=== PATIENT | female | born 1950 | race Caucasian/White ===

== ENCOUNTER 2017-04-08 17:16 | Inpatient (IN) ==
[2017-04-08] MEDS ORDERED: SODIUM CHLORIDE 0.9% 500 ML IV STA (18:15)
[2017-04-08] MEDS ORDERED: LEVOFLOXACIN INJ 750 MG in PREMIX 1 EACH IV STA ×2 (18:15→20:25)
[2017-04-08] MEDS ORDERED: ALBUTEROL 2.5 MG/3 ML NEB RESP TX STA (18:15)
[2017-04-08 18:33] LABS: Basophils % 0.2 % (0.0-0.8); Hematocrit 31.1 VOL% (35.7-47.0); Hemoglobin 10.5 GM/DL (12.0-16.0); Immature Granulocytes % 0.6 %; Immature Granulocytes Absolute 0.11 #; Lymphocytes # 0.5 10*3/uL (1.4-4.0); Mean Corpuscular HGB Conc 33.8 GM/DL (32-36); Mean Corpuscular Hemoglobin 30 PG (27-34); Mean Corpuscular Volume 89.9 FL (87-102); Mean Platelet Volume 11.2 FL (9.6-12.0); Monocytes # 0.8 10*3/uL (0.11-0.8); Monocytes % 4.5 % (1.7-12.7); Neutrophils # 16.2 10*3/uL (1.4-7.4); Neutrophils % 91.7 % (38.7-73.9); Platelet Count 208 T/CUMM (130-400); Red Blood Count 3.46 MC/CUMM (3.8-5.5); Red Cell Distribution Width 14.6 % (9.3-17.3); White Blood Count 17.7 T/CUMM (4-12)
--- NOTE | 2017-04-08 18:34 | XRay Report ---
Portable chest. Indication: Shortness of breath. Cough, fever. The heart is normal in size. Post median sternotomy. Calcific plaque is present within the aortic knob. The pulmonary vasculature is normal. There are bilateral alveolar infiltrates involving the mid and lower lung dhillon. No pneumothorax or pleural effusion. Degenerative changes of the spinal column and shoulders. Impression: Development of bilateral infiltrates suggesting pulmonary edema versus pneumonia. PROCEDURE INTERPRETED AT [facility] DEPARTMENT OF RADIOLOGY Final Report Signed by: Dr. Ana Hickey
[2017-04-08] MEDS ORDERED: LEVOFLOXACIN INJ 150 ML IV ONE (18:51)
[2017-04-08 18:57] LABS: Calcium 8.9 MG/DL (8.5-10.1); Osmolality,Calculated 279.4 MOS/KG (273-304); Potassium 4.2 MMOL/L (3.5-5.1)
--- NOTE | 2017-04-08 19:03 | Emergency Department Note ---
Naresh Silverio Hilary, am scribing for, and in the presence of, Dylan Merino MD 18:22. Wilber Silverio Robert M, MD, personally performed the services described in this documentation, ascribed by Maricruz Infante in my presence, and it is both accurate and complete [id number] . Arrival - Arrival Chief Complaint: Upper Respiratory Stated Complaint: CHEST PAINS/SOB/BACK PAIN/COUGHING ED Nursing Triage Note: Pt c/o lower back/chest pain, cough, fever, chills, and SOB x 2 days. Mode of Arrival: Wheelchair Limitations: No Limitations Source: Patient, RN Notes Reviewed Time Seen by Provider: 04/08/17 18:15 - History of Present Illness HPI Narrative: Pt is a 67 y/o female presenting to the ED with c/o SOB which onset 2 days ago. Pt confirms SOB, coughing and chronic back pain. Pt states that she goes to the pain clinic for her back but she hasn't been able to get over there. She states that she feels like she is being smothered. No other complaints or problems stated in the ED. Onset (ago): day(s) Consistency: constant Severity: mild Severity scale (1-10): 2 Allergies/Adverse Reactions: Allergies Allergy/AdvReac Type Severity Reaction Status Date / Time clarithromycin [From Biaxin] Allergy Severe THROAT Verified 12/08/16 06:28 SWELLING/DIFFICULTY BREATHING Penicillins Allergy Severe THROAT Verified 12/08/16 06:28 SWELLING/DIFFICULTY BREATHING pentazocine [From Talwin] Allergy Severe THROAT Verified 12/08/16 06:28 SWELLING/DIFFICULTY BREATHING Home Medications: Home Medications Medication Instructions Recorded Confirmed Type Pantoprazole Tab [Protonix Tab] 40 mg PO DAILY tablet 03/02/16 04/08/17 Rx Potassium Chloride Cap/Tab [K Dur] 20 meq PO DAILY tablet 03/02/16 04/08/17 Rx Pravastatin [Pravachol] 40 mg PO BEDTIME tablet 03/02/16 04/08/17 Rx cloNIDine TAB [Catapres Tab] 0.1 mg PO BID tablet 03/02/16 04/08/17 Rx OXcarbazepine [Trileptal] 300 mg PO BID #60 tablet 03/25/16 04/08/17 Rx Aspirin [Ecotrin] 325 mg PO DAILY 05/13/16 04/08/17 History Gabapentin 300 mg PO BID 05/13/16 04/08/17 History Colchicine [Colcrys] 0.6 mg PO BID #60 tablet 06/02/16 04/08/17 Rx Fluoxetine HCl [Prozac] 80 mg PO DAILY 12/07/16 04/08/17 History Furosemide Tab [Lasix Tab] 40 mg PO DAILY 12/07/16 04/08/17 History Levothyroxine Tab [Synthroid Tab] 125 mcg PO DAILY 12/07/16 04/08/17 History Promethazine HCl 25 mg PO DAILY PRN 12/07/16 04/08/17 History amLODIPine [Norvasc] 2.5 mg PO DAILY 12/07/16 04/08/17 History Insulin NPH/Regular 70/30 [HumuLIN 12 unit SUBCUT BID 04/08/17 04/08/17 History 70/30] hydrALAZINE TAB [Apresoline Tab] 50 mg PO TID 04/08/17 04/08/17 History Review of System - Review of System 12 point system: reviewed and no additional remarkable complaints except as stated - Review of System Constitutional: Absent: fever Respiratory: Present: cough, respiratory distress (SOB) Gastrointestinal: Absent: abdominal pain Musculoskeletal: Present: back pain (chronic) Medical,Surgical,& Family Hx - Medical History Cardio: History of: CAD, Hypertension, MA, Cardiovascular Problems (cabg; 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) Psychological: History of: Anxiety Disorders, Bipolar Disorder, Depression, Psychiatric Problems No history of: Behavior Problems, Violent Behavior Neurology: History of: Cerebrovascular Accident (SEVERAL STROKES), Dementia, Migraine Endocrine: History of: Diabetes Mellitus (IDDM), Dyslipidemia, Thyroid Disorder Rheumatology: History of;: Gout, Rheumatoid Arthritis Respiratory: History of: Asthma, Bronchitis, COPD, Intubation, Pneumonia (2015 most recent.; Hx Pneum Vac) Renal: History of: Renal Failure (NO DIALYSIS) Genitourinary: History of: Bladder Problem Gastrointestinal: History of: GERD Musculoskeletal: History of: Degenerative Disk Disease, Herniated Disk, Musculoskeletal Problems Hematology: History of: Anemia No history of: Blood Transfusion Reaction, Blood Disorders - Surgical History Cardiac Surgeries: Sugical HX of: Cardiac Catheterization (CABGx1-years ago), Cardiac Surgery (mitral valve replacement) Thoracic Surgeries: Patient denies;: Organ Transplant Reproductive Surgeries: Surgical HX of;: Gynecologic Surgery, Hysterectomy ( complete) Orthopedic Surgeries: Surgical HX of;: Orthopedic Surgery (RKS) Patient denies;: Spinal Surgery - Family History Family History: Reports;: Family Diabetes, Family Heart Disease (Father- MA, mother- MA), Family Hypertension (FATHER), Family Psychiatric Problems ( BROTHERS X2 NERVOUS BREAKDOWN) Denies;: Family Anesthesia Reaction, Family Stroke - Social History Smoking Status: Current every day smoker Exam Vital Signs: Vital Signs Temperature 101.3 F H 04/08/17 17:59 Pulse Rate 84 04/08/17 17:59 Respiratory Rate 16 04/08/17 18:30 Blood Pressure 126/73 04/08/17 17:59 O2 Sat by Pulse Oximetry 96 04/08/17 17:55 - General General appearance: alert, in no apparent distress, obese - Head Head exam: Present: atraumatic, normocephalic - Eye Eye exam: Present: normal appearance, PERRL, EOMI - ENT ENT exam: Present: mucous membranes moist, TM's normal bilaterally. Absent: mucous membranes dry - Neck Neck exam: Present: full ROM, trachea midline. Absent: tenderness - Chest Chest inspection: Present: symmetric chest wall rise. Absent: tenderness - Respiratory Respiratory exam: Present: wheezes (faint, more in the lower right) - Cardiovascular Cardiovascular exam: Present: regular rate, normal rhythm, normal heart sounds. Absent: murmur, rubs, gallop - Abdominal Exam Abdominal exam: Present: soft, normal bowel sounds. Absent: distention, tenderness - Extremities Exam Extremities exam: Present: full ROM. Absent: tenderness - Back Exam Back exam: Present: full ROM. Absent: tenderness - Neurological Exam Neurological exam: Present: alert, oriented X3, CN II-XII intact. Absent: motor sensory deficit - Psychiatric Psychiatric exam: Present: normal affect, normal mood - Skin Skin exam: Present: warm, dry, intact, normal color. Absent: rash Course - Consultations Consultation #1: Dr. Fred Benítez will admit to Dr. Faust. Time: 20:12 Results - Labs CBC & BMP: 04/08/17 18:27 04/08/17 18:27 Lab Results: I have reviewed the patients labs Labs: Lab Results WBC 17.7 T/CUMM (4-12) H 04/08/17 18: RBC 3.46 MC/CUMM (3.8-5.5) L 04/08/17 18: Hgb 10.5 GM/DL (12.0-16.0) L 04/08/17 18: Hct 31.1 VOL% (35.7-47.0) L 04/08/17 18: MCV 89.9 FL (87-102) 04/08/17 18: MCH 30 PG (27-34) 04/08/17 18: MCHC 33.8 GM/DL (32-36) 04/08/17 18: RDW 14.6 % (9.3-17.3) 04/08/17 18: Plt Count 208 T/CUMM (130-400) 04/08/17 18: MPV 11.2 FL (9.6-12.0) 04/08/17 18: Neut % (Auto) 91.7 % (38.7-73.9) H 04/08/17 18: Lymph % (Auto) 3.0 % (21.3-54.2) L 04/08/17 18: [place]ferro % (Auto) 4.5 % (1.7-12.7) 04/08/17 18: Eos % (Auto) 0.0 % (0.00-10.9) 04/08/17 18: Baso % (Auto) 0.2 % (0.0-0.8) 04/08/17 18: Neut # (Auto) 16.2 10*3/uL (1.4-7.4) H 04/08/17 18: Lymph # (Auto) 0.5 10*3/uL (1.4-4.0) L 04/08/17 18: [place]ferro # (Auto) 0.8 10*3/uL (0.11-0.8) 04/08/17 18: Eos # (Auto) 0.0 10*3/uL (0.0-0.87) 04/08/17 18: Baso # (Auto) 0.0 10*3/uL (0.0-0.2) 04/08/17 18: Immature Gran % 0.6 % 04/08/17 18:27 Nucleated RBC % 0.0 /100WBC 04/08/17 18:27 Immature Gran # 0.11 # 04/08/17 18:27 Nucleated RBCs # 0.00 10*3/uL 04/08/17 18:27 Sodium 133 MMOL/L (136-145) L 04/08/17 18:27 Potassium 4.2 MMOL/L (3.5-5.1) 04/08/17 18:27 Chloride 103 MMOL/L (98-107) 04/08/17 18:27 Carbon Dioxide 17 MMOL/L (21-32) L 04/08/17 18:27 Anion Gap 17.2 MMOL/L (5.0-15.0) H 04/08/17 18:27 BUN 50 MG/DL (7-18) H 04/08/17 18:27 Creatinine 2.80 MG/DL (0.55-1.02) H 04/08/17 18:27 GFR Calculation 18 ML/MIN 04/08/17 18:27 BUN/Creatinine Ratio 17.00 RATIO (6.00-20.00) 04/08/17 18:27 Glucose 114 MG/DL (74-106) H 04/08/17 18:27 Calculated Osmolality 279.4 MOS/KG (273-304) 04/08/17 18:27 Calcium 8.9 MG/DL (8.5-10.1) 04/08/17 18:27 - Diagnostic Findings Procedure: Chest x-ray: report reviewed by me (Bibasilar pneumonia) Disposition Clinical Impression: Bibasilar pneumonia, Hypertension, Type 2 diabetes mellitus, Chronic kidney disease, stage III (moderate) Case discussed with: patient, patient's family Disposition: Still a Patient Condition: Stable Time of Disposition: 20:12
[2017-04-08] MEDS ORDERED: KETOROLAC 30 MG/1 ML VIAL IV STA (20:15)
[2017-04-08 20:17] LABS: Band Neutrophils 1 % (0-10); Lymphocytes 3 % (20-55); Platelet Estimate Normal; Segmented Neutrophils 93 % (50-85); Total Cells Counted 100
[2017-04-08] MEDS ORDERED: KETOROLAC 30 MG/1 ML VIAL ONE (20:18)
[2017-04-08] MEDS ORDERED: GLUCAGON 1 MG VIAL IM PRN (20:19)
[2017-04-08] MEDS ORDERED: DEXTROSE 50% 25 GM/50 ML VIAL IV PRN (20:19)
[2017-04-08] MEDS ORDERED: traMADol 50 MG TABLET PO PRN (20:19)
[2017-04-08] MEDS: DOCUSATE SODIUM 100 MG CAPSULE PO SCH (21:08)
[2017-04-08] MEDS: oxyCODONE/ACETAMINOPHEN 5-325 MG TABLET PO PRN (22:30)
[2017-04-08] MEDS: INSULIN REGULAR 100 UNIT/ML SUBCUT SCH (22:36)
[2017-04-09] MEDS: oxyCODONE/ACETAMINOPHEN 5-325 MG TABLET PO PRN (04:41)
[2017-04-09] MEDS ORDERED: MORPHINE 2 MG/1 ML SYRINGE ONE (07:02)
[2017-04-09] MEDS: MORPHINE 2 MG/1 ML SYRINGE IV PRN ×3 (07:07→11:31)
[2017-04-09] MEDS ORDERED: NITROGLYCERIN SL 0.4 MG TABLET SL ONE (07:09)
[2017-04-09] MEDS ORDERED: ASPIRIN 325 MG TABLET ONE (07:09)
--- NOTE | 2017-04-09 07:17 | EKG Report ---
Stationary ECG Study 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
[2017-04-09] MEDS ORDERED: methylPREDNISolone SOD SUC 125 MG/2 ML VIAL IV ONE (07:26)
[2017-04-09] MEDS ORDERED: ALBUTEROL/IPRATROPIUM 3 ML NEB RESP TX ONE (07:27)
[2017-04-09] MEDS ORDERED: FUROSEMIDE 40 MG/4 ML VIAL ONE (07:28)
[2017-04-09] MEDS ORDERED: FUROSEMIDE 40 MG/4 ML VIAL IM ONE (07:30)
[2017-04-09 07:50] LABS: ABG Base Excess -9.5 MMOL/L (-2.5-2.5); ABG HCO3 16.8 MMOL/L (20-26); ABG Oxygen Saturation 97.9 % (95-100); ABG PCO2 29.7 MM HG (35-48); ABG PH 7.325 (7.35-7.45); ABG TCO2 14.3 MMOL/L (23-27); Allen Test Positive
--- NOTE | 2017-04-09 07:51 | XRay Report ---
XR chest 1V portable Indication: SOB Comparison: Chest x-ray dated April 08, 2017 Technique: Single frontal view of the chest. Findings: Continued cardiomegaly status post sternotomy. Progression of consolidation within the bilateral upper lungs, left greater than right. Minimally improved consolidation within the bilateral mid and lower lungs with a moderate amount remaining. Visualized osseous and surrounding soft tissue structures appear grossly unchanged. IMPRESSION: As above. PROCEDURE INTERPRETED AT [facility] DEPARTMENT OF RADIOLOGY Final Report Signed by: Dr Jarod Trujillo
[2017-04-09 08:08] LABS: Troponin I Only 0.049 NG/ML (0.00-0.045)
--- NOTE | 2017-04-09 08:12 | Internal Med History&Physical ---
Assessment and Plan (1) Shortness of breath Status: Acute Assessment and plan: 67-year-old female admitted to acute care * Acute shortness of breath. It is multifactorial possibly related to pneumonia and congestive heart failure. Patient developed oxygen desaturation while on floor. She was moved to ICU. She has been started on 100% nonrebreather. Patient was given IV Lasix. She has been started on nebulizer treatment along with antibiotics and steroids. Will consult pulmonary medicine. She continues to smoke as mentioned above * Coronary artery disease. She had chest pain. Her initial enzymes are mildly elevated. It could be secondary to renal insufficiency. Will do serial enzymes and consult cardiology. Will get an echocardiogram * Chronic renal failure. It is partly secondary to noncompliance with and out catheterization. Patient has neurogenic bladder and has been recommended to do in and out catheterization at least 4 times a day. A Johnson catheter has been placed. * Hypothyroidism. Will check TSH on the patient. We will continue her medication * Bipolar disorder. Continue current medicines * Chronic pain syndrome. She is followed by Dr. Abbasi. * Diabetic neuropathy. Will continue current medications. * Patient's condition is guarded. No family is present Current Visit: Yes (2) Chest pain Status: Acute Current Visit: Yes (3) Chronic kidney disease, stage III (moderate) Status: Acute Current Visit: Yes (4) Hypertension Status: Acute Current Visit: Yes (5) Type 2 diabetes mellitus Status: Acute Current Visit: Yes (6) Acute respiratory failure with hypoxemia Status: Acute Current Visit: No (7) Bilateral pneumonia Status: Acute Current Visit: No (8) Bipolar 1 disorder, depressed Status: Acute Current Visit: No (9) Bipolar 1 disorder, depressed Status: Acute Current Visit: No (10) Bipolar disorder Status: Acute Current Visit: No (11) Bronchospasm Status: Acute Current Visit: No (12) COPD (chronic obstructive pulmonary disease) Status: Acute Current Visit: No (13) Chest pain Status: Acute Current Visit: No (14) Chronic back pain Status: Acute Current Visit: No (15) Chronic renal failure Status: Acute Current Visit: No (16) Chronically on opiate therapy Status: Acute Current Visit: No (17) Cognitive decline Status: Acute Current Visit: No (18) Congestive heart failure Status: Acute Current Visit: No (19) Constipation Status: Acute Current Visit: No (20) Coronary artery disease Status: Acute Current Visit: No (21) Debility Status: Acute Current Visit: No (22) Depression Status: Acute Current Visit: No (23) Depression Status: Acute Current Visit: No (24) Diabetes mellitus Status: Acute Current Visit: No (25) Drug overdose Problem details: I agree with the current plan of care. I will stop giving her oral narcotics at home I agree with the psychiatric consult Status: Acute Current Visit: No (26) Headache Status: Acute Current Visit: No (27) Hyperlipidemia Status: Acute Current Visit: No (28) Hyponatremia Status: Acute Current Visit: No (29) Hypothyroidism Status: Acute Current Visit: No (30) Hypothyroidism Status: Acute Current Visit: No (31) Laceration of scalp Status: Acute Current Visit: No (32) Left upper lobe pneumonia Status: Acute Current Visit: No (33) Mood disorder Status: Acute Current Visit: No (34) Neurogenic bladder Status: Acute Current Visit: No (35) Neurogenic bladder Status: Acute Current Visit: No (36) Noncompliance with medications Status: Acute Current Visit: No (37) Oral candidiasis Status: Acute Current Visit: No (38) Pneumonia Status: Acute Current Visit: No (39) Pneumonia involving left lung Status: Acute Current Visit: No (40) Renal insufficiency Status: Acute Current Visit: No (41) Severe anemia Status: Acute Current Visit: No (42) Sinus bradycardia Status: Acute Current Visit: No (43) Symptomatic anemia Status: Acute Current Visit: No (44) Type 2 diabetes mellitus Status: Acute Current Visit: No (45) UTI (urinary tract infection) Status: Acute Current Visit: No (46) Urinary tract infection Status: Acute Current Visit: No (47) dangerousness Status: Acute Current Visit: No (48) poor coping skills Status: Acute Current Visit: No (49) Abnormal ECG Status: Chronic Current Visit: No (50) Coronary artery disease Status: Chronic Current Visit: No (51) Renal insufficiency Status: Chronic Current Visit: No (52) Edema Status: Resolved Current Visit: No History of Present Illness Chief complaint: Shortness of breath and chest pain History of present illness: Ms. Cardenas is a 67 year old female with history of multiple medical problems including coronary artery disease, status post CABG, hypertension, diabetes, hyperlipidemia, bipolar disorder, hypothyroidism, chronic renal insufficiency, chronic pain syndrome. She was brought to the emergency room with chest pain associated with shortness of breath, back and chest pain. She has had cough with fever and chills along with shortness of breath for 2 days. She was feeling like she was being smothered. She denied any nausea or vomiting. Patient has been a chronic smoker all her life. She lives at home with her . She has been noncompliant with her medications in the past. Home Medications Medication Instructions Recorded Confirmed Type Pantoprazole Tab [Protonix Tab] 40 mg PO DAILY tablet 03/02/16 04/08/17 Rx Potassium Chloride Cap/Tab [K Dur] 20 meq PO DAILY tablet 03/02/16 04/08/17 Rx Pravastatin [Pravachol] 40 mg PO BEDTIME tablet 03/02/16 04/08/17 Rx cloNIDine TAB [Catapres Tab] 0.1 mg PO BID tablet 03/02/16 04/08/17 Rx OXcarbazepine [Trileptal] 300 mg PO BID #60 tablet 03/25/16 04/08/17 Rx Aspirin [Ecotrin] 325 mg PO DAILY 05/13/16 04/08/17 History Gabapentin 300 mg PO BID 05/13/16 04/08/17 History Colchicine [Colcrys] 0.6 mg PO BID #60 tablet 06/02/16 04/08/17 Rx Fluoxetine HCl [Prozac] 80 mg PO DAILY 12/07/16 04/08/17 History Furosemide Tab [Lasix Tab] 40 mg PO DAILY 12/07/16 04/08/17 History Levothyroxine Tab [Synthroid Tab] 125 mcg PO DAILY 12/07/16 04/08/17 History Promethazine HCl 25 mg PO DAILY PRN 12/07/16 04/08/17 History amLODIPine [Norvasc] 2.5 mg PO DAILY 12/07/16 04/08/17 History Insulin NPH/Regular 70/30 [HumuLIN 12 unit SUBCUT BID 04/08/17 04/08/17 History 70/30] hydrALAZINE TAB [Apresoline Tab] 50 mg PO TID 04/08/17 04/08/17 History Allergies Allergy/AdvReac Type Severity Reaction Status Date / Time clarithromycin [From Biaxin] Allergy Severe THROAT Verified 12/08/16 06:28 SWELLING/DIFFICULTY BREATHING Penicillins Allergy Severe THROAT Verified 12/08/16 06:28 SWELLING/DIFFICULTY BREATHING pentazocine [From Talwin] Allergy Severe THROAT Verified 12/08/16 06:28 SWELLING/DIFFICULTY BREATHING Medical,Surgical,& Family Hx - Medical History Cardio: History of: CAD, Hypertension, MA, Cardiovascular Problems (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; 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) Psychological: History of: Anxiety Disorders, Bipolar Disorder, Depression, Psychiatric Problems No history of: Behavior Problems, Violent Behavior Neurology: History of: Cerebrovascular Accident (SEVERAL STROKES), Dementia, Migraine Endocrine: History of: Diabetes Mellitus (IDDM), Dyslipidemia, Thyroid Disorder Rheumatology: History of;: Gout, Rheumatoid Arthritis Respiratory: History of: Asthma, Bronchitis, COPD, Intubation, Pneumonia (2015 most recent.; Hx Pneum Vac) Renal: History of: Renal Failure (NO DIALYSIS) Genitourinary: History of: Bladder Problem Gastrointestinal: History of: GERD Musculoskeletal: History of: Degenerative Disk Disease, Herniated Disk, Musculoskeletal Problems Hematology: History of: Anemia No history of: Blood Transfusion Reaction, Blood Disorders - Surgical History Cardiac Surgeries: Sugical HX of: Cardiac Catheterization (CABGx1-years ago), Cardiac Surgery (mitral valve replacement) Thoracic Surgeries: Patient denies;: Organ Transplant Reproductive Surgeries: Surgical HX of;: Gynecologic Surgery, Hysterectomy ( complete) Orthopedic Surgeries: Surgical HX of;: Orthopedic Surgery (RKS) Patient denies;: Spinal Surgery - Family History Family History: Reports;: Family Diabetes, Family Heart Disease (Father- MA, mother- MA), Family Hypertension (FATHER), Family Psychiatric Problems ( BROTHERS X2 NERVOUS BREAKDOWN) Denies;: Family Anesthesia Reaction, Family Stroke - Social History Smoking Status: Current every day smoker Frequency of Alcohol Use: None Type of Drug Use: None Marital Status: Lives With:: Spouse Functional capacity: uses cane/walker 12 point system: reviewed and no additional remarkable complaints except as stated (As mentioned in HPI) - Constitutional Constitutional: Present: fatigue, fever(s), other (Not feeling well) Exam - Constitutional Vitals: Period Temp Pulse Resp BP Sys/Meek Pulse Ox Last 24 Hr 98.3 F-101.3 F 72-85 16-24 126-205/49-77 89-100 Results - Labs CBC & BMP: 04/08/17 18:27 04/08/17 18:27 Lab Results: I have reviewed the past 24 hour labs
[2017-04-09] MEDS: methylPREDNISolone SOD SUC 125 MG/2 ML VIAL IV SCH ×3 (08:26→20:52)
[2017-04-09] MEDS: INSULIN REGULAR 100 UNIT/ML SUBCUT SCH ×4 (08:31→20:52)
[2017-04-09] MEDS ORDERED: PANTOPRAZOLE 40 MG TABLET PO SCH (09:00)
[2017-04-09] MEDS: FLUoxetine 20 MG CAPSULE PO SCH (09:07)
[2017-04-09] MEDS: DOCUSATE SODIUM 100 MG CAPSULE PO SCH ×2 (09:09→20:52)
[2017-04-09] MEDS: ASPIRIN EC 325 MG TABLET PO SCH (09:09)
[2017-04-09] MEDS: PANTOPRAZOLE 40 MG TABLET PO SCH (09:10)
[2017-04-09] MEDS: LEVOTHYROXINE 125 MCG TABLET PO SCH (09:10)
[2017-04-09] MEDS: POTASSIUM CHLORIDE 20 MEQ TABLET PO SCH (09:11)
[2017-04-09] MEDS: ALPRAZolam 0.25 MG TABLET PO PRN ×2 (09:14→14:25)
[2017-04-09] MEDS: OXcarbazepine 300 MG TABLET PO SCH ×2 (09:14→20:52)
[2017-04-09] MEDS: ENOXAPARIN 30 MG/0.3 ML SYRINGE SUBCUT SCH (09:15)
[2017-04-09 09:16] LABS: Basophils % 0.3 % (0.0-0.8); Eosinophils # 0.1 10*3/uL (0.0-0.87); Eosinophils % 0.9 % (0.00-10.9); Hematocrit 30.2 VOL% (35.7-47.0); Immature Granulocytes % 1.1 %; Immature Granulocytes Absolute 0.13 #; Lymphocytes # 0.7 10*3/uL (1.4-4.0); Lymphocytes % 5.9 % (21.3-54.2); Mean Corpuscular HGB Conc 33.1 GM/DL (32-36); Mean Corpuscular Hemoglobin 30 PG (27-34); Mean Corpuscular Volume 90.7 FL (87-102); Mean Platelet Volume 10.8 FL (9.6-12.0); Monocytes # 0.5 10*3/uL (0.11-0.8); Monocytes % 4.1 % (1.7-12.7); Neutrophils # 10.4 10*3/uL (1.4-7.4); Neutrophils % 87.7 % (38.7-73.9); Platelet Count 152 T/CUMM (130-400); Red Blood Count 3.33 MC/CUMM (3.8-5.5); Red Cell Distribution Width 14.2 % (9.3-17.3); White Blood Count 11.8 T/CUMM (4-12)
[2017-04-09 09:37] LABS: Band Neutrophils 7 % (0-10); Lymphocytes 6 % (20-55); Segmented Neutrophils 86 % (50-85); Total Cells Counted 100
[2017-04-09 09:38] LABS: Hypochromasia Slight; Platelet Estimate Adequate
[2017-04-09 10:05] LABS: Blood Urea Nitrogen 55 MG/DL (7-18); Calcium 8.6 MG/DL (8.5-10.1); Glucose 106 MG/DL (74-106); Osmolality,Calculated 278.5 MOS/KG (273-304); Potassium 3.9 MMOL/L (3.5-5.1); Sodium 132 MMOL/L (136-145)
--- NOTE | 2017-04-09 10:05 | Pulmonology Consult Note ---
Assessment and Plan (1) Bilateral pneumonia Status: Acute Assessment and plan: Patient does have acute shortness of breath and bilateral infiltrates. Certainly some of this may be pneumonia. She will be covered with antibiotics. Current Visit: No (2) Congestive heart failure Status: Acute Assessment and plan: Some of this is probably heart failure and she seems to be diuresing well. Current Visit: No (3) COPD (chronic obstructive pulmonary disease) Status: Chronic Assessment and plan: The patient is a smoker and has a component of COPD. She will continue with respiratory therapy. Current Visit: No (4) Acute respiratory failure with hypoxemia Status: Acute Assessment and plan: The patient has respiratory distress but is doing better with treatment. She is comfortable with increased FiO2. Current Visit: No (5) History of coronary artery bypass graft x 1 Status: Chronic Assessment and plan: The patient has known coronary artery disease. Current Visit: Yes (6) Hypertension Status: Chronic Assessment and plan: She will continue treatment of her high blood pressure. Current Visit: Yes (7) Renal insufficiency Status: Chronic Assessment and plan: Her creatinine is 2.9. Current Visit: No History of Present Illness Chief complaint: Shortness of breath History of present illness: Ms. Cardenas is a 67 year old white female that apparently has a long history of coronary artery disease and has had previous bypass surgery. She has a history of diabetes, hypertension, hyperlipidemia, hypothyroidism and a bipolar disorder with pain problems. She comes in with increasing shortness of breath for the last few days. She has had a cough but not much sputum production. She has some vague chest pain and she does think she has a little bit of fever and chills. She is mainly been short of breath. She was admitted last night but moved to the ICU today. She was having more respiratory distress but her O2 saturations have been adequate. She has developed bilateral infiltrates. She may have some mild heart failure. She seems to be diuresing well now and her oxygenation is better. Home Medications Medication Instructions Recorded Confirmed Type Pantoprazole Tab [Protonix Tab] 40 mg PO DAILY tablet 03/02/16 04/08/17 Rx Potassium Chloride Cap/Tab [K Dur] 20 meq PO DAILY tablet 03/02/16 04/08/17 Rx Pravastatin [Pravachol] 40 mg PO BEDTIME tablet 03/02/16 04/08/17 Rx cloNIDine TAB [Catapres Tab] 0.1 mg PO BID tablet 03/02/16 04/08/17 Rx OXcarbazepine [Trileptal] 300 mg PO BID #60 tablet 03/25/16 04/08/17 Rx Aspirin [Ecotrin] 325 mg PO DAILY 05/13/16 04/08/17 History Gabapentin 300 mg PO BID 05/13/16 04/08/17 History Colchicine [Colcrys] 0.6 mg PO BID #60 tablet 06/02/16 04/08/17 Rx Fluoxetine HCl [Prozac] 80 mg PO DAILY 12/07/16 04/08/17 History Furosemide Tab [Lasix Tab] 40 mg PO DAILY 12/07/16 04/08/17 History Levothyroxine Tab [Synthroid Tab] 125 mcg PO DAILY 12/07/16 04/08/17 History Promethazine HCl 25 mg PO DAILY PRN 12/07/16 04/08/17 History amLODIPine [Norvasc] 2.5 mg PO DAILY 12/07/16 04/08/17 History Insulin NPH/Regular 70/30 [HumuLIN 12 unit SUBCUT BID 04/08/17 04/08/17 History 70/30] hydrALAZINE TAB [Apresoline Tab] 50 mg PO TID 04/08/17 04/08/17 History Allergies Allergy/AdvReac Type Severity Reaction Status Date / Time clarithromycin [From Biaxin] Allergy Severe THROAT Verified 12/08/16 06:28 SWELLING/DIFFICULTY BREATHING Penicillins Allergy Severe THROAT Verified 12/08/16 06:28 SWELLING/DIFFICULTY BREATHING pentazocine [From Talwin] Allergy Severe THROAT Verified 12/08/16 06:28 SWELLING/DIFFICULTY BREATHING - Constitutional Constitutional: Present: chills, fatigue, fever(s), weakness. Absent: weight loss - EENT Eyes: Absent: loss of vision Ears: Absent: decreased hearing Nose, mouth and throat: Absent: dysphagia, headache(s), sinus pressure - Cardiovascular Cardiovascular: Present: chest pain at rest, dyspnea, orthopnea. Absent: edema - Respiratory Respiratory: Present: cough, dyspnea, change in phlegm color. Absent: hemoptysis - Gastrointestinal Gastrointestinal: Absent: abdominal pain, change in bowel habits, dysphagia, nausea, vomiting - Genitourinary Genitourinary: Present: difficulty urinating. Absent: dysuria, hematuria - Musculoskeletal Musculoskeletal: Present: arthralgias, back pain. Absent: muscle weakness - Neurological Neurological: Absent: abnormal speech, focal weakness, paresthesias - Psychiatric Psychiatric: Present: anxiety Exam (Pulmonay) H&P - Constitutional Vitals: Period Temp Pulse Resp BP Sys/Meek Pulse Ox Last 24 Hr 98.3 F-101.3 F 72-95 16-28 107-205/49-89 89-100 General appearance: normal weight, mild distress, other (She is not short of breath but looks comfortable on oxygen) - Head Head exam: Present: normal inspection, normocephalic - Eye Eye exam: Present: EOMI. Absent: scleral icterus Pupils: Present: ROBERTO CARLOS - ENT ENT exam: Present: normal exam - Neck Neck exam: Present: normal inspection. Absent: lymphadenopathy, thyromegaly - Respiratory Respiratory exam: Present: accessory muscle use, rales, rhonchi, other (The patient does have bilateral crackles) - Cardiovascular Cardiovascular exam: Present: regular rate and rhythm. Absent: gallop, systolic murmur - GI/Abdominal GI/Abdominal exam: Present: normal bowel sounds, soft. Absent: distended, organomegaly, tenderness - Extremities Exam Extremities exam: Absent: calf tenderness, edema - Neurological Exam Neurological exam: Present: alert, oriented X3, CN II-XII intact - Psychiatric Psychiatric exam: Present: anxious - Skin Skin exam: Present: warm, dry Medical,Surgical,& Family Hx - Medical History Cardio: History of: CAD, Hypertension, [place], Cardiovascular Problems (cabg; [employer]-No longer sees one) Psychological: History of: Anxiety Disorders, Bipolar Disorder, Depression, Psychiatric Problems No history of: Behavior Problems, Violent Behavior Neurology: History of: Cerebrovascular Accident (SEVERAL STROKES), Dementia, Migraine Endocrine: History of: Diabetes Mellitus (IDDM), Dyslipidemia, Thyroid Disorder Rheumatology: History of;: Gout, Rheumatoid Arthritis Respiratory: History of: Asthma, Bronchitis, COPD, Intubation, Pneumonia (2015 most recent.; Hx Pneum Vac) Renal: History of: Renal Failure (NO DIALYSIS) Genitourinary: History of: Bladder Problem Gastrointestinal: History of: GERD Musculoskeletal: History of: Degenerative Disk Disease, Herniated Disk, Musculoskeletal Problems Hematology: History of: Anemia No history of: Blood Transfusion Reaction, Blood Disorders - Surgical History Cardiac Surgeries: Sugical HX of: Cardiac Catheterization (CABGx1-years ago), Cardiac Surgery (mitral valve replacement) Thoracic Surgeries: Patient denies;: Organ Transplant Reproductive Surgeries: Surgical HX of;: Gynecologic Surgery, Hysterectomy ( complete) Orthopedic Surgeries: Surgical HX of;: Orthopedic Surgery (RKS) Patient denies;: Spinal Surgery - Family History Family History: Reports;: Family Diabetes, Family Heart Disease (Father- [place], mother- [place]), Family Hypertension (FATHER), Family Psychiatric Problems ( BROTHERS X2 NERVOUS BREAKDOWN) Denies;: Family Anesthesia Reaction, Family Stroke - Social History Smoking Status: Current every day smoker Frequency of Alcohol Use: None Type of Drug Use: None Results - Labs CBC & BMP: 04/09/17 09:11 04/09/17 09:11 Labs: PO2 is 103 with a PCO2 of 29 and a pH of 7.32. Troponin level slightly elevated. The B natruretic peptide is 831. - Diagnostic Findings Procedure: Chest x-ray: image reviewed by me, report reviewed by me (Chest x- ray does show bilateral infiltrates that could be pulmonary edema.)
[2017-04-09 10:07] LABS: Troponin I Only 0.122 NG/ML (0.00-0.045)
[2017-04-09 10:23] LABS: Free T4 (Free Thyroxine) 0.75 NG/DL (0.76-1.46); Thyroid Stimulating Hormone 0.024 uIU/ml (0.358-3.74)
[2017-04-09 11:05] LABS: Albumin 2.7 G/DL (3.4-5.0); Bilirubin,Total 0.6 MG/DL (0.2-1.0); Calcium 8.7 MG/DL (8.5-10.1); Osmolality,Calculated 278.5 MOS/KG (273-304); Total Protein 5.5 G/DL (6.4-8.3)
[2017-04-09] MEDS: ALBUTEROL/IPRATROPIUM 3 ML NEB RESP TX SCH ×4 (11:11→23:57)
[2017-04-09] MEDS: ONDANSETRON 4 MG/2 ML VIAL IV PRN (11:25)
[2017-04-09] MEDS ORDERED: NITROGLYCERIN 2% OINT 1 INCH/GM PACK TOP ONE (13:33)
--- NOTE | 2017-04-09 14:07 | Cardiology Consult Note ---
I, Katie Orta RN, am scribing for, and in the presence of, Ernesto Whitney MD 14:04. Assessment and Plan - Time spent with patient Time spent with patient: Greater than 30 minutes Time spent discussing smoking cessation with patient: more than 10 minutes (Due to assessment, planning, documentation, and medication review) (1) Chest pain Status: Acute Assessment and plan: I have examined and interviewed Ms. Cardenas and agree with note below. I would add the followin. 67-year-old WF with hypertension, dyslipidemia, diabetes, previous pneumonia , multiple CVAs, CKD, and previous CABG (BARRERA to LAD) in 1997 who presented with hypoxia and pneumonia with bilateral infiltrates, began having chest pain "like an elephant standing on my chest", but is quite atypical with tenderness to palpation in a pleuritic component. 2. No acute EKG changes are noted and troponin of 0.1 is not impressive given her CKD 3. She reports her chest pain lasts about 3-5 minutes at a time and is relieved with morphine "but it comes back after 30 minutes"; I will order a trial of Nitropaste. 4. Tremor on right hand/arm which reportedly is chronic with some anxiety 5. Still on facemask oxygen to maintain oxygen saturations Current Visit: No (2) Shortness of breath Status: Acute Assessment and plan: SEE PLAN OF CARE LISTED ABOVE. Current Visit: Yes (3) Bilateral pneumonia Status: Acute Assessment and plan: SEE PLAN OF CARE LISTED ABOVE. Current Visit: No (4) Chronic kidney disease, stage III (moderate) Status: Chronic Assessment and plan: SEE PLAN OF CARE LISTED ABOVE. Current Visit: Yes (5) Hypertension Status: Chronic Assessment and plan: SEE PLAN OF CARE LISTED ABOVE. Current Visit: Yes (6) Type 2 diabetes mellitus Status: Chronic Assessment and plan: SEE PLAN OF CARE LISTED ABOVE. Current Visit: Yes (7) COPD (chronic obstructive pulmonary disease) Status: Chronic Assessment and plan: SEE PLAN OF CARE LISTED ABOVE. Current Visit: No (8) Coronary artery disease Status: Chronic Assessment and plan: SEE PLAN OF CARE LISTED ABOVE. Current Visit: No (9) Hyperlipidemia Status: Chronic Assessment and plan: SEE PLAN OF CARE LISTED ABOVE. Current Visit: No (10) Hypothyroidism Status: Chronic Assessment and plan: SEE PLAN OF CARE LISTED ABOVE. Current Visit: No (11) Noncompliance with medications Status: Chronic Assessment and plan: SEE PLAN OF CARE LISTED ABOVE. Current Visit: No (12) History of coronary artery bypass graft x 1 Status: Chronic Assessment and plan: SEE PLAN OF CARE LISTED ABOVE. Current Visit: Yes History of Present Illness - Data of Consult Patient: new to practice Consult date: 04/09/17 Requesting Physician: Diogo Faust - Consult Narrative Reason for consult: CP, abn CTNI History of present illness: [employer]IMARY [employer]PING INVESTIGATOR: GÓMEZ (DOES NOT FOLLOW ROUTINELY) PCP: DR. FAUST Ms. Cardenas is a 67 year old white female with risk factor significant for: Age, hypertension, hyperlipidemia, diabetes, previously known history of CAD, and tobacco use. She does not routinely follow with cardiology, and she has a history of noncompliance. Patient has had previous CABG 1 with BARRERA [place] LAD [place] [address] Lopez. She has been a heavy smoker all her life. Past medical history includes COPD, multiple CVA, hypothyroidism, chronic kidney disease with anemia, and bipolar disorder with previous suicide attempt by narcotic overdose. She has a known history of diastolic dysfunction due to mitral and tricuspid valve dysfunction. She has chronic pain and is followed routinely by Dr. Abbasi. Patient also has recurrent pneumonia and has required multiple hospital admissions. Patient was admitted to [facility] floor after presenting to the emergency room complaining of shortness of breath for 2 days with cough, fever, chills. She also complained of some back pain and chest pain. Chest x-ray revealed by basilar pneumonia. This morning around 0640, patient reported to the nursing staff that she was having chest pain described as a "heaviness" and her oxygen saturation levels were noted to be 78% on 2 L/ NC. Nursing staff initiated heart alert, EKG was obtained with acute KS ruled out, patient was placed on 100% NRB, received 40 mg IV Lasix and 2 mg IV morphine, and she was transferred to the ICU for close observation. Stat blood work drawn. Cardiac enzymes revealed troponin 0.049 with CPK 465. BNP 831. Cardiology is now consulted for further evaluation of chest pain and volume overload. Review of old records shows patient had last cardiac catheterization in [address] Beltrán which revealed stable coronary artery disease and a widely patent BARRERA graft. She had nuclear SPECT scan approximately 1 year ago on April 06, 2016, and showed no coronary artery ischemia and normal LV systolic function with EF 69%. Patient is being seen and examined in the ICU. There is no family present at this time. She has had a Johnson catheter placed and is having moderate amount urine output. Oxygen saturation improved and 94% on 100% nonrebreather mask. BP is 148/92. Pulse rate is 90s and regular. Patient is moderately short of breath and tachypneic still, and she reports that she is having some left-sided chest pain currently described as a "pressure." She tells me that she has this chest pressure, often in the same location, which she has previously been hospitalized and treated for pneumonia. Labs reviewed. Electrolytes are within acceptable range. Creatinine 2.8 (this appears to be near baseline). H& H stable. WBC improved to 11,800 (17,700 on 04/08). ABGs noted. D-dimer is 1.9. Echocardiogram ordered and will be reviewed. CC: Diogo Faust MD - Home Medications and Allergies Home Medications: Home Medications Medication Instructions Recorded Confirmed Type Pantoprazole Tab [Protonix Tab] 40 mg PO DAILY tablet 03/02/16 04/08/17 Rx Potassium Chloride Cap/Tab [K Dur] 20 meq PO DAILY tablet 03/02/16 04/08/17 Rx Pravastatin [Pravachol] 40 mg PO BEDTIME tablet 03/02/16 04/08/17 Rx cloNIDine TAB [Catapres Tab] 0.1 mg PO BID tablet 03/02/16 04/08/17 Rx OXcarbazepine [Trileptal] 300 mg PO BID #60 tablet 03/25/16 04/08/17 Rx Aspirin [Ecotrin] 325 mg PO DAILY 05/13/16 04/08/17 History Gabapentin 300 mg PO BID 05/13/16 04/08/17 History Colchicine [Colcrys] 0.6 mg PO BID #60 tablet 06/02/16 04/08/17 Rx Fluoxetine HCl [Prozac] 80 mg PO DAILY 12/07/16 04/08/17 History Furosemide Tab [Lasix Tab] 40 mg PO DAILY 12/07/16 04/08/17 History Levothyroxine Tab [Synthroid Tab] 125 mcg PO DAILY 12/07/16 04/08/17 History Promethazine HCl 25 mg PO DAILY PRN 12/07/16 04/08/17 History amLODIPine [Norvasc] 2.5 mg PO DAILY 12/07/16 04/08/17 History Insulin NPH/Regular 70/30 [HumuLIN 12 unit SUBCUT BID 04/08/17 04/08/17 History 70/30] hydrALAZINE TAB [Apresoline Tab] 50 mg PO TID 04/08/17 04/08/17 History Allergies/Adverse Reactions: Allergies Allergy/AdvReac Type Severity Reaction Status Date / Time clarithromycin [From Biaxin] Allergy Severe THROAT Verified 12/08/16 06:28 SWELLING/DIFFICULTY BREATHING Penicillins Allergy Severe THROAT Verified 12/08/16 06:28 SWELLING/DIFFICULTY BREATHING pentazocine [From Talwin] Allergy Severe THROAT Verified 12/08/16 06:28 SWELLING/DIFFICULTY BREATHING ROS unobtainable: other Review of systems: Other than stated in HPI, ROS is unobtainable due to the fact that patient is significantly short of breath, and this is worsened with minimal conversation. At time of exam and interview, there is no family present. Medical,Surgical,& Family Hx - Medical History Cardio: History of: Cerebrovascular Disease, CAD, Hypertension, [place], Cardiovascular Problems (cabg; [employer]-No longer sees one) No history of: Pacemaker, PVD Psychological: History of: Anxiety Disorders, Bipolar Disorder, Depression, Psychiatric Problems No history of: Behavior Problems, Violent Behavior Neurology: History of: Cerebrovascular Accident (SEVERAL STROKES), Dementia, Migraine Endocrine: History of: Diabetes Mellitus (IDDM), Dyslipidemia, Thyroid Disorder Rheumatology: History of;: Gout, Rheumatoid Arthritis Respiratory: History of: Asthma, Bronchitis, COPD, Intubation, Pneumonia (2015 most recent.; Hx Pneum Vac) Renal: History of: Renal Problems (CKD) Genitourinary: History of: Bladder Problem Gastrointestinal: History of: GERD Musculoskeletal: History of: Degenerative Disk Disease, Herniated Disk, Musculoskeletal Problems Hematology: History of: Anemia No history of: Blood Transfusion Reaction, Blood Disorders - Surgical History Cardiac Surgeries: Sugical HX of: Cardiac Catheterization (CABGx1-years ago) Thoracic Surgeries: Patient denies;: Organ Transplant Reproductive Surgeries: Surgical HX of;: Gynecologic Surgery, Hysterectomy ( complete) Orthopedic Surgeries: Surgical HX of;: Orthopedic Surgery (RKS) Patient denies;: Spinal Surgery - Family History Family History: Reports;: Family Diabetes, Family Heart Disease (Father- [place], mother- [place]), Family Hypertension (FATHER), Family Psychiatric Problems ( BROTHERS X2 NERVOUS BREAKDOWN) Denies;: Family Anesthesia Reaction, Family Stroke - Social History Smoking Status: Current every day smoker Time spent discussing smoking cessation with patient: more than 10 minutes Frequency of Alcohol Use: None Type of Drug Use: None Marital Status: Lives With:: Spouse Functional capacity: uses cane/walker Physical Examination Vital Signs Temp Pulse Resp BP Pulse Ox 101.3 F H 84 24 126/73 89 L 04/08/17 17:17 04/08/17 17:17 04/08/17 17:17 04/08/17 17:17 04/08/17 17:17 General: Present: Other (chronically ill, moderate distress) HEENT: Present: PERRL, Normocephaly, Mucus Membranes Dry. Absent: Pallor Neck: Present: Supple Neck, Midline Trachea, No JVD/HJR, No Masses, No Bruit Cardiac: Present: Reg Rate and Rhythm, Systolic Murmur. Absent: Tachycardia, Bradycardia Lungs: Present: Rales - Left, Rales - Right, Scattered Rhonchi (throughout), Oxygen (100% nonrebreather mask) Neuro: Present: Resting Tremor (tremulousness of right arm; reports this is chronic), Grossly Intact. Absent: Numbness, Tingling, Weakness Abdomen: Present: Soft, Active Bowel Sounds, No Pulsations/Bruits. Absent: Ascites, Tender, Firm, Distended Skin: Present: Bruising (bruises of right FA various sizes, healing appropriately, related to previous venipuncture). Absent: Rash, Suspicious Lesions Musculoskeletal: Present: Decreased Range of Motion, No Fluid Collection Extremities: Present: No Clubbing, No Cyanosis, Normal Upper Extr. Pulses (3+ bilaterally), Normal Lower Extr. Pulses (2+ bilaterally), Edema (trace, pretibial), Cool, Capillary Refill (less than 3 seconds), Other (dry, intact) Result/EKG - Labs CBC & BMP: 04/09/17 09:11 04/09/17 09:11 Lab Results: I have reviewed the past 24 hour labs Labs: Laboratory Results - last 24 hr 04/08/17 04/08/17 04/08/17 18:27 18:27 22:18 WBC 17.7 H RBC 3.46 L Hgb 10.5 L Hct 31.1 L MCV 89.9 MCH 30 MCHC 33.8 RDW 14.6 Plt Count 208 MPV 11.2 Neut % (Auto) 91.7 H Lymph % (Auto) 3.0 L [place] % (Auto) 4.5 Eos % (Auto) 0.0 Baso % (Auto) 0.2 Neut # (Auto) 16.2 H Lymph # (Auto) 0.5 L [place] # (Auto) 0.8 Eos # (Auto) 0.0 Baso # (Auto) 0.0 Total Counted 100 Immature Gran % 0.6 Nucleated RBC % 0.0 Immature Gran # 0.11 Segmented Neutrophils 93 H Band Neutrophils 1 Lymphocytes 3 L Monocytes 3 Nucleated RBCs # 0.00 Platelet Estimate Normal Hypochromasia D-Dimer, Quantitative ABG pH ABG pCO2 ABG pO2 ABG HCO3 ABG Total CO2 ABG O2 Saturation ABG Base Excess FiO2 Sodium 133 L Potassium 4.2 Chloride 103 Carbon Dioxide 17 L Anion Gap 17.2 H BUN 50 H Creatinine 2.80 H GFR Calculation 18 BUN/Creatinine Ratio 17.00 Glucose 114 H POC Glucose 144 H Calculated Osmolality 279.4 Calcium 8.9 Total Creatine Kinase CK-MB (CK-2) Troponin I B-Natriuretic Peptide 04/09/17 04/09/17 04/09/17 07:00 07:00 07:00 WBC RBC Hgb Hct MCV MCH MCHC RDW Plt Count MPV Neut % (Auto) Lymph % (Auto) [place] % (Auto) Eos % (Auto) Baso % (Auto) Neut # (Auto) Lymph # (Auto) [place] # (Auto) Eos # (Auto) Baso # (Auto) Total Counted Immature Gran % Nucleated RBC % Immature Gran # Segmented Neutrophils Band Neutrophils Lymphocytes Monocytes Nucleated RBCs # Platelet Estimate Hypochromasia D-Dimer, Quantitative 1.9 ABG pH ABG pCO2 ABG pO2 ABG HCO3 ABG Total CO2 ABG O2 Saturation ABG Base Excess FiO2 Sodium Potassium Chloride Carbon Dioxide Anion Gap BUN Creatinine GFR Calculation BUN/Creatinine Ratio Glucose POC Glucose Calculated Osmolality Calcium Total Creatine Kinase CK-MB (CK-2) Troponin I 0.050 H B-Natriuretic Peptide 831 H 04/09/17 04/09/17 04/09/17 07:00 07:40 08:33 WBC RBC Hgb Hct MCV MCH MCHC RDW Plt Count MPV Neut % (Auto) Lymph % (Auto) [place] % (Auto) Eos % (Auto) Baso % (Auto) Neut # (Auto) Lymph # (Auto) [place] # (Auto) Eos # (Auto) Baso # (Auto) Total Counted Immature Gran % Nucleated RBC % Immature Gran # Segmented Neutrophils Band Neutrophils Lymphocytes Monocytes Nucleated RBCs # Platelet Estimate Hypochromasia D-Dimer, Quantitative ABG pH 7.325 L ABG pCO2 29.7 L ABG pO2 103.0 H ABG HCO3 16.8 L ABG Total CO2 14.3 L ABG O2 Saturation 97.9 ABG Base Excess -9.5 L FiO2 100.00 Sodium Potassium Chloride Carbon Dioxide Anion Gap BUN Creatinine GFR Calculation BUN/Creatinine Ratio Glucose POC Glucose 121 H Calculated Osmolality Calcium Total Creatine Kinase 465 H CK-MB (CK-2) 2.3 Troponin I 0.049 H B-Natriuretic Peptide 04/09/17 09:11 WBC 11.8 D RBC 3.33 L Hgb 10.0 L Hct 30.2 L MCV 90.7 MCH 30 MCHC 33.1 RDW 14.2 Plt Count 152 D MPV 10.8 Neut % (Auto) 87.7 H Lymph % (Auto) 5.9 L [place] % (Auto) 4.1 Eos % (Auto) 0.9 Baso % (Auto) 0.3 Neut # (Auto) 10.4 H Lymph # (Auto) 0.7 L [place] # (Auto) 0.5 Eos # (Auto) 0.1 Baso # (Auto) 0.0 Total Counted 100 Immature Gran % 1.1 Nucleated RBC % 0.0 Immature Gran # 0.13 Segmented Neutrophils 86 H Band Neutrophils 7 Lymphocytes 6 L Monocytes 1 L Nucleated RBCs # 0.00 Platelet Estimate Adequate Hypochromasia Slight D-Dimer, Quantitative ABG pH ABG pCO2 ABG pO2 ABG HCO3 ABG Total CO2 ABG O2 Saturation ABG Base Excess FiO2 Sodium Potassium Chloride Carbon Dioxide Anion Gap BUN Creatinine GFR Calculation BUN/Creatinine Ratio Glucose POC Glucose Calculated Osmolality Calcium Total Creatine Kinase CK-MB (CK-2) Troponin I B-Natriuretic Peptide - Diagnostic Findings Procedure: Chest x-ray: image reviewed by me, report reviewed by me - EKG EKG results: interpreted by me, no acute changes EKG shows: sinus rhythm Chelo Silverio Randall Scott, MD, personally performed the services described in this documentation, ascribed by Katie Orta RN in my presence, and it is both accurate and complete .
[2017-04-09] MEDS ORDERED: FUROSEMIDE 40 MG/4 ML VIAL IV SCH (16:00)
--- NOTE | 2017-04-09 16:11 | ECHO Report ---
Mihaela Cardenas Exam Date: 04/09/2017 11:45 Referring Physician: Technologist: Elaine Garza RDCS Age: 67 Ht (in): 64 Wt (lb): 189 Gender: F Exam Location: [facility] Echo Indications: Essential (primary) hypertension, Chest pain, unspecified, Shortness of breath, CKD III, DM, Pneumonia, Bronchospasm, Acute resp. failure with hypoxemia BP: 144 / 88 HR: 87 Rhythm: Sinus Technical Quality: IMPRESSIONS Technically adequate study 2-+3 biatrial enlargement as well as right ventricular enlargement 1-2+ concentric LVH Normal to hyperdynamic LV systolic function with ejection fraction is been be 65-70% without segmental wall motion abnormality Aortic sclerosis without stenosis Mitral annular calcification 3-4+ tricuspid regurgitation with RVSP 93 mmHg plus RAP suggesting severe pulmonary hypertension MEASUREMENTS (Male / Female) Normal Values 2D ECHO LV Diastolic Diameter PLAX 3.6 cm 4.2 - 5.9 / 3.9 - 5.3 cm LV Systolic Diameter PLAX 2.4 cm LV Fractional Shortening PLAX 33.2 % IVS Diastolic Thickness 1.2 cm 0.6 - 1.0 / 0.6 - 0.9 cm LVPW Diastolic Thickness 1.1 cm 0.6 - 1.0 / 0.6 - 0.9 cm RV Internal Dim ED PLAX 3.9 cm Aortic Root Diameter 2.7 cm LA Systolic Diameter LX 4.8 cm 3.0 - 4.0 / 2.7 - 3.8 cm DOPPLER TR Peak Velocity 482.0 cm/s TR Peak Gradient 92.9 mmHg FINDINGS Left Ventricle Normal left ventricular cavity size. Mild left ventricular hypertrophy. Left ventricular ejection fraction is estimated at 60 %. Right Ventricle Mildly increased right ventricular size. Right Atrium Moderately increased right atrial size. Left Atrium Moderately increased left atrial size. Mitral Valve Morphologically normal mitral valve without significant stenosis or prolapse. There is no mitral regurgitation. Aortic Valve Morphologically normal aortic valve without significant sclerosis or stenosis. There is no aortic regurgitation. Tricuspid Valve Morphologically normal tricuspid valve. Severe tricuspid valve regurgitation. Tricuspid regurgitation velocities suggest a PAP of 103 mmHg. Pulmonic Valve Morphologically normal pulmonic valve. [id number] pulmonary valve regurgitation. Pericardium Normal pericardium without effusion. Aorta Normal ascending aorta dimension. Ernesto Whitney (Electronically Signed) Final Date: 09 April 2017 16:10
[2017-04-09] MEDS: NITROGLYCERIN 2% OINT 1 INCH/GM PACK TOP SCH (18:10)
[2017-04-09] MEDS: PRAVASTATIN 20 MG TABLET PO SCH (20:52)
[2017-04-10] MEDS: NITROGLYCERIN 2% OINT 1 INCH/GM PACK TOP SCH ×4 (00:09→17:08)
[2017-04-10] MEDS: ALBUTEROL/IPRATROPIUM 3 ML NEB RESP TX SCH ×6 (03:13→23:47)
[2017-04-10] MEDS: methylPREDNISolone SOD SUC 125 MG/2 ML VIAL IV SCH ×4 (03:15→20:41)
[2017-04-10] MEDS: MORPHINE 2 MG/1 ML SYRINGE IV PRN ×3 (03:40→23:03)
[2017-04-10 06:14] LABS: Basophils % 0.1 % (0.0-0.8); Hematocrit 30.3 VOL% (35.7-47.0); Immature Granulocytes Absolute 0.14 #; Lymphocytes # 0.4 10*3/uL (1.4-4.0); Lymphocytes % 2.6 % (21.3-54.2); Mean Corpuscular Hemoglobin 30 PG (27-34); Mean Corpuscular Volume 90.7 FL (87-102); Mean Platelet Volume 11.4 FL (9.6-12.0); Monocytes # 0.4 10*3/uL (0.11-0.8); Neutrophils # 12.9 10*3/uL (1.4-7.4); Neutrophils % 93.3 % (38.7-73.9); Platelet Count 200 T/CUMM (130-400); Red Blood Count 3.34 MC/CUMM (3.8-5.5); Red Cell Distribution Width 14.2 % (9.3-17.3); White Blood Count 13.8 T/CUMM (4-12)
[2017-04-10 06:48] LABS: Calcium 9.3 MG/DL (8.5-10.1); Osmolality,Calculated 285.8 MOS/KG (273-304); Potassium 4.1 MMOL/L (3.5-5.1)
[2017-04-10 06:49] LABS: Troponin I Only 0.107 NG/ML (0.00-0.045)
--- NOTE | 2017-04-10 07:10 | Pulmonology Progress Note ---
Pulmonary - PN: Subj Interval history: Patient is a 67-year-old white lady that has known coronary artery disease along with diabetes, hypertension, hyperlipidemia, hypothyroidism. She is a smoker she comes in with shortness of breath and bilateral infiltrates. She had good urine output early on yesterday but is dropped off now. Her weight is down 3 kg. She has not had any further fever but she is on steroids. She still gets short of breath easily. Her chest x-ray still showed bilateral infiltrates. She has good left ventricular function with severe pulmonary hypertension. She is still requiring a high FiO2. Exam (Progress Note) - Constitutional Vitals: Period Temp Pulse Resp BP Sys/Meek Pulse Ox Last 24 Hr 97.1 F-99.2 F 73-96 18-35 99-153/42-92 88-100 Exam: General appearance: normal weight, mild distress, other (She is still anxious but reasonably comfortable on O2. ) - Head Head exam: Present: normal inspection, normocephalic - Eye Eye exam: Present: EOMI. Absent: scleral icterus Pupils: Present: ROBERTO CARLOS - ENT ENT exam: Present: normal exam - Neck Neck exam: Present: normal inspection. Absent: lymphadenopathy, thyromegaly - Respiratory Respiratory exam: Present: She has fair breath sounds bilaterally but does have bilateral rales and rhonchi. - Cardiovascular Cardiovascular exam: Present: regular rate and rhythm. Absent: gallop, systolic murmur - GI/Abdominal GI/Abdominal exam: Present: normal bowel sounds, soft. Absent: distended, organomegaly, tenderness - Extremities Exam Extremities exam: Absent: calf tenderness, edema - Neurological Exam Neurological exam: Present: alert, oriented X3, CN II-XII intact, she has a resting tremor - Psychiatric Psychiatric exam: Present: anxious - Skin Skin exam: Present: warm, dry Results - Labs CBC & BMP: 04/10/17 05:11 04/10/17 05:11 - Diagnostic Findings Procedure: Chest x-ray: image reviewed by me, report reviewed by me (Chest x- ray still shows bilateral infiltrates.) Assessment and Plan (1) Bilateral pneumonia Status: Acute Assessment and plan: Patient does have acute shortness of breath and bilateral infiltrates. Certainly some of this may be pneumonia. She will be covered with antibiotics. She is getting steroids and bronchodilator therapy. Current Visit: No (2) Congestive heart failure Status: Acute Assessment and plan: Some of this is probably heart failure and she seems to be diuresing well. She diuresed will early on but is dropping off. Her creatinine is 3.5 now. Will hold on the diuretics for now. Current Visit: No (3) COPD (chronic obstructive pulmonary disease) Status: Chronic Assessment and plan: The patient is a smoker and has a component of COPD. She will continue with respiratory therapy. Current Visit: No (4) Acute respiratory failure with hypoxemia Status: Acute Assessment and plan: The patient has acute respiratory failure with hypoxemia and bilateral infiltrates. She still looks reasonably comfortable on oxygen. Will continue present therapy. Current Visit: No (5) History of coronary artery bypass graft x 1 Status: Chronic Assessment and plan: The patient has known coronary artery disease. Current Visit: Yes (6) Hypertension Status: Chronic Assessment and plan: She will continue treatment of her high blood pressure. Current Visit: Yes (7) Renal insufficiency Status: Chronic Assessment and plan: Her creatinine is up to 3.5 now. Current Visit: No
[2017-04-10] MEDS: CEFTAROLINE 600 MG in SODIUM CHLORIDE 0.9% 100 ML IV SCH ×2 (07:40→18:30)
[2017-04-10] MEDS: ENOXAPARIN 30 MG/0.3 ML SYRINGE SUBCUT SCH (07:41)
[2017-04-10] MEDS: INSULIN REGULAR 100 UNIT/ML SUBCUT SCH ×4 (07:46→20:41)
[2017-04-10 07:57] LABS: Band Neutrophils 2 % (0-10); Burr Cells 2+; Lymphocytes 3 % (20-55); Segmented Neutrophils 92 % (50-85); Target Cells Slight; Total Cells Counted 100
[2017-04-10 07:58] LABS: Platelet Estimate Adequate
[2017-04-10] MEDS: FLUoxetine 20 MG CAPSULE PO SCH (08:04)
[2017-04-10] MEDS: PANTOPRAZOLE 40 MG TABLET PO SCH (08:04)
[2017-04-10] MEDS: POTASSIUM CHLORIDE 20 MEQ TABLET PO SCH (08:04)
[2017-04-10] MEDS: OXcarbazepine 300 MG TABLET PO SCH ×2 (08:04→20:43)
[2017-04-10] MEDS: ASPIRIN EC 325 MG TABLET PO SCH (08:04)
[2017-04-10] MEDS: DOCUSATE SODIUM 100 MG CAPSULE PO SCH ×2 (08:04→20:42)
[2017-04-10] MEDS: ALPRAZolam 0.25 MG TABLET PO PRN ×4 (08:04→21:31)
[2017-04-10] MEDS: LEVOTHYROXINE 125 MCG TABLET PO SCH (08:04)
--- NOTE | 2017-04-10 09:03 | XRay Report ---
XR chest 1V portable Indication: Pneumonia Comparison: 09 April 2017 Findings: The heart and mediastinum are stable in size and configuration. The pulmonary vascularity is normal in caliber. Bilateral pulmonary densities are present similar to previous study. No other pulmonary infiltrates, effusions, pneumothorax or other abnormality is demonstrated. Impression: No significant change. PROCEDURE INTERPRETED AT [facility] DEPARTMENT OF RADIOLOGY Final Report Signed by: Dr. Homero Sanford
--- NOTE | 2017-04-10 10:02 | Internal Med Progress Note ---
Assessment and Plan (1) Shortness of breath Status: Acute Assessment and plan: 67-year-old female admitted to acute care * Pneumonia. Patient will continue on IV antibiotics and respiratory treatment * Coronary artery disease. Chest pain off and on. Enzymes okay * Chronic renal failure. Lasix to * Hypothyroidism. Hold Synthroid * Bipolar disorder. Continue current medicines * Chronic pain syndrome. She is followed by Dr. Abbasi. * Diabetic neuropathy. Will continue current medications. * Patient's condition is guarded. Discussed with family member Current Visit: Yes (2) Chest pain Status: Acute Current Visit: Yes (3) Chronic kidney disease, stage III (moderate) Status: Chronic Current Visit: Yes (4) Hypertension Status: Chronic Current Visit: Yes (5) Type 2 diabetes mellitus Status: Chronic Current Visit: Yes (6) Acute respiratory failure with hypoxemia Status: Acute Current Visit: No (7) Bilateral pneumonia Status: Acute Current Visit: No (8) Bipolar 1 disorder, depressed Status: Acute Current Visit: No (9) Bipolar 1 disorder, depressed Status: Acute Current Visit: No (10) Bipolar disorder Status: Acute Current Visit: No (11) Bronchospasm Status: Acute Current Visit: No (12) COPD (chronic obstructive pulmonary disease) Status: Chronic Current Visit: No (13) Chest pain Status: Acute Current Visit: No (14) Chronic back pain Status: Acute Current Visit: No (15) Chronic renal failure Status: Acute Current Visit: No (16) Chronically on opiate therapy Status: Acute Current Visit: No (17) Cognitive decline Status: Acute Current Visit: No (18) Congestive heart failure Status: Acute Current Visit: No (19) Constipation Status: Acute Current Visit: No (20) Coronary artery disease Status: Chronic Current Visit: No (21) Debility Status: Acute Current Visit: No (22) Depression Status: Acute Current Visit: No (23) Depression Status: Acute Current Visit: No (24) Diabetes mellitus Status: Acute Current Visit: No (25) Drug overdose Problem details: I agree with the current plan of care. I will stop giving her oral narcotics at home I agree with the psychiatric consult Status: Acute Current Visit: No (26) Headache Status: Acute Current Visit: No (27) Hyperlipidemia Status: Acute Current Visit: No (28) Hyponatremia Status: Acute Current Visit: No (29) Hypothyroidism Status: Chronic Current Visit: No (30) Hypothyroidism Status: Acute Current Visit: No (31) Laceration of scalp Status: Acute Current Visit: No (32) Left upper lobe pneumonia Status: Acute Current Visit: No (33) Mood disorder Status: Acute Current Visit: No (34) Neurogenic bladder Status: Acute Current Visit: No (35) Neurogenic bladder Status: Acute Current Visit: No (36) Noncompliance with medications Status: Chronic Current Visit: No (37) Oral candidiasis Status: Acute Current Visit: No (38) Pneumonia Status: Acute Current Visit: No (39) Pneumonia involving left lung Status: Acute Current Visit: No (40) Renal insufficiency Status: Acute Current Visit: No (41) Severe anemia Status: Acute Current Visit: No (42) Sinus bradycardia Status: Acute Current Visit: No (43) Symptomatic anemia Status: Acute Current Visit: No (44) Type 2 diabetes mellitus Status: Acute Current Visit: No (45) UTI (urinary tract infection) Status: Acute Current Visit: No (46) Urinary tract infection Status: Acute Current Visit: No (47) dangerousness Status: Acute Current Visit: No (48) poor coping skills Status: Acute Current Visit: No (49) Abnormal ECG Status: Chronic Current Visit: No (50) Coronary artery disease Status: Chronic Current Visit: No (51) Renal insufficiency Status: Chronic Current Visit: No (52) Edema Status: Resolved Current Visit: No Internal Medicine - PN: Subj Interval history: She is feeling better this morning. She has had episodes of chest pressure. Shortness of breath has improved but still bothering her. She denies any nausea vomiting or diarrhea Exam (Progress Note) - Constitutional Vitals: Period Temp Pulse Resp BP Sys/Meek Pulse Ox Last 24 Hr 97.1 F-99.2 F 73-96 18-35 99-145/42-78 88-100 Exam: Examination: GENERAL: NAD. HEENT: PERRLA. EOMI. Mucous membranes are moist. NECK: Neck is supple. CVS: Regular rate and rhythm. S1 and S2 are normal. RESPIRATORY: Bilateral rales. Decreased air entry. Few rhonchi ABDOMEN: Soft and nontender. EXT: Trace edema. Peripheral pulses are present. SPINDLE PLUMBER: Patient is awake, alert and oriented to time place and person. Cranial nerves II through XII are grossly intact. Motor strength is 3-4/5 SKIN: Warm and dry. MSK: No obvious deformity. Results - Labs CBC & BMP: 04/10/17 05:11 04/10/17 05:11 Lab Results: I have reviewed the past 24 hour labs
--- NOTE | 2017-04-10 10:29 | Cardiology Progress Note ---
Assessment and Plan (1) Chest pain Status: Acute Assessment and plan: I have examined and interviewed Ms. Cardenas and agree with note below. I would add the followin. 67-year-old WF with hypertension, dyslipidemia, diabetes, previous pneumonia , multiple CVAs, CKD, and previous CABG (BARRERA to LAD) in 1997 who presented with hypoxia and pneumonia with bilateral infiltrates, began having chest pain "like an elephant standing on my chest", but is quite atypical with tenderness to palpation in a pleuritic component. 2. No acute EKG changes are noted and troponin of 0.1 is not impressive given her CKD 3. She reports her chest pain lasts about 3-5 minutes at a time and is relieved with morphine "but it comes back after 30 minutes"; I will order a trial of Nitropaste. 4. Tremor on right hand/arm which reportedly is chronic with some anxiety 5. Still on facemask oxygen to maintain oxygen saturations April 10, 2017 update: 1. Ms. Cardenas has chest wall pain that is gradually improving 2. She is a bit less anxious today and she is hemodynamically stable. 3. Modest increase in her creatinine to over 3 as noted (prerenal) 4. She has been on too much thyroid replacement, but this is been held; discussed this with Dr. Stahl and he thinks she may have been taking extra thyroid replacement. 5. I will sign off, please call if needed prior to discharge 6. Still requiring significant oxygen with her bilateral infiltrates/pneumonia 7 per schedule follow-up with Dr. jama in the next 1-2 weeks time; emphasized her needed keep her routine follow-up appointments especially given her history of known CAD/CABG Current Visit: No (2) Shortness of breath Status: Acute Assessment and plan: SEE PLAN OF CARE LISTED ABOVE. Current Visit: Yes (3) Bilateral pneumonia Status: Acute Assessment and plan: SEE PLAN OF CARE LISTED ABOVE. Current Visit: No (4) Chronic kidney disease, stage III (moderate) Status: Chronic Assessment and plan: SEE PLAN OF CARE LISTED ABOVE. Current Visit: Yes (5) Hypertension Status: Chronic Assessment and plan: SEE PLAN OF CARE LISTED ABOVE. Current Visit: Yes (6) Type 2 diabetes mellitus Status: Chronic Assessment and plan: SEE PLAN OF CARE LISTED ABOVE. Current Visit: Yes (7) COPD (chronic obstructive pulmonary disease) Status: Chronic Assessment and plan: SEE PLAN OF CARE LISTED ABOVE. Current Visit: No (8) Coronary artery disease Status: Chronic Assessment and plan: SEE PLAN OF CARE LISTED ABOVE. Current Visit: No (9) Hyperlipidemia Status: Chronic Assessment and plan: SEE PLAN OF CARE LISTED ABOVE. Current Visit: No (10) Hypothyroidism Status: Chronic Assessment and plan: SEE PLAN OF CARE LISTED ABOVE. Current Visit: No (11) Noncompliance with medications Status: Chronic Assessment and plan: SEE PLAN OF CARE LISTED ABOVE. Current Visit: No (12) History of coronary artery bypass graft x 1 Status: Chronic Assessment and plan: SEE PLAN OF CARE LISTED ABOVE. Current Visit: Yes Cardiology - PN: Subj Interval history: Ms. Cardenas still has the "heaviness" on her chest but is significantly improved today. It is still little tender to palpation. She seems a bit more calm. Dr. Faust finished talking to her and her family. They do not know who her sports physiologist as it appears she saw Dr. jama last but sounds as though she has not been following up regularly. She is a little short of breath it seems to be doing a little better overall. Her right hand is not shaking quite as much today Exam (Progress Note) - Constitutional Vitals: Period Temp Pulse Resp BP Sys/Meek Pulse Ox Last 24 Hr 97.1 F-99.2 F 73-96 18-32 99-145/42-78 88-100 General appearance: mild distress, over weight - Head Head exam: Present: normal inspection, normocephalic, atraumatic - Neck Neck exam: Present: normal inspection - Respiratory Respiratory exam: Present: rales. Absent: stridor, wheezes - Cardiovascular Cardiovascular exam: Present: regular rate and rhythm. Absent: diastolic murmur , rubs - GI/Abdominal GI/Abdominal exam: Present: soft. Absent: tenderness - Extremities Exam Extremities exam: Absent: edema Result/EKG - Labs CBC & BMP: 04/10/17 05:11 04/10/17 05:11 Labs: Laboratory Results - last 24 hr 04/09/17 04/09/17 04/09/17 07:00 09:11 11:34 WBC RBC Hgb Hct MCV MCH MCHC RDW Plt Count MPV Neut % (Auto) Lymph % (Auto) Branch % (Auto) Eos % (Auto) Baso % (Auto) Neut # (Auto) Lymph # (Auto) Branch # (Auto) Eos # (Auto) Baso # (Auto) Total Counted Immature Gran % Nucleated RBC % Immature Gran # Segmented Neutrophils Band Neutrophils Lymphocytes Monocytes Nucleated RBCs # Platelet Estimate Target Cells [place] Cells Sodium 132 L Potassium 4.0 Chloride 104 Carbon Dioxide 13 L Anion Gap 19.0 H BUN 54 H Creatinine 2.80 H GFR Calculation 19 BUN/Creatinine Ratio 19.00 Glucose 97 POC Glucose 147 H Calculated Osmolality 278.5 Calcium 8.7 Total Bilirubin 0.60 AST 38 H ALT 16 Alkaline Phosphatase 175 H Total Creatine Kinase CK-MB (CK-2) Troponin I Total Protein 5.5 L Albumin 2.7 L Globulin 2.8 Albumin/Globulin Ratio 0.9 L Free T4 0.75 L TSH 3rd Generation 0.024 L 04/09/17 04/09/17 04/10/17 16:27 20:26 05:11 WBC 13.8 H RBC 3.34 L Hgb 10.0 L Hct 30.3 L MCV 90.7 MCH 30 MCHC 33.0 RDW 14.2 Plt Count 200 D MPV 11.4 Neut % (Auto) 93.3 H Lymph % (Auto) 2.6 L Branch % (Auto) 3.0 Eos % (Auto) 0.0 Baso % (Auto) 0.1 Neut # (Auto) 12.9 H Lymph # (Auto) 0.4 L Branch # (Auto) 0.4 Eos # (Auto) 0.0 Baso # (Auto) 0.0 Total Counted 100 Immature Gran % 1.0 Nucleated RBC % 0.0 Immature Gran # 0.14 Segmented Neutrophils 92 H Band Neutrophils 2 Lymphocytes 3 L Monocytes 3 Nucleated RBCs # 0.00 Platelet Estimate Adequate Target Cells Slight [place] Cells 2+ Sodium Potassium Chloride Carbon Dioxide Anion Gap BUN Creatinine GFR Calculation BUN/Creatinine Ratio Glucose POC Glucose 227 H 301 H Calculated Osmolality Calcium Total Bilirubin AST ALT Alkaline Phosphatase Total Creatine Kinase CK-MB (CK-2) Troponin I Total Protein Albumin Globulin Albumin/Globulin Ratio Free T4 TSH 3rd Generation 04/10/17 04/10/17 04/10/17 05:11 05:11 07:43 WBC RBC Hgb Hct MCV MCH MCHC RDW Plt Count MPV Neut % (Auto) Lymph % (Auto) Branch % (Auto) Eos % (Auto) Baso % (Auto) Neut # (Auto) Lymph # (Auto) Branch # (Auto) Eos # (Auto) Baso # (Auto) Total Counted Immature Gran % Nucleated RBC % Immature Gran # Segmented Neutrophils Band Neutrophils Lymphocytes Monocytes Nucleated RBCs # Platelet Estimate Target Cells [place] Cells Sodium 130 L Potassium 4.1 Chloride 100 Carbon Dioxide 17 L Anion Gap 17.1 H BUN 69 H D Creatinine 3.50 H GFR Calculation 14 BUN/Creatinine Ratio 19.00 Glucose 200 H POC Glucose 195 H Calculated Osmolality 285.8 Calcium 9.3 Total Bilirubin AST ALT Alkaline Phosphatase Total Creatine Kinase 100 D CK-MB (CK-2) 2.6 Troponin I 0.107 H Total Protein Albumin Globulin Albumin/Globulin Ratio Free T4 TSH 3rd Generation
[2017-04-10] MEDS: traMADol 50 MG TABLET PO PRN ×2 (11:59→20:42)
[2017-04-10] MEDS: LACTULOSE 20 GM/30 ML UDCUP PO PRN (17:08)
[2017-04-10] MEDS: INSULIN NPH/REGULAR 70/30 100 UNIT/ML SUBCUT SCH (20:41)
[2017-04-10] MEDS: LEVOFLOXACIN INJ 750 MG in PREMIX 1 EACH IV SCH (20:42)
[2017-04-10] MEDS: PRAVASTATIN 20 MG TABLET PO SCH (20:42)
[2017-04-10] MEDS: GABAPENTIN 300 MG CAPSULE PO SCH (20:43)
[2017-04-10] MEDS: diphenhydrAMINE CAP 25 MG CAPSULE PO PRN (23:04)
[2017-04-11] MEDS: ACETAMINOPHEN 325 MG TABLET PO PRN (01:10)
[2017-04-11] MEDS: ALBUTEROL/IPRATROPIUM 3 ML NEB RESP TX SCH ×6 (02:52→23:03)
[2017-04-11] MEDS: methylPREDNISolone SOD SUC 125 MG/2 ML VIAL IV SCH ×4 (03:33→20:03)
[2017-04-11] MEDS: traMADol 50 MG TABLET PO PRN ×3 (03:44→17:19)
[2017-04-11 05:24] LABS: Basophils % 0.1 % (0.0-0.8); Hematocrit 28.6 VOL% (35.7-47.0); Hemoglobin 9.2 GM/DL (12.0-16.0); Immature Granulocytes % 2.4 %; Immature Granulocytes Absolute 0.38 #; Lymphocytes # 0.5 10*3/uL (1.4-4.0); Mean Corpuscular HGB Conc 32.2 GM/DL (32-36); Mean Corpuscular Hemoglobin 30 PG (27-34); Mean Corpuscular Volume 91.7 FL (87-102); Mean Platelet Volume 11.1 FL (9.6-12.0); Monocytes # 0.8 10*3/uL (0.11-0.8); Monocytes % 5.1 % (1.7-12.7); NRBC # 0.02 10*3/uL; Neutrophils % 89.4 % (38.7-73.9); Platelet Count 206 T/CUMM (130-400); Red Blood Count 3.12 MC/CUMM (3.8-5.5); Red Cell Distribution Width 14.5 % (9.3-17.3); White Blood Count 15.7 T/CUMM (4-12)
[2017-04-11 05:54] LABS: Calcium 8.3 MG/DL (8.5-10.1); Osmolality,Calculated 277.4 MOS/KG (273-304); Potassium 4.6 MMOL/L (3.5-5.1)
[2017-04-11 06:11] LABS: Band Neutrophils 3 % (0-10); Lymphocytes 2 % (20-55); Myelocytes 2 %; Segmented Neutrophils 90 % (50-85)
[2017-04-11 06:12] LABS: Platelet Estimate Normal; Total Cells Counted 100
[2017-04-11] MEDS: NITROGLYCERIN 2% OINT 1 INCH/GM PACK TOP SCH ×3 (06:17→17:52)
[2017-04-11] MEDS: CEFTAROLINE 600 MG in SODIUM CHLORIDE 0.9% 100 ML IV SCH ×2 (07:28→20:12)
[2017-04-11] MEDS: ALPRAZolam 0.25 MG TABLET PO PRN ×3 (07:30→17:19)
[2017-04-11] MEDS: INSULIN REGULAR 100 UNIT/ML SUBCUT SCH ×4 (07:37→20:04)
[2017-04-11] MEDS: INSULIN NPH/REGULAR 70/30 100 UNIT/ML SUBCUT SCH ×3 (07:38→20:03)
[2017-04-11] MEDS: ENOXAPARIN 30 MG/0.3 ML SYRINGE SUBCUT SCH (07:39)
--- NOTE | 2017-04-11 07:41 | Pulmonology Progress Note ---
Pulmonary - PN: Subj Interval history: Patient is a 67-year-old white lady that has known coronary artery disease along with diabetes, hypertension, hyperlipidemia, hypothyroidism. She is a smoker she comes in with shortness of breath and bilateral infiltrates. She had good urine output early on yesterday but is dropped off now. She is down about 13 kg however. She had a fairly good night and feels like her breathing is better. She did not sleep very well however because she has some pain. She apparently takes a lot of pain medicines at home. She does look like she is breathing better with less congestion and her O2 saturations are good Exam (Progress Note) - Constitutional Vitals: Period Temp Pulse Resp BP Sys/Meek Pulse Ox Last 24 Hr 97.0 F-98.7 F 76-100 18-30 95-145/42-102 90-100 Exam: General appearance: normal weight, mild distress, other (She is more comfortable and has less shortness of breath.) - Head Head exam: Present: normal inspection, normocephalic - Eye Eye exam: Present: EOMI. Absent: scleral icterus Pupils: Present: ROBERTO CARLOS - ENT ENT exam: Present: normal exam - Neck Neck exam: Present: normal inspection. Absent: lymphadenopathy, thyromegaly - Respiratory Respiratory exam: Present: She has fair breath sounds bilaterally is moving air well with less rhonchi. - Cardiovascular Cardiovascular exam: Present: regular rate and rhythm. Absent: gallop, systolic murmur - GI/Abdominal GI/Abdominal exam: Present: normal bowel sounds, soft. Absent: distended, organomegaly, tenderness - Extremities Exam Extremities exam: Absent: calf tenderness, edema - Neurological Exam Neurological exam: Present: alert, oriented X3, CN II-XII intact, she has a resting tremor - Psychiatric Psychiatric exam: Present: Looks a little calmer today. - Skin Skin exam: Present: warm, dry Results - Labs CBC & BMP: 04/11/17 04:08 04/11/17 04:08 - Diagnostic Findings Procedure: Chest x-ray: image reviewed by me, report reviewed by me (The chest x -ray is much better with less bilateral infiltrates.) Assessment and Plan (1) Bilateral pneumonia Status: Acute Assessment and plan: Patient does have acute shortness of breath and bilateral infiltrates. Certainly some of this may be pneumonia. She will be covered with antibiotics. She is getting steroids and bronchodilator therapy. Her chest x-ray is much better and she probably did have some volume overload. There is been nothing on culture so far. Current Visit: No (2) Congestive heart failure Status: Acute Assessment and plan: Some of this is probably heart failure and she seems to be diuresing well. Her weight is down 13 kg. Her chest x-ray is much better and overall she is breathing much better. Current Visit: No (3) COPD (chronic obstructive pulmonary disease) Status: Chronic Assessment and plan: The patient is a smoker and has a component of COPD. She will continue with respiratory therapy. Current Visit: No (4) Acute respiratory failure with hypoxemia Status: Acute Assessment and plan: The patient has acute respiratory failure with hypoxemia and bilateral infiltrates. She continues to improve now and her breathing is much better. Her chest x-ray has improved nicely. She can probably increase her activity moved to a regular room soon. Current Visit: No (5) History of coronary artery bypass graft x 1 Status: Chronic Assessment and plan: The patient has known coronary artery disease. Current Visit: Yes (6) Hypertension Status: Chronic Assessment and plan: She will continue treatment of her high blood pressure. Current Visit: Yes (7) Renal insufficiency Status: Chronic Assessment and plan: Her creatinine is up to 3.6 now. Current Visit: No
[2017-04-11] MEDS: PANTOPRAZOLE 40 MG TABLET PO SCH (08:00)
[2017-04-11] MEDS: FLUoxetine 20 MG CAPSULE PO SCH (08:00)
[2017-04-11] MEDS: OXcarbazepine 300 MG TABLET PO SCH ×2 (08:01→20:04)
[2017-04-11] MEDS: POTASSIUM CHLORIDE 20 MEQ TABLET PO SCH (08:01)
[2017-04-11] MEDS: DOCUSATE SODIUM 100 MG CAPSULE PO SCH ×2 (08:01→20:04)
[2017-04-11] MEDS: ASPIRIN EC 325 MG TABLET PO SCH (08:01)
[2017-04-11] MEDS: GABAPENTIN 300 MG CAPSULE PO SCH ×3 (08:01→20:04)
--- NOTE | 2017-04-11 10:11 | XRay Report ---
XR chest 1V portable Indication: Pneumonia Comparison: 10 April 2017 Findings: The heart and mediastinum are stable in size and configuration. The pulmonary vascularity is prominent similar to previous. Coronary densities appear slightly improved. No other lung infiltrates, effusions, pneumothorax or other abnormality is demonstrated. Impression: Mild improvement in pulmonary densities. No other significant changes. PROCEDURE INTERPRETED AT [facility] DEPARTMENT OF RADIOLOGY Final Report Signed by: Dr. Homero Sanford
--- NOTE | 2017-04-11 11:04 | Internal Med Progress Note ---
Assessment and Plan (1) Shortness of breath Status: Acute Assessment and plan: 67-year-old female admitted to acute care * Pneumonia. Patient will continue on IV antibiotics and respiratory treatment * Coronary artery disease. Stable * Chronic renal failure. Lasix was stopped. Will consult Dr. Uriostegui in the morning. Her sodium is low. Will watch it * Hypothyroidism. Hold Synthroid * Bipolar disorder. Continue current medicines * Chronic pain syndrome. Increased pain. Will change [place] to 10 mg every 6 hours as needed * Diabetic neuropathy. Increase Neurontin * Patient's condition is guarded. Current Visit: Yes (2) Chest pain Status: Acute Current Visit: Yes (3) Chronic kidney disease, stage III (moderate) Status: Chronic Current Visit: Yes (4) Hypertension Status: Chronic Current Visit: Yes (5) Type 2 diabetes mellitus Status: Chronic Current Visit: Yes (6) Acute respiratory failure with hypoxemia Status: Acute Current Visit: No (7) Bilateral pneumonia Status: Acute Current Visit: No (8) Bipolar 1 disorder, depressed Status: Acute Current Visit: No (9) Bipolar 1 disorder, depressed Status: Acute Current Visit: No (10) Bipolar disorder Status: Acute Current Visit: No (11) Bronchospasm Status: Acute Current Visit: No (12) COPD (chronic obstructive pulmonary disease) Status: Chronic Current Visit: No (13) Chest pain Status: Acute Current Visit: No (14) Chronic back pain Status: Acute Current Visit: No (15) Chronic renal failure Status: Acute Current Visit: No (16) Chronically on opiate therapy Status: Acute Current Visit: No (17) Cognitive decline Status: Acute Current Visit: No (18) Congestive heart failure Status: Acute Current Visit: No (19) Constipation Status: Acute Current Visit: No (20) Coronary artery disease Status: Chronic Current Visit: No (21) Debility Status: Acute Current Visit: No (22) Depression Status: Acute Current Visit: No (23) Depression Status: Acute Current Visit: No (24) Diabetes mellitus Status: Acute Current Visit: No (25) Drug overdose Problem details: I agree with the current plan of care. I will stop giving her oral narcotics at home I agree with the psychiatric consult Status: Acute Current Visit: No (26) Headache Status: Acute Current Visit: No (27) Hyperlipidemia Status: Acute Current Visit: No (28) Hyponatremia Status: Acute Current Visit: No (29) Hypothyroidism Status: Chronic Current Visit: No (30) Hypothyroidism Status: Acute Current Visit: No (31) Laceration of scalp Status: Acute Current Visit: No (32) Left upper lobe pneumonia Status: Acute Current Visit: No (33) Mood disorder Status: Acute Current Visit: No (34) Neurogenic bladder Status: Acute Current Visit: No (35) Neurogenic bladder Status: Acute Current Visit: No (36) Noncompliance with medications Status: Chronic Current Visit: No (37) Oral candidiasis Status: Acute Current Visit: No (38) Pneumonia Status: Acute Current Visit: No (39) Pneumonia involving left lung Status: Acute Current Visit: No (40) Renal insufficiency Status: Acute Current Visit: No (41) Severe anemia Status: Acute Current Visit: No (42) Sinus bradycardia Status: Acute Current Visit: No (43) Symptomatic anemia Status: Acute Current Visit: No (44) Type 2 diabetes mellitus Status: Acute Current Visit: No (45) UTI (urinary tract infection) Status: Acute Current Visit: No (46) Urinary tract infection Status: Acute Current Visit: No (47) dangerousness Status: Acute Current Visit: No (48) poor coping skills Status: Acute Current Visit: No (49) Abnormal ECG Status: Chronic Current Visit: No (50) Coronary artery disease Status: Chronic Current Visit: No (51) Renal insufficiency Status: Chronic Current Visit: No (52) Edema Status: Resolved Current Visit: No Internal Medicine - PN: Subj Interval history: She is having more pain in her lower back. Her breathing is somewhat better. No chest pain Exam (Progress Note) - Constitutional Vitals: Period Temp Pulse Resp BP Sys/Meek Pulse Ox Last 24 Hr 97.0 F-98.7 F 76-103 18-30 95-145/42-102 90-100 Exam: Examination: GENERAL: NAD. NECK: Neck is supple. CVS: Regular rate and rhythm. S1 and S2 are normal. RESPIRATORY: Bilateral rales. Decreased air entry. Few rhonchi ABDOMEN: Soft and nontender. EXT: Trace edema. Peripheral pulses are present. FUNDER: No change SKIN: Warm and dry. MSK: No obvious deformity. Results - Labs CBC & BMP: 04/11/17 04:08 04/11/17 04:08 Lab Results: I have reviewed the past 24 hour labs
[2017-04-11] MEDS: ONDANSETRON 4 MG/2 ML VIAL IV PRN (15:44)
[2017-04-11] MEDS: PRAVASTATIN 20 MG TABLET PO SCH (20:04)
[2017-04-11] MEDS ORDERED: DILTIAZEM 100 MG VIAL.ADD IV ONE (20:46)
[2017-04-11] MEDS ORDERED: DIGOXIN 0.5 MG/2 ML AMP IV ONE (20:57)
[2017-04-11] MEDS ORDERED: METOPROLOL TARTRATE 5 MG/5 ML VIAL IV ONE (20:57)
[2017-04-11] MEDS ORDERED: DILTIAZEM INJ 100 MG in SODIUM CHLORIDE 0.9% 100 ML IV SCH (21:00)
[2017-04-11] MEDS ORDERED: SUCCINYLCHOLINE 200 MG/10 ML VIAL ONE (21:36)
[2017-04-11] MEDS ORDERED: ETOMIDATE 20 MG/10 ML VIAL IV ONE (21:36)
[2017-04-11 21:50] LABS: Magnesium 2.3 MG/DL (1.8-2.4)
[2017-04-11] MEDS ORDERED: SODIUM CHLORIDE 0.9% 500 ML IV ONE (21:55)
[2017-04-11 21:57] LABS: Potassium 6.4 MMOL/L (3.5-5.1)
[2017-04-11] MEDS ORDERED: SODIUM POLYSTYRENE SULFATE 15 GM/60 ML BOTTLE PO ONE (22:03)
[2017-04-11] MEDS ORDERED: CALCIUM GLUCONATE 1,000 MG/10 ML VIAL IV ONE ×3 (22:04→23:30)
[2017-04-11 22:11] LABS: ABG Base Excess -18.2 MMOL/L (-2.5-2.5); ABG HCO3 10.8 MMOL/L (20-26); ABG Oxygen Saturation 82.5 % (95-100); ABG PCO2 47.5 MM HG (35-48); ABG PO2 63.2 MM HG (80-95); ABG TCO2 12.2 MMOL/L (23-27); Allen Test Positive; Pt O2 Delivery Device Ventilator
--- NOTE | 2017-04-11 22:11 | Cardiology Progress Note ---
Assessment and Plan (1) Chest pain Status: Acute Assessment and plan: I have examined and interviewed Ms. Cardenas and agree with note below. I would add the followin. 67-year-old WF with hypertension, dyslipidemia, diabetes, previous pneumonia , multiple CVAs, CKD, and previous CABG (BARRERA to LAD) in 1997 who presented with hypoxia and pneumonia with bilateral infiltrates, began having chest pain "like an elephant standing on my chest", but is quite atypical with tenderness to palpation in a pleuritic component. 2. No acute EKG changes are noted and troponin of 0.1 is not impressive given her CKD 3. She reports her chest pain lasts about 3-5 minutes at a time and is relieved with morphine "but it comes back after 30 minutes"; I will order a trial of Nitropaste. 4. Tremor on right hand/arm which reportedly is chronic with some anxiety 5. Still on facemask oxygen to maintain oxygen saturations April 10, 2017 update: 1. Ms. Cardenas has chest wall pain that is gradually improving 2. She is a bit less anxious today and she is hemodynamically stable. 3. Modest increase in her creatinine to over 3 as noted (prerenal) 4. She has been on too much thyroid replacement, but this is been held; discussed this with Dr. Stahl and he thinks she may have been taking extra thyroid replacement. 5. I will sign off, please call if needed prior to discharge 6. Still requiring significant oxygen with her bilateral infiltrates/pneumonia 7 per schedule follow-up with Dr. jama in the next 1-2 weeks time; emphasized her needed keep her routine follow-up appointments especially given her history of known CAD/CABG April 11 update for urgent cardiology consult in the evenin. 67-year-old WF with hypertension diabetes dyslipidemia multiple CVAs, known CAD with CABG in 1997, whose had significant oxygen requirement for quite a few days, with gradually worsening renal failure and wide complex on EKG with atrial fibrillation RVR 2. After treatment of her RVR she developed junctional escape in the 40s up to the 50s with wide complex and hypotension responding somewhat to normal saline bolus. 3. Potassium was normal this morning but is approximately 6.4 currently; will give amp of calcium gluconate as well as Kayexalate and albuterol 4. Discontinue potassium supplements 5. Last echocardiogram this admission shows normal to hyperdynamic LV function with severe pulmonary hypertension 6. Would add amlodipine for blood pressure can handle it 7. Moderate hyponatremia slightly worse today; could consider [place] if this does not improve. 8. Hyperkalemia seems to be the main issue now and hopefully will respond to treatment noted above Current Visit: No (2) Shortness of breath Status: Acute Assessment and plan: SEE PLAN OF CARE LISTED ABOVE. Current Visit: Yes (3) Bilateral pneumonia Status: Acute Assessment and plan: SEE PLAN OF CARE LISTED ABOVE. Current Visit: No (4) Chronic kidney disease, stage III (moderate) Status: Chronic Assessment and plan: SEE PLAN OF CARE LISTED ABOVE. Current Visit: Yes (5) Hypertension Status: Chronic Assessment and plan: SEE PLAN OF CARE LISTED ABOVE. Current Visit: Yes (6) Type 2 diabetes mellitus Status: Chronic Assessment and plan: SEE PLAN OF CARE LISTED ABOVE. Current Visit: Yes (7) COPD (chronic obstructive pulmonary disease) Status: Chronic Assessment and plan: SEE PLAN OF CARE LISTED ABOVE. Current Visit: No (8) Coronary artery disease Status: Chronic Assessment and plan: SEE PLAN OF CARE LISTED ABOVE. Current Visit: No (9) Hyperlipidemia Status: Chronic Assessment and plan: SEE PLAN OF CARE LISTED ABOVE. Current Visit: No (10) Hypothyroidism Status: Chronic Assessment and plan: SEE PLAN OF CARE LISTED ABOVE. Current Visit: No (11) Noncompliance with medications Status: Chronic Assessment and plan: SEE PLAN OF CARE LISTED ABOVE. Current Visit: No (12) History of coronary artery bypass graft x 1 Status: Chronic Assessment and plan: SEE PLAN OF CARE LISTED ABOVE. Current Visit: Yes Cardiology - PN: Subj Interval history: I signed off on Ms. Cardenas yesterday, given no active cardiac issues. She is required significant amounts of oxygen for tummy time with significant bilateral infiltrates. I was called to the patient this evening due to wide complex tachycardia irregular. Diltiazem was started but this dropped her blood pressure and so I gave 1 dose of metoprolol 5 mg IV and 1 dose of low- dose digoxin 0.125 mg. She then seemed to transition from atrial fibrillation with RVR and interventricular conduction delay to junctional scrape with continued wide complex. Stat lab came back with potassium in the mid sixes consistent with the wide complex QRS and dysrhythmia. She was having nausea prior to LOC and required intubation. Exam (Progress Note) - Constitutional Vitals: Period Temp Pulse Resp BP Sys/Meek Pulse Ox Last 24 Hr 97.0 F-98.6 F 69-103 16-35 83-157/36-102 83-100 General appearance: normal weight, other (Intubated and sedated) - Head Head exam: Present: normal inspection, normocephalic, atraumatic, other (Slight hemorrhage at the nasal orifice) - Neck Neck exam: Present: normal inspection - Respiratory Respiratory exam: Present: rales. Absent: stridor, wheezes - Cardiovascular Cardiovascular exam: Present: regular rate and rhythm. Absent: diastolic murmur , rubs - GI/Abdominal GI/Abdominal exam: Present: soft - Extremities Exam Extremities exam: Absent: edema Result/EKG - Labs CBC & BMP: 04/11/17 04:08 04/11/17 21:08 Labs: Laboratory Results - last 24 hr 04/11/17 04/11/17 04/11/17 04:08 04:08 07:36 WBC 15.7 H RBC 3.12 L Hgb 9.2 L Hct 28.6 L MCV 91.7 MCH 30 MCHC 32.2 RDW 14.5 Plt Count 206 MPV 11.1 Neut % (Auto) 89.4 H Lymph % (Auto) 3.0 L [place] % (Auto) 5.1 Eos % (Auto) 0.0 Baso % (Auto) 0.1 Neut # (Auto) 14.0 H Lymph # (Auto) 0.5 L [place] # (Auto) 0.8 Eos # (Auto) 0.0 Baso # (Auto) 0.0 Total Counted 100 Immature Gran % 2.4 Nucleated RBC % 0.1 Immature Gran # 0.38 Segmented Neutrophils 90 H Band Neutrophils 3 Lymphocytes 2 L Monocytes 3 Myelocytes 2 Nucleated RBCs # 0.02 Platelet Estimate Normal Sodium 126 L Potassium 4.6 Chloride 95 L Carbon Dioxide 15 L Anion Gap 20.6 H BUN 76 H Creatinine 3.60 H GFR Calculation 13 BUN/Creatinine Ratio 21.00 H Glucose 136 H POC Glucose 185 H Calculated Osmolality 277.4 Calcium 8.3 L Magnesium 04/11/17 04/11/17 04/11/17 11:22 16:19 19:56 WBC RBC Hgb Hct MCV MCH MCHC RDW Plt Count MPV Neut % (Auto) Lymph % (Auto) [place] % (Auto) Eos % (Auto) Baso % (Auto) Neut # (Auto) Lymph # (Auto) [place] # (Auto) Eos # (Auto) Baso # (Auto) Total Counted Immature Gran % Nucleated RBC % Immature Gran # Segmented Neutrophils Band Neutrophils Lymphocytes Monocytes Myelocytes Nucleated RBCs # Platelet Estimate Sodium Potassium Chloride Carbon Dioxide Anion Gap BUN Creatinine GFR Calculation BUN/Creatinine Ratio Glucose POC Glucose 195 H 220 H 154 H Calculated Osmolality Calcium Magnesium 04/11/17 21:08 WBC RBC Hgb Hct MCV MCH MCHC RDW Plt Count MPV Neut % (Auto) Lymph % (Auto) [place] % (Auto) Eos % (Auto) Baso % (Auto) Neut # (Auto) Lymph # (Auto) [place] # (Auto) Eos # (Auto) Baso # (Auto) Total Counted Immature Gran % Nucleated RBC % Immature Gran # Segmented Neutrophils Band Neutrophils Lymphocytes Monocytes Myelocytes Nucleated RBCs # Platelet Estimate Sodium Potassium 6.4 H* D Chloride Carbon Dioxide Anion Gap BUN Creatinine GFR Calculation BUN/Creatinine Ratio Glucose POC Glucose Calculated Osmolality Calcium Magnesium 2.3
[2017-04-11 22:12] LABS: ABG PH 7.032 (7.35-7.45)
[2017-04-11] MEDS: CALCIUM GLUCONATE 1,000 MG in SODIUM CHLORIDE 0.9% 100 ML IV ONE ×4 (22:19→23:13)
[2017-04-11] MEDS: DOPamine 800 MG/250 ML PREMIX IV SCH (22:20)
[2017-04-11] MEDS ORDERED: SODIUM BICARBONATE 50 MEQ/50 ML SYRINGE IV ONE ×2 (22:35→22:43)
[2017-04-12] MEDS ORDERED: PROPOFOL 1,000 MG/100 ML BOTTLE IV ONE (00:08)
[2017-04-12] MEDS: PROPOFOL 1,000 MG/100 ML BOTTLE IV SCH ×3 (00:17→20:59)
[2017-04-12] MEDS: methylPREDNISolone SOD SUC 125 MG/2 ML VIAL IV SCH ×4 (02:00→19:44)
--- NOTE | 2017-04-12 02:27 | EKG Report ---
Stationary ECG Study [facility] Test Date: 04/11/2017 9:24:24 PM Pat Name: MENDEL MALIN Department: Room: 114 Gender: F Customer Relations Advisor: : 1950 Requested by: Ernesto Cedillo Order Number: [id number] Reading MD: ALEKSEY BLACKWELL Intervals [place] Rate: 57 P: 999 MN: 0 QRS: 43 QRSD: 154 T: 34 QT: 455 QTc: 449 Interpretive Statements UNCERTAIN REGULAR RHYTHM INTRAVENTRICULAR CONDUCTION DELAY MARKED ANTEROSEPTAL T WAVE ABNORMALTIY Electronically Signed On 04-13-17 05:28:20 CDT by ALEKSEY BLACKWELL [email or web address]
--- NOTE | 2017-04-12 02:27 | EKG Report ---
Stationary ECG Study [facility] Test Date: 04/11/2017 10:40:34 PM Pat Name: MENDEL MALIN Department: Room: 114 Gender: F Field Sales Engineer: : 1950 Requested by: Jez Ruvalcaba Order Number: [id number] Reading MD: ALEKSEY BLACKWELL Intervals [place] Rate: 82 P: 241 MA: 229 QRS: 266 QRSD: 239 T: -60 QT: 506 QTc: 545 Interpretive Statements SINUS RHYTHM WITH PROLONGED MA INTERVAL RIGHT AXIS DEVIATION RIGHT BUNDLE BRANCH BLOCK Electronically Signed On 04-13-17 05:28:50 CDT by ALEKSEY BLACKWELL [email or web address]
--- NOTE | 2017-04-12 02:27 | EKG Report ---
Stationary ECG Study [facility] Test Date: 04/11/2017 8:40 PM Pat Name: MENDEL MALIN Department: Room: 114 Gender: F Satellite Instruction Facilitator: : 1950 Requested by: Diogo Faust Order Number: [id number] Reading MD: ALEKSEY BLACKWELL Intervals [place] Rate: 98 P: 999 [place]: 0 QRS: 69 QRSD: 165 T: 7 QT: 371 QTc: 427 Interpretive Statements ATRIAL FIBRILLATION INTRAVENTRICULAR CONDUCTION DELAY MARKED T WAVE ABNORMALITY SUGGESTING ELECTROLYTE ABNORMALITY Electronically Signed On 04-13-17 05:25:43 CDT by ALEKSEY BLACKWELL [email or web address]
[2017-04-12 02:38] LABS: ABG Base Excess -13.5 MMOL/L (-2.5-2.5); ABG HCO3 14.1 MMOL/L (20-26); ABG Oxygen Saturation 99.6 % (95-100); ABG PCO2 38.5 MM HG (35-48); ABG TCO2 13.4 MMOL/L (23-27); Allen Test Positive; Pt O2 Delivery Device Ventilator
[2017-04-12] MEDS: ALBUTEROL/IPRATROPIUM 3 ML NEB RESP TX SCH ×6 (02:39→23:35)
[2017-04-12 02:40] LABS: ABG PH 7.179 (7.35-7.45)
[2017-04-12 05:51] LABS: Basophils # 0.1 10*3/uL (0.0-0.2); Basophils % 0.3 % (0.0-0.8); Eosinophils % 0.1 % (0.00-10.9); Immature Granulocytes Absolute 1.86 #; Lymphocytes # 0.6 10*3/uL (1.4-4.0); Lymphocytes % 3.1 % (21.3-54.2); Mean Corpuscular HGB Conc 33.3 GM/DL (32-36); Mean Corpuscular Hemoglobin 30 PG (27-34); Mean Corpuscular Volume 90.4 FL (87-102); Mean Platelet Volume 11.3 FL (9.6-12.0); Monocytes % 5.3 % (1.7-12.7); NRBC # 0.09 10*3/uL; Neutrophils # 15.1 10*3/uL (1.4-7.4); Neutrophils % 81.2 % (38.7-73.9); Platelet Count 223 T/CUMM (130-400); Red Blood Count 3.32 MC/CUMM (3.8-5.5); Red Cell Distribution Width 14.8 % (9.3-17.3); White Blood Count 18.6 T/CUMM (4-12)
[2017-04-12 06:17] LABS: Calcium 7.7 MG/DL (8.5-10.1); Osmolality,Calculated 277.8 MOS/KG (273-304)
[2017-04-12 06:18] LABS: Potassium 6.2 MMOL/L (3.5-5.1)
[2017-04-12 06:23] LABS: Band Neutrophils 2 % (0-10); Burr Cells Slight; Hypochromasia 1+; Lymphocytes 9 % (20-55); Nucleated Red Blood Cells 1 (0-5); Ovalocytes Slight; Platelet Estimate Adequate; Segmented Neutrophils 82 % (50-85); Total Cells Counted 100
--- NOTE | 2017-04-12 07:12 | XRay Report ---
XR chest 1V portable Indication: Endotracheal tube placement Comparison: 11 April 2017 Findings: The heart and mediastinum are stable in size and configuration. Endotracheal tube is been placed with tip the clavicle level. NG tube has been added, tip is off the edge of the film in the left upper abdomen. The pulmonary vascularity is increased similar to previous. No lung infiltrates, effusions, pneumothorax or other abnormality is demonstrated. Impression: Endotracheal tube and NG tube appear in good position. PROCEDURE INTERPRETED AT [facility] DEPARTMENT OF RADIOLOGY Final Report Signed by: Dr. Homero Sanford
--- NOTE | 2017-04-12 07:38 | XRay Report ---
XR chest 1V portable Indication: Intubation Comparison: 11 April 2017 Findings: The heart and mediastinum are stable in size and configuration. The lines and tubes are slightly increased but similar to previous exams. The pulmonary vascularity is normal in caliber. No lung infiltrates, effusions, pneumothorax or other abnormality is demonstrated. Impression: No significant change PROCEDURE INTERPRETED AT [facility] DEPARTMENT OF RADIOLOGY Final Report Signed by: Dr. Homero Sanford
--- NOTE | 2017-04-12 07:39 | Cardiology Progress Note ---
Cardiology - PN: Subj Interval history: Cardiology note 67-year-old woman admitted with bilateral pneumonia Telemetry shows sinus rhythm in the 60s. O2 sat 100 on 50% FiO2 Blood pressure 130/50 on 5 mics of dopamine Regular rhythm with 2/6 systolic ejection murmur upper right sternal border Abdomen soft benign No leg edema Lab data White count 18.6 hemoglobin 10.0 hematocrit 30.0 Sodium 123 potassium 6.2 chloride 92 CO2 15 BUN 89 creatinine 4.70 Today's blood gas shows pH 7.17 PCO2 38 PO2 505 BNP level 831 with trivial troponin Recent echo showed ejection fraction of 65-70% with mild LVH, aortic valve sclerosis, dilated right-sided chambers with severe TR PA pressure 93 Impression Bilateral pneumonia Status post single-vessel CABG with BARRERA graft 1997 Paroxysmal atrial fibrillation resolved History of CVA Type 2 diabetes Bipolar disorder Mild chronic renal insufficiency superimposed acute renal failure. Creatinine today 4.70 with potassium 6.2 Recent echo shows ejection fraction 65% with aortic valve sclerosis, severe TR PA pressure 93 Plan Wean dobutamine as tolerated Renal consult with Dr. Uriostegui today Exam (Progress Note) - Constitutional Vitals: Period Temp Pulse Resp BP Sys/Meek Pulse Ox Last 24 Hr 98.0 F-98.6 F 34-103 12-35 80-203/34-84 83-100 Result/EKG - Labs CBC & BMP: 04/12/17 04:39 04/12/17 04:39 Labs: Laboratory Results - last 24 hr 04/11/17 04/11/17 04/11/17 07:36 11:22 16:19 WBC RBC Hgb Hct MCV MCH MCHC RDW Plt Count MPV Neut % (Auto) Lymph % (Auto) [place] % (Auto) Eos % (Auto) Baso % (Auto) Neut # (Auto) Lymph # (Auto) [place] # (Auto) Eos # (Auto) Baso # (Auto) Total Counted Immature Gran % Nucleated RBC % Immature Gran # Segmented Neutrophils Band Neutrophils Lymphocytes Monocytes Nucleated RBCs Nucleated RBCs # Platelet Estimate Hypochromasia Ovalocytes June Cells Morphology Comment ABG pH ABG pCO2 ABG pO2 ABG HCO3 ABG Total CO2 ABG O2 Saturation ABG Base Excess FiO2 Sodium Potassium Chloride Carbon Dioxide Anion Gap BUN Creatinine GFR Calculation BUN/Creatinine Ratio Glucose POC Glucose 185 H 195 H 220 H Calculated Osmolality Calcium Magnesium Troponin I 04/11/17 04/11/17 04/11/17 19:56 21:08 21:08 WBC RBC Hgb Hct MCV MCH MCHC RDW Plt Count MPV Neut % (Auto) Lymph % (Auto) [place] % (Auto) Eos % (Auto) Baso % (Auto) Neut # (Auto) Lymph # (Auto) [place] # (Auto) Eos # (Auto) Baso # (Auto) Total Counted Immature Gran % Nucleated RBC % Immature Gran # Segmented Neutrophils Band Neutrophils Lymphocytes Monocytes Nucleated RBCs Nucleated RBCs # Platelet Estimate Hypochromasia Ovalocytes June Cells Morphology Comment ABG pH ABG pCO2 ABG pO2 ABG HCO3 ABG Total CO2 ABG O2 Saturation ABG Base Excess FiO2 Sodium Potassium 6.4 H* D Chloride Carbon Dioxide Anion Gap BUN Creatinine GFR Calculation BUN/Creatinine Ratio Glucose POC Glucose 154 H Calculated Osmolality Calcium Magnesium 2.3 Troponin I 0.314 H D 04/11/17 04/12/17 04/12/17 22:08 02:35 04:39 WBC 18.6 H RBC 3.32 L Hgb 10.0 L Hct 30.0 L MCV 90.4 MCH 30 MCHC 33.3 RDW 14.8 Plt Count 223 MPV 11.3 Neut % (Auto) 81.2 H Lymph % (Auto) 3.1 L [place] % (Auto) 5.3 Eos % (Auto) 0.1 Baso % (Auto) 0.3 Neut # (Auto) 15.1 H Lymph # (Auto) 0.6 L [place] # (Auto) 1.0 H Eos # (Auto) 0.0 Baso # (Auto) 0.1 Total Counted 100 Immature Gran % 10.0 Nucleated RBC % 0.5 Immature Gran # 1.86 Segmented Neutrophils 82 Band Neutrophils 2 Lymphocytes 9 L Monocytes 7 Nucleated RBCs 1 Nucleated RBCs # 0.09 Platelet Estimate Adequate Hypochromasia 1+ Ovalocytes Slight June Cells Slight Morphology Comment ABG pH 7.032 L* D 7.179 L* D ABG pCO2 47.5 38.5 ABG pO2 63.2 L 505.0 H ABG HCO3 10.8 L 14.1 L ABG Total CO2 12.2 L 13.4 L ABG O2 Saturation 82.5 L 99.6 ABG Base Excess -18.2 L -13.5 L FiO2 100.00 100.00 Sodium Potassium Chloride Carbon Dioxide Anion Gap BUN Creatinine GFR Calculation BUN/Creatinine Ratio Glucose POC Glucose Calculated Osmolality Calcium Magnesium Troponin I 04/12/17 04:39 WBC RBC Hgb Hct MCV MCH MCHC RDW Plt Count MPV Neut % (Auto) Lymph % (Auto) [place] % (Auto) Eos % (Auto) Baso % (Auto) Neut # (Auto) Lymph # (Auto) [place] # (Auto) Eos # (Auto) Baso # (Auto) Total Counted Immature Gran % Nucleated RBC % Immature Gran # Segmented Neutrophils Band Neutrophils Lymphocytes Monocytes Nucleated RBCs Nucleated RBCs # Platelet Estimate Hypochromasia Ovalocytes June Cells Morphology Comment ABG pH ABG pCO2 ABG pO2 ABG HCO3 ABG Total CO2 ABG O2 Saturation ABG Base Excess FiO2 Sodium 123 L Potassium 6.2 H* Chloride 92 L Carbon Dioxide 15 L Anion Gap 22.2 H BUN 89 H Creatinine 4.70 H GFR Calculation 10 BUN/Creatinine Ratio 18.00 Glucose 174 H POC Glucose Calculated Osmolality 277.8 Calcium 7.7 L Magnesium Troponin I
[2017-04-12] MEDS: CEFTAROLINE 600 MG in SODIUM CHLORIDE 0.9% 100 ML IV SCH ×2 (08:00→19:44)
[2017-04-12] MEDS: ENOXAPARIN 30 MG/0.3 ML SYRINGE SUBCUT SCH (08:00)
[2017-04-12] MEDS: INSULIN NPH/REGULAR 70/30 100 UNIT/ML SUBCUT SCH ×2 (08:00→20:10)
--- NOTE | 2017-04-12 08:00 | Pulmonology Progress Note ---
Pulmonary - PN: Subj Interval history: Patient is a 67-year-old white lady that has known coronary artery disease along with diabetes, hypertension, hyperlipidemia, hypothyroidism. She is a smoker she comes in with shortness of breath and bilateral infiltrates. She does not like she might have had heart failure and actually diuresed fairly well. Her chest x-ray was much better yesterday. She looks like she was doing well until yesterday evening. She went into rapid atrial fibrillation and became more short of breath. After medication she suddenly became less responsive and had to be intubated. Her x-ray still looks better but still has mild infiltrates. Her oxygenation is better but she is developed worsening renal failure and acidosis. She is requiring dopamine for her blood pressure. Nothing is growing on culture yet. She does have an elevated white count. She is stable on the ventilator but quite ill. Exam (Progress Note) - Constitutional Vitals: Period Temp Pulse Resp BP Sys/Meek Pulse Ox Last 24 Hr 98.0 F-98.6 F 34-103 12-35 80-203/34-84 83-100 Exam: General appearance: normal weight, patient is sedated on the ventilator at present. - Head Head exam: Present: normal inspection, normocephalic - Eye Eye exam: Present: EOMI. Absent: scleral icterus Pupils: Present: ROBERTO CARLOS - ENT ENT exam: Present: normal exam, ET tube in good position. - Neck Neck exam: Present: normal inspection. Absent: lymphadenopathy, thyromegaly - Respiratory Respiratory exam: Present: She has fair breath sounds bilaterally and she is not having any definite wheezing. She has some minimal crackles toward the bases. - Cardiovascular Cardiovascular exam: Present: regular rate and rhythm. Her heart rate is under good control now. Absent: gallop, systolic murmur - GI/Abdominal GI/Abdominal exam: Present: normal bowel sounds, soft. Absent: distended, organomegaly, tenderness - Extremities Exam Extremities exam: Absent: calf tenderness, edema - Neurological Exam Neurological exam: Present: alert, oriented X3, CN II-XII intact, she has a resting tremor, she is sedated on the ventilator now. - Psychiatric Psychiatric exam: Present: She is sedated at present. - Skin Skin exam: Present: warm, dry Results - Labs CBC & BMP: 04/12/17 04:39 04/12/17 04:39 Labs: PO2 is 5 out of 5 with a PCO2 of 38 and a pH of 7.17 - Diagnostic Findings Procedure: Chest x-ray: image reviewed by me, report reviewed by me (Chest x- ray shows mild interstitial changes bilaterally.) Assessment and Plan (1) Bilateral pneumonia Status: Acute Assessment and plan: Patient does have acute shortness of breath and bilateral infiltrates. Certainly some of this may be pneumonia. She will be covered with antibiotics. She is getting steroids and bronchodilator therapy. Her x-ray looked better yesterday and she was doing fairly well until she had a cardiac arrhythmias. Now she is on the ventilator. Will plan a bronchoscope in the morning. Current Visit: No (2) Congestive heart failure Status: Acute Assessment and plan: Some of this is probably heart failure and she seems to be diuresing well. However now she is acidotic and has worsening renal insufficiency and will add fluids back. Current Visit: No (3) COPD (chronic obstructive pulmonary disease) Status: Chronic Assessment and plan: The patient is a smoker and has a component of COPD. She will continue with respiratory therapy. Current Visit: No (4) Acute respiratory failure with hypoxemia Status: Acute Assessment and plan: The patient has acute respiratory failure with hypoxemia and bilateral infiltrates. She was better yesterday but had cardiac arrhythmias and some type of event and is on the ventilator. Her oxygenation is excellent now. Current Visit: No (5) History of coronary artery bypass graft x 1 Status: Chronic Assessment and plan: The patient has known coronary artery disease. Current Visit: Yes (6) Hypertension Status: Chronic Assessment and plan: She has had a hypotensive event and is now on dopamine. Current Visit: Yes (7) Renal insufficiency Status: Chronic Assessment and plan: Her creatinine is up to 4.7 now. She is very acidotic and will add bicarbonate. She will be seen by renal today. Current Visit: No
--- NOTE | 2017-04-12 08:39 | Internal Med Progress Note ---
Assessment and Plan (1) Shortness of breath Status: Acute Assessment and plan: 67-year-old female admitted to acute care * Cardiopulmonary arrest. Patient went into A. fib with rapid ventricular rate and then after treatment developed junctional escape in 40s. She became hypotensive. Patient coded after an episode of vomiting. She is sedated on the ventilator. Her chest x-ray looks relatively clear. * Pneumonia. Patient will continue on IV antibiotics and respiratory treatment * Coronary artery disease. Stable * Acute on chronic renal failure. Her potassium is high this morning. Hyponatremia. Nephrology to see * Hypothyroidism. Hold Synthroid * Bipolar disorder. Continue current medicines * Diabetic neuropathy. On Neurontin * Patient's condition is guarded. Will discuss with family Current Visit: Yes (2) Chest pain Status: Acute Current Visit: Yes (3) Chronic kidney disease, stage III (moderate) Status: Chronic Current Visit: Yes (4) Hypertension Status: Chronic Current Visit: Yes (5) Type 2 diabetes mellitus Status: Chronic Current Visit: Yes (6) Acute respiratory failure with hypoxemia Status: Acute Current Visit: No (7) Bilateral pneumonia Status: Acute Current Visit: No (8) Bipolar 1 disorder, depressed Status: Acute Current Visit: No (9) Bipolar 1 disorder, depressed Status: Acute Current Visit: No (10) Bipolar disorder Status: Acute Current Visit: No (11) Bronchospasm Status: Acute Current Visit: No (12) COPD (chronic obstructive pulmonary disease) Status: Chronic Current Visit: No (13) Chest pain Status: Acute Current Visit: No (14) Chronic back pain Status: Acute Current Visit: No (15) Chronic renal failure Status: Acute Current Visit: No (16) Chronically on opiate therapy Status: Acute Current Visit: No (17) Cognitive decline Status: Acute Current Visit: No (18) Congestive heart failure Status: Acute Current Visit: No (19) Constipation Status: Acute Current Visit: No (20) Coronary artery disease Status: Chronic Current Visit: No (21) Debility Status: Acute Current Visit: No (22) Depression Status: Acute Current Visit: No (23) Depression Status: Acute Current Visit: No (24) Diabetes mellitus Status: Acute Current Visit: No (25) Drug overdose Problem details: I agree with the current plan of care. I will stop giving her oral narcotics at home I agree with the psychiatric consult Status: Acute Current Visit: No (26) Headache Status: Acute Current Visit: No (27) Hyperlipidemia Status: Acute Current Visit: No (28) Hyponatremia Status: Acute Current Visit: No (29) Hypothyroidism Status: Chronic Current Visit: No (30) Hypothyroidism Status: Acute Current Visit: No (31) Laceration of scalp Status: Acute Current Visit: No (32) Left upper lobe pneumonia Status: Acute Current Visit: No (33) Mood disorder Status: Acute Current Visit: No (34) Neurogenic bladder Status: Acute Current Visit: No (35) Neurogenic bladder Status: Acute Current Visit: No (36) Noncompliance with medications Status: Chronic Current Visit: No (37) Oral candidiasis Status: Acute Current Visit: No (38) Pneumonia Status: Acute Current Visit: No (39) Pneumonia involving left lung Status: Acute Current Visit: No (40) Renal insufficiency Status: Acute Current Visit: No (41) Severe anemia Status: Acute Current Visit: No (42) Sinus bradycardia Status: Acute Current Visit: No (43) Symptomatic anemia Status: Acute Current Visit: No (44) Type 2 diabetes mellitus Status: Acute Current Visit: No (45) UTI (urinary tract infection) Status: Acute Current Visit: No (46) Urinary tract infection Status: Acute Current Visit: No (47) dangerousness Status: Acute Current Visit: No (48) poor coping skills Status: Acute Current Visit: No (49) Abnormal ECG Status: Chronic Current Visit: No (50) Coronary artery disease Status: Chronic Current Visit: No (51) Renal insufficiency Status: Chronic Current Visit: No (52) Edema Status: Resolved Current Visit: No Internal Medicine - PN: Subj Interval history: Events of last night noted. Patient went into A. fib with rapid ventricular rate. She slowed down with IV medications and then vomited. A CODE BLUE was called and patient was intubated. She appears comfortable on ventilator. Exam (Progress Note) - Constitutional Vitals: Period Temp Pulse Resp BP Sys/Meek Pulse Ox Last 24 Hr 98.0 F-98.5 F 34-98 12-35 80-203/34-81 83-100 Exam: Examination: GENERAL: Patient intubated on ventilator NECK: Neck is supple. CVS: Regular rate and rhythm. S1 and S2 are normal. RESPIRATORY: Mostly clear ABDOMEN: Soft and nontender. EXT: Trace edema. Peripheral pulses are present. VP CARE MANAGEMENT: Sedated on ventilator SKIN: Warm and dry. MSK: No obvious deformity. Results - Labs CBC & BMP: 04/12/17 04:39 04/12/17 04:39 Lab Results: I have reviewed the past 24 hour labs
[2017-04-12] MEDS ORDERED: POTASSIUM CHLORIDE 20 MEQ/15 ML UDCUP PO SCH (09:00)
[2017-04-12] MEDS ORDERED: SODIUM BICARB INJ 100 MEQ in SODIUM CHLORIDE 0.9% 1,000 ML IV SCH (09:00)
[2017-04-12] MEDS: FLUoxetine 20 MG CAPSULE PO SCH (09:30)
[2017-04-12] MEDS: SODIUM ACETATE 100 MEQ in SODIUM CHLORIDE 0.45% 1,000 ML IV SCH ×2 (09:30→20:09)
[2017-04-12] MEDS: ASPIRIN EC 325 MG TABLET PO SCH (09:30)
[2017-04-12] MEDS: LANSOPRAZOLE ODT 30 MG TABLET PO SCH (09:30)
[2017-04-12] MEDS: OXcarbazepine 300 MG TABLET PO SCH ×2 (09:30→20:05)
[2017-04-12] MEDS: DOCUSATE SODIUM 100 MG CAPSULE PO SCH ×2 (09:30→20:10)
[2017-04-12] MEDS: GABAPENTIN 50 MG/ML 30 ML/BOTTLE PO SCH ×3 (09:30→20:10)
--- NOTE | 2017-04-12 09:36 | EKG Report ---
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
[2017-04-12] MEDS: ALPRAZolam 0.25 MG TABLET PO PRN (10:40)
[2017-04-12] MEDS: DESITIN 4OZ/NYSTATIN 15 GRAM MIXTURE PASTE TOP SCH ×2 (12:00→20:05)
[2017-04-12] MEDS: INSULIN REGULAR 100 UNIT/ML SUBCUT SCH ×3 (12:00→23:54)
--- NOTE | 2017-04-12 13:37 | Nephrology Consult Note ---
History of Present Illness Chief complaint: ARF on CKD History of present illness: Ms. Cardenas is a 67 year old female whom we are asked to see with acute renal failure superimposed on chronic renal failure. She presented with shortness of breath and was found to have significant pulmonary hypertension. She had treatment for cardiac arrhythmia and subsequently became bradycardic and arrested. She had transient hypotension and was oliguric with increasing urine outputs now. Serum creatinine is approximately 4-1/2 with a potassium this morning of greater than 6. She has a significant metabolic acidosis and is receiving IV sodium acetate. She is currently ventilated and has a pressure of 130 systolic on 4 mics of dopamine. On exam she is arousable makes eye contact and nods appropriately. Chest is clear heart without rub or gallop. Extremities without edema. Johnson catheter is draining clear urine but she is oliguric. Impression: Acute renal failure superimposed on chronic renal failure. #2 status post CPR #3 pulmonary hypertension Plan: Continue to correct metabolic acidosis. Will draw lab to recheck her potassium. Follow creatinine. Hopefully her renal dysfunction will turnaround before requiring dialysis Home Medications Medication Instructions Recorded Confirmed Type Pantoprazole Tab [Protonix Tab] 40 mg PO DAILY tablet 03/02/16 04/08/17 Rx Potassium Chloride Cap/Tab [K Dur] 20 meq PO DAILY tablet 03/02/16 04/08/17 Rx Pravastatin [Pravachol] 40 mg PO BEDTIME tablet 03/02/16 04/08/17 Rx cloNIDine TAB [Catapres Tab] 0.1 mg PO BID tablet 03/02/16 04/08/17 Rx OXcarbazepine [Trileptal] 300 mg PO BID #60 tablet 03/25/16 04/08/17 Rx Aspirin [Ecotrin] 325 mg PO DAILY 05/13/16 04/08/17 History Gabapentin 300 mg PO BID 05/13/16 04/08/17 History Colchicine [Colcrys] 0.6 mg PO BID #60 tablet 06/02/16 04/08/17 Rx Fluoxetine HCl [Prozac] 80 mg PO DAILY 12/07/16 04/08/17 History Furosemide Tab [Lasix Tab] 40 mg PO DAILY 12/07/16 04/08/17 History Levothyroxine Tab [Synthroid Tab] 125 mcg PO DAILY 12/07/16 04/08/17 History Promethazine HCl 25 mg PO DAILY PRN 12/07/16 04/08/17 History amLODIPine [Norvasc] 2.5 mg PO DAILY 12/07/16 04/08/17 History Insulin NPH/Regular 70/30 [HumuLIN 12 unit SUBCUT BID 04/08/17 04/08/17 History 70/30] hydrALAZINE TAB [Apresoline Tab] 50 mg PO TID 04/08/17 04/08/17 History Allergies Allergy/AdvReac Type Severity Reaction Status Date / Time clarithromycin [From Biaxin] Allergy Severe THROAT Verified 12/08/16 06:28 SWELLING/DIFFICULTY BREATHING Penicillins Allergy Severe THROAT Verified 12/08/16 06:28 SWELLING/DIFFICULTY BREATHING pentazocine [From Talwin] Allergy Severe THROAT Verified 12/08/16 06:28 SWELLING/DIFFICULTY BREATHING Medical,Surgical,& Family Hx - Medical History Cardio: History of: Cerebrovascular Disease, CAD, Hypertension, [place], Cardiovascular Problems (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; 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) No history of: Pacemaker, PVD Psychological: History of: Anxiety Disorders, Bipolar Disorder, Depression, Psychiatric Problems No history of: Behavior Problems, Violent Behavior Neurology: History of: Cerebrovascular Accident (SEVERAL STROKES), Dementia, Migraine Endocrine: History of: Diabetes Mellitus (IDDM), Dyslipidemia, Thyroid Disorder Rheumatology: History of;: Gout, Rheumatoid Arthritis Respiratory: History of: Asthma, Bronchitis, COPD, Intubation, Pneumonia (2015 most recent.; Hx Pneum Vac) Renal: History of: Renal Failure (NO DIALYSIS), Renal Problems (CKD) Genitourinary: History of: Bladder Problem Gastrointestinal: History of: GERD Musculoskeletal: History of: Degenerative Disk Disease, Herniated Disk, Musculoskeletal Problems Hematology: History of: Anemia No history of: Blood Transfusion Reaction, Blood Disorders - Surgical History Cardiac Surgeries: Sugical HX of: Cardiac Catheterization (CABGx1-years ago), Cardiac Surgery (mitral valve replacement) Thoracic Surgeries: Patient denies;: Organ Transplant Reproductive Surgeries: Surgical HX of;: Gynecologic Surgery, Hysterectomy ( complete) Orthopedic Surgeries: Surgical HX of;: Orthopedic Surgery (RKS) Patient denies;: Spinal Surgery - Family History Family History: Reports;: Family Diabetes, Family Heart Disease (Father- [place], mother- [place]), Family Hypertension (FATHER), Family Psychiatric Problems ( BROTHERS X2 NERVOUS BREAKDOWN) Denies;: Family Anesthesia Reaction, Family Stroke - Social History Smoking Status: Current every day smoker Frequency of Alcohol Use: None Type of Drug Use: None Exam - Vital Signs Vital signs: Period Temp Pulse Resp BP Sys/Meek Pulse Ox Last 24 Hr 97.8 F-98.5 F 34-95 12-32 80-203/34-99 83-100 - General Appearance General appearance: well-developed, well-nourished, appears started age EENT: ATNC Neck: no JVD, no thyromegaly, no carotid bruit, supple Respiratory: no kyphosis, no scoliosis Cardiology: no murmurs, no rub, no gallops, no edema, regular rate, regular rhythm, normal S1, normal S2 Gastrointestinal: normoactive bowel sounds Integumentary: no rash, warm and dry Neurologic: no focal deficit, no asterixis, alert and oriented x3, reflexes 2+ and symmetric, gait normal, strength 5/5 Musculoskeletal: no deformities, no erythema, no cyanosis, no clubbing Psychiatric: mood/affect appropriate, cooperative Results - Labs CBC & BMP: 04/12/17 04:39 04/12/17 04:39 Assessment and Plan - Time spent with patient Time spent with patient: Greater than 30 minutes (1) Renal failure (ARF), acute on chronic Status: Acute Current Visit: Yes (2) Pulmonary hypertension Status: Acute Current Visit: Yes (3) Hypothyroidism Status: Acute Current Visit: No Specialty Discharge - Follow Up or Referrals - Speciality Discharge Instructions Nephrology Instructions: Lab now. Follow creat. Correct met acidosis and hyperkalemia
[2017-04-12 14:40] LABS: Albumin 2.7 G/DL (3.4-5.0); Bilirubin,Total 0.5 MG/DL (0.2-1.0); Calcium 7.4 MG/DL (8.5-10.1); Osmolality,Calculated 280.8 MOS/KG (273-304); Total Protein 5.6 G/DL (6.4-8.3)
[2017-04-12 14:43] LABS: Potassium 6.5 MMOL/L (3.5-5.1)
[2017-04-12] MEDS ORDERED: SODIUM BICARBONATE 50 MEQ/50 ML SYRINGE IV STA (16:29)
[2017-04-12] MEDS ORDERED: FUROSEMIDE INJ 160 MG in SODIUM CHLORIDE 0.9% 50 ML IV ONE (17:30)
[2017-04-12] MEDS ORDERED: CALCIUM GLUCONATE 1,000 MG in SODIUM CHLORIDE 0.9% 100 ML IV ONE (20:00)
[2017-04-12] MEDS: PRAVASTATIN 20 MG TABLET PO SCH (20:05)
[2017-04-12] MEDS: LEVOFLOXACIN INJ 750 MG in PREMIX 1 EACH IV SCH (21:31)
[2017-04-13] MEDS: methylPREDNISolone SOD SUC 125 MG/2 ML VIAL IV SCH ×4 (02:52→19:44)
[2017-04-13 04:02] LABS: ABG Base Excess -5.1 MMOL/L (-2.5-2.5); ABG HCO3 20.2 MMOL/L (20-26); ABG Oxygen Saturation 99.2 % (95-100); ABG PCO2 39.1 MM HG (35-48); ABG PH 7.328 (7.35-7.45); Pt O2 Delivery Device Ventilator
[2017-04-13] MEDS: DOPamine 800 MG/250 ML PREMIX IV SCH ×2 (04:24→23:13)
[2017-04-13 05:14] LABS: Basophils % 0.1 % (0.0-0.8); Hematocrit 25.5 VOL% (35.7-47.0); Hemoglobin 8.8 GM/DL (12.0-16.0); Immature Granulocytes % 5.4 %; Immature Granulocytes Absolute 0.63 #; Lymphocytes # 0.5 10*3/uL (1.4-4.0); Lymphocytes % 4.6 % (21.3-54.2); Mean Corpuscular HGB Conc 34.5 GM/DL (32-36); Mean Corpuscular Hemoglobin 30 PG (27-34); Mean Corpuscular Volume 86.4 FL (87-102); Mean Platelet Volume 11.1 FL (9.6-12.0); Monocytes # 0.4 10*3/uL (0.11-0.8); Monocytes % 3.8 % (1.7-12.7); NRBC # 0.02 10*3/uL; Neutrophils # 10.1 10*3/uL (1.4-7.4); Neutrophils % 86.1 % (38.7-73.9); Platelet Count 146 T/CUMM (130-400); Red Blood Count 2.95 MC/CUMM (3.8-5.5); Red Cell Distribution Width 14.6 % (9.3-17.3); White Blood Count 11.7 T/CUMM (4-12)
[2017-04-13] MEDS: ALBUTEROL/IPRATROPIUM 3 ML NEB RESP TX SCH ×6 (05:23→23:26)
[2017-04-13 05:37] LABS: Band Neutrophils 1 % (0-10); Lymphocytes 8 % (20-55); Metamyelocytes 2 %; Nucleated Red Blood Cells 1 (0-5); Promyelocytes 1 %; Segmented Neutrophils 86 % (50-85); Total Cells Counted 100
[2017-04-13 05:38] LABS: Hypochromasia 1+; Microcytosis Slight; Ovalocytes Slight; Platelet Estimate Adequate
[2017-04-13] MEDS: SODIUM ACETATE 100 MEQ in SODIUM CHLORIDE 0.45% 1,000 ML IV SCH (05:38)
[2017-04-13] MEDS: PROPOFOL 1,000 MG/100 ML BOTTLE IV SCH ×3 (05:38→20:23)
[2017-04-13 06:00] LABS: Osmolality,Calculated 289.1 MOS/KG (273-304); Potassium 5.2 MMOL/L (3.5-5.1)
[2017-04-13] MEDS: INSULIN REGULAR 100 UNIT/ML SUBCUT SCH ×4 (06:08→23:14)
[2017-04-13 06:13] LABS: Calcium 7.1 MG/DL (8.5-10.1); Magnesium 2.1 MG/DL (1.8-2.4); Osmolality,Calculated 289.1 MOS/KG (273-304); Potassium 5.3 MMOL/L (3.5-5.1); Risk Ratio 3.63; VLDL CHOLESTEROL 46.4 MG/DL
--- NOTE | 2017-04-13 06:41 | Cardiology Progress Note ---
Cardiology - PN: Subj Interval history: Cardiology note 67-year-old woman admitted with bilateral pneumonia. Had bradycardia with CPR. Telemetry shows sinus rhythm in the 50s-60s. No pauses Blood pressure 128/60 off dopamine. O2 sat 97 on 50% FiO2. Regular rhythm with systolic ejection murmur upper right sternal border. Decreased breath sounds few rhonchi in the bases Abdomen soft nontender No leg edema Lab data today White count 11.7 hemoglobin 8.8 hematocrit 25.5 MCV 86 Sodium 128 potassium 5.2 chloride 92 CO2 22 BUN 104 creatinine up to 4.90 Glucose 100 Impression Bilateral pneumonia Status post single-vessel CABG with BARRERA graft to LAD 1997 Status post bradycardia with CPR Paroxysmal atrial fibrillation resolved History CVA Type 2 diabetes Bipolar disorder Mild chronic renal insufficiency superimposed acute renal failure. Creatinine today 4.90 BUN 104 Recent echo showed ejection fraction 65% with aortic valve sclerosis and severe TR, PA pressure 93 Plan CPAP trials IV antibiotics, nebs Lovenox Following renal function Exam (Progress Note) - Constitutional Vitals: Period Temp Pulse Resp BP Sys/Meek Pulse Ox Last 24 Hr 97.0 F-98.2 F 55-80 12-24 109-222/34-110 87-100 Result/EKG - Labs CBC & BMP: 04/13/17 04:53 04/13/17 04:53 Labs: Laboratory Results - last 24 hr 04/12/17 04/12/17 04/12/17 07:07 11:15 13:41 WBC RBC Hgb Hct MCV MCH MCHC RDW Plt Count MPV Neut % (Auto) Lymph % (Auto) [place] % (Auto) Eos % (Auto) Baso % (Auto) Neut # (Auto) Lymph # (Auto) [place] # (Auto) Eos # (Auto) Baso # (Auto) Total Counted Immature Gran % Nucleated RBC % Immature Gran # Segmented Neutrophils Band Neutrophils Lymphocytes Monocytes Metamyelocytes Promyelocytes Nucleated RBCs Nucleated RBCs # Platelet Estimate Hypochromasia Microcytosis Ovalocytes ABG pH ABG pCO2 ABG pO2 ABG HCO3 ABG Total CO2 ABG O2 Saturation ABG Base Excess FiO2 Sodium 123 L Potassium 6.5 H* Chloride 93 L Carbon Dioxide 16 L Anion Gap 20.5 H BUN 98 H Creatinine 5.00 H GFR Calculation 9 BUN/Creatinine Ratio 19.00 Glucose 151 H POC Glucose 189 H 174 H Calculated Osmolality 280.8 Calcium 7.4 L Magnesium Total Bilirubin 0.50 AST 3298 H ALT 1700 H Alkaline Phosphatase 247 H Total Protein 5.6 L Albumin 2.7 L Globulin 2.9 Albumin/Globulin Ratio 0.9 L Triglycerides Cholesterol LDL Cholesterol VLDL Cholesterol HDL Cholesterol Heart Disease Risk Ratio 04/12/17 04/12/17 04/12/17 18:08 20:03 23:48 WBC RBC Hgb Hct MCV MCH MCHC RDW Plt Count MPV Neut % (Auto) Lymph % (Auto) [place] % (Auto) Eos % (Auto) Baso % (Auto) Neut # (Auto) Lymph # (Auto) [place] # (Auto) Eos # (Auto) Baso # (Auto) Total Counted Immature Gran % Nucleated RBC % Immature Gran # Segmented Neutrophils Band Neutrophils Lymphocytes Monocytes Metamyelocytes Promyelocytes Nucleated RBCs Nucleated RBCs # Platelet Estimate Hypochromasia Microcytosis Ovalocytes ABG pH ABG pCO2 ABG pO2 ABG HCO3 ABG Total CO2 ABG O2 Saturation ABG Base Excess FiO2 Sodium Potassium Chloride Carbon Dioxide Anion Gap BUN Creatinine GFR Calculation BUN/Creatinine Ratio Glucose POC Glucose 110 H 132 H 88 Calculated Osmolality Calcium Magnesium Total Bilirubin AST ALT Alkaline Phosphatase Total Protein Albumin Globulin Albumin/Globulin Ratio Triglycerides Cholesterol LDL Cholesterol VLDL Cholesterol HDL Cholesterol Heart Disease Risk Ratio 04/13/17 04/13/17 04/13/17 03:55 04:53 04:53 WBC 11.7 D RBC 2.95 L Hgb 8.8 L Hct 25.5 L MCV 86.4 L MCH 30 MCHC 34.5 RDW 14.6 Plt Count 146 D MPV 11.1 Neut % (Auto) 86.1 H Lymph % (Auto) 4.6 L [place] % (Auto) 3.8 Eos % (Auto) 0.0 Baso % (Auto) 0.1 Neut # (Auto) 10.1 H Lymph # (Auto) 0.5 L [place] # (Auto) 0.4 Eos # (Auto) 0.0 Baso # (Auto) 0.0 Total Counted 100 Immature Gran % 5.4 Nucleated RBC % 0.2 Immature Gran # 0.63 Segmented Neutrophils 86 H Band Neutrophils 1 Lymphocytes 8 L Monocytes 2 Metamyelocytes 2 Promyelocytes 1 Nucleated RBCs 1 Nucleated RBCs # 0.02 Platelet Estimate Adequate Hypochromasia 1+ Microcytosis Slight Ovalocytes Slight ABG pH 7.328 L ABG pCO2 39.1 ABG pO2 214.0 H ABG HCO3 20.2 ABG Total CO2 19.0 L ABG O2 Saturation 99.2 ABG Base Excess -5.1 L FiO2 50.00 Sodium 128 L Potassium 5.3 H Chloride 93 L Carbon Dioxide 21 Anion Gap 19.3 H BUN 104 H Creatinine 4.90 H GFR Calculation 9 BUN/Creatinine Ratio 21.00 H Glucose 101 POC Glucose Calculated Osmolality 289.1 Calcium 7.1 L Magnesium 2.1 Total Bilirubin AST ALT Alkaline Phosphatase Total Protein Albumin Globulin Albumin/Globulin Ratio Triglycerides 232 H Cholesterol 109 LDL Cholesterol 53.0 VLDL Cholesterol 46.4 HDL Cholesterol 30 L Heart Disease Risk Ratio 3.63 04/13/17 04/13/17 04:53 06:03 WBC RBC Hgb Hct MCV MCH MCHC RDW Plt Count MPV Neut % (Auto) Lymph % (Auto) [place] % (Auto) Eos % (Auto) Baso % (Auto) Neut # (Auto) Lymph # (Auto) [place] # (Auto) Eos # (Auto) Baso # (Auto) Total Counted Immature Gran % Nucleated RBC % Immature Gran # Segmented Neutrophils Band Neutrophils Lymphocytes Monocytes Metamyelocytes Promyelocytes Nucleated RBCs Nucleated RBCs # Platelet Estimate Hypochromasia Microcytosis Ovalocytes ABG pH ABG pCO2 ABG pO2 ABG HCO3 ABG Total CO2 ABG O2 Saturation ABG Base Excess FiO2 Sodium 128 L Potassium 5.2 H Chloride 92 L Carbon Dioxide 22 Anion Gap 19.2 H BUN 104 H Creatinine 4.90 H GFR Calculation 10 BUN/Creatinine Ratio 21.00 H Glucose 100 POC Glucose 108 H Calculated Osmolality 289.1 Calcium 7.0 L Magnesium Total Bilirubin AST ALT Alkaline Phosphatase Total Protein Albumin Globulin Albumin/Globulin Ratio Triglycerides Cholesterol LDL Cholesterol VLDL Cholesterol HDL Cholesterol Heart Disease Risk Ratio
--- NOTE | 2017-04-13 07:43 | Pulmonology Progress Note ---
Pulmonary - PN: Subj Interval history: Patient is a 67-year-old white lady that has known coronary artery disease along with diabetes, hypertension, hyperlipidemia, hypothyroidism. She is a smoker she comes in with shortness of breath and bilateral infiltrates. She does look like she might have had heart failure and actually diuresed fairly well. Her chest x-ray was much better yesterday. She looks like she was doing well and then she went into rapid atrial fibrillation and became more short of breath. After medication she suddenly became less responsive and had to be intubated. She had a marked acidosis and worsening renal insufficiency. This is improved overnight. Her blood pressure is better and she is off pressors. She is relatively stable on the ventilator. Exam (Progress Note) - Constitutional Vitals: Period Temp Pulse Resp BP Sys/Meek Pulse Ox Last 24 Hr 97.0 F-98.2 F 55-80 12-24 109-222/44-110 87-100 Exam: General appearance: normal weight, patient is sedated on the ventilator at present. She will respond. - Head Head exam: Present: normal inspection, normocephalic - Eye Eye exam: Present: EOMI. Absent: scleral icterus Pupils: Present: ROBERTO CARLOS - ENT ENT exam: Present: normal exam, ET tube in good position. - Neck Neck exam: Present: normal inspection. Absent: lymphadenopathy, thyromegaly - Respiratory Respiratory exam: Present: She has fair breath sounds bilaterally and is moving air well without any wheezing. - Cardiovascular Cardiovascular exam: Present: regular rate and rhythm. Her heart rate is under good control now. Absent: gallop, systolic murmur - GI/Abdominal GI/Abdominal exam: Present: normal bowel sounds, soft. Absent: distended, organomegaly, tenderness - Extremities Exam Extremities exam: Absent: calf tenderness, edema - Neurological Exam Neurological exam: Present: alert, oriented X3, CN II-XII intact, she has a resting tremor, she is sedated on the ventilator now. She will respond when off sedation. - Psychiatric Psychiatric exam: Present: She is sedated at present. - Skin Skin exam: Present: warm, dry Results - Labs CBC & BMP: 04/13/17 04:53 04/13/17 04:53 Labs: Her PO2 is 214 with a PCO2 of 39 and a pH of 7.32 - Diagnostic Findings Procedure: Chest x-ray: image reviewed by me, report reviewed by me (Chest x- ray shows bilateral infiltrates.) Assessment and Plan (1) Bilateral pneumonia Status: Acute Assessment and plan: Patient does have acute shortness of breath and bilateral infiltrates. Certainly some of this may be pneumonia. She will be covered with antibiotics. She is getting steroids and bronchodilator therapy. Her x-ray looked better yesterday and she was doing fairly well until she had a cardiac arrhythmias. Now she is on the ventilator. Her oxygenation is better and she has had a fairly good night. We will proceed with a therapeutic bronchoscopy and clear airways and obtain cultures. Current Visit: No (2) Congestive heart failure Status: Acute Assessment and plan: Some of this is probably heart failure and she seems to be diuresing well. However now she is acidotic and has worsening renal insufficiency and will add fluids back. Her chest x-ray looks better overall and suggested less heart failure. Current Visit: No (3) COPD (chronic obstructive pulmonary disease) Status: Chronic Assessment and plan: The patient is a smoker and has a component of COPD. She will continue with respiratory therapy. Current Visit: No (4) Acute respiratory failure with hypoxemia Status: Acute Assessment and plan: The patient has acute respiratory failure with hypoxemia and bilateral infiltrates. She was better yesterday but had cardiac arrhythmias and some type of event and is on the ventilator. Her oxygenation is excellent now. Her chest x-ray still shows mild infiltrates. Will proceed with a bronchoscope today. Current Visit: No (5) History of coronary artery bypass graft x 1 Status: Chronic Assessment and plan: The patient has known coronary artery disease. Current Visit: Yes (6) Hypertension Status: Chronic Assessment and plan: She has a much better blood pressure now. Current Visit: Yes (7) Renal insufficiency Status: Chronic Assessment and plan: Her creatinine peaked at around 5.0 and is now down to 4.9. Her acidosis is much better. Current Visit: No
--- NOTE | 2017-04-13 07:48 | XRay Report ---
XR chest 1V portable Indication: Pneumonia Comparison: 12 April 2017 Findings: The heart and mediastinum are stable in size and configuration. The lines and tubes are unchanged in position. The pulmonary vascularity is prominent but similar to previous exam. No lung infiltrates, effusions, pneumothorax or other abnormality is demonstrated. Impression: No significant change PROCEDURE INTERPRETED AT [facility] DEPARTMENT OF RADIOLOGY Final Report Signed by: Dr. Homero Sanford
--- NOTE | 2017-04-13 07:50 | Operative Note ---
Date of procedure: 04/13/17 Pre-op diagnosis: Bilateral infiltrates Post-op diagnosis: other (Mucous plugging and retained secretions) Procedure: Patient is a 67-year-old on the ventilator with bilateral infiltrates. A bronchoscope will be done to clear airways. She is sedated on the ventilator at present. Procedure: The fiberoptic bronchoscope was passed through the ET tube into the airways. The bronchopulmonary segments were identified and specimens obtained. Findings: The ET tube is in good position in the trachea. Main bronchi are open. There is very thick mucus and plugs seen bilaterally that were washed and cleared. Washings were sent for culture. The right upper lobe, right middle lobe, and right lower lobe are all open. The left upper lobe, lingula, and left lower lobe are open. There are no endobronchial lesions seen. Once the airways were clear the procedure was stopped. Patient tolerated the procedure well without problems. Impression: Mucous plugging and retained secretions bilaterally. Plan: We will continue ventilatory support. Anesthesia: conscious sedation Surgeon / Physician: Jez Ruvalcaba Estimated blood loss: none Specimens: other (Washings were sent for culture) Condition: stable Disposition: ICU Results - Labs CBC & BMP: 04/13/17 04:53 04/13/17 04:53 Discharge Plan - Discharge Medications No Action Aspirin [Ecotrin] 325 mg PO DAILY Gabapentin 300 mg PO BID Insulin NPH/Regular 70/30 [HumuLIN 70/30] 12 unit SUBCUT BID hydrALAZINE TAB [Apresoline Tab] 50 mg PO TID Promethazine HCl 25 mg PO DAILY PRN PRN Reason: Nausea/Vomiting amLODIPine [Norvasc] 2.5 mg PO DAILY Furosemide Tab [Lasix Tab] 40 mg PO DAILY Fluoxetine HCl [Prozac] 80 mg PO DAILY Levothyroxine Tab [Synthroid Tab] 125 mcg PO DAILY Pantoprazole Tab [Protonix Tab] 40 mg PO DAILY tablet Potassium Chloride Cap/Tab [K Dur] 20 meq PO DAILY tablet Pravastatin [Pravachol] 40 mg PO BEDTIME tablet cloNIDine TAB [Catapres Tab] 0.1 mg PO BID tablet OXcarbazepine [Trileptal] 300 mg PO BID #60 tablet Colchicine [Colcrys] 0.6 mg PO BID #60 tablet - Follow Up or Referral - Forms/Instructions
[2017-04-13] MEDS: CEFTAROLINE 600 MG in SODIUM CHLORIDE 0.9% 100 ML IV SCH ×2 (08:00→19:44)
[2017-04-13] MEDS: ENOXAPARIN 30 MG/0.3 ML SYRINGE SUBCUT SCH (08:00)
--- NOTE | 2017-04-13 08:18 | Nephrology Progress Note ---
Nephrology - PN: Subj Interval history: Ms. Cardenas is seen in follow-up of her acute renal failure. She has improved and has begun making good amounts of urine. Her serum potassium is down to 5.2 with a serum sodium 128 measured bicarb is 22. She is awake and appropriate on the ventilator nodding appropriately and following commands. She has no significant edema. Her acidosis has corrected and I think we can discontinue the sodium acetate later today. I expect her renal function to continue to slowly improve. Exam (PN)-Nephrology - Vital Signs Vital signs: Period Temp Pulse Resp BP Sys/Meek Pulse Ox Last 24 Hr 97.0 F-98.2 F 55-80 12-24 109-222/44-110 87-100 - Lab 04/13/17 04:53 04/13/17 04:53 Most recent lab results ABG pH 7.328 (7.35-7.45) L 04/13/17 03:55 ABG pCO2 39.1 MM HG (35-48) 04/13/17 03:55 ABG pO2 214.0 MM HG (80-95) H 04/13/17 03:55 ABG HCO3 20.2 MMOL/L (20-26) 04/13/17 03:55 ABG O2 Saturation 99.2 % (95-100) 04/13/17 03:55 Calcium 7.1 MG/DL (8.5-10.1) L 04/13/17 04:53 Magnesium 2.1 MG/DL (1.8-2.4) 04/13/17 04:53 Assessment and Plan (1) Renal failure (ARF), acute on chronic Status: Acute Current Visit: Yes (2) Pulmonary hypertension Status: Acute Current Visit: Yes (3) Hypothyroidism Status: Acute Current Visit: No
[2017-04-13] MEDS: GABAPENTIN 50 MG/ML 30 ML/BOTTLE PO SCH ×3 (09:15→20:17)
[2017-04-13] MEDS: LANSOPRAZOLE ODT 30 MG TABLET PO SCH (09:15)
[2017-04-13] MEDS: FLUoxetine 20 MG CAPSULE PO SCH (09:15)
[2017-04-13] MEDS: INSULIN NPH/REGULAR 70/30 100 UNIT/ML SUBCUT SCH ×2 (09:15→20:58)
[2017-04-13] MEDS: DOCUSATE SODIUM 100 MG CAPSULE PO SCH ×2 (09:15→20:13)
[2017-04-13] MEDS: ASPIRIN EC 325 MG TABLET PO SCH (09:15)
[2017-04-13] MEDS: OXcarbazepine 300 MG TABLET PO SCH ×2 (09:15→20:13)
--- NOTE | 2017-04-13 09:39 | Internal Med Progress Note ---
Assessment and Plan (1) Shortness of breath Status: Acute Assessment and plan: 67-year-old female admitted to acute care * Cardiopulmonary arrest. She is doing better on the ventilator. Bronchoscopy report is noted. * Pneumonia. Patient will continue on IV antibiotics and respiratory treatment * Coronary artery disease. Stable * Acute on chronic renal failure. Renal function is better. Her output has improved. * Hypothyroidism. Hold Synthroid * Bipolar disorder. Continue current medicines * Diabetic neuropathy. On Neurontin * Patient's condition is guarded. Current Visit: Yes (2) Chest pain Status: Acute Current Visit: Yes (3) Chronic kidney disease, stage III (moderate) Status: Chronic Current Visit: Yes (4) Hypertension Status: Chronic Current Visit: Yes (5) Type 2 diabetes mellitus Status: Chronic Current Visit: Yes (6) Acute respiratory failure with hypoxemia Status: Acute Current Visit: No (7) Bilateral pneumonia Status: Acute Current Visit: No (8) Bipolar 1 disorder, depressed Status: Acute Current Visit: No (9) Bipolar 1 disorder, depressed Status: Acute Current Visit: No (10) Bipolar disorder Status: Acute Current Visit: No (11) Bronchospasm Status: Acute Current Visit: No (12) COPD (chronic obstructive pulmonary disease) Status: Chronic Current Visit: No (13) Chest pain Status: Acute Current Visit: No (14) Chronic back pain Status: Acute Current Visit: No (15) Chronic renal failure Status: Acute Current Visit: No (16) Chronically on opiate therapy Status: Acute Current Visit: No (17) Cognitive decline Status: Acute Current Visit: No (18) Congestive heart failure Status: Acute Current Visit: No (19) Constipation Status: Acute Current Visit: No (20) Coronary artery disease Status: Chronic Current Visit: No (21) Debility Status: Acute Current Visit: No (22) Depression Status: Acute Current Visit: No (23) Depression Status: Acute Current Visit: No (24) Diabetes mellitus Status: Acute Current Visit: No (25) Drug overdose Problem details: I agree with the current plan of care. I will stop giving her oral narcotics at home I agree with the psychiatric consult Status: Acute Current Visit: No (26) Headache Status: Acute Current Visit: No (27) Hyperlipidemia Status: Acute Current Visit: No (28) Hyponatremia Status: Acute Current Visit: No (29) Hypothyroidism Status: Chronic Current Visit: No (30) Hypothyroidism Status: Acute Current Visit: No (31) Laceration of scalp Status: Acute Current Visit: No (32) Left upper lobe pneumonia Status: Acute Current Visit: No (33) Mood disorder Status: Acute Current Visit: No (34) Neurogenic bladder Status: Acute Current Visit: No (35) Neurogenic bladder Status: Acute Current Visit: No (36) Noncompliance with medications Status: Chronic Current Visit: No (37) Oral candidiasis Status: Acute Current Visit: No (38) Pneumonia Status: Acute Current Visit: No (39) Pneumonia involving left lung Status: Acute Current Visit: No (40) Renal insufficiency Status: Acute Current Visit: No (41) Severe anemia Status: Acute Current Visit: No (42) Sinus bradycardia Status: Acute Current Visit: No (43) Symptomatic anemia Status: Acute Current Visit: No (44) Type 2 diabetes mellitus Status: Acute Current Visit: No (45) UTI (urinary tract infection) Status: Acute Current Visit: No (46) Urinary tract infection Status: Acute Current Visit: No (47) dangerousness Status: Acute Current Visit: No (48) poor coping skills Status: Acute Current Visit: No (49) Abnormal ECG Status: Chronic Current Visit: No (50) Coronary artery disease Status: Chronic Current Visit: No (51) Renal insufficiency Status: Chronic Current Visit: No (52) Edema Status: Resolved Current Visit: No Internal Medicine - PN: Subj Interval history: Patient is comfortable on ventilator. She is following commands according to the nurses Exam (Progress Note) - Constitutional Vitals: Period Temp Pulse Resp BP Sys/Meek Pulse Ox Last 24 Hr 97.0 F-98.2 F 55-80 12-24 109-222/44-110 87-100 Exam: Examination: GENERAL: Patient intubated on ventilator NECK: Neck is supple. CVS: Regular rate and rhythm. S1 and S2 are normal. RESPIRATORY: Mostly clear ABDOMEN: Soft and nontender. EXT: Trace edema. Peripheral pulses are present. LOFTSMAN/WOMAN: Following commands but not sedated SKIN: Warm and dry. MSK: No obvious deformity. Results - Labs CBC & BMP: 04/13/17 04:53 04/13/17 04:53 Lab Results: I have reviewed the past 24 hour labs
[2017-04-13] MEDS: DESITIN 4OZ/NYSTATIN 15 GRAM MIXTURE PASTE TOP SCH ×2 (12:00→20:23)
[2017-04-13] MEDS: SODIUM CHLORIDE 0.9% 1,000 ML IV SCH (14:45)
[2017-04-13] MEDS: ALPRAZolam 0.25 MG TABLET PO PRN (16:00)
[2017-04-13] MEDS: PRAVASTATIN 20 MG TABLET PO SCH (20:13)
[2017-04-14] MEDS: methylPREDNISolone SOD SUC 125 MG/2 ML VIAL IV SCH ×4 (02:52→20:38)
[2017-04-14] MEDS: ALBUTEROL/IPRATROPIUM 3 ML NEB RESP TX SCH ×6 (03:14→23:29)
[2017-04-14] MEDS: PROPOFOL 1,000 MG/100 ML BOTTLE IV SCH ×3 (04:19→16:27)
[2017-04-14] MEDS: SODIUM CHLORIDE 0.9% 1,000 ML IV SCH ×2 (04:20→16:26)
[2017-04-14 04:24] LABS: ABG Base Excess -2.8 MMOL/L (-2.5-2.5); ABG HCO3 22.1 MMOL/L (20-26); ABG Oxygen Saturation 99.2 % (95-100); ABG PCO2 36.6 MM HG (35-48); ABG PH 7.384 (7.35-7.45); ABG TCO2 20.1 MMOL/L (23-27)
[2017-04-14 05:25] LABS: Basophils % 0.1 % (0.0-0.8); Eosinophils % 0.1 % (0.00-10.9); Hematocrit 26.8 VOL% (35.7-47.0); Hemoglobin 9.1 GM/DL (12.0-16.0); Immature Granulocytes % 8.5 %; Immature Granulocytes Absolute 1.25 #; Lymphocytes # 0.5 10*3/uL (1.4-4.0); Lymphocytes % 3.1 % (21.3-54.2); Mean Corpuscular Hemoglobin 29 PG (27-34); Mean Corpuscular Volume 86.5 FL (87-102); Monocytes # 0.5 10*3/uL (0.11-0.8); Monocytes % 3.3 % (1.7-12.7); NRBC # 0.02 10*3/uL; Neutrophils # 12.5 10*3/uL (1.4-7.4); Neutrophils % 84.9 % (38.7-73.9); Platelet Count 173 T/CUMM (130-400); Red Cell Distribution Width 14.8 % (9.3-17.3); White Blood Count 14.8 T/CUMM (4-12)
[2017-04-14] MEDS: INSULIN REGULAR 100 UNIT/ML SUBCUT SCH ×3 (05:33→17:44)
[2017-04-14 05:45] LABS: Band Neutrophils 4 % (0-10); Hypochromasia 1+; Lymphocytes 9 % (20-55); Microcytosis 1+; Segmented Neutrophils 84 % (50-85); Total Cells Counted 100
[2017-04-14 05:46] LABS: Ovalocytes Few; Platelet Estimate Adequate
[2017-04-14 06:03] LABS: Calcium 6.6 MG/DL (8.5-10.1); Magnesium 2.2 MG/DL (1.8-2.4); Osmolality,Calculated 297.4 MOS/KG (273-304)
--- NOTE | 2017-04-14 06:37 | Cardiology Progress Note ---
Cardiology - PN: Subj Interval history: Cardiology note 67-year-old woman admitted with bilateral pneumonia. Had bradycardia with CPR. She completed 2 hours of CPAP twice yesterday. Telemetry shows steady sinus rhythm in the 55-60 range. No pauses. Blood pressure 150/62. Making good urine output. Alert and responsive. Regular rhythm with systolic murmur upper right sternal border. Decreased breath sounds few basilar rhonchi Abdomen soft benign No leg edema Lab data today Sodium up to 133 potassium 5.0 chloride 95 CO2 21 BUN 107 creatinine down to 4.70 Glucose 91 White count 14.8 hemoglobin 9.1 hematocrit 26.8 Impression Bilateral pneumonia Status post single-vessel CABG with BARRERA graft to LAD 1997 Status post bradycardia with CPR Paroxysmal atrial fibrillation resolved History of CVA Bipolar disorder Type 2 diabetes Recent echo showed ejection fraction 65% with aortic valve sclerosis and severe TR PA pressure 93 Mild chronic renal insufficiency with superimposed acute renal failure. Creatinine today down to 4.70 Plan CPAP trials Lovenox IV antibiotics. Nebs Exam (Progress Note) - Constitutional Vitals: Period Temp Pulse Resp BP Sys/Meek Pulse Ox Last 24 Hr 96.9 F-97.4 F 52-74 12-22 114-159/46-80 92-100 Result/EKG - Labs CBC & BMP: 04/14/17 05:01 04/14/17 05:01 Labs: Laboratory Results - last 24 hr 04/13/17 04/13/17 04/13/17 11:43 18:07 23:14 WBC RBC Hgb Hct MCV MCH MCHC RDW Plt Count MPV Neut % (Auto) Lymph % (Auto) [place] % (Auto) Eos % (Auto) Baso % (Auto) Neut # (Auto) Lymph # (Auto) [place] # (Auto) Eos # (Auto) Baso # (Auto) Total Counted Immature Gran % Nucleated RBC % Immature Gran # Segmented Neutrophils Band Neutrophils Lymphocytes Monocytes Nucleated RBCs # Platelet Estimate Hypochromasia Microcytosis Ovalocytes ABG pH ABG pCO2 ABG pO2 ABG HCO3 ABG Total CO2 ABG O2 Saturation ABG Base Excess Sodium Potassium Chloride Carbon Dioxide Anion Gap BUN Creatinine GFR Calculation BUN/Creatinine Ratio Glucose POC Glucose 122 H 115 H 101 Calculated Osmolality Calcium Magnesium 04/14/17 04/14/17 04/14/17 04:16 05:01 05:01 WBC 14.8 H RBC 3.10 L Hgb 9.1 L Hct 26.8 L MCV 86.5 L MCH 29 MCHC 34.0 RDW 14.8 Plt Count 173 MPV 11.0 Neut % (Auto) 84.9 H Lymph % (Auto) 3.1 L [place] % (Auto) 3.3 Eos % (Auto) 0.1 Baso % (Auto) 0.1 Neut # (Auto) 12.5 H Lymph # (Auto) 0.5 L [place] # (Auto) 0.5 Eos # (Auto) 0.0 Baso # (Auto) 0.0 Total Counted 100 Immature Gran % 8.5 Nucleated RBC % 0.1 Immature Gran # 1.25 Segmented Neutrophils 84 Band Neutrophils 4 Lymphocytes 9 L Monocytes 3 Nucleated RBCs # 0.02 Platelet Estimate Adequate Hypochromasia 1+ Microcytosis 1+ Ovalocytes Few ABG pH 7.384 ABG pCO2 36.6 ABG pO2 171.0 H ABG HCO3 22.1 ABG Total CO2 20.1 L ABG O2 Saturation 99.2 ABG Base Excess -2.8 L Sodium 133 L Potassium 5.0 Chloride 95 L Carbon Dioxide 21 Anion Gap 22.0 H BUN 103 H Creatinine 4.70 H GFR Calculation 10 BUN/Creatinine Ratio 21.00 H Glucose 91 POC Glucose Calculated Osmolality 297.4 Calcium 6.6 L Magnesium 2.2
--- NOTE | 2017-04-14 07:20 | XRay Report ---
XR chest 1V portable Indication: Pneumonia Comparison: 13 April 2017 Findings: The heart and mediastinum are stable in size and configuration. The lines and tubes are unchanged in position. The pulmonary vascularity is normal in caliber. No lung infiltrates, effusions, pneumothorax or other abnormality is demonstrated. Impression: No significant change PROCEDURE INTERPRETED AT [facility] DEPARTMENT OF RADIOLOGY Final Report Signed by: Dr. Homero Sanford
[2017-04-14] MEDS: CEFTAROLINE 600 MG in SODIUM CHLORIDE 0.9% 100 ML IV SCH ×2 (08:00→18:42)
--- NOTE | 2017-04-14 08:07 | Pulmonology Progress Note ---
Pulmonary - PN: Subj Interval history: Patient is a 67-year-old white lady that has known coronary artery disease along with diabetes, hypertension, hyperlipidemia, hypothyroidism. She is a smoker. She comes in with shortness of breath and bilateral infiltrates. She does look like she might have had heart failure and actually diuresed fairly well. Her chest x-ray was much better yesterday. She looks like she was doing well and then she went into rapid atrial fibrillation and became more short of breath. After medication she suddenly became less responsive and had to be intubated. She had a marked acidosis and worsening renal insufficiency. She has continued to improve overnight. Her oxygenation is better and her x-ray looks much better. Her creatinine is still 4.7 but her acidosis is improved. Overall she is more responsive and looks comfortable. Exam (Progress Note) - Constitutional Vitals: Period Temp Pulse Resp BP Sys/Meek Pulse Ox Last 24 Hr 96.9 F-97.0 F 51-60 12-18 114-159/46-80 93-99 Exam: General appearance: normal weight, patient is sedated on the ventilator at present. She is responding better. - Head Head exam: Present: normal inspection, normocephalic - Eye Eye exam: Present: EOMI. Absent: scleral icterus Pupils: Present: ROBERTO CARLOS - ENT ENT exam: Present: normal exam, ET tube in good position. - Neck Neck exam: Present: normal inspection. Absent: lymphadenopathy, thyromegaly - Respiratory Respiratory exam: Present: She has fair breath sounds bilaterally and is moving air well without any wheezing. Her lungs do sound much better. - Cardiovascular Cardiovascular exam: Present: regular rate and rhythm. Her heart rate is under good control now. Absent: gallop, systolic murmur - GI/Abdominal GI/Abdominal exam: Present: normal bowel sounds, soft. Absent: distended, organomegaly, tenderness - Extremities Exam Extremities exam: Absent: calf tenderness, edema - Neurological Exam Neurological exam: Present: alert, oriented X3, CN II-XII intact, she has a resting tremor, she is sedated on the ventilator now. She will respond when off sedation. - Psychiatric Psychiatric exam: Present: She is more alert today. - Skin Skin exam: Present: warm, dry Results - Labs CBC & BMP: 04/14/17 05:01 04/14/17 05:01 Labs: PO2 is 171 with a PCO2 of 36 and a pH of 7.38 - Diagnostic Findings Procedure: Chest x-ray: image reviewed by me, report reviewed by me (Chest x- ray looks better.) Assessment and Plan (1) Bilateral pneumonia Status: Acute Assessment and plan: Patient does have acute shortness of breath and bilateral infiltrates. Certainly some of this may be pneumonia. She will be covered with antibiotics. She is getting steroids and bronchodilator therapy. Her x-ray is improving and her oxygenation is better. We will continue weaning and extubate soon. Current Visit: No (2) Congestive heart failure Status: Acute Assessment and plan: Some of her problems like heart failure earlier home but her volume status is better now. Her chest x-ray is much improved. Current Visit: No (3) COPD (chronic obstructive pulmonary disease) Status: Chronic Assessment and plan: The patient is a smoker and has a component of COPD. She will continue with respiratory therapy. Current Visit: No (4) Acute respiratory failure with hypoxemia Status: Acute Assessment and plan: The patient has acute respiratory failure with hypoxemia and bilateral infiltrates. She is improving on the ventilator and will continue weaning. Current Visit: No (5) History of coronary artery bypass graft x 1 Status: Chronic Assessment and plan: The patient has known coronary artery disease. Current Visit: Yes (6) Hypertension Status: Chronic Assessment and plan: She has a much better blood pressure now. Current Visit: Yes (7) Renal insufficiency Status: Chronic Assessment and plan: Her creatinine peaked at around 5.0 and is now at 4.7. Current Visit: No
--- NOTE | 2017-04-14 08:13 | Nephrology Progress Note ---
Nephrology - PN: Subj Interval history: Ms. Cardenas is seen in follow-up of her acute renal impairment. Her creatinine is much improved now down to 4.7 from 4.9 yesterday. She continues to improve. She is awake and alert still on the ventilator and her chest x-ray is clearing. She has no significant peripheral edema she is receiving maintenance IV fluids and overall is improved. Will continue to follow. At this point she will not require dialysis. Exam (PN)-Nephrology - Vital Signs Vital signs: Period Temp Pulse Resp BP Sys/Meek Pulse Ox Last 24 Hr 96.9 F-97.0 F 51-60 12-18 114-159/46-80 93-99 - Lab 04/14/17 05:01 04/14/17 05:01 Most recent lab results ABG pH 7.384 (7.35-7.45) 04/14/17 04:16 ABG pCO2 36.6 MM HG (35-48) 04/14/17 04:16 ABG pO2 171.0 MM HG (80-95) H 04/14/17 04:16 ABG HCO3 22.1 MMOL/L (20-26) 04/14/17 04:16 ABG O2 Saturation 99.2 % (95-100) 04/14/17 04:16 Calcium 6.6 MG/DL (8.5-10.1) L 04/14/17 05:01 Magnesium 2.2 MG/DL (1.8-2.4) 04/14/17 05:01 Assessment and Plan (1) Renal failure (ARF), acute on chronic Status: Acute Current Visit: Yes (2) Pulmonary hypertension Status: Acute Current Visit: Yes (3) Hypothyroidism Status: Acute Current Visit: No
--- NOTE | 2017-04-14 08:37 | Internal Med Progress Note ---
Assessment and Plan (1) Shortness of breath Status: Acute Assessment and plan: 67-year-old female admitted to acute care * Respiratory failure. Patient is doing well on ventilator. Weaning is in progress * Pneumonia. [facility] cultures are pending. * Coronary artery disease. Stable * Acute on chronic renal failure. Renal function is better. Her output has improved. * Hypothyroidism. Hold Synthroid * Bipolar disorder. Continue current medicines * Diabetic neuropathy. On Neurontin * Start tube feeds * Patient's condition is guarded. Current Visit: Yes (2) Chest pain Status: Acute Current Visit: Yes (3) Chronic kidney disease, stage III (moderate) Status: Chronic Current Visit: Yes (4) Hypertension Status: Chronic Current Visit: Yes (5) Type 2 diabetes mellitus Status: Chronic Current Visit: Yes (6) Acute respiratory failure with hypoxemia Status: Acute Current Visit: No (7) Bilateral pneumonia Status: Acute Current Visit: No (8) Bipolar 1 disorder, depressed Status: Acute Current Visit: No (9) Bipolar 1 disorder, depressed Status: Acute Current Visit: No (10) Bipolar disorder Status: Acute Current Visit: No (11) Bronchospasm Status: Acute Current Visit: No (12) COPD (chronic obstructive pulmonary disease) Status: Chronic Current Visit: No (13) Chest pain Status: Acute Current Visit: No (14) Chronic back pain Status: Acute Current Visit: No (15) Chronic renal failure Status: Acute Current Visit: No (16) Chronically on opiate therapy Status: Acute Current Visit: No (17) Cognitive decline Status: Acute Current Visit: No (18) Congestive heart failure Status: Acute Current Visit: No (19) Constipation Status: Acute Current Visit: No (20) Coronary artery disease Status: Chronic Current Visit: No (21) Debility Status: Acute Current Visit: No (22) Depression Status: Acute Current Visit: No (23) Depression Status: Acute Current Visit: No (24) Diabetes mellitus Status: Acute Current Visit: No (25) Drug overdose Problem details: I agree with the current plan of care. I will stop giving her oral narcotics at home I agree with the psychiatric consult Status: Acute Current Visit: No (26) Headache Status: Acute Current Visit: No (27) Hyperlipidemia Status: Acute Current Visit: No (28) Hyponatremia Status: Acute Current Visit: No (29) Hypothyroidism Status: Chronic Current Visit: No (30) Hypothyroidism Status: Acute Current Visit: No (31) Laceration of scalp Status: Acute Current Visit: No (32) Left upper lobe pneumonia Status: Acute Current Visit: No (33) Mood disorder Status: Acute Current Visit: No (34) Neurogenic bladder Status: Acute Current Visit: No (35) Neurogenic bladder Status: Acute Current Visit: No (36) Noncompliance with medications Status: Chronic Current Visit: No (37) Oral candidiasis Status: Acute Current Visit: No (38) Pneumonia Status: Acute Current Visit: No (39) Pneumonia involving left lung Status: Acute Current Visit: No (40) Renal insufficiency Status: Acute Current Visit: No (41) Severe anemia Status: Acute Current Visit: No (42) Sinus bradycardia Status: Acute Current Visit: No (43) Symptomatic anemia Status: Acute Current Visit: No (44) Type 2 diabetes mellitus Status: Acute Current Visit: No (45) UTI (urinary tract infection) Status: Acute Current Visit: No (46) Urinary tract infection Status: Acute Current Visit: No (47) dangerousness Status: Acute Current Visit: No (48) poor coping skills Status: Acute Current Visit: No (49) Abnormal ECG Status: Chronic Current Visit: No (50) Coronary artery disease Status: Chronic Current Visit: No (51) Renal insufficiency Status: Chronic Current Visit: No (52) Edema Status: Resolved Current Visit: No Internal Medicine - PN: Subj Interval history: Patient is comfortable on ventilator. She is following commands. She denies any complaints when asked Exam (Progress Note) - Constitutional Vitals: Period Temp Pulse Resp BP Sys/Meek Pulse Ox Last 24 Hr 96.9 F-97.0 F 51-60 12-18 114-159/46-80 93-99 Exam: Examination: GENERAL: Patient intubated on ventilator NECK: Neck is supple. CVS: Regular rate and rhythm. S1 and S2 are normal. RESPIRATORY: Mostly clear ABDOMEN: Soft and nontender. EXT: Trace edema. Peripheral pulses are present. LEARNING CONSULTANT: Patient following commands appropriately SKIN: Warm and dry. MSK: No obvious deformity. Results - Labs CBC & BMP: 04/14/17 05:01 04/14/17 05:01 Lab Results: I have reviewed the past 24 hour labs
[2017-04-14] MEDS: ENOXAPARIN 30 MG/0.3 ML SYRINGE SUBCUT SCH (09:25)
[2017-04-14] MEDS: INSULIN NPH/REGULAR 70/30 100 UNIT/ML SUBCUT SCH ×2 (09:25→20:44)
[2017-04-14] MEDS: DOCUSATE SODIUM 100 MG CAPSULE PO SCH ×2 (09:27→20:23)
[2017-04-14] MEDS: LANSOPRAZOLE ODT 30 MG TABLET PO SCH (09:27)
[2017-04-14] MEDS: FLUoxetine 20 MG CAPSULE PO SCH (09:27)
[2017-04-14] MEDS: DESITIN 4OZ/NYSTATIN 15 GRAM MIXTURE PASTE TOP SCH ×2 (09:27→20:33)
[2017-04-14] MEDS: ASPIRIN EC 325 MG TABLET PO SCH (09:27)
[2017-04-14] MEDS: GABAPENTIN 50 MG/ML 30 ML/BOTTLE PO SCH ×3 (09:27→20:26)
[2017-04-14] MEDS: OXcarbazepine 300 MG TABLET PO SCH ×2 (09:35→20:24)
[2017-04-14] MEDS: ALPRAZolam 0.25 MG TABLET PO PRN (10:42)
[2017-04-14] MEDS: PRAVASTATIN 20 MG TABLET PO SCH (20:24)
[2017-04-14] MEDS: LEVOFLOXACIN INJ 750 MG in PREMIX 1 EACH IV SCH (20:46)
[2017-04-15] MEDS: INSULIN REGULAR 100 UNIT/ML SUBCUT SCH ×5 (00:16→20:22)
[2017-04-15] MEDS: methylPREDNISolone SOD SUC 125 MG/2 ML VIAL IV SCH ×4 (02:39→20:22)
[2017-04-15] MEDS: ALBUTEROL/IPRATROPIUM 3 ML NEB RESP TX SCH ×6 (03:01→23:30)
[2017-04-15 03:09] LABS: ABG Base Excess -5.3 MMOL/L (-2.5-2.5); ABG HCO3 20.1 MMOL/L (20-26); ABG Oxygen Saturation 99.1 % (95-100); ABG PCO2 39.1 MM HG (35-48); ABG PH 7.324 (7.35-7.45); ABG TCO2 18.9 MMOL/L (23-27); Allen Test Positive; Pt O2 Delivery Device Ventilator
[2017-04-15] MEDS: PROPOFOL 1,000 MG/100 ML BOTTLE IV SCH (03:56)
[2017-04-15] MEDS: SODIUM CHLORIDE 0.9% 1,000 ML IV SCH ×2 (05:47→19:01)
[2017-04-15 05:49] LABS: Basophils % 0.1 % (0.0-0.8); Hematocrit 27.1 VOL% (35.7-47.0); Immature Granulocytes % 11.6 %; Immature Granulocytes Absolute 2.15 #; Lymphocytes # 0.4 10*3/uL (1.4-4.0); Lymphocytes % 2.2 % (21.3-54.2); Mean Corpuscular HGB Conc 33.2 GM/DL (32-36); Mean Corpuscular Hemoglobin 30 PG (27-34); Mean Corpuscular Volume 89.4 FL (87-102); Mean Platelet Volume 11.2 FL (9.6-12.0); Monocytes # 0.6 10*3/uL (0.11-0.8); Monocytes % 3.1 % (1.7-12.7); NRBC # 0.04 10*3/uL; Neutrophils # 15.4 10*3/uL (1.4-7.4); Platelet Count 200 T/CUMM (130-400); Red Blood Count 3.03 MC/CUMM (3.8-5.5); Red Cell Distribution Width 15.1 % (9.3-17.3); White Blood Count 18.6 T/CUMM (4-12)
[2017-04-15 06:17] LABS: Calcium 6.8 MG/DL (8.5-10.1); Magnesium 2.1 MG/DL (1.8-2.4); Osmolality,Calculated 299.5 MOS/KG (273-304); Potassium 5.2 MMOL/L (3.5-5.1)
[2017-04-15 06:19] LABS: Prealbumin 20.5 MG/DL (20-40)
[2017-04-15 06:23] LABS: Albumin 2.3 G/DL (3.4-5.0); Bilirubin,Total 0.5 MG/DL (0.2-1.0); Calcium 6.8 MG/DL (8.5-10.1); Osmolality,Calculated 303.2 MOS/KG (273-304); Total Protein 4.7 G/DL (6.4-8.3)
[2017-04-15 06:25] LABS: Band Neutrophils 4 % (0-10); Hypochromasia 1+; Lymphocytes 5 % (20-55); Promyelocytes 1 %; Segmented Neutrophils 87 % (50-85); Total Cells Counted 100
[2017-04-15 06:26] LABS: Microcytosis 1+; Ovalocytes Slight
--- NOTE | 2017-04-15 06:44 | Cardiology Progress Note ---
Cardiology - PN: Subj Interval history: Cardiology note 67-year-old woman admitted with bilateral pneumonia Had bradycardia with CPR. Completed about 14 hours of CPAP yesterday. 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 Creatinine today down to 4.40 Recent echo ejection fraction 65% with aortic valve sclerosis and severe TR PA pressure 93 Plan CPAP trials Lovenox Tube feedings IV antibiotics nebs Exam (Progress Note) - Constitutional Vitals: Period Temp Pulse Resp BP Sys/Meek Pulse Ox Last 24 Hr 97.4 F-97.9 F 50-61 12-22 126-151/46-75 97-100 Result/EKG - Labs CBC & BMP: 04/15/17 04:41 04/15/17 04:41 Labs: Laboratory Results - last 24 hr 04/14/17 04/14/17 04/15/17 11:30 17:45 00:15 WBC RBC Hgb Hct MCV MCH MCHC RDW Plt Count MPV Neut % (Auto) Lymph % (Auto) [place] % (Auto) Eos % (Auto) Baso % (Auto) Neut # (Auto) Lymph # (Auto) [place] # (Auto) Eos # (Auto) Baso # (Auto) Total Counted Immature Gran % Nucleated RBC % Immature Gran # Segmented Neutrophils Band Neutrophils Lymphocytes Monocytes Promyelocytes Nucleated RBCs # Hypochromasia Microcytosis Ovalocytes Morphology Comment ABG pH ABG pCO2 ABG pO2 ABG HCO3 ABG Total CO2 ABG O2 Saturation ABG Base Excess FiO2 Sodium Potassium Chloride Carbon Dioxide Anion Gap BUN Creatinine GFR Calculation BUN/Creatinine Ratio Glucose POC Glucose 112 H 133 H 146 H Calculated Osmolality Calcium Phosphorus Magnesium Total Bilirubin AST ALT Alkaline Phosphatase Total Protein Albumin Globulin Albumin/Globulin Ratio Prealbumin 04/15/17 04/15/17 04/15/17 02:50 04:41 04:41 WBC RBC Hgb Hct MCV MCH MCHC RDW Plt Count MPV Neut % (Auto) Lymph % (Auto) [place] % (Auto) Eos % (Auto) Baso % (Auto) Neut # (Auto) Lymph # (Auto) [place] # (Auto) Eos # (Auto) Baso # (Auto) Total Counted Immature Gran % Nucleated RBC % Immature Gran # Segmented Neutrophils Band Neutrophils Lymphocytes Monocytes Promyelocytes Nucleated RBCs # Hypochromasia Microcytosis Ovalocytes Morphology Comment ABG pH 7.324 L ABG pCO2 39.1 ABG pO2 179.0 H ABG HCO3 20.1 ABG Total CO2 18.9 L ABG O2 Saturation 99.1 ABG Base Excess -5.3 L FiO2 40.00 Sodium 132 L Potassium 5.2 H Chloride 98 Carbon Dioxide 19 L Anion Gap 20.2 H BUN 109 H Creatinine 4.40 H GFR Calculation 11 BUN/Creatinine Ratio 24.00 H Glucose 136 H POC Glucose Calculated Osmolality 299.5 Calcium 6.8 L Phosphorus 9.0 H Magnesium 2.1 Total Bilirubin AST ALT Alkaline Phosphatase Total Protein Albumin Globulin Albumin/Globulin Ratio Prealbumin 20.5 04/15/17 04/15/17 04/15/17 04:41 04:41 05:24 WBC 18.6 H RBC 3.03 L Hgb 9.0 L Hct 27.1 L MCV 89.4 MCH 30 MCHC 33.2 RDW 15.1 Plt Count 200 MPV 11.2 Neut % (Auto) 83.0 H Lymph % (Auto) 2.2 L [place] % (Auto) 3.1 Eos % (Auto) 0.0 Baso % (Auto) 0.1 Neut # (Auto) 15.4 H Lymph # (Auto) 0.4 L [place] # (Auto) 0.6 Eos # (Auto) 0.0 Baso # (Auto) 0.0 Total Counted 100 Immature Gran % 11.6 Nucleated RBC % 0.2 Immature Gran # 2.15 Segmented Neutrophils 87 H Band Neutrophils 4 Lymphocytes 5 L Monocytes 3 Promyelocytes 1 Nucleated RBCs # 0.04 Hypochromasia 1+ Microcytosis 1+ Ovalocytes Slight Morphology Comment ABG pH ABG pCO2 ABG pO2 ABG HCO3 ABG Total CO2 ABG O2 Saturation ABG Base Excess FiO2 Sodium 134 L Potassium 5.0 Chloride 98 Carbon Dioxide 22 Anion Gap 19.0 H BUN 109 H Creatinine 4.40 H GFR Calculation 11 BUN/Creatinine Ratio 24.00 H Glucose 137 H POC Glucose 146 H Calculated Osmolality 303.2 Calcium 6.8 L Phosphorus Magnesium Total Bilirubin 0.50 AST 540 H ALT 1073 H Alkaline Phosphatase 192 H Total Protein 4.7 L Albumin 2.3 L Globulin 2.4 Albumin/Globulin Ratio 0.9 L Prealbumin
--- NOTE | 2017-04-15 07:34 | XRay Report ---
Exam: XR chest 1V portable Date: 04/15/2017 4:00 AM Indication: Respiratory failure follow-up ventilator Comparison: 04/14/2017 Technical: AP Findings: Endotracheal tube nasogastric tube present. Previous sternotomy. Patient slightly rotated to right with some atelectatic change or infiltrate in the left infrahilar region. No pneumothorax. External cardiac leads are present. Mediastinum is unremarkable. Impression: 1. Previous sternotomy and stable position of life-support tubing 2. Left basilar interstitial infiltrate primarily in the infrahilar region PROCEDURE INTERPRETED AT [facility] DEPARTMENT OF RADIOLOGY Final Report Signed by: Dr. Carl Rodas
--- NOTE | 2017-04-15 07:40 | Pulmonology Progress Note ---
Pulmonary - PN: Subj Interval history: Patient is a 67-year-old white lady that has known coronary artery disease along with diabetes, hypertension, hyperlipidemia, hypothyroidism. She is a smoker. She comes in with shortness of breath and bilateral infiltrates. She does look like she might have had heart failure and actually diuresed fairly well. Her chest x-ray was much better yesterday. She looks like she was doing well and then she went into rapid atrial fibrillation and became more short of breath. After medication she suddenly became less responsive and had to be intubated. She had a marked acidosis and worsening renal insufficiency. She has continued to improve overnight. She has been very comfortable on the ventilator. She did CPAP for about 12 hours yesterday. Her renal function is slowly improving. Her oxygenation is excellent. We will try to extubate her today. Exam (Progress Note) - Constitutional Vitals: Period Temp Pulse Resp BP Sys/Meke Pulse Ox Last 24 Hr 97.4 F-97.9 F 50-61 11-22 126-166/46-75 92-100 Exam: General appearance: normal weight, patient is sedated on the ventilator at present. She is responding better. She is very alert at times. - Head Head exam: Present: normal inspection, normocephalic - Eye Eye exam: Present: EOMI. Absent: scleral icterus Pupils: Present: ROBERTO CARLOS - ENT ENT exam: Present: normal exam, ET tube in good position. - Neck Neck exam: Present: normal inspection. Absent: lymphadenopathy, thyromegaly - Respiratory Respiratory exam: Present: She has fair breath sounds bilaterally and is moving air well without any wheezing. Her lungs sound much better and she is moving air well. - Cardiovascular Cardiovascular exam: Present: regular rate and rhythm. Her heart rate is under good control now. Absent: gallop, systolic murmur - GI/Abdominal GI/Abdominal exam: Present: normal bowel sounds, soft. Absent: distended, organomegaly, tenderness - Extremities Exam Extremities exam: Absent: calf tenderness, edema - Neurological Exam Neurological exam: Present: alert, oriented X3, CN II-XII intact, she has a resting tremor, she is sedated on the ventilator now. She will respond when off sedation. - Psychiatric Psychiatric exam: Present: She is more alert today. - Skin Skin exam: Present: warm, dry Results - Labs CBC & BMP: 04/15/17 04:41 04/15/17 04:41 Labs: PO2 is 179 with a PCO2 of 39 and a pH of 7.32 - Diagnostic Findings Procedure: Chest x-ray: image reviewed by me, report reviewed by me (Chest x- ray is rotated some but she does have some mild left lung infiltrate.) Assessment and Plan (1) Bilateral pneumonia Status: Acute Assessment and plan: Patient does have acute shortness of breath and bilateral infiltrates. Her oxygenation is better and her x-ray is improving. She grew out yeast on washings. Will try to extubate today. Current Visit: No (2) Congestive heart failure Status: Acute Assessment and plan: Some of her problems like heart failure earlier home but her volume status is better now. Her chest x-ray is much improved. Current Visit: No (3) COPD (chronic obstructive pulmonary disease) Status: Chronic Assessment and plan: The patient is a smoker and has a component of COPD. She will continue with respiratory therapy. Her lungs sound better today. Current Visit: No (4) Acute respiratory failure with hypoxemia Status: Acute Assessment and plan: The patient has acute respiratory failure with hypoxemia and bilateral infiltrates. She is improving on the ventilator and will continue weaning. She did well on CPAP yesterday and she looks good. We will try to extubate today. Current Visit: No (5) History of coronary artery bypass graft x 1 Status: Chronic Assessment and plan: The patient has known coronary artery disease. Current Visit: Yes (6) Hypertension Status: Chronic Assessment and plan: She has a much better blood pressure now. Current Visit: Yes (7) Renal insufficiency Status: Chronic Assessment and plan: Her creatinine peaked at around 5.0 and is now at 4.4. Current Visit: No
[2017-04-15] MEDS: CEFTAROLINE 600 MG in SODIUM CHLORIDE 0.9% 100 ML IV SCH ×2 (07:55→20:22)
--- NOTE | 2017-04-15 08:10 | Internal Med Progress Note ---
Assessment and Plan (1) Shortness of breath Status: Acute Assessment and plan: 67-year-old female admitted to acute care * Respiratory failure. Patient is doing well on ventilator. Hopefully she will be extubated this morning. Her oxygenation is good * Pneumonia. Growing yeast and bronchial washings. Started on Diflucan * Coronary artery disease. Stable * Acute on chronic renal failure. Renal function is better. Her output is quite good * Hypothyroidism. Hold Synthroid * Bipolar disorder. Continue current medicines * Diabetic neuropathy. On Neurontin * Start tube feeds * Patient's condition is guarded. Current Visit: Yes (2) Chest pain Status: Acute Current Visit: Yes (3) Chronic kidney disease, stage III (moderate) Status: Chronic Current Visit: Yes (4) Hypertension Status: Chronic Current Visit: Yes (5) Type 2 diabetes mellitus Status: Chronic Current Visit: Yes (6) Acute respiratory failure with hypoxemia Status: Acute Current Visit: No (7) Bilateral pneumonia Status: Acute Current Visit: No (8) Bipolar 1 disorder, depressed Status: Acute Current Visit: No (9) Bipolar 1 disorder, depressed Status: Acute Current Visit: No (10) Bipolar disorder Status: Acute Current Visit: No (11) Bronchospasm Status: Acute Current Visit: No (12) COPD (chronic obstructive pulmonary disease) Status: Chronic Current Visit: No (13) Chest pain Status: Acute Current Visit: No (14) Chronic back pain Status: Acute Current Visit: No (15) Chronic renal failure Status: Acute Current Visit: No (16) Chronically on opiate therapy Status: Acute Current Visit: No (17) Cognitive decline Status: Acute Current Visit: No (18) Congestive heart failure Status: Acute Current Visit: No (19) Constipation Status: Acute Current Visit: No (20) Coronary artery disease Status: Chronic Current Visit: No (21) Debility Status: Acute Current Visit: No (22) Depression Status: Acute Current Visit: No (23) Depression Status: Acute Current Visit: No (24) Diabetes mellitus Status: Acute Current Visit: No (25) Drug overdose Problem details: I agree with the current plan of care. I will stop giving her oral narcotics at home I agree with the psychiatric consult Status: Acute Current Visit: No (26) Headache Status: Acute Current Visit: No (27) Hyperlipidemia Status: Acute Current Visit: No (28) Hyponatremia Status: Acute Current Visit: No (29) Hypothyroidism Status: Chronic Current Visit: No (30) Hypothyroidism Status: Acute Current Visit: No (31) Laceration of scalp Status: Acute Current Visit: No (32) Left upper lobe pneumonia Status: Acute Current Visit: No (33) Mood disorder Status: Acute Current Visit: No (34) Neurogenic bladder Status: Acute Current Visit: No (35) Neurogenic bladder Status: Acute Current Visit: No (36) Noncompliance with medications Status: Chronic Current Visit: No (37) Oral candidiasis Status: Acute Current Visit: No (38) Pneumonia Status: Acute Current Visit: No (39) Pneumonia involving left lung Status: Acute Current Visit: No (40) Renal insufficiency Status: Acute Current Visit: No (41) Severe anemia Status: Acute Current Visit: No (42) Sinus bradycardia Status: Acute Current Visit: No (43) Symptomatic anemia Status: Acute Current Visit: No (44) Type 2 diabetes mellitus Status: Acute Current Visit: No (45) UTI (urinary tract infection) Status: Acute Current Visit: No (46) Urinary tract infection Status: Acute Current Visit: No (47) dangerousness Status: Acute Current Visit: No (48) poor coping skills Status: Acute Current Visit: No (49) Abnormal ECG Status: Chronic Current Visit: No (50) Coronary artery disease Status: Chronic Current Visit: No (51) Renal insufficiency Status: Chronic Current Visit: No (52) Edema Status: Resolved Current Visit: No Internal Medicine - PN: Subj Interval history: Patient is comfortable on ventilator. She is following commands. She tolerated CPAP well yesterday Exam (Progress Note) - Constitutional Vitals: Period Temp Pulse Resp BP Sys/Meek Pulse Ox Last 24 Hr 97.4 F-97.9 F 50-61 11-22 126-166/46-75 92-100 Exam: Examination: GENERAL: Patient intubated on ventilator NECK: Neck is supple. CVS: Regular rate and rhythm. S1 and S2 are normal. RESPIRATORY: Mostly clear ABDOMEN: Soft and nontender. EXT: Trace edema. Peripheral pulses are present. PERIOPERATIVE ASSISTANT: Patient following commands appropriately SKIN: Warm and dry. MSK: No obvious deformity. Results - Labs CBC & BMP: 04/15/17 04:41 04/15/17 04:41 Lab Results: I have reviewed the past 24 hour labs
[2017-04-15] MEDS: FLUCONAZOLE INJ 200 MG in PREMIX 1 EACH IV SCH (08:52)
[2017-04-15] MEDS: ENOXAPARIN 30 MG/0.3 ML SYRINGE SUBCUT SCH (08:52)
[2017-04-15] MEDS: ASPIRIN EC 325 MG TABLET PO SCH (08:53)
[2017-04-15] MEDS: LANSOPRAZOLE ODT 30 MG TABLET PO SCH (08:53)
[2017-04-15] MEDS: GABAPENTIN 300 MG CAPSULE PO SCH ×3 (08:53→20:24)
[2017-04-15] MEDS: OXcarbazepine 300 MG TABLET PO SCH ×2 (08:53→20:25)
[2017-04-15] MEDS: INSULIN NPH/REGULAR 70/30 100 UNIT/ML SUBCUT SCH ×2 (08:54→20:23)
[2017-04-15] MEDS: FLUoxetine 20 MG CAPSULE PO SCH (08:54)
[2017-04-15] MEDS: DOCUSATE SODIUM 100 MG CAPSULE PO SCH ×2 (08:54→20:24)
--- NOTE | 2017-04-15 11:51 | Nephrology Progress Note ---
Nephrology - PN: Subj Interval history: She is awake and alert. She has been extubated this morning. Exam (PN)-Nephrology - Vital Signs Vital signs: Period Temp Pulse Resp BP Sys/Meek Pulse Ox Last 24 Hr 97.4 F-97.9 F 51-64 11-24 126-170/46-78 89-100 Exam: Gen.: Alert and oriented x3. ENT: Pupils equal round reactive to light. EOMs intact. Mucous membranes moist. Neck: Supple. No JVD or bruit. Cardiovascular: Regular rate and rhythm. No murmur rub or gallop Lungs: Clear Abdomen: Soft. Nontender. Positive bowel sounds. No organomegaly Extremities: No edema - Lab 04/15/17 04:41 04/15/17 04:41 Most recent lab results ABG pH 7.324 (7.35-7.45) L 04/15/17 02:50 ABG pCO2 39.1 MM HG (35-48) 04/15/17 02:50 ABG pO2 179.0 MM HG (80-95) H 04/15/17 02:50 ABG HCO3 20.1 MMOL/L (20-26) 04/15/17 02:50 ABG O2 Saturation 99.1 % (95-100) 04/15/17 02:50 Calcium 6.8 MG/DL (8.5-10.1) L 04/15/17 04:41 Phosphorus 9.0 MG/DL (2.5-4.9) H 04/15/17 04:41 Magnesium 2.1 MG/DL (1.8-2.4) 04/15/17 04:41 Assessment and Plan (1) Renal failure (ARF), acute on chronic Status: Acute Assessment and plan: 67-year-old woman with: * CRF stage III. Baseline creatinine upper twos * Acute on chronic renal failure. Renal function slowly improving * Neurogenic bladder * Pneumonia * Ventilatory failure. She has been extubated today * Hypertension * Diabetes * Bipolar disorder * CAD Current Visit: Yes (2) Chronic kidney disease, stage III (moderate) Status: Chronic Current Visit: Yes (3) History of coronary artery bypass graft x 1 Status: Chronic Current Visit: Yes (4) Hypertension Status: Chronic Current Visit: Yes (5) Type 2 diabetes mellitus Status: Chronic Current Visit: Yes (6) Bilateral pneumonia Status: Acute Current Visit: No (7) Bipolar disorder Status: Acute Current Visit: No (8) Hypertension Status: Acute Current Visit: No
[2017-04-15] MEDS: traMADol 50 MG TABLET PO PRN (12:11)
[2017-04-15] MEDS: DESITIN 4OZ/NYSTATIN 15 GRAM MIXTURE PASTE TOP SCH ×2 (12:17→20:25)
[2017-04-15] MEDS: PRAVASTATIN 20 MG TABLET PO SCH (20:25)
[2017-04-15] MEDS: ALPRAZolam 0.25 MG TABLET PO PRN (21:24)
[2017-04-15] MEDS: MORPHINE 2 MG/1 ML SYRINGE IV PRN (22:45)
[2017-04-16] MEDS: methylPREDNISolone SOD SUC 125 MG/2 ML VIAL IV SCH ×4 (01:45→17:03)
[2017-04-16] MEDS: ALBUTEROL/IPRATROPIUM 3 ML NEB RESP TX SCH ×6 (03:10→23:51)
[2017-04-16 03:20] LABS: Allen Test Positive
[2017-04-16 03:21] LABS: ABG Base Excess -6.4 MMOL/L (-2.5-2.5); ABG Oxygen Saturation 92.5 % (95-100); ABG PCO2 37.4 MM HG (35-48); ABG PH 7.317 (7.35-7.45); ABG PO2 70.5 MM HG (80-95); ABG TCO2 17.8 MMOL/L (23-27)
[2017-04-16 04:51] LABS: Basophils % 0.1 % (0.0-0.8); Hematocrit 26.5 VOL% (35.7-47.0); Hemoglobin 8.7 GM/DL (12.0-16.0); Immature Granulocytes % 16.2 %; Immature Granulocytes Absolute 3.66 #; Lymphocytes # 0.5 10*3/uL (1.4-4.0); Lymphocytes % 2.2 % (21.3-54.2); Mean Corpuscular HGB Conc 32.8 GM/DL (32-36); Mean Corpuscular Hemoglobin 30 PG (27-34); Mean Corpuscular Volume 90.1 FL (87-102); Monocytes # 0.6 10*3/uL (0.11-0.8); Monocytes % 2.4 % (1.7-12.7); NRBC # 0.03 10*3/uL; Neutrophils # 17.9 10*3/uL (1.4-7.4); Neutrophils % 79.1 % (38.7-73.9); Platelet Count 205 T/CUMM (130-400); Red Blood Count 2.94 MC/CUMM (3.8-5.5); Red Cell Distribution Width 15.3 % (9.3-17.3); White Blood Count 22.6 T/CUMM (4-12)
[2017-04-16 05:22] LABS: Calcium 7.3 MG/DL (8.5-10.1); Osmolality,Calculated 301.2 MOS/KG (273-304); Potassium 5.1 MMOL/L (3.5-5.1)
[2017-04-16 05:30] LABS: Band Neutrophils 5 % (0-10); Hypochromasia Slight; Lymphocytes 3 % (20-55); Platelet Estimate Normal; Segmented Neutrophils 88 % (50-85); Total Cells Counted 100
--- NOTE | 2017-04-16 06:57 | Cardiology Progress Note ---
Cardiology - PN: Subj Interval history: Cardiology note 67-year-old woman admitted with bilateral pneumonia. Extubated yesterday. O2 sat 94 on 3 L cannula. Telemetry shows sinus rhythm in the 50s and 60s. No pauses or recurrent atrial fib. Blood pressure 146/74. Awake and responsive. She is hungry. Regular rhythm with systolic murmur upper right sternal border. Decreased breath sounds with basilar rhonchi Abdomen soft benign No leg edema Lab data today White count 22.6 hemoglobin 8.7 hematocrit 26.5 Sodium 134 potassium 5.1 chloride 100 CO2 19 BUN 108 creatinine down to 4.30 Magnesium 2.0 glucose 93 Continues to make good urine output. 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 Creatinine today is down to 4.30 Recent echo ejection fraction 65% with aortic valve sclerosis and severe TR PA pressure 93 Plan IV antibiotics and nebs BMP in a.m. Exam (Progress Note) - Constitutional Vitals: Period Temp Pulse Resp BP Sys/Meek Pulse Ox Last 24 Hr 97.8 F-98.9 F 52-72 12-27 132-183/37-82 89-99 Result/EKG - Labs CBC & BMP: 04/16/17 03:56 04/16/17 03:56 Labs: Laboratory Results - last 24 hr 04/15/17 04/15/17 04/15/17 11:50 16:47 20:15 WBC RBC Hgb Hct MCV MCH MCHC RDW Plt Count MPV Neut % (Auto) Lymph % (Auto) [place] % (Auto) Eos % (Auto) Baso % (Auto) Neut # (Auto) Lymph # (Auto) [place] # (Auto) Eos # (Auto) Baso # (Auto) Total Counted Immature Gran % Nucleated RBC % Immature Gran # Segmented Neutrophils Band Neutrophils Lymphocytes Monocytes Nucleated RBCs # Platelet Estimate Immature Plt Fraction Hypochromasia ABG pH ABG pCO2 ABG pO2 ABG HCO3 ABG Total CO2 ABG O2 Saturation ABG Base Excess FiO2 Sodium Potassium Chloride Carbon Dioxide Anion Gap BUN Creatinine GFR Calculation BUN/Creatinine Ratio Glucose POC Glucose 169 H 183 H 265 H Calculated Osmolality Calcium Magnesium 04/16/17 04/16/17 04/16/17 03:10 03:56 03:56 WBC 22.6 H RBC 2.94 L Hgb 8.7 L Hct 26.5 L MCV 90.1 MCH 30 MCHC 32.8 RDW 15.3 Plt Count 205 MPV 11.0 Neut % (Auto) 79.1 H Lymph % (Auto) 2.2 L [place] % (Auto) 2.4 Eos % (Auto) 0.0 Baso % (Auto) 0.1 Neut # (Auto) 17.9 H Lymph # (Auto) 0.5 L [place] # (Auto) 0.6 Eos # (Auto) 0.0 Baso # (Auto) 0.0 Total Counted 100 Immature Gran % 16.2 Nucleated RBC % 0.1 Immature Gran # 3.66 Segmented Neutrophils 88 H Band Neutrophils 5 Lymphocytes 3 L Monocytes 4 Nucleated RBCs # 0.03 Platelet Estimate Normal Immature Plt Fraction 0.0 Hypochromasia Slight ABG pH 7.317 L ABG pCO2 37.4 ABG pO2 70.5 L ABG HCO3 19.0 L ABG Total CO2 17.8 L ABG O2 Saturation 92.5 L ABG Base Excess -6.4 L FiO2 36.00 Sodium 134 L Potassium 5.1 Chloride 100 Carbon Dioxide 19 L Anion Gap 20.1 H BUN 108 H Creatinine 4.30 H GFR Calculation 12 BUN/Creatinine Ratio 25.00 H Glucose 93 POC Glucose Calculated Osmolality 301.2 Calcium 7.3 L Magnesium 2.0
--- NOTE | 2017-04-16 06:59 | XRay Report ---
Exam: XR chest 1V portable Date: 04/16/2017 4:00 AM Indication: Shortness of breath Comparison: 04/15/2017 Technical: AP Findings: The endotracheal tube and nasogastric tube have been removed. Cardiomegaly is present with previous sternotomy. Patchy interstitial density infiltrate in the left infrahilar region and left base. ASVD is present. Lateral marginal osteophytes are present. External cardiac leads are noted. No pneumothorax. Impression: 1. Persistent left basilar infiltrate 2. Interval movement endotracheal tube and nasogastric tube. 3. Persistent cardiomegaly and previous sternotomy. PROCEDURE INTERPRETED AT [facility] DEPARTMENT OF RADIOLOGY Final Report Signed by: Dr. Carl Rodas
--- NOTE | 2017-04-16 07:57 | Pulmonology Progress Note ---
Pulmonary - PN: Subj Interval history: Patient is a 67-year-old white lady that has known coronary artery disease along with diabetes, hypertension, hyperlipidemia, hypothyroidism. She is a smoker. She comes in with shortness of breath and bilateral infiltrates. She does look like she might have had heart failure and actually diuresed fairly well. Her chest x-ray was much better yesterday. She looks like she was doing well and then she went into rapid atrial fibrillation and became more short of breath. After medications she suddenly became less responsive and had to be intubated. She had a marked acidosis and worsening renal insufficiency. She has continued to improve overnight. Yesterday she was extubated and has done well. She is alert and maintaining an adequate oxygenation. She seems to be coughing okay. She is taking liquids fairly well. She says her breathing is much better. Her heart rate and blood pressure have been stable also. Exam (Progress Note) - Constitutional Vitals: Period Temp Pulse Resp BP Sys/Meek Pulse Ox Last 24 Hr 97.8 F-98.9 F 56-72 12-27 132-183/37-82 89-99 Exam: General appearance: normal weight, patient is alert and comfortable is in no distress now. - Head Head exam: Present: normal inspection, normocephalic - Eye Eye exam: Present: EOMI. Absent: scleral icterus Pupils: Present: ROBERTO CARLOS - ENT ENT exam: Present: normal exam - Neck Neck exam: Present: normal inspection. Absent: lymphadenopathy, thyromegaly - Respiratory Respiratory exam: Present: She has fair breath sounds bilaterally and her lungs sound reasonably clear without any wheezing or rhonchi. - Cardiovascular Cardiovascular exam: Present: regular rate and rhythm. Her heart rate is under good control now. Absent: gallop, systolic murmur - GI/Abdominal GI/Abdominal exam: Present: normal bowel sounds, soft. Absent: distended, organomegaly, tenderness - Extremities Exam Extremities exam: Absent: calf tenderness, edema - Neurological Exam Neurological exam: Present: alert, oriented X3, CN II-XII intact, she has a resting tremor, she is alert and talking and looks comfortable. - Psychiatric Psychiatric exam: Present: She is alert and comfortable. - Skin Skin exam: Present: warm, dry Results - Labs CBC & BMP: 04/16/17 03:56 04/16/17 03:56 Labs: Her PO2 70 with a PCO2 of 37 and a pH of 7.31 - Diagnostic Findings Procedure: Chest x-ray: image reviewed by me, report reviewed by me (Chest x- ray shows a mild left lower lobe infiltrate.) Assessment and Plan (1) Bilateral pneumonia Status: Acute Assessment and plan: Patient had bilateral pneumonia and respiratory failure but is doing much better now. Her breathing is better and she is not toxic at all. She has a minimal left lower lobe infiltrate now. Current Visit: No (2) Congestive heart failure Status: Acute Assessment and plan: She looks like she had some heart failure early on but is better now. Her volume status appears stable. Current Visit: No (3) COPD (chronic obstructive pulmonary disease) Status: Chronic Assessment and plan: The patient is a smoker and has a component of COPD. She will continue with respiratory therapy. Her lungs sound better today. She is not wheezing at present. Current Visit: No (4) Acute respiratory failure with hypoxemia Status: Acute Assessment and plan: The patient has acute respiratory failure with hypoxemia and bilateral infiltrates. She did well on the ventilator for several days and was extubated yesterday. She is breathing comfortably and looks like she is doing better. Hopefully she can increase her activity and diet. Current Visit: No (5) History of coronary artery bypass graft x 1 Status: Chronic Assessment and plan: The patient has known coronary artery disease. Current Visit: Yes (6) Hypertension Status: Chronic Assessment and plan: She has high blood pressure and will continue with medications. Current Visit: Yes (7) Renal insufficiency Status: Chronic Assessment and plan: Her creatinine peaked at around 5.0 and is now at 4.3. Current Visit: No
[2017-04-16] MEDS ORDERED: DEXTROSE 50% 25 GM/50 ML SYRINGE IV PRN (08:30)
--- NOTE | 2017-04-16 08:43 | Internal Med Progress Note ---
Assessment and Plan (1) Shortness of breath Status: Acute Assessment and plan: 67-year-old female admitted to acute care * Respiratory failure. Patient was extubated yesterday. She has done well since extubation. Her gases look okay * Pneumonia. Growing yeast and bronchial washings. Started on Diflucan * Coronary artery disease. Stable * Acute on chronic renal failure. Renal function is stable * Hypothyroidism. Holding Synthroid * Bipolar disorder. Continue current medicines * Diabetic neuropathy. On Neurontin * Diabetes. Continue current treatment * Start patient on PT and OT. Okay to go to floor later on today or tomorrow morning if she continues to improve Current Visit: Yes (2) Chest pain Status: Acute Current Visit: Yes (3) Chronic kidney disease, stage III (moderate) Status: Chronic Current Visit: Yes (4) Hypertension Status: Chronic Current Visit: Yes (5) Type 2 diabetes mellitus Status: Chronic Current Visit: Yes (6) Acute respiratory failure with hypoxemia Status: Acute Current Visit: No (7) Bilateral pneumonia Status: Acute Current Visit: No (8) Bipolar 1 disorder, depressed Status: Acute Current Visit: No (9) Bipolar 1 disorder, depressed Status: Acute Current Visit: No (10) Bipolar disorder Status: Acute Current Visit: No (11) Bronchospasm Status: Acute Current Visit: No (12) COPD (chronic obstructive pulmonary disease) Status: Chronic Current Visit: No (13) Chest pain Status: Acute Current Visit: No (14) Chronic back pain Status: Acute Current Visit: No (15) Chronic renal failure Status: Acute Current Visit: No (16) Chronically on opiate therapy Status: Acute Current Visit: No (17) Cognitive decline Status: Acute Current Visit: No (18) Congestive heart failure Status: Acute Current Visit: No (19) Constipation Status: Acute Current Visit: No (20) Coronary artery disease Status: Chronic Current Visit: No (21) Debility Status: Acute Current Visit: No (22) Depression Status: Acute Current Visit: No (23) Depression Status: Acute Current Visit: No (24) Diabetes mellitus Status: Acute Current Visit: No (25) Drug overdose Problem details: I agree with the current plan of care. I will stop giving her oral narcotics at home I agree with the psychiatric consult Status: Acute Current Visit: No (26) Headache Status: Acute Current Visit: No (27) Hyperlipidemia Status: Acute Current Visit: No (28) Hyponatremia Status: Acute Current Visit: No (29) Hypothyroidism Status: Chronic Current Visit: No (30) Hypothyroidism Status: Acute Current Visit: No (31) Laceration of scalp Status: Acute Current Visit: No (32) Left upper lobe pneumonia Status: Acute Current Visit: No (33) Mood disorder Status: Acute Current Visit: No (34) Neurogenic bladder Status: Acute Current Visit: No (35) Neurogenic bladder Status: Acute Current Visit: No (36) Noncompliance with medications Status: Chronic Current Visit: No (37) Oral candidiasis Status: Acute Current Visit: No (38) Pneumonia Status: Acute Current Visit: No (39) Pneumonia involving left lung Status: Acute Current Visit: No (40) Renal insufficiency Status: Acute Current Visit: No (41) Severe anemia Status: Acute Current Visit: No (42) Sinus bradycardia Status: Acute Current Visit: No (43) Symptomatic anemia Status: Acute Current Visit: No (44) Type 2 diabetes mellitus Status: Acute Current Visit: No (45) UTI (urinary tract infection) Status: Acute Current Visit: No (46) Urinary tract infection Status: Acute Current Visit: No (47) dangerousness Status: Acute Current Visit: No (48) poor coping skills Status: Acute Current Visit: No (49) Abnormal ECG Status: Chronic Current Visit: No (50) Coronary artery disease Status: Chronic Current Visit: No (51) Renal insufficiency Status: Chronic Current Visit: No (52) Edema Status: Resolved Current Visit: No Internal Medicine - PN: Subj Interval history: Patient is comfortable this morning. She was extubated yesterday. She denies any chest pain or shortness of breath. She is extremely sleepy. He did not sleep much last night. Exam (Progress Note) - Constitutional Vitals: Period Temp Pulse Resp BP Sys/Meek Pulse Ox Last 24 Hr 98.1 F-98.9 F 61-72 15-27 132-183/37-82 89-100 Exam: Examination: GENERAL: No acute NECK: Neck is supple. CVS: Regular rate and rhythm. S1 and S2 are normal. RESPIRATORY: Mostly clear ABDOMEN: Soft and nontender. EXT: Trace edema. Peripheral pulses are present. TELEVISION RECEIVER ANALYZER: Alert and oriented 3. Moving all extremities SKIN: Warm and dry. MSK: No obvious deformity. Results - Labs CBC & BMP: 04/16/17 03:56 04/16/17 03:56 Lab Results: I have reviewed the past 24 hour labs
[2017-04-16] MEDS: CEFTAROLINE 600 MG in SODIUM CHLORIDE 0.9% 100 ML IV SCH ×2 (08:48→20:20)
[2017-04-16] MEDS: INSULIN REGULAR 100 UNIT/ML SUBCUT SCH ×4 (08:49→21:26)
[2017-04-16] MEDS: FLUCONAZOLE INJ 200 MG in PREMIX 1 EACH IV SCH (08:50)
[2017-04-16] MEDS: INSULIN NPH/REGULAR 70/30 100 UNIT/ML SUBCUT SCH ×2 (08:50→21:28)
[2017-04-16] MEDS: ENOXAPARIN 30 MG/0.3 ML SYRINGE SUBCUT SCH (08:50)
[2017-04-16] MEDS: ASPIRIN EC 325 MG TABLET PO SCH (08:51)
[2017-04-16] MEDS: DOCUSATE SODIUM 100 MG CAPSULE PO SCH ×2 (08:51→21:23)
[2017-04-16] MEDS: FLUoxetine 20 MG CAPSULE PO SCH (08:51)
[2017-04-16] MEDS: DESITIN 4OZ/NYSTATIN 15 GRAM MIXTURE PASTE TOP SCH ×2 (08:52→21:25)
[2017-04-16] MEDS: LANSOPRAZOLE ODT 30 MG TABLET PO SCH (08:52)
[2017-04-16] MEDS: GABAPENTIN 300 MG CAPSULE PO SCH ×3 (08:52→21:23)
[2017-04-16] MEDS: SODIUM CHLORIDE 0.9% 1,000 ML IV SCH (08:54)
[2017-04-16] MEDS: OXcarbazepine 300 MG TABLET PO SCH ×2 (09:28→21:31)
--- NOTE | 2017-04-16 11:47 | Nephrology Progress Note ---
Nephrology - PN: Subj Interval history: She is awake and alert. She denies shortness of breath today. No nausea. Exam (PN)-Nephrology - Vital Signs Vital signs: Period Temp Pulse Resp BP Sys/Meek Pulse Ox Last 24 Hr 97.4 F-98.9 F 61-72 15-27 132-183/37-82 90-100 Exam: Gen.: Alert and oriented x3. ENT: Pupils equal round reactive to light. EOMs intact. Mucous membranes moist. Neck: Supple. No JVD or bruit. Cardiovascular: Regular rate and rhythm. No murmur rub or gallop Lungs: Clear Abdomen: Soft. Nontender. Positive bowel sounds. No organomegaly Extremities: No edema - Lab 04/16/17 03:56 04/16/17 03:56 Most recent lab results ABG pH 7.317 (7.35-7.45) L 04/16/17 03:10 ABG pCO2 37.4 MM HG (35-48) 04/16/17 03:10 ABG pO2 70.5 MM HG (80-95) L 04/16/17 03:10 ABG HCO3 19.0 MMOL/L (20-26) L 04/16/17 03:10 ABG O2 Saturation 92.5 % (95-100) L 04/16/17 03:10 Calcium 7.3 MG/DL (8.5-10.1) L 04/16/17 03:56 Phosphorus 9.0 MG/DL (2.5-4.9) H 04/15/17 04:41 Magnesium 2.0 MG/DL (1.8-2.4) 04/16/17 03:56 Assessment and Plan (1) Renal failure (ARF), acute on chronic Status: Acute Assessment and plan: 67-year-old woman with: * CRF stage III. Baseline creatinine upper twos * Acute on chronic renal failure. Renal function stable * Neurogenic bladder * Pneumonia * Ventilatory failure. Resolved * Hypertension * Diabetes * Bipolar disorder * CAD Current Visit: Yes (2) Chronic kidney disease, stage III (moderate) Status: Chronic Current Visit: Yes (3) History of coronary artery bypass graft x 1 Status: Chronic Current Visit: Yes (4) Hypertension Status: Chronic Current Visit: Yes (5) Type 2 diabetes mellitus Status: Chronic Current Visit: Yes (6) Bilateral pneumonia Status: Acute Current Visit: No (7) Bipolar disorder Status: Acute Current Visit: No (8) Hypertension Status: Acute Current Visit: No
[2017-04-16] MEDS: MORPHINE 2 MG/1 ML SYRINGE IV PRN (18:22)
[2017-04-16] MEDS: PRAVASTATIN 20 MG TABLET PO SCH (21:31)
[2017-04-17] MEDS: SODIUM CHLORIDE 0.9% 1,000 ML IV SCH ×2 (00:27→16:05)
[2017-04-17] MEDS: methylPREDNISolone SOD SUC 125 MG/2 ML VIAL IV SCH ×3 (00:30→16:30)
--- NOTE | 2017-04-17 01:35 | Cardiology Progress Note ---
Cardiology - PN: Subj Interval history: Cardiology note 67-year-old woman with bilateral pneumonia. O2 sat 99 on 5 L Telemetry shows sinus rhythm in the 60s. No recurrent atrial fib. Blood pressure 142/70 Alert and responsive Regular rhythm systolic murmur upper right sternal border no AI Decreased breath sounds with basilar rhonchi Nontender abdomen No leg edema Impression Status post bilateral pneumonia Status post single-vessel CABG BARRERA graft to LAD 1997 Status post bradycardia with CPR Paroxysmal atrial fibrillation resolved History of stroke Bipolar disorder Type 2 diabetes Mild chronic renal insufficiency with superimposed acute renal failure creatinine yesterday 4.30 Recent echo ejection fraction 65% with aortic valve sclerosis and severe TR PA pressure 93 Plan Lab data pending IV antibiotics and nebs Rhythm has been stable Exam (Progress Note) - Constitutional Vitals: Period Temp Pulse Resp BP Sys/Meek Pulse Ox Last 24 Hr 97.3 F-98.4 F 58-73 15-27 132-177/43-91 91-100 Result/EKG - Labs CBC & BMP: 04/16/17 03:56 04/16/17 15:54 Labs: Laboratory Results - last 24 hr 04/16/17 04/16/17 04/16/17 03:10 03:56 03:56 WBC 22.6 H RBC 2.94 L Hgb 8.7 L Hct 26.5 L MCV 90.1 MCH 30 MCHC 32.8 RDW 15.3 Plt Count 205 MPV 11.0 Neut % (Auto) 79.1 H Lymph % (Auto) 2.2 L [place] % (Auto) 2.4 Eos % (Auto) 0.0 Baso % (Auto) 0.1 Neut # (Auto) 17.9 H Lymph # (Auto) 0.5 L [place] # (Auto) 0.6 Eos # (Auto) 0.0 Baso # (Auto) 0.0 Total Counted 100 Immature Gran % 16.2 Nucleated RBC % 0.1 Immature Gran # 3.66 Segmented Neutrophils 88 H Band Neutrophils 5 Lymphocytes 3 L Monocytes 4 Nucleated RBCs # 0.03 Platelet Estimate Normal Immature Plt Fraction 0.0 Hypochromasia Slight ABG pH 7.317 L ABG pCO2 37.4 ABG pO2 70.5 L ABG HCO3 19.0 L ABG Total CO2 17.8 L ABG O2 Saturation 92.5 L ABG Base Excess -6.4 L FiO2 36.00 Sodium 134 L Potassium 5.1 Chloride 100 Carbon Dioxide 19 L Anion Gap 20.1 H BUN 108 H Creatinine 4.30 H GFR Calculation 12 BUN/Creatinine Ratio 25.00 H Glucose 93 POC Glucose Calculated Osmolality 301.2 Calcium 7.3 L Magnesium 2.0 04/16/17 04/16/17 04/16/17 07:38 11:47 15:28 WBC RBC Hgb Hct MCV MCH MCHC RDW Plt Count MPV Neut % (Auto) Lymph % (Auto) [place] % (Auto) Eos % (Auto) Baso % (Auto) Neut # (Auto) Lymph # (Auto) [place] # (Auto) Eos # (Auto) Baso # (Auto) Total Counted Immature Gran % Nucleated RBC % Immature Gran # Segmented Neutrophils Band Neutrophils Lymphocytes Monocytes Nucleated RBCs # Platelet Estimate Immature Plt Fraction Hypochromasia ABG pH ABG pCO2 ABG pO2 ABG HCO3 ABG Total CO2 ABG O2 Saturation ABG Base Excess FiO2 Sodium Potassium Chloride Carbon Dioxide Anion Gap BUN Creatinine GFR Calculation BUN/Creatinine Ratio Glucose POC Glucose 124 H 205 H < 20 L* Calculated Osmolality Calcium Magnesium 04/16/17 04/16/17 04/16/17 15:30 15:33 15:54 WBC RBC Hgb Hct MCV MCH MCHC RDW Plt Count MPV Neut % (Auto) Lymph % (Auto) [place] % (Auto) Eos % (Auto) Baso % (Auto) Neut # (Auto) Lymph # (Auto) [place] # (Auto) Eos # (Auto) Baso # (Auto) Total Counted Immature Gran % Nucleated RBC % Immature Gran # Segmented Neutrophils Band Neutrophils Lymphocytes Monocytes Nucleated RBCs # Platelet Estimate Immature Plt Fraction Hypochromasia ABG pH ABG pCO2 ABG pO2 ABG HCO3 ABG Total CO2 ABG O2 Saturation ABG Base Excess FiO2 Sodium Potassium Chloride Carbon Dioxide Anion Gap BUN Creatinine GFR Calculation BUN/Creatinine Ratio Glucose 193 H POC Glucose 214 H 184 H Calculated Osmolality Calcium Magnesium 04/16/17 20:26 WBC RBC Hgb Hct MCV MCH MCHC RDW Plt Count MPV Neut % (Auto) Lymph % (Auto) [place] % (Auto) Eos % (Auto) Baso % (Auto) Neut # (Auto) Lymph # (Auto) [place] # (Auto) Eos # (Auto) Baso # (Auto) Total Counted Immature Gran % Nucleated RBC % Immature Gran # Segmented Neutrophils Band Neutrophils Lymphocytes Monocytes Nucleated RBCs # Platelet Estimate Immature Plt Fraction Hypochromasia ABG pH ABG pCO2 ABG pO2 ABG HCO3 ABG Total CO2 ABG O2 Saturation ABG Base Excess FiO2 Sodium Potassium Chloride Carbon Dioxide Anion Gap BUN Creatinine GFR Calculation BUN/Creatinine Ratio Glucose POC Glucose 232 H Calculated Osmolality Calcium Magnesium
[2017-04-17] MEDS: ALBUTEROL/IPRATROPIUM 3 ML NEB RESP TX SCH ×5 (03:38→20:20)
[2017-04-17 04:47] LABS: Basophils % 0.1 % (0.0-0.8); Hematocrit 26.6 VOL% (35.7-47.0); Hemoglobin 8.7 GM/DL (12.0-16.0); Immature Granulocytes % 17.7 %; Immature Granulocytes Absolute 4.05 #; Lymphocytes # 0.5 10*3/uL (1.4-4.0); Lymphocytes % 2.1 % (21.3-54.2); Mean Corpuscular HGB Conc 32.7 GM/DL (32-36); Mean Corpuscular Hemoglobin 30 PG (27-34); Mean Corpuscular Volume 91.7 FL (87-102); Mean Platelet Volume 11.1 FL (9.6-12.0); Monocytes # 0.6 10*3/uL (0.11-0.8); Monocytes % 2.4 % (1.7-12.7); NRBC # 0.02 10*3/uL; Neutrophils # 17.7 10*3/uL (1.4-7.4); Neutrophils % 77.7 % (38.7-73.9); Platelet Count 202 T/CUMM (130-400); Red Cell Distribution Width 15.4 % (9.3-17.3); White Blood Count 22.8 T/CUMM (4-12)
[2017-04-17 05:30] LABS: Calcium 8.2 MG/DL (8.5-10.1); Osmolality,Calculated 304.1 MOS/KG (273-304); Potassium 4.8 MMOL/L (3.5-5.1)
[2017-04-17 06:02] LABS: Band Neutrophils 1 % (0-10); Eosinophils 1 % (0-10); Lymphocytes 2 % (20-55); Myelocytes 2 %; Segmented Neutrophils 91 % (50-85)
[2017-04-17 06:03] LABS: Hypochromasia 1+; Platelet Estimate Normal
[2017-04-17 06:04] LABS: Elliptocytes Few
[2017-04-17 06:05] LABS: Microcytosis Slight; Total Cells Counted 100
[2017-04-17] MEDS: CEFTAROLINE 600 MG in SODIUM CHLORIDE 0.9% 100 ML IV SCH ×2 (06:32→20:32)
--- NOTE | 2017-04-17 07:07 | Family Practice Progress Note ---
Family Practice - PN: Subj Interval history: Patient states she is doing well and feeling much better since extubation. Chest x-ray yesterday showed definite improvement in her infiltrates. I note that she has gained 3.5 kg since yesterday but I am a bit skeptical of those results. Her creatinine is essentially unchanged from report yesterday. Overall she states she is doing much better and I certainly agree with her. Exam (Progress Note) - Constitutional Vitals: Period Temp Pulse Resp BP Sys/Meek Pulse Ox Last 24 Hr 97.0 F-98.4 F 58-73 15-25 133-164/43-91 95-100 Exam: Objective a well-developed white female in no acute distress. She is awake alert and able give good history. Cardiovascular: Patient appears to be in sinus rhythm. I hear no murmurs or gallops. Respiratory: Patient has bibasilar rales. Abdomen: Abdomen soft and nontender to palpation. Results - Labs CBC & BMP: 04/17/17 04:16 04/17/17 04:16 Lab Results: I have reviewed the past 24 hour labs Assessment and Plan (1) Pneumonia involving left lung Status: Acute Assessment and plan: 04/17/2017: Patient is clinically improving. Can probably go to the floor when pulmonary agrees. Current Visit: No
[2017-04-17] MEDS: INSULIN REGULAR 100 UNIT/ML SUBCUT SCH ×4 (07:35→22:49)
[2017-04-17] MEDS: ENOXAPARIN 30 MG/0.3 ML SYRINGE SUBCUT SCH (09:23)
[2017-04-17] MEDS: FLUoxetine 20 MG CAPSULE PO SCH (09:24)
[2017-04-17] MEDS: GABAPENTIN 300 MG CAPSULE PO SCH ×3 (09:24→21:24)
[2017-04-17] MEDS: ASPIRIN EC 325 MG TABLET PO SCH (09:26)
[2017-04-17] MEDS: DOCUSATE SODIUM 100 MG CAPSULE PO SCH ×2 (09:26→21:23)
[2017-04-17] MEDS: OXcarbazepine 300 MG TABLET PO SCH ×2 (09:26→21:24)
[2017-04-17] MEDS: LANSOPRAZOLE ODT 30 MG TABLET PO SCH (09:27)
[2017-04-17] MEDS: INSULIN NPH/REGULAR 70/30 100 UNIT/ML SUBCUT SCH ×2 (09:31→22:49)
[2017-04-17] MEDS: FLUCONAZOLE INJ 200 MG in PREMIX 1 EACH IV SCH (09:31)
[2017-04-17] MEDS: DESITIN 4OZ/NYSTATIN 15 GRAM MIXTURE PASTE TOP SCH ×2 (09:32→21:24)
--- NOTE | 2017-04-17 10:17 | Pulmonology Progress Note ---
Pulmonary - PN: Subj Interval history: This is a 67-year-old white female who is followed by Dr. Robbins. This patient was admitted with mild congestive heart failure and possible pneumonia. She looked like she was improving and that she developed rapid atrial fib. She had several medications and eventually she developed bradycardia and arrested. She was on ventilator for several days. She is now extubated and is doing better. Her breathing has been stable and is hoped that she will be ready to go to the floor today. Electrolytes are normal. Creatinine is 4.10 with a BUN of 111. White count is 22,800 with 77.57 segs. H&H is 8.7/26.6 and platelets of 202,000. There are no new cultures. No chest x-ray was done today Physical exam. Vital signs see below Psychiatric appears to be oriented 3 Neurologic. Cranial nerves are intact. Patient moves all fours. Neck. Symmetrical no meningismus Lymphatics. No submandibular cervical or supraclavicular adenopathy Chest. Clear Heart no definite gallop Abdomen. Positive bowel sounds Extremities. No evidence of deep venous thrombophlebitis. The remainder the physical exam is noncontributory. Plan. 1. Continue present regimen. 2. Possible move to telemetry Exam (Progress Note) - Constitutional Vitals: Period Temp Pulse Resp BP Sys/Meek Pulse Ox Last 24 Hr 97.0 F-98.4 F 58-73 16-25 133-164/43-91 91-100 Results - Labs CBC & BMP: 04/17/17 04:16 04/17/17 04:16
--- NOTE | 2017-04-17 10:28 | Nephrology Progress Note ---
Nephrology - PN: Subj Interval history: She is up in the chair today. She denies shortness of breath. Exam (PN)-Nephrology - Vital Signs Vital signs: Period Temp Pulse Resp BP Sys/Meek Pulse Ox Last 24 Hr 97.0 F-98.4 F 58-73 16-25 133-164/43-91 91-100 Exam: Gen.: Alert and oriented x3. ENT: Pupils equal round reactive to light. EOMs intact. Mucous membranes moist. Neck: Supple. No JVD or bruit. Cardiovascular: Regular rate and rhythm. No murmur rub or gallop Lungs: Rales left base Abdomen: Soft. Nontender. Positive bowel sounds. No organomegaly Extremities: No edema - Lab 04/17/17 04:16 04/17/17 04:16 Most recent lab results ABG pH 7.317 (7.35-7.45) L 04/16/17 03:10 ABG pCO2 37.4 MM HG (35-48) 04/16/17 03:10 ABG pO2 70.5 MM HG (80-95) L 04/16/17 03:10 ABG HCO3 19.0 MMOL/L (20-26) L 04/16/17 03:10 ABG O2 Saturation 92.5 % (95-100) L 04/16/17 03:10 Calcium 8.2 MG/DL (8.5-10.1) L 04/17/17 04:16 Phosphorus 9.0 MG/DL (2.5-4.9) H 04/15/17 04:41 Magnesium 2.0 MG/DL (1.8-2.4) 04/17/17 04:16 Assessment and Plan (1) Renal failure (ARF), acute on chronic Status: Acute Assessment and plan: 67-year-old woman with: * CRF stage III. Baseline creatinine upper twos * Acute on chronic renal failure. Renal function slightly better today * Neurogenic bladder * Pneumonia * Ventilatory failure. Resolved * Hypertension * Diabetes * Bipolar disorder * CAD Current Visit: Yes (2) Chronic kidney disease, stage III (moderate) Status: Chronic Current Visit: Yes (3) History of coronary artery bypass graft x 1 Status: Chronic Current Visit: Yes (4) Hypertension Status: Chronic Current Visit: Yes (5) Type 2 diabetes mellitus Status: Chronic Current Visit: Yes (6) Bilateral pneumonia Status: Acute Current Visit: No (7) Bipolar disorder Status: Acute Current Visit: No (8) Hypertension Status: Acute Current Visit: No
[2017-04-17] MEDS: PRAVASTATIN 20 MG TABLET PO SCH (21:24)
[2017-04-18] MEDS: ALBUTEROL/IPRATROPIUM 3 ML NEB RESP TX SCH ×7 (00:17→23:48)
[2017-04-18] MEDS: methylPREDNISolone SOD SUC 125 MG/2 ML VIAL IV SCH ×3 (02:00→17:30)
[2017-04-18] MEDS: SODIUM CHLORIDE 0.9% 1,000 ML IV SCH ×3 (02:53→14:35)
[2017-04-18 06:00] LABS: Basophils % 0.1 % (0.0-0.8); Hematocrit 24.9 VOL% (35.7-47.0); Hemoglobin 8.1 GM/DL (12.0-16.0); Immature Granulocytes % 16.4 %; Immature Granulocytes Absolute 4.11 #; Lymphocytes # 0.6 10*3/uL (1.4-4.0); Lymphocytes % 2.2 % (21.3-54.2); Mean Corpuscular HGB Conc 32.5 GM/DL (32-36); Mean Corpuscular Hemoglobin 30 PG (27-34); Mean Corpuscular Volume 92.6 FL (87-102); Mean Platelet Volume 11.2 FL (9.6-12.0); Monocytes # 0.8 10*3/uL (0.11-0.8); Monocytes % 3.1 % (1.7-12.7); NRBC # 0.02 10*3/uL; Neutrophils # 19.6 10*3/uL (1.4-7.4); Neutrophils % 78.2 % (38.7-73.9); Platelet Count 206 T/CUMM (130-400); Red Blood Count 2.69 MC/CUMM (3.8-5.5); Red Cell Distribution Width 15.8 % (9.3-17.3); White Blood Count 25.1 T/CUMM (4-12)
[2017-04-18 06:18] LABS: Calcium 7.9 MG/DL (8.5-10.1); Magnesium 1.9 MG/DL (1.8-2.4); Potassium 4.6 MMOL/L (3.5-5.1)
[2017-04-18 07:36] LABS: Band Neutrophils 4 % (0-10); Hypochromasia 1+; Lymphocytes 2 % (20-55); Platelet Estimate Adequate; Segmented Neutrophils 92 % (50-85); Total Cells Counted 100
[2017-04-18 07:37] LABS: Burr Cells Slight; Microcytosis Slight; Ovalocytes Slight
--- NOTE | 2017-04-18 07:51 | Family Practice Progress Note ---
Family Practice - PN: Subj Interval history: Patient states she is overall feeling much better. I note that her hematocrit is down to 24.9 this morning. Type and screen will be ordered and repeat CBC in the a.m. We will also repeat her chest x-ray in the morning as well. She denies any chest pain this morning. She still has slight cough. Exam (Progress Note) - Constitutional Vitals: Period Temp Pulse Resp BP Sys/Meek Pulse Ox Last 24 Hr 97.4 F-98.1 F 58-70 18-27 132-180/52-86 91-100 Exam: Objective a well-developed white female in no acute distress. She is awake alert and able to give a good history. Cardiovascular: Patient appears to be in sinus rhythm. I hear no murmurs or gallops. Respiratory: Patient has persistent bibasilar rales. Abdomen: Abdomen soft and nontender to palpation. Results - Labs CBC & BMP: 04/18/17 04:19 04/18/17 04:19 Lab Results: I have reviewed the past 24 hour labs Assessment and Plan (1) Pneumonia involving left lung Status: Acute Assessment and plan: 04/17/2017: Patient is clinically improving. Can probably go to the floor when pulmonary agrees. 04/18/2017: We will repeat chest x-ray in the a.m. Patient's blood count is down a bit and will do a type and screen as she may require transfusion. Current Visit: No
[2017-04-18] MEDS: INSULIN REGULAR 100 UNIT/ML SUBCUT SCH ×4 (08:05→21:38)
[2017-04-18] MEDS: MYLANTA/LIDO VISC 2:1 300 ML BOTTLE SWISH/SPIT PRN (08:38)
[2017-04-18] MEDS: CEFTAROLINE 600 MG in SODIUM CHLORIDE 0.9% 100 ML IV SCH ×2 (08:39→22:36)
[2017-04-18] MEDS: INSULIN NPH/REGULAR 70/30 100 UNIT/ML SUBCUT SCH ×2 (08:41→21:38)
[2017-04-18] MEDS: GABAPENTIN 300 MG CAPSULE PO SCH ×3 (08:42→21:31)
[2017-04-18] MEDS: OXcarbazepine 300 MG TABLET PO SCH ×2 (08:42→21:38)
[2017-04-18] MEDS: DOCUSATE SODIUM 100 MG CAPSULE PO SCH ×2 (08:42→21:31)
[2017-04-18] MEDS: LANSOPRAZOLE ODT 30 MG TABLET PO SCH (08:42)
[2017-04-18] MEDS: ENOXAPARIN 30 MG/0.3 ML SYRINGE SUBCUT SCH (08:42)
[2017-04-18] MEDS: ASPIRIN EC 325 MG TABLET PO SCH (08:42)
[2017-04-18] MEDS: FLUoxetine 20 MG CAPSULE PO SCH (08:46)
[2017-04-18] MEDS: DESITIN 4OZ/NYSTATIN 15 GRAM MIXTURE PASTE TOP SCH ×2 (08:46→21:38)
[2017-04-18] MEDS: FLUCONAZOLE INJ 200 MG in PREMIX 1 EACH IV SCH (09:45)
--- NOTE | 2017-04-18 09:55 | Pulmonology Progress Note ---
Pulmonary - PN: Subj Interval history: This is a 67-year-old white female who is followed by Dr. Faust. This patient was admitted with mild congestive heart failure and possible pneumonia. She looked like she was improving and that she developed rapid atrial fib. She had several medications and eventually she developed bradycardia and arrested. She was on ventilator for several days. She is now extubated and is doing better. Her breathing has been stable and is hoped that she will be ready to go to the floor today. Electrolytes are normal. Creatinine is 4.10 with a BUN of 111. White count is 22,800 with 77.57 segs. H&H is 8.7/26.6 and platelets of 202,000. There are no new cultures. No chest x-ray was done today 04/18/2017. This patient is stable. She feels like she is better. She has no new complaints and no new requests. White blood cell count remains elevated at 25,000. H&H is 8.1/24.9. Platelets are 206,000. Sodium potassium chloride are normal. Creatinine is 4.0 with a BUN of 108. There are no new positive cultures. Labs been reviewed. Medicines have been reviewed. Physical exam. Vital signs see below Psychiatric appears to be oriented 3 Neurologic. Cranial nerves are intact. Patient moves all fours. Neck. Symmetrical no meningismus Lymphatics. No submandibular cervical or supraclavicular adenopathy Chest. Clear Heart no definite gallop Abdomen. Positive bowel sounds Extremities. No evidence of deep venous thrombophlebitis. The remainder the physical exam is noncontributory. Plan. 04/17/2017 1. Continue present regimen. 2. Possible move to telemetry 04/18/2017. 1. Patient has been moved from intensive care. 2. No changes were made today. Exam (Progress Note) - Constitutional Vitals: Period Temp Pulse Resp BP Sys/Meek Pulse Ox Last 24 Hr 97.4 F-98.1 F 58-68 18-27 132-180/52-86 93-100 Results - Labs CBC & BMP: 04/18/17 04:19 04/18/17 04:19
[2017-04-18] MEDS: PRAVASTATIN 20 MG TABLET PO SCH (21:31)
--- NOTE | 2017-04-18 21:33 | Nephrology Progress Note ---
Nephrology - PN: Subj Interval history: She feels better overall today. She denies shortness of breath. No nausea Exam (PN)-Nephrology - Vital Signs Vital signs: Period Temp Pulse Resp BP Sys/Meek Pulse Ox Last 24 Hr 97.1 F-97.8 F 61-98 12-20 121-158/53-66 91-100 Exam: Gen.: Alert and oriented x3. ENT: Pupils equal round reactive to light. EOMs intact. Mucous membranes moist. Neck: Supple. No JVD or bruit. Cardiovascular: Regular rate and rhythm. No murmur rub or gallop Lungs: Clear Abdomen: Soft. Nontender. Positive bowel sounds. No organomegaly Extremities: No edema - Lab 04/18/17 04:19 04/18/17 04:19 Most recent lab results ABG pH 7.317 (7.35-7.45) L 04/16/17 03:10 ABG pCO2 37.4 MM HG (35-48) 04/16/17 03:10 ABG pO2 70.5 MM HG (80-95) L 04/16/17 03:10 ABG HCO3 19.0 MMOL/L (20-26) L 04/16/17 03:10 ABG O2 Saturation 92.5 % (95-100) L 04/16/17 03:10 Calcium 7.9 MG/DL (8.5-10.1) L 04/18/17 04:19 Phosphorus 9.0 MG/DL (2.5-4.9) H 04/15/17 04:41 Magnesium 1.9 MG/DL (1.8-2.4) 04/18/17 04:19 Assessment and Plan (1) Renal failure (ARF), acute on chronic Status: Acute Assessment and plan: 67-year-old woman with: * CRF stage III. Baseline creatinine upper twos * Acute on chronic renal failure. Renal function slightly better * Neurogenic bladder * Pneumonia * Ventilatory failure. Resolved * Hypertension * Diabetes * Bipolar disorder * CAD Current Visit: Yes (2) Chronic kidney disease, stage III (moderate) Status: Chronic Current Visit: Yes (3) History of coronary artery bypass graft x 1 Status: Chronic Current Visit: Yes (4) Hypertension Status: Chronic Current Visit: Yes (5) Type 2 diabetes mellitus Status: Chronic Current Visit: Yes (6) Bilateral pneumonia Status: Acute Current Visit: No (7) Bipolar disorder Status: Acute Current Visit: No (8) Hypertension Status: Acute Current Visit: No
[2017-04-19] MEDS: MORPHINE 2 MG/1 ML SYRINGE IV PRN ×2 (00:20→14:51)
[2017-04-19] MEDS: methylPREDNISolone SOD SUC 125 MG/2 ML VIAL IV SCH ×2 (00:21→08:38)
[2017-04-19] MEDS: ALBUTEROL/IPRATROPIUM 3 ML NEB RESP TX SCH ×5 (03:09→19:35)
[2017-04-19 06:09] LABS: Basophils % 0.1 % (0.0-0.8); Hematocrit 24.6 VOL% (35.7-47.0); Hemoglobin 7.9 GM/DL (12.0-16.0); Immature Granulocytes % 11.3 %; Immature Granulocytes Absolute 2.52 #; Lymphocytes # 0.3 10*3/uL (1.4-4.0); Lymphocytes % 1.4 % (21.3-54.2); Mean Corpuscular HGB Conc 32.1 GM/DL (32-36); Mean Corpuscular Hemoglobin 30 PG (27-34); Mean Corpuscular Volume 93.5 FL (87-102); Mean Platelet Volume 11.4 FL (9.6-12.0); Monocytes # 0.3 10*3/uL (0.11-0.8); Monocytes % 1.5 % (1.7-12.7); Neutrophils # 19.1 10*3/uL (1.4-7.4); Neutrophils % 85.7 % (38.7-73.9); Platelet Count 202 T/CUMM (130-400); Red Blood Count 2.63 MC/CUMM (3.8-5.5); Red Cell Distribution Width 15.9 % (9.3-17.3); White Blood Count 22.3 T/CUMM (4-12)
[2017-04-19 06:38] LABS: Osmolality,Calculated 304.1 MOS/KG (273-304); Potassium 4.7 MMOL/L (3.5-5.1)
[2017-04-19 06:43] LABS: Calcium 8.1 MG/DL (8.5-10.1); Magnesium 1.9 MG/DL (1.8-2.4); Osmolality,Calculated 305.1 MOS/KG (273-304); Potassium 4.7 MMOL/L (3.5-5.1)
[2017-04-19 06:48] LABS: Magnesium 1.9 MG/DL (1.8-2.4); Phosphorous 6.8 MG/DL (2.5-4.9); Prealbumin 32.8 MG/DL (20-40)
[2017-04-19 07:25] LABS: Band Neutrophils 7 % (0-10); Hypochromasia 1+; Lymphocytes 3 % (20-55); Platelet Estimate Adequate; Segmented Neutrophils 86 % (50-85); Target Cells Slight; Total Cells Counted 100
[2017-04-19] MEDS: CEFTAROLINE 600 MG in SODIUM CHLORIDE 0.9% 100 ML IV SCH ×2 (08:35→21:01)
[2017-04-19] MEDS: ENOXAPARIN 30 MG/0.3 ML SYRINGE SUBCUT SCH (08:36)
[2017-04-19] MEDS: INSULIN REGULAR 100 UNIT/ML SUBCUT SCH ×4 (08:36→21:13)
[2017-04-19] MEDS: INSULIN NPH/REGULAR 70/30 100 UNIT/ML SUBCUT SCH ×2 (08:36→21:04)
[2017-04-19] MEDS: OXcarbazepine 300 MG TABLET PO SCH ×2 (08:37→21:04)
[2017-04-19] MEDS: LANSOPRAZOLE ODT 30 MG TABLET PO SCH (08:37)
[2017-04-19] MEDS: FLUoxetine 20 MG CAPSULE PO SCH (08:37)
[2017-04-19] MEDS: DOCUSATE SODIUM 100 MG CAPSULE PO SCH ×2 (08:37→21:04)
[2017-04-19] MEDS: ASPIRIN EC 325 MG TABLET PO SCH (08:37)
[2017-04-19] MEDS: GABAPENTIN 300 MG CAPSULE PO SCH ×3 (08:37→21:04)
[2017-04-19] MEDS ORDERED: SODIUM CHLORIDE 0.9% 250 ML IV PRN (08:51)
--- NOTE | 2017-04-19 08:59 | Internal Med Progress Note ---
Assessment and Plan (1) Shortness of breath Status: Acute Assessment and plan: 67-year-old female admitted to acute care * Pneumonia. Continue antibiotic. Repeat chest x-ray today * COPD. Will taper down on her steroids. * Coronary artery disease. Stable * Acute on chronic renal failure. Renal function is gradually improved * Hypothyroidism. Holding Synthroid. Will check TSH in the morning * Bipolar disorder. Continue current medicines * Diabetic neuropathy. On Neurontin * Diabetes. Continue current treatment * Continue PT and OT * She will require swing bed prior to going back home. * Hematocrit is low. Will transfuse her 2 units of packed RBCs * Oral ulcers. Will start her on nystatin swish and swallow for local comfort. Will switch her to p.o. Diflucan Current Visit: Yes (2) Chest pain Status: Acute Current Visit: Yes (3) Chronic kidney disease, stage III (moderate) Status: Chronic Current Visit: Yes (4) Hypertension Status: Chronic Current Visit: Yes (5) Type 2 diabetes mellitus Status: Chronic Current Visit: Yes (6) Acute respiratory failure with hypoxemia Status: Acute Current Visit: No (7) Bilateral pneumonia Status: Acute Current Visit: No (8) Bipolar 1 disorder, depressed Status: Acute Current Visit: No (9) Bipolar 1 disorder, depressed Status: Acute Current Visit: No (10) Bipolar disorder Status: Acute Current Visit: No (11) Bronchospasm Status: Acute Current Visit: No (12) COPD (chronic obstructive pulmonary disease) Status: Chronic Current Visit: No (13) Chest pain Status: Acute Current Visit: No (14) Chronic back pain Status: Acute Current Visit: No (15) Chronic renal failure Status: Acute Current Visit: No (16) Chronically on opiate therapy Status: Acute Current Visit: No (17) Cognitive decline Status: Acute Current Visit: No (18) Congestive heart failure Status: Acute Current Visit: No (19) Constipation Status: Acute Current Visit: No (20) Coronary artery disease Status: Chronic Current Visit: No (21) Debility Status: Acute Current Visit: No (22) Depression Status: Acute Current Visit: No (23) Depression Status: Acute Current Visit: No (24) Diabetes mellitus Status: Acute Current Visit: No (25) Drug overdose Problem details: I agree with the current plan of care. I will stop giving her oral narcotics at home I agree with the psychiatric consult Status: Acute Current Visit: No (26) Headache Status: Acute Current Visit: No (27) Hyperlipidemia Status: Acute Current Visit: No (28) Hyponatremia Status: Acute Current Visit: No (29) Hypothyroidism Status: Chronic Current Visit: No (30) Hypothyroidism Status: Acute Current Visit: No (31) Laceration of scalp Status: Acute Current Visit: No (32) Left upper lobe pneumonia Status: Acute Current Visit: No (33) Mood disorder Status: Acute Current Visit: No (34) Neurogenic bladder Status: Acute Current Visit: No (35) Neurogenic bladder Status: Acute Current Visit: No (36) Noncompliance with medications Status: Chronic Current Visit: No (37) Oral candidiasis Status: Acute Current Visit: No (38) Pneumonia Status: Acute Current Visit: No (39) Pneumonia involving left lung Status: Acute Current Visit: No (40) Renal insufficiency Status: Acute Current Visit: No (41) Severe anemia Status: Acute Current Visit: No (42) Sinus bradycardia Status: Acute Current Visit: No (43) Symptomatic anemia Status: Acute Current Visit: No (44) Type 2 diabetes mellitus Status: Acute Current Visit: No (45) UTI (urinary tract infection) Status: Acute Current Visit: No (46) Urinary tract infection Status: Acute Current Visit: No (47) dangerousness Status: Acute Current Visit: No (48) poor coping skills Status: Acute Current Visit: No (49) Abnormal ECG Status: Chronic Current Visit: No (50) Coronary artery disease Status: Chronic Current Visit: No (51) Renal insufficiency Status: Chronic Current Visit: No (52) Edema Status: Resolved Current Visit: No Internal Medicine - PN: Subj Interval history: Patient is complaining of mouth ulcers. Her mouth is quite painful. Her breathing is better. She denies any chest pain or shortness of breath. She is extremely weak. She denies any nausea or vomiting. Exam (Progress Note) - Constitutional Vitals: Period Temp Pulse Resp BP Sys/Meek Pulse Ox Last 24 Hr 97.1 F-97.9 F 63-98 12-20 121-150/53-65 91-100 Exam: Examination: GENERAL: No acute HEENT: Multiple ulcers are seen inside the buccal cavity and on tongue NECK: Neck is supple. CVS: Regular rate and rhythm. S1 and S2 are normal. RESPIRATORY: Mostly clear ABDOMEN: Soft and nontender. EXT: Trace edema. Peripheral pulses are present. DOCUMENT PREPARATION SPECIALIST: Alert and oriented 3. Moving all extremities SKIN: Warm and dry. MSK: No obvious deformity. Results - Labs CBC & BMP: 04/19/17 04:28 04/19/17 04:28 Lab Results: I have reviewed the past 24 hour labs Specialty Discharge - Follow Up or Referrals Follow up with: Ran Beltrán MD [Physician] - 2 Weeks (With EKG)
[2017-04-19] MEDS ORDERED: FUROSEMIDE 40 MG/4 ML VIAL IV ONE (09:16)
[2017-04-19] MEDS: methylPREDNISolone SOD SUC 40 MG/1 ML VIAL IV SCH ×2 (09:36→21:03)
[2017-04-19] MEDS: FLUCONAZOLE INJ 200 MG in PREMIX 1 EACH IV SCH (09:37)
[2017-04-19] MEDS: DESITIN 4OZ/NYSTATIN 15 GRAM MIXTURE PASTE TOP SCH ×2 (09:41→21:15)
[2017-04-19] MEDS: NYSTATIN 500,000 UNIT/5 ML UDCUP SWISH/SWAL SCH ×4 (09:41→21:01)
[2017-04-19] MEDS: FLUCONAZOLE 100 MG TABLET PO SCH (09:41)
--- NOTE | 2017-04-19 13:30 | XRay Report ---
XR chest 1V Indication: Follow-up pneumonia Comparison: Chest x-ray dated April 16, 2017 Technique: Single frontal view of the chest. Findings: Continued cardiomegaly status post sternotomy. Continued scattered pulmonary opacities and prominence of the pulmonary interstitial lung markings. Visualized osseous and surrounding soft tissue structures appear grossly unchanged. IMPRESSION: No significant interval change. PROCEDURE INTERPRETED AT [facility] DEPARTMENT OF RADIOLOGY Final Report Signed by: Dr Jarod Trujillo
--- NOTE | 2017-04-19 13:43 | Nephrology Progress Note ---
Nephrology - PN: Subj Interval history: She denies shortness of breath. She remains weak but states she feels a little better overall. She complains of ulcers in her mouth. Exam (PN)-Nephrology - Vital Signs Vital signs: Period Temp Pulse Resp BP Sys/Meek Pulse Ox Last 24 Hr 96.3 F-98.4 F 63-98 12-21 121-161/54-76 91-100 Exam: Gen.: Alert and oriented x3. ENT: Pupils equal round reactive to light. EOMs intact. Ulcers of the buccal mucosa and tongue Neck: Supple. No JVD or bruit. Cardiovascular: Regular rate and rhythm. No murmur rub or gallop Lungs: Clear Abdomen: Soft. Nontender. Positive bowel sounds. No organomegaly Extremities: No edema - Lab 04/19/17 04:28 04/19/17 04:28 Most recent lab results ABG pH 7.317 (7.35-7.45) L 04/16/17 03:10 ABG pCO2 37.4 MM HG (35-48) 04/16/17 03:10 ABG pO2 70.5 MM HG (80-95) L 04/16/17 03:10 ABG HCO3 19.0 MMOL/L (20-26) L 04/16/17 03:10 ABG O2 Saturation 92.5 % (95-100) L 04/16/17 03:10 Calcium 8.1 MG/DL (8.5-10.1) L 04/19/17 04:28 Phosphorus 6.8 MG/DL (2.5-4.9) H 04/19/17 04:28 Magnesium 1.9 MG/DL (1.8-2.4) 04/19/17 04:28 Assessment and Plan (1) Renal failure (ARF), acute on chronic Status: Acute Assessment and plan: 67-year-old woman with: * CRF stage III. Baseline creatinine upper twos * Acute on chronic renal failure. Renal function slowly improving * Neurogenic bladder * Pneumonia * Hypertension * Diabetes * Bipolar disorder * CAD * Anemia. She is to be transfused Current Visit: Yes (2) Chronic kidney disease, stage III (moderate) Status: Chronic Current Visit: Yes (3) History of coronary artery bypass graft x 1 Status: Chronic Current Visit: Yes (4) Hypertension Status: Chronic Current Visit: Yes (5) Type 2 diabetes mellitus Status: Chronic Current Visit: Yes (6) Bilateral pneumonia Status: Acute Current Visit: No (7) Bipolar disorder Status: Acute Current Visit: No (8) Hypertension Status: Acute Current Visit: No Specialty Discharge - Follow Up or Referrals Follow up with: Ran Beltrán MD [Physician] - 2 Weeks (With EKG)
--- NOTE | 2017-04-19 13:48 | Cardiology Progress Note ---
Alena Silverio April RN, am scribing for, and in the presence of, Markel Kuo MD 13:48. Assessment and Plan (1) Hypertension Status: Chronic Current Visit: Yes (2) Type 2 diabetes mellitus Status: Chronic Assessment and plan: Internal medicine is following this. Current Visit: Yes (3) Hyperlipidemia Status: Chronic Assessment and plan: She is on pravastatin 40 mg daily. Current Visit: Yes (4) Oral candidiasis Status: Acute Current Visit: Yes (5) Renal insufficiency Status: Chronic Current Visit: Yes (6) Severe anemia Status: Acute Assessment and plan: She is scheduled for 2 units of blood product today. Current Visit: Yes (7) Coronary artery disease Status: Chronic Current Visit: Yes Cardiology - PN: Subj Interval history: PRIMARY PRODUCTION MACHINE OPERATOR: GÓMEZ (DOES NOT FOLLOW ROUTINELY) PCP: DR. FLOYD SUMMARY: Ms. Cardenas is a 67 year old white female with risk factor significant for: Age, hypertension, hyperlipidemia, diabetes, previously known history of CAD, and tobacco use. She does not routinely follow with cardiology, and she has a history of noncompliance. Patient has had previous CABG 1 with BARRERA [place] LAD [address] Lopez. Review of old records shows patient had last cardiac catheterization in [address] Beltrán which revealed stable coronary artery disease and a widely patent BARRERA graft. She had nuclear SPECT scan approximately 1 year ago on April 06, 2016, and showed no coronary artery ischemia and normal LV systolic function with EF 69%. She has been a heavy smoker all her life. Past medical history includes COPD, multiple CVA, hypothyroidism, chronic kidney disease with anemia, and bipolar disorder with previous suicide attempt by narcotic overdose. She has a known history of diastolic dysfunction due to mitral and tricuspid valve dysfunction. She has chronic pain and is followed routinely by Dr. Abbasi. Patient also has recurrent pneumonia and has required multiple hospital admissions. Patient was admitted April 08 after presenting to the emergency room complaining of shortness of breath for 2 days with cough, fever, chills. She also complained of some back pain and chest pain. Chest x-ray revealed by basilar pneumonia. The morning of April 09 around 0640, patient reported to the nursing staff that she was having chest pain described as a "heaviness" and her oxygen saturation levels were noted to be 78% on 2 L/NC. Nursing staff initiated heart alert, EKG was obtained with acute OH ruled out, patient was placed on 100% NRB, received 40 mg IV Lasix and 2 mg IV morphine, and she was transferred to the ICU for close observation. Stat blood work drawn. Cardiac enzymes revealed troponin 0.049 with CPK 465. BNP 831. Cardiology was consulted for further evaluation of chest pain and volume overload. Echocardiogram showed ejection fraction of 65-70% with 2-3+ bilateral enlargement, concentric LVH, and 3-4+ tricuspid regurgitation. April 11 she developed atrial fibrillation with RVR, she was given diltiazem with his doctor blood pressure and was given metoprolol 5 mg IV 1 dose and digoxin 0.125 mg. Potassium was noted to be 6.4 and she was given calcium gluconate, Kayexalate and albuterol. She is now in sinus rhythm and I see no further documentation of atrial fibrillation in the chart. April 19, 2017: Ms. Cardenas is seen resting in bed in no acute distress. She denies any chest pain or palpitations. Oxygen is in use via nasal cannula and she reports her breathing is doing pretty good. monitor tech currently shows sinus rhythm with heart rates in the 60s. Potassium this morning is 4.7. She is on IV antibiotics. White count today is 22.3, this is improved some from yesterday. H&H today is 7.9 and 24.6. It appears that she has 2 units of blood product ordered for today. BMP is up some milligrams push her Lasix a little bit harder to see if we can get some volume off. She is getting extra volume and packed cells today. She denies any history of any problems related to dyspnea she has a nonproductive cough and is looking forward trying to get to swing bed which is closer to her daughter. I have discussed in detail the particulars of this case and I have examined the patient and reviewed the patient's chart both current and old. I was directly involved in the patient's evaluation and management and I completely agree with Malia Carvajal RN regarding this patient's evaluation and treatment plan. Exam (Progress Note) - Constitutional Vitals: Period Temp Pulse Resp BP Sys/Meek Pulse Ox Last 24 Hr 97.1 F-97.9 F 63-98 12-20 121-150/53-65 91-100 General appearance: no acute distress, morbidly obese - Head Head exam: Absent: abrasion, hematoma - ENT ENT exam: Present: other (Ulcers noted in mouth) - Respiratory Respiratory exam: Present: clear to auscultation bilaterally, other (Oxygen and use via nasal cannula). Absent: accessory muscle use, chest wall tenderness - Cardiovascular Cardiovascular exam: Present: regular rate and rhythm - GI/Abdominal GI/Abdominal exam: Present: normal bowel sounds, soft. Absent: distended, tenderness - Extremities Exam Extremities exam: Present: edema (Trace to bilateral lower extremities), other ( Peripheral pulses present) - Neurological Exam Neurological exam: Present: alert, oriented X3 - Psychiatric Psychiatric exam: Present: normal affect, normal mood - Skin Skin exam: Present: warm, dry Result/EKG - Labs CBC & BMP: 04/19/17 04:28 04/19/17 04:28 Lab Results: I have reviewed the past 24 hour labs Labs: Laboratory Results - last 24 hr 04/18/17 04/18/17 04/18/17 12:40 15:34 21:29 WBC RBC Hgb Hct MCV MCH MCHC RDW Plt Count MPV Neut % (Auto) Lymph % (Auto) Crawford % (Auto) Eos % (Auto) Baso % (Auto) Neut # (Auto) Lymph # (Auto) Crawford # (Auto) Eos # (Auto) Baso # (Auto) Total Counted Immature Gran % Nucleated RBC % Immature Gran # Segmented Neutrophils Band Neutrophils Lymphocytes Monocytes Nucleated RBCs # Platelet Estimate Immature Plt Fraction Hypochromasia Target Cells Sodium Potassium Chloride Carbon Dioxide Anion Gap BUN Creatinine GFR Calculation BUN/Creatinine Ratio Glucose POC Glucose 163 H 147 H 286 H Calculated Osmolality Calcium Phosphorus Magnesium Prealbumin Blood Type Antibody Screen Crossmatch Blood Bank Comment 04/18/17 04/19/17 04/19/17 Unknown 04:28 04:28 WBC 22.3 H RBC 2.63 L Hgb 7.9 L Hct 24.6 L MCV 93.5 MCH 30 MCHC 32.1 RDW 15.9 Plt Count 202 MPV 11.4 Neut % (Auto) 85.7 H Lymph % (Auto) 1.4 L Crawford % (Auto) 1.5 L Eos % (Auto) 0.0 Baso % (Auto) 0.1 Neut # (Auto) 19.1 H Lymph # (Auto) 0.3 L Crawford # (Auto) 0.3 Eos # (Auto) 0.0 Baso # (Auto) 0.0 Total Counted 100 Immature Gran % 11.3 Nucleated RBC % 0.0 Immature Gran # 2.52 Segmented Neutrophils 86 H Band Neutrophils 7 Lymphocytes 3 L Monocytes 4 Nucleated RBCs # 0.00 Platelet Estimate Adequate Immature Plt Fraction 0.0 Hypochromasia 1+ Target Cells Slight Sodium 135 L Potassium 4.7 Chloride 104 Carbon Dioxide 17 L Anion Gap 18.7 H BUN 100 H Creatinine 3.80 H GFR Calculation 14 BUN/Creatinine Ratio 26.00 H Glucose 166 H POC Glucose Calculated Osmolality 304.1 H Calcium 8.0 L Phosphorus Magnesium Prealbumin Blood Type A NEGATIVE Antibody Screen Negative Crossmatch Blood Bank Comment 04/19/17 04/19/17 04/19/17 04:28 04:28 08:51 WBC RBC Hgb Hct MCV MCH MCHC RDW Plt Count MPV Neut % (Auto) Lymph % (Auto) Crawford % (Auto) Eos % (Auto) Baso % (Auto) Neut # (Auto) Lymph # (Auto) Crawford # (Auto) Eos # (Auto) Baso # (Auto) Total Counted Immature Gran % Nucleated RBC % Immature Gran # Segmented Neutrophils Band Neutrophils Lymphocytes Monocytes Nucleated RBCs # Platelet Estimate Immature Plt Fraction Hypochromasia Target Cells Sodium 135 L Potassium 4.7 Chloride 104 Carbon Dioxide 17 L Anion Gap 18.7 H BUN 101 H Creatinine 3.80 H GFR Calculation 14 BUN/Creatinine Ratio 26.00 H Glucose 167 H POC Glucose Calculated Osmolality 305.1 H Calcium 8.1 L Phosphorus 6.8 H Magnesium 1.9 1.9 Prealbumin 32.8 Blood Type Cancelled Antibody Screen Cancelled Crossmatch See Detail Blood Bank Comment Cancelled - Diagnostic Findings Procedure: Chest x-ray: report reviewed by me - EKG EKG results: interpreted by me EKG shows: sinus rhythm Specialty Discharge - Follow Up or Referrals Follow up with: Ran Beltrán MD [Physician] - 2 Weeks (With EKG) IAyaan Wesley, MD, personally performed the services described in this documentation, ascribed by Malia Carvajal RN in my presence, and it is both accurate and complete [id number] .
--- NOTE | 2017-04-19 15:10 | Pulmonology Progress Note ---
Pulmonary - PN: Subj Interval history: Patient is a 67-year-old white lady that has known coronary artery disease along with diabetes, hypertension, hyperlipidemia, hypothyroidism. She is a smoker. She comes in with shortness of breath and bilateral infiltrates. She does look like she might have had heart failure and actually diuresed fairly well. Her chest x-ray was much better yesterday. She looks like she was doing well and then she went into rapid atrial fibrillation and became more short of breath. After medications she suddenly became less responsive and had to be intubated. She had a marked acidosis and worsening renal insufficiency. She has continued to improve overnight. She has come off the ventilator fairly well and over the weekend did well. Her breathing has gotten better and she was moved to a regular room. She says she has a very sore mouth and is getting Mycostatin. She says her breathing is better and she is not coughing as badly. She is feeling a little stronger today. Exam (Progress Note) - Constitutional Vitals: Period Temp Pulse Resp BP Sys/Meek Pulse Ox Last 24 Hr 96.3 F-98.4 F 63-98 12-21 121-164/54-76 91-100 Exam: General appearance: normal weight, patient is alert and sitting up and talking more. - Head Head exam: Present: normal inspection, normocephalic - Eye Eye exam: Present: EOMI. Absent: scleral icterus Pupils: Present: ROBERTO CARLOS - ENT ENT exam: Present: She does have dry mucous membranes with some mild sores - Neck Neck exam: Present: normal inspection. Absent: lymphadenopathy, thyromegaly - Respiratory Respiratory exam: Present: She has fair breath sounds bilaterally and her lungs sound reasonably clear without any wheezing or rhonchi. She is moving air fairly well and has a decent cough. - Cardiovascular Cardiovascular exam: Present: regular rate and rhythm. Her heart rate is under good control now. Absent: gallop, systolic murmur - GI/Abdominal GI/Abdominal exam: Present: normal bowel sounds, soft. Absent: distended, organomegaly, tenderness - Extremities Exam Extremities exam: Absent: calf tenderness, edema, she had no signs of phlebitis - Neurological Exam Neurological exam: Present: alert, oriented X3, CN II-XII intact, she has a resting tremor, she is alert and talking and looks comfortable. - Psychiatric Psychiatric exam: Present: She is alert and comfortable. - Skin Skin exam: Present: warm, dry Results - Labs CBC & BMP: 04/19/17 04:28 04/19/17 04:28 - Diagnostic Findings Procedure: Chest x-ray: image reviewed by me, report reviewed by me (Chest x- ray shows improvement of the bilateral infiltrates.) Assessment and Plan (1) Bilateral pneumonia Status: Acute Assessment and plan: Patient had bilateral pneumonia and respiratory failure but is doing much better now. She has done well off the ventilator and her breathing is much better. Her pneumonia has improved. Current Visit: No (2) Congestive heart failure Status: Acute Assessment and plan: She looks like she had some heart failure early on but is better now. Her volume status appears stable. She has no signs of heart failure now. Current Visit: No (3) COPD (chronic obstructive pulmonary disease) Status: Chronic Assessment and plan: The patient is a smoker and has a component of COPD. She will continue with respiratory therapy. Her lungs sound better today. She is not wheezing at present. Her breathing is much improved. Current Visit: No (4) Acute respiratory failure with hypoxemia Status: Acute Assessment and plan: The patient has acute respiratory failure with hypoxemia and bilateral infiltrates. She did well on the ventilator for several days and was extubated. She has had a good weekend and her breathing continues to improve. Current Visit: No (5) History of coronary artery bypass graft x 1 Status: Chronic Assessment and plan: The patient has known coronary artery disease. Current Visit: Yes (6) Hypertension Status: Chronic Assessment and plan: She has high blood pressure and will continue with medications. Her systolic blood pressure is around 160. Current Visit: Yes (7) Renal insufficiency Status: Chronic Assessment and plan: Her creatinine peaked at around 5.0 and is now at 3.8 Current Visit: No (8) Severe anemia Status: Acute Assessment and plan: She is getting transfused today with a hematocrit of 24. Current Visit: Yes Specialty Discharge - Follow Up or Referrals Follow up with: Ran Beltrán MD [Physician] - 2 Weeks (With EKG)
[2017-04-19] MEDS: SODIUM CHLORIDE 0.9% 1,000 ML IV SCH (18:10)
[2017-04-19] MEDS: PRAVASTATIN 20 MG TABLET PO SCH (21:04)
[2017-04-20] MEDS: ALBUTEROL/IPRATROPIUM 3 ML NEB RESP TX SCH ×6 (00:15→20:17)
[2017-04-20 06:59] LABS: Basophils % 0.1 % (0.0-0.8); Hematocrit 28.2 VOL% (35.7-47.0); Hemoglobin 9.2 GM/DL (12.0-16.0); Immature Granulocytes % 8.9 %; Immature Granulocytes Absolute 1.81 #; Lymphocytes # 0.3 10*3/uL (1.4-4.0); Lymphocytes % 1.6 % (21.3-54.2); Mean Corpuscular HGB Conc 32.6 GM/DL (32-36); Mean Corpuscular Hemoglobin 30 PG (27-34); Mean Corpuscular Volume 90.7 FL (87-102); Mean Platelet Volume 11.2 FL (9.6-12.0); Monocytes # 0.5 10*3/uL (0.11-0.8); Monocytes % 2.6 % (1.7-12.7); Neutrophils # 17.6 10*3/uL (1.4-7.4); Neutrophils % 86.8 % (38.7-73.9); Platelet Count 170 T/CUMM (130-400); Red Blood Count 3.11 MC/CUMM (3.8-5.5); Red Cell Distribution Width 17.7 % (9.3-17.3); White Blood Count 20.3 T/CUMM (4-12)
[2017-04-20 07:26] LABS: Calcium 7.2 MG/DL (8.5-10.1); Osmolality,Calculated 300.7 MOS/KG (273-304); Potassium 4.1 MMOL/L (3.5-5.1)
[2017-04-20 07:33] LABS: Band Neutrophils 6 % (0-10); Lymphocytes 2 % (20-55); Platelet Estimate Normal; Segmented Neutrophils 90 % (50-85); Total Cells Counted 100
[2017-04-20 07:34] LABS: Giant Platelets Few; Hypochromasia 1+; Ovalocytes Slight
[2017-04-20 07:35] LABS: Burr Cells Slight; Microcytosis Slight
[2017-04-20 07:36] LABS: Free T4 (Free Thyroxine) < 0.20 NG/DL (0.76-1.46); Thyroid Stimulating Hormone 0.588 uIU/ml (0.358-3.74)
--- NOTE | 2017-04-20 08:15 | Internal Med Progress Note ---
Assessment and Plan (1) Shortness of breath Status: Acute Assessment and plan: 67-year-old female admitted to acute care * Pneumonia. Her chest x-ray looked about the same * COPD. Tapering steroid * Coronary artery disease. Stable * Acute on chronic renal failure. Continues to improve. * Hypothyroidism. Holding Synthroid. Will restart Synthroid * Bipolar disorder. Continue current medicines * Diabetic neuropathy. On Neurontin * Diabetes. Continue current treatment * Continue PT and OT * She will require swing bed prior to going back home. * Hematocrit is better after transfusion * Oral ulcers. Better on nystatin swish and swallow Current Visit: Yes (2) Chest pain Status: Acute Current Visit: Yes (3) Chronic kidney disease, stage III (moderate) Status: Chronic Current Visit: Yes (4) Hypertension Status: Chronic Current Visit: Yes (5) Type 2 diabetes mellitus Status: Chronic Current Visit: Yes (6) Acute respiratory failure with hypoxemia Status: Acute Current Visit: No (7) Bilateral pneumonia Status: Acute Current Visit: No (8) Bipolar 1 disorder, depressed Status: Acute Current Visit: No (9) Bipolar 1 disorder, depressed Status: Acute Current Visit: No (10) Bipolar disorder Status: Acute Current Visit: No (11) Bronchospasm Status: Acute Current Visit: No (12) COPD (chronic obstructive pulmonary disease) Status: Chronic Current Visit: No (13) Chest pain Status: Acute Current Visit: No (14) Chronic back pain Status: Acute Current Visit: No (15) Chronic renal failure Status: Acute Current Visit: No (16) Chronically on opiate therapy Status: Acute Current Visit: No (17) Cognitive decline Status: Acute Current Visit: No (18) Congestive heart failure Status: Acute Current Visit: No (19) Constipation Status: Acute Current Visit: No (20) Coronary artery disease Status: Chronic Current Visit: No (21) Debility Status: Acute Current Visit: No (22) Depression Status: Acute Current Visit: No (23) Depression Status: Acute Current Visit: No (24) Diabetes mellitus Status: Acute Current Visit: No (25) Drug overdose Problem details: I agree with the current plan of care. I will stop giving her oral narcotics at home I agree with the psychiatric consult Status: Acute Current Visit: No (26) Headache Status: Acute Current Visit: No (27) Hyperlipidemia Status: Chronic Current Visit: Yes (28) Hyponatremia Status: Acute Current Visit: No (29) Hypothyroidism Status: Chronic Current Visit: No (30) Hypothyroidism Status: Acute Current Visit: No (31) Laceration of scalp Status: Acute Current Visit: No (32) Left upper lobe pneumonia Status: Acute Current Visit: No (33) Mood disorder Status: Acute Current Visit: No (34) Neurogenic bladder Status: Acute Current Visit: No (35) Neurogenic bladder Status: Acute Current Visit: No (36) Noncompliance with medications Status: Chronic Current Visit: No (37) Oral candidiasis Status: Acute Current Visit: Yes (38) Pneumonia Status: Acute Current Visit: No (39) Pneumonia involving left lung Status: Acute Current Visit: No (40) Renal insufficiency Status: Chronic Current Visit: Yes (41) Severe anemia Status: Acute Current Visit: Yes (42) Sinus bradycardia Status: Acute Current Visit: No (43) Symptomatic anemia Status: Acute Current Visit: No (44) Type 2 diabetes mellitus Status: Acute Current Visit: No (45) UTI (urinary tract infection) Status: Acute Current Visit: No (46) Urinary tract infection Status: Acute Current Visit: No (47) dangerousness Status: Acute Current Visit: No (48) poor coping skills Status: Acute Current Visit: No (49) Abnormal ECG Status: Chronic Current Visit: No (50) Coronary artery disease Status: Chronic Current Visit: Yes (51) Renal insufficiency Status: Chronic Current Visit: No (52) Edema Status: Resolved Current Visit: No Internal Medicine - PN: Subj Interval history: Patient is complaining of mouth ulcers. Her mouth is still painful but better than yesterday. She has taken few steps in her room. She denies any chest pain or shortness of breath Exam (Progress Note) - Constitutional Vitals: Period Temp Pulse Resp BP Sys/Meek Pulse Ox Last 24 Hr 96.3 F-98.4 F 35-87 16-21 138-169/57-85 91-100 Exam: Examination: GENERAL: No acute HEENT: Multiple ulcers are seen inside the buccal cavity and on tongue NECK: Neck is supple. CVS: Regular rate and rhythm. S1 and S2 are normal. RESPIRATORY: Mostly clear ABDOMEN: Soft and nontender. EXT: Trace edema. Peripheral pulses are present. CARTON CATCHER: Alert and oriented 3. Moving all extremities SKIN: Warm and dry. Results - Labs CBC & BMP: 04/20/17 06:40 04/20/17 06:40 Lab Results: I have reviewed the past 24 hour labs Specialty Discharge - Follow Up or Referrals Follow up with: Ran Beltrán MD [Physician] - 2 Weeks (With EKG)
[2017-04-20] MEDS ORDERED: methylPREDNISolone SOD SUC 40 MG/1 ML VIAL IV SCH (08:16)
[2017-04-20] MEDS: INSULIN REGULAR 100 UNIT/ML SUBCUT SCH ×4 (08:28→20:50)
[2017-04-20] MEDS: CEFTAROLINE 600 MG in SODIUM CHLORIDE 0.9% 100 ML IV SCH (08:59)
[2017-04-20] MEDS: INSULIN NPH/REGULAR 70/30 100 UNIT/ML SUBCUT SCH ×2 (09:00→20:50)
[2017-04-20] MEDS: LANSOPRAZOLE ODT 30 MG TABLET PO SCH (09:01)
[2017-04-20] MEDS: FLUCONAZOLE 100 MG TABLET PO SCH (09:01)
[2017-04-20] MEDS: GABAPENTIN 300 MG CAPSULE PO SCH ×3 (09:01→20:50)
[2017-04-20] MEDS: ASPIRIN EC 325 MG TABLET PO SCH (09:01)
[2017-04-20] MEDS: FLUoxetine 20 MG CAPSULE PO SCH (09:01)
[2017-04-20] MEDS: OXcarbazepine 300 MG TABLET PO SCH ×2 (09:01→20:50)
[2017-04-20] MEDS: DOCUSATE SODIUM 100 MG CAPSULE PO SCH ×2 (09:01→20:50)
[2017-04-20] MEDS: ENOXAPARIN 30 MG/0.3 ML SYRINGE SUBCUT SCH (09:01)
[2017-04-20] MEDS: NYSTATIN 500,000 UNIT/5 ML UDCUP SWISH/SWAL SCH ×4 (09:01→20:49)
[2017-04-20] MEDS: SODIUM CHLORIDE 0.9% 1,000 ML IV SCH (09:02)
[2017-04-20] MEDS: DESITIN 4OZ/NYSTATIN 15 GRAM MIXTURE PASTE TOP SCH ×2 (09:02→20:55)
--- NOTE | 2017-04-20 09:46 | Pulmonology Progress Note ---
Pulmonary - PN: Subj Interval history: Patient is a 67-year-old white lady that has known coronary artery disease along with diabetes, hypertension, hyperlipidemia, hypothyroidism. She is a smoker. She comes in with shortness of breath and bilateral infiltrates. She does look like she might have had heart failure and actually diuresed fairly well. Her chest x-ray was much better yesterday. She looks like she was doing well and then she went into rapid atrial fibrillation and became more short of breath. After medications she suddenly became less responsive and had to be intubated. She had a marked acidosis and worsening renal insufficiency. She has continued to improve overnight. Yesterday she did get a couple units of packed cells and did diurese very well after that. She is sitting up and breathing better. She still has a very sore mouth. Overall she is feeling a little better. Exam (Progress Note) - Constitutional Vitals: Period Temp Pulse Resp BP Sys/Meek Pulse Ox Last 24 Hr 96.3 F-98.4 F 35-87 16-21 138-169/57-85 91-100 Exam: General appearance: normal weight, patient is alert and sitting up and talking more. She is not having any respiratory distress now. - Head Head exam: Present: normal inspection, normocephalic - Eye Eye exam: Present: EOMI. Absent: scleral icterus Pupils: Present: ROBERTO CARLOS - ENT ENT exam: Present: She does have dry mucous membranes with some mild sores - Neck Neck exam: Present: normal inspection. Absent: lymphadenopathy, thyromegaly - Respiratory Respiratory exam: Present: She has fair breath sounds bilaterally and her lungs sound reasonably clear without any wheezing or rhonchi. She is moving air fairly well and has a decent cough. - Cardiovascular Cardiovascular exam: Present: regular rate and rhythm. Her heart rate is under good control now. Absent: gallop, systolic murmur - GI/Abdominal GI/Abdominal exam: Present: normal bowel sounds, soft. Absent: distended, organomegaly, tenderness - Extremities Exam Extremities exam: Absent: calf tenderness, edema, she had no signs of phlebitis - Neurological Exam Neurological exam: Present: alert, oriented X3, CN II-XII intact, she has a resting tremor, she is alert and talking and looks comfortable. - Psychiatric Psychiatric exam: Present: She is alert and comfortable. - Skin Skin exam: Present: warm, dry Results - Labs CBC & BMP: 04/20/17 06:40 04/20/17 06:40 Assessment and Plan (1) Bilateral pneumonia Status: Acute Assessment and plan: Patient had bilateral pneumonia and respiratory failure but is doing much better now. She has done well off the ventilator and her breathing is much better. Her pneumonia has improved. We will stop her IV antibiotics. Current Visit: No (2) Congestive heart failure Status: Acute Assessment and plan: She looks like she had some heart failure early on but is better now. She did diurese very well yesterday. Current Visit: No (3) COPD (chronic obstructive pulmonary disease) Status: Chronic Assessment and plan: The patient is a smoker and has a component of COPD. She will continue with respiratory therapy. Her lungs sound better today. She is not wheezing at present. Her breathing is much improved. Current Visit: No (4) Acute respiratory failure with hypoxemia Status: Acute Assessment and plan: The patient has acute respiratory failure with hypoxemia and bilateral infiltrates. She did well on the ventilator for several days and was extubated. She has had a good weekend and her breathing continues to improve. Her chest x-ray is much better and her breathing is much improved. Current Visit: No (5) History of coronary artery bypass graft x 1 Status: Chronic Assessment and plan: The patient has known coronary artery disease. Current Visit: Yes (6) Hypertension Status: Chronic Assessment and plan: She has high blood pressure and will continue with medications. Her systolic blood pressure is around 160. Current Visit: Yes (7) Renal insufficiency Status: Chronic Assessment and plan: Her creatinine peaked at around 5.0 and is now at 3.3. She diuresed well and her creatinine continues to improve Current Visit: No (8) Severe anemia Status: Acute Assessment and plan: She is better after transfusions and her hematocrit is 28 Current Visit: Yes Specialty Discharge - Follow Up or Referrals Follow up with: Ran Beltrán MD [Physician] - 2 Weeks (With EKG)
[2017-04-20] MEDS: ACETAMINOPHEN 325 MG TABLET PO PRN ×2 (11:31→22:38)
[2017-04-20] MEDS: ALPRAZolam 0.25 MG TABLET PO PRN ×2 (11:31→20:50)
[2017-04-20] MEDS: MYLANTA/LIDO VISC 2:1 300 ML BOTTLE SWISH/SPIT PRN (11:32)
--- NOTE | 2017-04-20 12:37 | Cardiology Progress Note ---
Alena Silverio April RN, am scribing for, and in the presence of, Markel Kuo MD 12:37. Assessment and Plan (1) Hypertension Status: Chronic Current Visit: Yes (2) Type 2 diabetes mellitus Status: Chronic Assessment and plan: Internal medicine is following this. Current Visit: Yes (3) Hyperlipidemia Status: Chronic Assessment and plan: She is on pravastatin 40 mg daily. Current Visit: Yes (4) Oral candidiasis Status: Acute Current Visit: Yes (5) Renal insufficiency Status: Chronic Assessment and plan: Her creatinine is down to 3.3 today, nephrology is following. Current Visit: Yes (6) Severe anemia Status: Acute Assessment and plan: She was given 2 units of blood product yesterday, her numbers have improved. We will continue to monitor. Current Visit: Yes (7) Coronary artery disease Status: Chronic Current Visit: Yes Cardiology - PN: Subj Interval history: PRIMARY COMPLIANCE ADVISOR: GÓMEZ (DOES NOT FOLLOW ROUTINELY) PCP: DR. FLOYD SUMMARY: Ms. Cardenas is a 67 year old white female with risk factor significant for: Age, hypertension, hyperlipidemia, diabetes, previously known history of CAD, and tobacco use. She does not routinely follow with cardiology, and she has a history of noncompliance. Patient has had previous CABG 1 with BARRERA [place] LAD [place] [address] Lopez. Review of old records shows patient had last cardiac catheterization in [address] Beltrán which revealed stable coronary artery disease and a widely patent BARRERA graft. She had nuclear SPECT scan approximately 1 year ago on April 06, 2016, and showed no coronary artery ischemia and normal LV systolic function with EF 69%. She has been a heavy smoker all her life. Past medical history includes COPD, multiple CVA, hypothyroidism, chronic kidney disease with anemia, and bipolar disorder with previous suicide attempt by narcotic overdose. She has a known history of diastolic dysfunction due to mitral and tricuspid valve dysfunction. She has chronic pain and is followed routinely by Dr. Abbasi. Patient also has recurrent pneumonia and has required multiple hospital admissions. Patient was admitted April 08 after presenting to the emergency room complaining of shortness of breath for 2 days with cough, fever, chills. She also complained of some back pain and chest pain. Chest x-ray revealed by basilar pneumonia. The morning of April 09 around 0640, patient reported to the nursing staff that she was having chest pain described as a "heaviness" and her oxygen saturation levels were noted to be 78% on 2 L/NC. Nursing staff initiated heart alert, EKG was obtained with acute ME ruled out, patient was placed on 100% NRB, received 40 mg IV Lasix and 2 mg IV morphine, and she was transferred to the ICU for close observation. Stat blood work drawn. Cardiac enzymes revealed troponin 0.049 with CPK 465. BNP 831. Cardiology was consulted for further evaluation of chest pain and volume overload. Echocardiogram showed ejection fraction of 65-70% with 2-3+ bilateral enlargement, concentric LVH, and 3-4+ tricuspid regurgitation. April 11 she developed atrial fibrillation with RVR, she was given diltiazem with his doctor blood pressure and was given metoprolol 5 mg IV 1 dose and digoxin 0.125 mg. Potassium was noted to be 6.4 and she was given calcium gluconate, Kayexalate and albuterol. She is now in sinus rhythm and I see no further documentation of atrial fibrillation in the chart. April 19, 2017: Ms. Cardenas is seen resting in bed in no acute distress. She denies any chest pain or palpitations. Oxygen is in use via nasal cannula and she reports her breathing is doing pretty good. 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 Potassium this morning is 4.7. She is on IV antibiotics. White count today is 22.3, this is improved some from yesterday. H&H today is 7.9 and 24.6. It appears that she has 2 units of blood product ordered for today. April 20, 2017: Ms. Cardenas was given a one-time dose of IV Lasix yesterday. She diuresed well and reports her breathing has improved. Chest x-ray done yesterday is unchanged from previous x-ray. She denies any chest pain or palpitations. Her creatinine has improved, today it is 3.3. She was transfused 2 units of red blood cells yesterday, H&H is improved today at 9.2 and 28.2. This patient seems comfortable and I think overall is stable and compensated from heart failure standpoint. She is a difficult historian because of her psychiatric issues but she is not complaining of chest pain or problems with her breathing currently. I have discussed in detail the particulars of this case and I have examined the patient and reviewed the patient's chart both current and old. I was directly involved in the patient's evaluation and management and I completely agree with Malia Carvajal RN regarding this patient' s evaluation and treatment plan. Exam (Progress Note) - Constitutional Vitals: Period Temp Pulse Resp BP Sys/Meek Pulse Ox Last 24 Hr 96.3 F-98.4 F 35-87 16-21 138-169/57-85 91-100 Exam: General appearance: no acute distress, morbidly obese - Head Head exam: Absent: abrasion, hematoma - ENT ENT exam: Present: other (Ulcers noted in mouth) - Respiratory Respiratory exam: Present: clear to auscultation bilaterally, other (Oxygen in use via nasal cannula). Absent: accessory muscle use, chest wall tenderness - Cardiovascular Cardiovascular exam: Present: regular rate and rhythm - GI/Abdominal GI/Abdominal exam: Present: normal bowel sounds, soft. Absent: distended, tenderness - Extremities Exam Extremities exam: Present: edema (Trace to bilateral lower extremities), other ( Peripheral pulses present) - Neurological Exam Neurological exam: Present: alert, oriented X3 - Psychiatric Psychiatric exam: Present: normal affect, normal mood - Skin Skin exam: Present: warm, dry Result/EKG - Labs CBC & BMP: 04/20/17 06:40 04/20/17 06:40 Lab Results: I have reviewed the past 24 hour labs Labs: Laboratory Results - last 24 hr 04/19/17 04/19/17 04/19/17 07:15 08:39 08:51 WBC RBC Hgb Hct MCV MCH MCHC RDW Plt Count MPV Neut % (Auto) Lymph % (Auto) [place] % (Auto) Eos % (Auto) Baso % (Auto) Neut # (Auto) Lymph # (Auto) [place] # (Auto) Eos # (Auto) Baso # (Auto) Total Counted Immature Gran % Nucleated RBC % Immature Gran # Segmented Neutrophils Band Neutrophils Lymphocytes Monocytes Nucleated RBCs # Platelet Estimate Giant Platelets Immature Plt Fraction Hypochromasia Microcytosis Ovalocytes [place] Cells Sodium Potassium Chloride Carbon Dioxide Anion Gap BUN Creatinine GFR Calculation BUN/Creatinine Ratio Glucose POC Glucose 185 H Calculated Osmolality Calcium B-Natriuretic Peptide 1745 H Free T4 TSH 3rd Generation Blood Type Cancelled Antibody Screen Cancelled Crossmatch See Detail Blood Bank Comment Cancelled 04/19/17 04/19/17 04/19/17 11:33 15:23 19:35 WBC RBC Hgb Hct MCV MCH MCHC RDW Plt Count MPV Neut % (Auto) Lymph % (Auto) [place] % (Auto) Eos % (Auto) Baso % (Auto) Neut # (Auto) Lymph # (Auto) [place] # (Auto) Eos # (Auto) Baso # (Auto) Total Counted Immature Gran % Nucleated RBC % Immature Gran # Segmented Neutrophils Band Neutrophils Lymphocytes Monocytes Nucleated RBCs # Platelet Estimate Giant Platelets Immature Plt Fraction Hypochromasia Microcytosis Ovalocytes [place] Cells Sodium Potassium Chloride Carbon Dioxide Anion Gap BUN Creatinine GFR Calculation BUN/Creatinine Ratio Glucose POC Glucose 162 H 115 H 133 H Calculated Osmolality Calcium B-Natriuretic Peptide Free T4 TSH 3rd Generation Blood Type Antibody Screen Crossmatch Blood Bank Comment 04/20/17 04/20/17 04/20/17 06:40 06:40 06:40 WBC 20.3 H RBC 3.11 L Hgb 9.2 L Hct 28.2 L MCV 90.7 MCH 30 MCHC 32.6 RDW 17.7 H Plt Count 170 MPV 11.2 Neut % (Auto) 86.8 H Lymph % (Auto) 1.6 L [place] % (Auto) 2.6 Eos % (Auto) 0.0 Baso % (Auto) 0.1 Neut # (Auto) 17.6 H Lymph # (Auto) 0.3 L [place] # (Auto) 0.5 Eos # (Auto) 0.0 Baso # (Auto) 0.0 Total Counted 100 Immature Gran % 8.9 Nucleated RBC % 0.0 Immature Gran # 1.81 Segmented Neutrophils 90 H Band Neutrophils 6 Lymphocytes 2 L Monocytes 2 Nucleated RBCs # 0.00 Platelet Estimate Normal Giant Platelets Few Immature Plt Fraction 0.0 Hypochromasia 1+ Microcytosis Slight Ovalocytes Slight [place] Cells Slight Sodium 138 Potassium 4.1 Chloride 109 H Carbon Dioxide 18 L Anion Gap 15.1 H BUN 86 H Creatinine 3.30 H GFR Calculation 17 BUN/Creatinine Ratio 26.00 H Glucose 94 POC Glucose Calculated Osmolality 300.7 Calcium 7.2 L B-Natriuretic Peptide Free T4 < 0.20 L TSH 3rd Generation 0.588 Blood Type Antibody Screen Crossmatch Blood Bank Comment - Diagnostic Findings Procedure: Chest x-ray: report reviewed by me - EKG EKG results: interpreted by me EKG shows: sinus rhythm Specialty Discharge - Follow Up or Referrals Follow up with: Ran Beltrán MD [Physician] - 2 Weeks (With EKG) IAyaan Wesley, MD, personally performed the services described in this documentation, ascribed by Malia Carvajal RN in my presence, and it is both accurate and complete 237 .
--- NOTE | 2017-04-20 13:14 | Nephrology Progress Note ---
Nephrology - PN: Subj Interval history: She was transfused yesterday. Urine output increased markedly. She feels better overall Exam (PN)-Nephrology - Vital Signs Vital signs: Period Temp Pulse Resp BP Sys/Meek Pulse Ox Last 24 Hr 97.6 F-98.4 F 35-83 16-20 138-169/57-85 91-100 Exam: ENT: Normal Cardiovascular: Regular rate and rhythm. No murmur rub or gallop Lungs: Clear Extremities: No edema - Lab 04/20/17 06:40 04/20/17 06:40 Most recent lab results ABG pH 7.317 (7.35-7.45) L 04/16/17 03:10 ABG pCO2 37.4 MM HG (35-48) 04/16/17 03:10 ABG pO2 70.5 MM HG (80-95) L 04/16/17 03:10 ABG HCO3 19.0 MMOL/L (20-26) L 04/16/17 03:10 ABG O2 Saturation 92.5 % (95-100) L 04/16/17 03:10 Calcium 7.2 MG/DL (8.5-10.1) L 04/20/17 06:40 Phosphorus 6.8 MG/DL (2.5-4.9) H 04/19/17 04:28 Magnesium 1.9 MG/DL (1.8-2.4) 04/19/17 04:28 Assessment and Plan (1) Renal failure (ARF), acute on chronic Status: Acute Assessment and plan: 67-year-old woman with: * CRF stage III. Baseline creatinine upper twos * Acute on chronic renal failure. Renal function is improving. Urine output markedly increased past 24 hours * Neurogenic bladder * Pneumonia * Hypertension * Diabetes * Bipolar disorder * CAD * Anemia. Post transfusion Current Visit: Yes (2) Chronic kidney disease, stage III (moderate) Status: Chronic Current Visit: Yes (3) History of coronary artery bypass graft x 1 Status: Chronic Current Visit: Yes (4) Hypertension Status: Chronic Current Visit: Yes (5) Type 2 diabetes mellitus Status: Chronic Current Visit: Yes (6) Bilateral pneumonia Status: Acute Current Visit: No (7) Bipolar disorder Status: Acute Current Visit: No (8) Hypertension Status: Acute Current Visit: No Specialty Discharge - Follow Up or Referrals Follow up with: Ran Beltrán MD [Physician] - 2 Weeks (With EKG)
[2017-04-20] MEDS: PRAVASTATIN 20 MG TABLET PO SCH (20:49)
[2017-04-20] MEDS: diphenhydrAMINE CAP 25 MG CAPSULE PO PRN (22:41)
[2017-04-21] MEDS: ALBUTEROL/IPRATROPIUM 3 ML NEB RESP TX SCH ×7 (00:21→23:40)
[2017-04-21] MEDS: LEVOTHYROXINE 125 MCG TABLET PO SCH (06:06)
[2017-04-21 07:05] LABS: Basophils % 0.2 % (0.0-0.8); Eosinophils # 0.3 10*3/uL (0.0-0.87); Eosinophils % 1.4 % (0.00-10.9); Hematocrit 31.7 VOL% (35.7-47.0); Hemoglobin 10.4 GM/DL (12.0-16.0); Immature Granulocytes % 5.3 %; Immature Granulocytes Absolute 1.24 #; Lymphocytes # 0.5 10*3/uL (1.4-4.0); Lymphocytes % 2.1 % (21.3-54.2); Mean Corpuscular HGB Conc 32.8 GM/DL (32-36); Mean Corpuscular Hemoglobin 30 PG (27-34); Mean Corpuscular Volume 90.6 FL (87-102); Mean Platelet Volume 11.3 FL (9.6-12.0); Monocytes # 0.7 10*3/uL (0.11-0.8); Neutrophils # 20.7 10*3/uL (1.4-7.4); Platelet Count 168 T/CUMM (130-400); Red Cell Distribution Width 17.6 % (9.3-17.3); White Blood Count 23.5 T/CUMM (4-12)
[2017-04-21 07:36] LABS: Calcium 7.6 MG/DL (8.5-10.1); Osmolality,Calculated 295.8 MOS/KG (273-304); Potassium 4.3 MMOL/L (3.5-5.1)
[2017-04-21 07:45] LABS: Band Neutrophils 2 % (0-10); Hypochromasia Slight; Lymphocytes 3 % (20-55); Microcytosis 1+; Segmented Neutrophils 92 % (50-85); Total Cells Counted 100
[2017-04-21 07:46] LABS: Platelet Estimate Adequate
--- NOTE | 2017-04-21 09:17 | Pulmonology Progress Note ---
Pulmonary - PN: Subj Interval history: Patient is a 67-year-old white lady that has known coronary artery disease along with diabetes, hypertension, hyperlipidemia, hypothyroidism. She is a smoker. She comes in with shortness of breath and bilateral infiltrates. She does look like she might have had heart failure and actually diuresed fairly well. Her chest x-ray was much better yesterday. She looks like she was doing well and then she went into rapid atrial fibrillation and became more short of breath. After medications she suddenly became less responsive and had to be intubated. She had a marked acidosis and worsening renal insufficiency. She has continued to improve overnight. The patient has been doing better. She got transfused and diuresed fairly well. She still has some cough and congestion and has trouble clearing secretions. She says she rested fairly well last night. She still has renal insufficiency. She is still requiring vigorous respiratory therapy. She may go to a swing bed. Exam (Progress Note) - Constitutional Vitals: Period Temp Pulse Resp BP Sys/Meek Pulse Ox Last 24 Hr 97.8 F-98.9 F 45-78 18-26 139-159/58-72 89-100 Exam: General appearance: normal weight, patient is alert and sitting up and talking more. She is not having any respiratory distress now. She does have a little bit of trouble coughing secretions - Head Head exam: Present: normal inspection, normocephalic - Eye Eye exam: Present: EOMI. Absent: scleral icterus Pupils: Present: ROBERTO CARLOS - ENT ENT exam: Present: She does have dry mucous membranes with some mild sores - Neck Neck exam: Present: normal inspection. Absent: lymphadenopathy, thyromegaly - Respiratory Respiratory exam: Present: She has fair breath sounds bilaterally but she does have some mild rhonchi bilaterally. - Cardiovascular Cardiovascular exam: Present: regular rate and rhythm. Her heart rate is under good control now. Absent: gallop, systolic murmur - GI/Abdominal GI/Abdominal exam: Present: normal bowel sounds, soft. Absent: distended, organomegaly, tenderness - Extremities Exam Extremities exam: Absent: calf tenderness, edema, she had no signs of phlebitis - Neurological Exam Neurological exam: Present: alert, oriented X3, CN II-XII intact, she has a resting tremor, she is alert and talking and looks comfortable. - Psychiatric Psychiatric exam: Present: She is alert and comfortable. - Skin Skin exam: Present: warm, dry Results - Labs CBC & BMP: 04/21/17 06:46 04/21/17 06:46 Assessment and Plan (1) Bilateral pneumonia Status: Acute Assessment and plan: Patient had bilateral pneumonia and respiratory failure but is doing much better now. She still has some cough and congestion but overall she is better. She will continue with respiratory therapy. Current Visit: No (2) Congestive heart failure Status: Acute Assessment and plan: She looks like she had some heart failure early on but is better now. She did diurese very well yesterday. Current Visit: No (3) COPD (chronic obstructive pulmonary disease) Status: Chronic Assessment and plan: The patient is a smoker and has a component of COPD. She will continue with respiratory therapy. She has some congestion this morning but otherwise has been doing better. Current Visit: No (4) Acute respiratory failure with hypoxemia Status: Acute Assessment and plan: The patient has acute respiratory failure with hypoxemia and bilateral infiltrates. She did well on the ventilator for several days and was extubated. She has had a good weekend and her breathing continues to improve. Her chest x-ray is much better and her breathing is much improved. He does look like she will need to continue with respiratory therapy. She still has a little trouble clearing secretions. She is probably going to a swing bed soon. Current Visit: No (5) History of coronary artery bypass graft x 1 Status: Chronic Assessment and plan: The patient has known coronary artery disease. Current Visit: Yes (6) Hypertension Status: Chronic Assessment and plan: She has high blood pressure and will continue with medications. Her systolic blood pressure is around 160. Current Visit: Yes (7) Renal insufficiency Status: Chronic Assessment and plan: Her creatinine peaked at around 5.0 and is now at 3.6. Current Visit: No (8) Severe anemia Status: Acute Assessment and plan: She is better after transfusions and her hematocrit is 31.7 today. Current Visit: Yes Specialty Discharge - Follow Up or Referrals Follow up with: Ran Beltrán MD [Physician] - 2 Weeks (With EKG)
--- NOTE | 2017-04-21 09:35 | Internal Med Progress Note ---
Assessment and Plan (1) Shortness of breath Status: Acute Assessment and plan: 67-year-old female admitted to acute care * Pneumonia. Will repeat her chest x-ray this morning. * COPD. She appears to be having an acute exacerbation. Will repeat chest x- ray and continue breathing treatments * Coronary artery disease. Stable * Acute on chronic renal failure. Creatinine has gone up. Patient has a neurogenic bladder. She will require in and out catheterization at least 4 times a day * Hypothyroidism. Holding Synthroid. Will restart Synthroid * Bipolar disorder. Continue current medicines * Diabetic neuropathy. On Neurontin * Diabetes. Continue current treatment * Continue PT and OT * Not ready for swing bed today Current Visit: Yes (2) Chest pain Status: Acute Current Visit: Yes (3) Chronic kidney disease, stage III (moderate) Status: Chronic Current Visit: Yes (4) Hypertension Status: Chronic Current Visit: Yes (5) Type 2 diabetes mellitus Status: Chronic Current Visit: Yes (6) Acute respiratory failure with hypoxemia Status: Acute Current Visit: No (7) Bilateral pneumonia Status: Acute Current Visit: No (8) Bipolar 1 disorder, depressed Status: Acute Current Visit: No (9) Bipolar 1 disorder, depressed Status: Acute Current Visit: No (10) Bipolar disorder Status: Acute Current Visit: No (11) Bronchospasm Status: Acute Current Visit: No (12) COPD (chronic obstructive pulmonary disease) Status: Chronic Current Visit: No (13) Chest pain Status: Acute Current Visit: No (14) Chronic back pain Status: Acute Current Visit: No (15) Chronic renal failure Status: Acute Current Visit: No (16) Chronically on opiate therapy Status: Acute Current Visit: No (17) Cognitive decline Status: Acute Current Visit: No (18) Congestive heart failure Status: Acute Current Visit: No (19) Constipation Status: Acute Current Visit: No (20) Coronary artery disease Status: Chronic Current Visit: No (21) Debility Status: Acute Current Visit: No (22) Depression Status: Acute Current Visit: No (23) Depression Status: Acute Current Visit: No (24) Diabetes mellitus Status: Acute Current Visit: No (25) Drug overdose Problem details: I agree with the current plan of care. I will stop giving her oral narcotics at home I agree with the psychiatric consult Status: Acute Current Visit: No (26) Headache Status: Acute Current Visit: No (27) Hyperlipidemia Status: Chronic Current Visit: Yes (28) Hyponatremia Status: Acute Current Visit: No (29) Hypothyroidism Status: Chronic Current Visit: No (30) Hypothyroidism Status: Acute Current Visit: No (31) Laceration of scalp Status: Acute Current Visit: No (32) Left upper lobe pneumonia Status: Acute Current Visit: No (33) Mood disorder Status: Acute Current Visit: No (34) Neurogenic bladder Status: Acute Current Visit: No (35) Neurogenic bladder Status: Acute Current Visit: No (36) Noncompliance with medications Status: Chronic Current Visit: No (37) Oral candidiasis Status: Acute Current Visit: Yes (38) Pneumonia Status: Acute Current Visit: No (39) Pneumonia involving left lung Status: Acute Current Visit: No (40) Renal insufficiency Status: Chronic Current Visit: Yes (41) Severe anemia Status: Acute Current Visit: Yes (42) Sinus bradycardia Status: Acute Current Visit: No (43) Symptomatic anemia Status: Acute Current Visit: No (44) Type 2 diabetes mellitus Status: Acute Current Visit: No (45) UTI (urinary tract infection) Status: Acute Current Visit: No (46) Urinary tract infection Status: Acute Current Visit: No (47) dangerousness Status: Acute Current Visit: No (48) poor coping skills Status: Acute Current Visit: No (49) Abnormal ECG Status: Chronic Current Visit: No (50) Coronary artery disease Status: Chronic Current Visit: Yes (51) Renal insufficiency Status: Chronic Current Visit: No (52) Edema Status: Resolved Current Visit: No Internal Medicine - PN: Subj Interval history: Patient is not feeling well this morning. She is much more short of breath. She denies any chest pain. Her mouth is better. She denies any nausea or vomiting. Her Johnson catheter was removed during the night. Exam (Progress Note) - Constitutional Vitals: Period Temp Pulse Resp BP Sys/Meek Pulse Ox Last 24 Hr 97.8 F-98.9 F 45-78 18-26 139-159/58-72 89-100 Exam: Examination: GENERAL: No acute distress HEENT: Ulcers on her tongue and buccal cavity are healing NECK: Neck is supple. CVS: Regular rate and rhythm. S1 and S2 are normal. RESPIRATORY: Bilateral rales and rhonchi ABDOMEN: Soft and nontender. EXT: Trace edema. Peripheral pulses are present. COPRA PROCESSOR: Alert and oriented 3. Moving all extremities SKIN: Warm and dry. Results - Labs CBC & BMP: 04/21/17 06:46 04/21/17 06:46 Lab Results: I have reviewed the past 24 hour labs Specialty Discharge - Follow Up or Referrals Follow up with: Ran Beltrán MD [Physician] - 2 Weeks (With EKG)
[2017-04-21] MEDS: NYSTATIN 500,000 UNIT/5 ML UDCUP SWISH/SWAL SCH ×4 (09:46→20:47)
[2017-04-21] MEDS: DOCUSATE SODIUM 100 MG CAPSULE PO SCH ×2 (09:46→20:46)
[2017-04-21] MEDS: FLUoxetine 20 MG CAPSULE PO SCH (09:46)
[2017-04-21] MEDS: FLUCONAZOLE 100 MG TABLET PO SCH (09:46)
[2017-04-21] MEDS: ENOXAPARIN 30 MG/0.3 ML SYRINGE SUBCUT SCH (09:46)
[2017-04-21] MEDS: OXcarbazepine 300 MG TABLET PO SCH ×2 (09:47→20:46)
[2017-04-21] MEDS: LANSOPRAZOLE ODT 30 MG TABLET PO SCH (09:47)
[2017-04-21] MEDS: ASPIRIN EC 325 MG TABLET PO SCH (09:47)
[2017-04-21] MEDS: GABAPENTIN 300 MG CAPSULE PO SCH ×3 (09:47→20:46)
[2017-04-21] MEDS: INSULIN REGULAR 100 UNIT/ML SUBCUT SCH ×4 (09:48→20:49)
[2017-04-21] MEDS: INSULIN NPH/REGULAR 70/30 100 UNIT/ML SUBCUT SCH ×2 (09:48→20:47)
[2017-04-21] MEDS: predniSONE 10 MG TABLET PO SCH (09:48)
[2017-04-21] MEDS: DESITIN 4OZ/NYSTATIN 15 GRAM MIXTURE PASTE TOP SCH ×2 (09:53→20:52)
--- NOTE | 2017-04-21 10:40 | XRay Report ---
XR chest 1V portable Indication: Chest congestion Comparison: Chest x-ray dated April 19, 2017 Technique: Single frontal view of the chest. Findings: Continued cardiomegaly status post sternotomy. There is a nonspecific reticular pattern throughout the bilateral lungs suspicious for interstitial pulmonary edema, interstitial pneumonia, or other interstitial lung disease. Interval increased dense opacification noted within the right middle lung suspicious for consolidating pneumonia or pulmonary edema. Visualized osseous and surrounding soft tissue structures appear grossly unchanged.. IMPRESSION: As above. PROCEDURE INTERPRETED AT [facility]PARTMENT OF RADIOLOG[facility] Final Report Signed by: Dr Jarod Trujillo
[2017-04-21] MEDS ORDERED: FUROSEMIDE 40 MG/4 ML VIAL IV ONE (12:48)
--- NOTE | 2017-04-21 12:48 | Cardiology Progress Note ---
Alena Silverio April, RN, am scribing for, and in the presence of, Markel Kuo MD 12:48. Assessment and Plan (1) Hypertension Status: Chronic Current Visit: Yes (2) Type 2 diabetes mellitus Status: Chronic Assessment and plan: Internal medicine is following this. Current Visit: Yes (3) Hyperlipidemia Status: Chronic Assessment and plan: She is on pravastatin 40 mg daily. Current Visit: Yes (4) Oral candidiasis Status: Acute Current Visit: Yes (5) Renal insufficiency Status: Chronic Assessment and plan: Her creatinine has increased to 3.6 today, nephrology is following. Current Visit: Yes (6) Severe anemia Status: Acute Assessment and plan: Her cell counts are stable, will continue to monitor. Current Visit: Yes (7) Coronary artery disease Status: Chronic Current Visit: Yes Cardiology - PN: Subj Interval history: PRIMARY SNOW FENCE ERECTOR: GÓMEZ (DOES NOT FOLLOW ROUTINELY) PCP: DR. FLOYD SUMMARY: Ms. Cardenas is a 67 year old white female with risk factor significant for: Age, hypertension, hyperlipidemia, diabetes, previously known history of CAD, and tobacco use. She does not routinely follow with cardiology, and she has a history of noncompliance. Patient has had previous CABG 1 with BARRERA [place] LAD [address] Lopez. Review of old records shows patient had last cardiac catheterization in [address] Beltrán which revealed stable coronary artery disease and a widely patent BARRERA graft. She had nuclear SPECT scan approximately 1 year ago on April 06, 2016, and showed no coronary artery ischemia and normal LV systolic function with EF 69%. She has been a heavy smoker all her life. Past medical history includes COPD, multiple CVA, hypothyroidism, chronic kidney disease with anemia, and bipolar disorder with previous suicide attempt by narcotic overdose. She has a known history of diastolic dysfunction due to mitral and tricuspid valve dysfunction. She has chronic pain and is followed routinely by Dr. Abbasi. Patient also has recurrent pneumonia and has required multiple hospital admissions. Patient was admitted April 08 after presenting to the emergency room complaining of shortness of breath for 2 days with cough, fever, chills. She also complained of some back pain and chest pain. Chest x-ray revealed by basilar pneumonia. The morning of April 09 around 0640, patient reported to the nursing staff that she was having chest pain described as a "heaviness" and her oxygen saturation levels were noted to be 78% on 2 L/NC. Nursing staff initiated heart alert, EKG was obtained with acute GA ruled out, patient was placed on 100% NRB, received 40 mg IV Lasix and 2 mg IV morphine, and she was transferred to the ICU for close observation. Stat blood work drawn. Cardiac enzymes revealed troponin 0.049 with CPK 465. BNP 831. Cardiology was consulted for further evaluation of chest pain and volume overload. Echocardiogram showed ejection fraction of 65-70% with 2-3+ bilateral enlargement, concentric LVH, and 3-4+ tricuspid regurgitation. April 11 she developed atrial fibrillation with RVR, she was given diltiazem with his doctor blood pressure and was given metoprolol 5 mg IV 1 dose and digoxin 0.125 mg. Potassium was noted to be 6.4 and she was given calcium gluconate, Kayexalate and albuterol. She is now in sinus rhythm and I see no further documentation of atrial fibrillation in the chart. April 19, 2017: Ms. Cardenas is seen resting in bed in no acute distress. She denies any chest pain or palpitations. Oxygen is in use via nasal cannula and she reports her breathing is doing pretty good. radiator cleaner currently shows sinus rhythm with heart rates in the 60s. Potassium this morning is 4.7. She is on IV antibiotics. White count today is 22.3, this is improved some from yesterday. H&H today is 7.9 and 24.6. It appears that she has 2 units of blood product ordered for today. April 20, 2017: Ms. Cardenas was given a one-time dose of IV Lasix yesterday. She diuresed well and reports her breathing has improved. Chest x-ray done yesterday is unchanged from previous x-ray. She denies any chest pain or palpitations. Her creatinine has improved, today it is 3.3. She was transfused 2 units of red blood cells yesterday, H&H is improved today at 9.2 and 28.2. This patient seems comfortable and I think overall is stable and compensated from heart failure standpoint. She is a difficult historian because of her psychiatric issues but she is not complaining of chest pain or problems with her breathing currently. April 21, 2017: Ms. Cardenas is seen today sitting up in chair. She reports she did have some chest discomfort this morning that was associated with when she was taken deep breath. She cannot give me any specifics or describe the chest pain for me. Oxygen is in use via nasal cannula she continues to be somewhat short of breath, but states it has improved Chest x-ray today was suspicious for interstitial pulmonary edema, interstitial pneumonia, or other interstitial lung disease. She is a little more dyspneic this morning. I am going to bump her with a little Lasix today. We may ask pulmonary to review. I have discussed in detail the particulars of this case and I have examined the patient and reviewed the patient's chart both current and old. I was directly involved in the patient's evaluation and management and I completely agree with Malia Carvajal RN regarding this patient's evaluation and treatment plan. Exam (Progress Note) - Constitutional Vitals: Period Temp Pulse Resp BP Sys/Meek Pulse Ox Last 24 Hr 97.8 F-98.9 F 45-78 18-26 139-159/58-72 89-100 Exam: General appearance: no acute distress, morbidly obese - Head Head exam: Absent: abrasion, hematoma - ENT ENT exam: Present: other (Ulcers noted in mouth) - Respiratory Respiratory exam: Present: Scattered rhonchi, other (Oxygen in use via nasal cannula). Absent: accessory muscle use, chest wall tenderness - Cardiovascular Cardiovascular exam: Present: regular rate and rhythm - GI/Abdominal GI/Abdominal exam: Present: normal bowel sounds, soft. Absent: distended, tenderness - Extremities Exam Extremities exam: Present: edema (Trace to bilateral lower extremities), other ( Peripheral pulses present) - Neurological Exam Neurological exam: Present: alert, oriented X3 - Psychiatric Psychiatric exam: Present: normal affect, normal mood - Skin Skin exam: Present: warm, dry Result/EKG - Labs CBC & BMP: 04/21/17 06:46 04/21/17 06:46 Lab Results: I have reviewed the past 24 hour labs Labs: Laboratory Results - last 24 hr 04/20/17 04/20/17 04/20/17 07:46 12:06 15:52 WBC RBC Hgb Hct MCV MCH MCHC RDW Plt Count MPV Neut % (Auto) Lymph % (Auto) Burnet % (Auto) Eos % (Auto) Baso % (Auto) Neut # (Auto) Lymph # (Auto) Burnet # (Auto) Eos # (Auto) Baso # (Auto) Total Counted Immature Gran % Nucleated RBC % Immature Gran # Segmented Neutrophils Band Neutrophils Lymphocytes Monocytes Nucleated RBCs # Platelet Estimate Immature Plt Fraction Hypochromasia Microcytosis Sodium Potassium Chloride Carbon Dioxide Anion Gap BUN Creatinine GFR Calculation BUN/Creatinine Ratio Glucose POC Glucose 111 H 141 H 163 H Calculated Osmolality Calcium 04/20/17 04/21/17 04/21/17 19:33 06:46 06:46 WBC 23.5 H RBC 3.50 L Hgb 10.4 L Hct 31.7 L MCV 90.6 MCH 30 MCHC 32.8 RDW 17.6 H Plt Count 168 MPV 11.3 Neut % (Auto) 88.0 H Lymph % (Auto) 2.1 L Burnet % (Auto) 3.0 Eos % (Auto) 1.4 Baso % (Auto) 0.2 Neut # (Auto) 20.7 H Lymph # (Auto) 0.5 L Burnet # (Auto) 0.7 Eos # (Auto) 0.3 Baso # (Auto) 0.0 Total Counted 100 Immature Gran % 5.3 Nucleated RBC % 0.0 Immature Gran # 1.24 Segmented Neutrophils 92 H Band Neutrophils 2 Lymphocytes 3 L Monocytes 3 Nucleated RBCs # 0.00 Platelet Estimate Adequate Immature Plt Fraction 0.0 Hypochromasia Slight Microcytosis 1+ Sodium 137 Potassium 4.3 Chloride 107 Carbon Dioxide 17 L Anion Gap 17.3 H BUN 85 H Creatinine 3.60 H GFR Calculation 15 BUN/Creatinine Ratio 23.00 H Glucose 50 L POC Glucose 82 Calculated Osmolality 295.8 Calcium 7.6 L 04/21/17 04/21/17 07:26 08:02 WBC RBC Hgb Hct MCV MCH MCHC RDW Plt Count MPV Neut % (Auto) Lymph % (Auto) Burnet % (Auto) Eos % (Auto) Baso % (Auto) Neut # (Auto) Lymph # (Auto) Burnet # (Auto) Eos # (Auto) Baso # (Auto) Total Counted Immature Gran % Nucleated RBC % Immature Gran # Segmented Neutrophils Band Neutrophils Lymphocytes Monocytes Nucleated RBCs # Platelet Estimate Immature Plt Fraction Hypochromasia Microcytosis Sodium Potassium Chloride Carbon Dioxide Anion Gap BUN Creatinine GFR Calculation BUN/Creatinine Ratio Glucose POC Glucose 44 L* 107 H Calculated Osmolality Calcium - Diagnostic Findings Procedure: Chest x-ray: report reviewed by me - EKG EKG results: interpreted by me EKG shows: sinus rhythm Specialty Discharge - Follow Up or Referrals Follow up with: Ran Beltrán MD [Physician] - 2 Weeks (With EKG) IAyaan Wesley, MD, personally performed the services described in this documentation, ascribed by Malia Carvajal RN in my presence, and it is both accurate and complete .
--- NOTE | 2017-04-21 14:02 | Nephrology Progress Note ---
Nephrology - PN: Subj Interval history: She has had more shortness of breath today due to wheezing. Mouth ulcers have improved Exam (PN)-Nephrology - Vital Signs Vital signs: Period Temp Pulse Resp BP Sys/Meek Pulse Ox Last 24 Hr 97.8 F-98.9 F 45-77 18-26 139-156/58-66 89-100 Exam: ENT: Normal Cardiovascular: Regular rate and rhythm. No murmur rub or gallop Lungs: Bilateral expiratory wheezes Extremities: No edema - Lab 04/21/17 06:46 04/21/17 06:46 Most recent lab results ABG pH 7.317 (7.35-7.45) L 04/16/17 03:10 ABG pCO2 37.4 MM HG (35-48) 04/16/17 03:10 ABG pO2 70.5 MM HG (80-95) L 04/16/17 03:10 ABG HCO3 19.0 MMOL/L (20-26) L 04/16/17 03:10 ABG O2 Saturation 92.5 % (95-100) L 04/16/17 03:10 Calcium 7.6 MG/DL (8.5-10.1) L 04/21/17 06:46 Phosphorus 6.8 MG/DL (2.5-4.9) H 04/19/17 04:28 Magnesium 1.9 MG/DL (1.8-2.4) 04/19/17 04:28 Assessment and Plan (1) Renal failure (ARF), acute on chronic Status: Acute Assessment and plan: 67-year-old woman with: * CRF stage III. Baseline creatinine upper twos * Acute on chronic renal failure. Creatinine is slightly higher today. Fluid balance remains negative * Neurogenic bladder. Agree with in and out catheterization * Pneumonia * Hypertension * Diabetes * Bipolar disorder * CAD * Anemia. Post transfusion Current Visit: Yes (2) Chronic kidney disease, stage III (moderate) Status: Chronic Current Visit: Yes (3) History of coronary artery bypass graft x 1 Status: Chronic Current Visit: Yes (4) Hypertension Status: Chronic Current Visit: Yes (5) Type 2 diabetes mellitus Status: Chronic Current Visit: Yes (6) Bilateral pneumonia Status: Acute Current Visit: No (7) Bipolar disorder Status: Acute Current Visit: No (8) Hypertension Status: Acute Current Visit: No Specialty Discharge - Follow Up or Referrals Follow up with: Ran Beltrán MD [Physician] - 2 Weeks (With EKG)
[2017-04-21] MEDS: MYLANTA/LIDO VISC 2:1 300 ML BOTTLE SWISH/SPIT PRN (15:02)
[2017-04-21] MEDS: ACETAMINOPHEN 325 MG TABLET PO PRN (17:32)
[2017-04-21] MEDS: LEVOFLOXACIN 500 MG TABLET PO SCH (17:32)
[2017-04-21] MEDS: PRAVASTATIN 20 MG TABLET PO SCH (20:46)
[2017-04-22] MEDS: ALBUTEROL/IPRATROPIUM 3 ML NEB RESP TX SCH ×5 (03:25→19:59)
[2017-04-22] MEDS: LEVOTHYROXINE 125 MCG TABLET PO SCH (07:07)
[2017-04-22 07:08] LABS: Basophils % 0.2 % (0.0-0.8); Eosinophils # 0.2 10*3/uL (0.0-0.87); Eosinophils % 0.9 % (0.00-10.9); Hematocrit 34.6 VOL% (35.7-47.0); Hemoglobin 11.5 GM/DL (12.0-16.0); Immature Granulocytes % 3.3 %; Immature Granulocytes Absolute 0.82 #; Lymphocytes # 0.6 10*3/uL (1.4-4.0); Lymphocytes % 2.3 % (21.3-54.2); Mean Corpuscular HGB Conc 33.2 GM/DL (32-36); Mean Corpuscular Hemoglobin 30 PG (27-34); Mean Corpuscular Volume 89.6 FL (87-102); Mean Platelet Volume 11.5 FL (9.6-12.0); Monocytes # 0.7 10*3/uL (0.11-0.8); Monocytes % 2.8 % (1.7-12.7); Neutrophils # 22.6 10*3/uL (1.4-7.4); Neutrophils % 90.5 % (38.7-73.9); Platelet Count 195 T/CUMM (130-400); Red Blood Count 3.86 MC/CUMM (3.8-5.5); Red Cell Distribution Width 17.3 % (9.3-17.3); White Blood Count 24.9 T/CUMM (4-12)
[2017-04-22 07:44] LABS: Calcium 7.9 MG/DL (8.5-10.1); Magnesium 1.7 MG/DL (1.8-2.4); Osmolality,Calculated 296.8 MOS/KG (273-304); Potassium 3.8 MMOL/L (3.5-5.1)
[2017-04-22 08:24] LABS: Band Neutrophils 2 % (0-10); Hypochromasia Slight; Lymphocytes 4 % (20-55); Platelet Estimate Adequate; Polychromasia Slight; Segmented Neutrophils 89 % (50-85); Total Cells Counted 100
--- NOTE | 2017-04-22 08:30 | Internal Med Progress Note ---
Assessment and Plan (1) Shortness of breath Status: Acute Assessment and plan: 67-year-old female admitted to acute care * Pneumonia. She appears to have developed right middle lobe pneumonia. Will continue antibiotics. I will add clindamycin. * COPD. Continue respiratory treatment * Coronary artery disease. Stable * Acute on chronic renal failure. Continue in and out catheterization * Hypothyroidism. Holding Synthroid. Will restart Synthroid * Bipolar disorder. Continue current medicines * Diabetic neuropathy. On Neurontin * Diabetes. Continue current treatment * Continue PT and OT Current Visit: Yes (2) Chest pain Status: Acute Current Visit: Yes (3) Chronic kidney disease, stage III (moderate) Status: Chronic Current Visit: Yes (4) Hypertension Status: Chronic Current Visit: Yes (5) Type 2 diabetes mellitus Status: Chronic Current Visit: Yes (6) Acute respiratory failure with hypoxemia Status: Acute Current Visit: No (7) Bilateral pneumonia Status: Acute Current Visit: No (8) Bipolar 1 disorder, depressed Status: Acute Current Visit: No (9) Bipolar 1 disorder, depressed Status: Acute Current Visit: No (10) Bipolar disorder Status: Acute Current Visit: No (11) Bronchospasm Status: Acute Current Visit: No (12) COPD (chronic obstructive pulmonary disease) Status: Chronic Current Visit: No (13) Chest pain Status: Acute Current Visit: No (14) Chronic back pain Status: Acute Current Visit: No (15) Chronic renal failure Status: Acute Current Visit: No (16) Chronically on opiate therapy Status: Acute Current Visit: No (17) Cognitive decline Status: Acute Current Visit: No (18) Congestive heart failure Status: Acute Current Visit: No (19) Constipation Status: Acute Current Visit: No (20) Coronary artery disease Status: Chronic Current Visit: No (21) Debility Status: Acute Current Visit: No (22) Depression Status: Acute Current Visit: No (23) Depression Status: Acute Current Visit: No (24) Diabetes mellitus Status: Acute Current Visit: No (25) Drug overdose Problem details: I agree with the current plan of care. I will stop giving her oral narcotics at home I agree with the psychiatric consult Status: Acute Current Visit: No (26) Headache Status: Acute Current Visit: No (27) Hyperlipidemia Status: Chronic Current Visit: Yes (28) Hyponatremia Status: Acute Current Visit: No (29) Hypothyroidism Status: Chronic Current Visit: No (30) Hypothyroidism Status: Acute Current Visit: No (31) Laceration of scalp Status: Acute Current Visit: No (32) Left upper lobe pneumonia Status: Acute Current Visit: No (33) Mood disorder Status: Acute Current Visit: No (34) Neurogenic bladder Status: Acute Current Visit: No (35) Neurogenic bladder Status: Acute Current Visit: No (36) Noncompliance with medications Status: Chronic Current Visit: No (37) Oral candidiasis Status: Acute Current Visit: Yes (38) Pneumonia Status: Acute Current Visit: No (39) Pneumonia involving left lung Status: Acute Current Visit: No (40) Renal insufficiency Status: Chronic Current Visit: Yes (41) Severe anemia Status: Acute Current Visit: Yes (42) Sinus bradycardia Status: Acute Current Visit: No (43) Symptomatic anemia Status: Acute Current Visit: No (44) Type 2 diabetes mellitus Status: Acute Current Visit: No (45) UTI (urinary tract infection) Status: Acute Current Visit: No (46) Urinary tract infection Status: Acute Current Visit: No (47) dangerousness Status: Acute Current Visit: No (48) poor coping skills Status: Acute Current Visit: No (49) Abnormal ECG Status: Chronic Current Visit: No (50) Coronary artery disease Status: Chronic Current Visit: Yes (51) Renal insufficiency Status: Chronic Current Visit: No (52) Edema Status: Resolved Current Visit: No Internal Medicine - PN: Subj Interval history: Patient is not feeling well. She continues to have shortness of breath and is coughing up yellow greenish phlegm. She denies any fever or chills. Her chest x-ray showed right middle lobe pneumonia yesterday Exam (Progress Note) - Constitutional Vitals: Period Temp Pulse Resp BP Sys/Meek Pulse Ox Last 24 Hr 98.2 F-99.5 F 68-104 18-24 145-166/68-82 89-98 Exam: Examination: GENERAL: No acute distress HEENT: Ulcers on her tongue and buccal cavity are healing NECK: Neck is supple. CVS: Regular rate and rhythm. S1 and S2 are normal. RESPIRATORY: Bilateral rales and rhonchi. Right side greater than left ABDOMEN: Soft and nontender. EXT: Trace edema. Peripheral pulses are present. MAILROOM ASSOCIATE: Alert and oriented 3. Moving all extremities SKIN: Warm and dry. Results - Labs CBC & BMP: 04/22/17 06:31 04/22/17 06:31 Lab Results: I have reviewed the past 24 hour labs Specialty Discharge - Follow Up or Referrals Follow up with: Ran Beltrán MD [Physician] - 2 Weeks (With EKG)
--- NOTE | 2017-04-22 09:24 | Pulmonology Progress Note ---
Pulmonary - PN: Subj Interval history: Patient is a 67-year-old white lady that has known coronary artery disease along with diabetes, hypertension, hyperlipidemia, hypothyroidism. She is a smoker. She comes in with shortness of breath and bilateral infiltrates. She does look like she might have had heart failure and actually diuresed fairly well. She has been treated for pneumonia also. She is on the ventilator for quite a while but has done okay off the ventilator. The last few days she has had considerable coughing and congestion still. Yesterday she had more of a right lung infiltrate again. She is having trouble coughing up secretions. She still alert and is able to move around okay. Exam (Progress Note) - Constitutional Vitals: Period Temp Pulse Resp BP Sys/Meek Pulse Ox Last 24 Hr 98.2 F-99.5 F 68-104 18-24 145-166/68-82 89-98 Exam: General appearance: normal weight, patient is alert and sitting up and talking more. She still has a harsh cough and some shortness of breath. - Head Head exam: Present: normal inspection, normocephalic - Eye Eye exam: Present: EOMI. Absent: scleral icterus Pupils: Present: ROBERTO CARLOS - ENT ENT exam: Present: She does have dry mucous membranes with some mild sores - Neck Neck exam: Present: normal inspection. Absent: lymphadenopathy, thyromegaly - Respiratory Respiratory exam: Present: She has fair breath sounds bilaterally but she does have some rhonchi and coarse breath sounds. - Cardiovascular Cardiovascular exam: Present: regular rate and rhythm. Her heart rate is under good control now. Absent: gallop, systolic murmur - GI/Abdominal GI/Abdominal exam: Present: normal bowel sounds, soft. Absent: distended, organomegaly, tenderness - Extremities Exam Extremities exam: Absent: calf tenderness, edema, she had no signs of phlebitis - Neurological Exam Neurological exam: Present: alert, oriented X3, CN II-XII intact, she has a resting tremor, she is alert and talking and looks comfortable. - Psychiatric Psychiatric exam: Present: She is alert and comfortable. - Skin Skin exam: Present: warm, dry Results - Labs CBC & BMP: 04/22/17 06:31 04/22/17 06:31 - Diagnostic Findings Procedure: Chest x-ray: image reviewed by me, report reviewed by me (Chest x- ray shows mild infiltrate in the right midlung.) Assessment and Plan (1) Bilateral pneumonia Status: Acute Assessment and plan: Patient had bilateral pneumonia and respiratory failure but cleared up fairly well. Now she is having some chest congestion again. She may need another bronchoscope. Will increase her medications and see how she does. Current Visit: No (2) Congestive heart failure Status: Acute Assessment and plan: She looks like she had some heart failure early on but is better now. She did diurese very well yesterday. Her weight is down a few kilograms. Current Visit: No (3) COPD (chronic obstructive pulmonary disease) Status: Chronic Assessment and plan: The patient is a smoker and has a component of COPD. She will continue with respiratory therapy. She is coughing a lot and having a little more trouble breathing. Will increase her steroids a little. Current Visit: No (4) Acute respiratory failure with hypoxemia Status: Acute Assessment and plan: The patient has acute respiratory failure with hypoxemia and bilateral infiltrates. She did well on the ventilator for several days and was extubated. She has had a good weekend and her breathing continues to improve. Her chest x-ray is much better and her breathing is much improved. Now she is having a little more trouble clearing secretions. We will continue vigorous respiratory therapy. Current Visit: No (5) History of coronary artery bypass graft x 1 Status: Chronic Assessment and plan: The patient has known coronary artery disease. Current Visit: Yes (6) Hypertension Status: Chronic Assessment and plan: She has high blood pressure and will continue with medications. Her systolic blood pressure is around 160. Current Visit: Yes (7) Renal insufficiency Status: Chronic Assessment and plan: Her creatinine peaked at around 5.0 and is now at 3.6. Current Visit: No (8) Severe anemia Status: Acute Assessment and plan: She is better after transfusions and her hematocrit is 34.6 today. Current Visit: Yes Specialty Discharge - Follow Up or Referrals Follow up with: Ran Beltrán MD [Physician] - 2 Weeks (With EKG)
[2017-04-22] MEDS: INSULIN REGULAR 100 UNIT/ML SUBCUT SCH ×4 (09:34→20:25)
[2017-04-22] MEDS: INSULIN NPH/REGULAR 70/30 100 UNIT/ML SUBCUT SCH ×2 (09:45→20:25)
[2017-04-22] MEDS: ENOXAPARIN 30 MG/0.3 ML SYRINGE SUBCUT SCH (09:46)
[2017-04-22] MEDS: methylPREDNISolone SOD SUC 40 MG/1 ML VIAL IV SCH ×3 (09:47→17:06)
[2017-04-22] MEDS: CLINDAMYCIN INJ 300 MG in PREMIX 1 EACH IV SCH ×2 (09:48→16:11)
[2017-04-22] MEDS: FLUoxetine 20 MG CAPSULE PO SCH (09:51)
[2017-04-22] MEDS: NYSTATIN 500,000 UNIT/5 ML UDCUP SWISH/SWAL SCH ×4 (09:51→20:38)
[2017-04-22] MEDS: GABAPENTIN 300 MG CAPSULE PO SCH ×3 (09:52→20:41)
[2017-04-22] MEDS: LANSOPRAZOLE ODT 30 MG TABLET PO SCH (09:52)
[2017-04-22] MEDS: OXcarbazepine 300 MG TABLET PO SCH ×2 (09:52→20:37)
[2017-04-22] MEDS: FLUCONAZOLE 100 MG TABLET PO SCH (09:52)
[2017-04-22] MEDS: DOCUSATE SODIUM 100 MG CAPSULE PO SCH ×2 (09:52→20:38)
[2017-04-22] MEDS: ASPIRIN EC 325 MG TABLET PO SCH (09:53)
[2017-04-22] MEDS: DESITIN 4OZ/NYSTATIN 15 GRAM MIXTURE PASTE TOP SCH ×2 (09:53→20:38)
[2017-04-22] MEDS: valACYclovir 500 MG TABLET PO SCH ×2 (09:53→20:38)
[2017-04-22] MEDS: predniSONE 10 MG TABLET PO SCH (10:17)
--- NOTE | 2017-04-22 12:15 | Cardiology Progress Note ---
Alena Silverio April, RN, am scribing for, and in the presence of, Markel Kuo MD 12:15. Assessment and Plan (1) Hypertension Status: Chronic Assessment and plan: We will continue to monitor and adjust medications accordingly. Current Visit: Yes (2) Type 2 diabetes mellitus Status: Chronic Assessment and plan: Internal medicine is following this. Current Visit: Yes (3) Hyperlipidemia Status: Chronic Assessment and plan: She is on pravastatin 40 mg daily. Current Visit: Yes (4) Oral candidiasis Status: Acute Current Visit: Yes (5) Renal insufficiency Status: Chronic Assessment and plan: Her creatinine is unchanged at 3.6 today, nephrology is following. Current Visit: Yes (6) Severe anemia Status: Acute Assessment and plan: Her cell counts are improving, will continue to monitor. Current Visit: Yes (7) Coronary artery disease Status: Chronic Current Visit: Yes (8) Pneumonia Status: Acute Assessment and plan: She is on appropriate IV antibiotics, internal medicine and pulmonary medicine are following. Current Visit: Yes Cardiology - PN: Subj Interval history: PRIMARY NET SOLUTIONS ARCHITECT: GÓMEZ (DOES NOT FOLLOW ROUTINELY) PCP: DR. FLOYD SUMMARY: Ms. Cardenas is a 67 year old white female with risk factor significant for: Age, hypertension, hyperlipidemia, diabetes, previously known history of CAD, and tobacco use. She does not routinely follow with cardiology, and she has a history of noncompliance. Patient has had previous CABG 1 with BARRERA [place] LAD [place] [address] Lopez. Review of old records shows patient had last cardiac catheterization in [address] Beltrán which revealed stable coronary artery disease and a widely patent BARRERA graft. She had nuclear SPECT scan approximately 1 year ago on April 06, 2016, and showed no coronary artery ischemia and normal LV systolic function with EF 69%. She has been a heavy smoker all her life. Past medical history includes COPD, multiple CVA, hypothyroidism, chronic kidney disease with anemia, and bipolar disorder with previous suicide attempt by narcotic overdose. She has a known history of diastolic dysfunction due to mitral and tricuspid valve dysfunction. She has chronic pain and is followed routinely by Dr. Abbasi. Patient also has recurrent pneumonia and has required multiple hospital admissions. Patient was admitted April 08 after presenting to the emergency room complaining of shortness of breath for 2 days with cough, fever, chills. She also complained of some back pain and chest pain. Chest x-ray revealed by basilar pneumonia. The morning of April 09 around 0640, patient reported to the nursing staff that she was having chest pain described as a "heaviness" and her oxygen saturation levels were noted to be 78% on 2 L/NC. Nursing staff initiated heart alert, EKG was obtained with acute MO ruled out, patient was placed on 100% NRB, received 40 mg IV Lasix and 2 mg IV morphine, and she was transferred to the ICU for close observation. Stat blood work drawn. Cardiac enzymes revealed troponin 0.049 with CPK 465. BNP 831. Cardiology was consulted for further evaluation of chest pain and volume overload. Echocardiogram showed ejection fraction of 65-70% with 2-3+ bilateral enlargement, concentric LVH, and 3-4+ tricuspid regurgitation. April 11 she developed atrial fibrillation with RVR, she was given diltiazem with his doctor blood pressure and was given metoprolol 5 mg IV 1 dose and digoxin 0.125 mg. Potassium was noted to be 6.4 and she was given calcium gluconate, Kayexalate and albuterol. She is now in sinus rhythm and I see no further documentation of atrial fibrillation in the chart. April 19, 2017: Ms. Cardenas is seen resting in bed in no acute distress. She denies any chest pain or palpitations. Oxygen is in use via nasal cannula and she reports her breathing is doing pretty good. land economist currently shows sinus rhythm with heart rates in the 60s. Potassium this morning is 4.7. She is on IV antibiotics. White count today is 22.3, this is improved some from yesterday. H&H today is 7.9 and 24.6. It appears that she has 2 units of blood product ordered for today. April 20, 2017: Ms. Cardenas was given a one-time dose of IV Lasix yesterday. She diuresed well and reports her breathing has improved. Chest x-ray done yesterday is unchanged from previous x-ray. She denies any chest pain or palpitations. Her creatinine has improved, today it is 3.3. She was transfused 2 units of red blood cells yesterday, H&H is improved today at 9.2 and 28.2. This patient seems comfortable and I think overall is stable and compensated from heart failure standpoint. She is a difficult historian because of her psychiatric issues but she is not complaining of chest pain or problems with her breathing currently. April 21, 2017: Ms. Cardenas is seen today sitting up in chair. She reports she did have some chest discomfort this morning that was associated with when she was taken deep breath. She cannot give me any specifics or describe the chest pain for me. Oxygen is in use via nasal cannula she continues to be somewhat short of breath, but states it has improved Chest x-ray today was suspicious for interstitial pulmonary edema, interstitial pneumonia, or other interstitial lung disease. She is a little more dyspneic this morning. I am going to bump her with a little Lasix today. We may ask pulmonary to review. April 22, 2017: Ms. Cardenas is seen in bed today. Oxygen is in use via nasal cannula. She states her shortness of breath is worse today and she does appear more tachypneic. She denies any chest pain, just reports generalized body aches and not feeling well. land economist currently shows sinus rhythm with heart rates in the 60s. White count today is 24.9, IV clindamycin has been added to her medication regimen. Her blood counts continue to improve, creatinine is unchanged. Magnesium is low today at 1.7. She diuresed nicely yesterday. She continues short of breath with a productive cough and antibiotics have been started. We will continue following. I have discussed in detail the particulars of this case and I have examined the patient and reviewed the patient's chart both current and old. I was directly involved in the patient's evaluation and management and I completely agree with Malia Carvajal RN regarding this patient's evaluation and treatment plan. Exam (Progress Note) - Constitutional Vitals: Period Temp Pulse Resp BP Sys/Meek Pulse Ox Last 24 Hr 98.2 F-99.5 F 68-104 18-24 145-166/68-82 89-98 Exam: General appearance: no acute distress, morbidly obese - Head Head exam: Absent: abrasion, hematoma - ENT ENT exam: Present: other (Ulcers noted in mouth) - Respiratory Respiratory exam: Present: Scattered rhonchi, other (Oxygen in use via nasal cannula). Absent: accessory muscle use, chest wall tenderness - Cardiovascular Cardiovascular exam: Present: regular rate and rhythm - GI/Abdominal GI/Abdominal exam: Present: normal bowel sounds, soft. Absent: distended, tenderness - Extremities Exam Extremities exam: Present: edema (Trace to bilateral upper and lower extremities ), other (Peripheral pulses present) - Neurological Exam Neurological exam: Present: alert, oriented X3 - Psychiatric Psychiatric exam: Present: normal affect, normal mood - Skin Skin exam: Present: warm, dry Result/EKG - Labs CBC & BMP: 04/22/17 06:31 04/22/17 06:31 Lab Results: I have reviewed the past 24 hour labs Labs: Laboratory Results - last 24 hr 04/21/17 04/21/17 04/21/17 11:05 12:38 15:33 WBC RBC Hgb Hct MCV MCH MCHC RDW Plt Count MPV Neut % (Auto) Lymph % (Auto) [place] % (Auto) Eos % (Auto) Baso % (Auto) Neut # (Auto) Lymph # (Auto) [place] # (Auto) Eos # (Auto) Baso # (Auto) Total Counted Immature Gran % Nucleated RBC % Immature Gran # Segmented Neutrophils Band Neutrophils Lymphocytes Monocytes Nucleated RBCs # Platelet Estimate Immature Plt Fraction Polychromasia Hypochromasia Sodium Potassium Chloride Carbon Dioxide Anion Gap BUN Creatinine GFR Calculation BUN/Creatinine Ratio Glucose POC Glucose 75 114 H 154 H Calculated Osmolality Calcium Magnesium 04/21/17 04/22/17 04/22/17 19:36 06:31 06:31 WBC 24.9 H RBC 3.86 Hgb 11.5 L Hct 34.6 L MCV 89.6 MCH 30 MCHC 33.2 RDW 17.3 Plt Count 195 MPV 11.5 Neut % (Auto) 90.5 H Lymph % (Auto) 2.3 L [place] % (Auto) 2.8 Eos % (Auto) 0.9 Baso % (Auto) 0.2 Neut # (Auto) 22.6 H Lymph # (Auto) 0.6 L [place] # (Auto) 0.7 Eos # (Auto) 0.2 Baso # (Auto) 0.0 Total Counted 100 Immature Gran % 3.3 Nucleated RBC % 0.0 Immature Gran # 0.82 Segmented Neutrophils 89 H Band Neutrophils 2 Lymphocytes 4 L Monocytes 5 Nucleated RBCs # 0.00 Platelet Estimate Adequate Immature Plt Fraction 0.0 Polychromasia Slight Hypochromasia Slight Sodium 137 Potassium 3.8 Chloride 105 Carbon Dioxide 18 L Anion Gap 17.8 H BUN 87 H Creatinine 3.60 H GFR Calculation 15 BUN/Creatinine Ratio 24.00 H Glucose 51 L POC Glucose 123 H Calculated Osmolality 296.8 Calcium 7.9 L Magnesium 1.7 L 04/22/17 04/22/17 07:00 07:30 WBC RBC Hgb Hct MCV MCH MCHC RDW Plt Count MPV Neut % (Auto) Lymph % (Auto) [place] % (Auto) Eos % (Auto) Baso % (Auto) Neut # (Auto) Lymph # (Auto) [place] # (Auto) Eos # (Auto) Baso # (Auto) Total Counted Immature Gran % Nucleated RBC % Immature Gran # Segmented Neutrophils Band Neutrophils Lymphocytes Monocytes Nucleated RBCs # Platelet Estimate Immature Plt Fraction Polychromasia Hypochromasia Sodium Potassium Chloride Carbon Dioxide Anion Gap BUN Creatinine GFR Calculation BUN/Creatinine Ratio Glucose POC Glucose 53 L 133 H Calculated Osmolality Calcium Magnesium - Diagnostic Findings Procedure: Chest x-ray: report reviewed by me - EKG EKG results: interpreted by me EKG shows: sinus rhythm Specialty Discharge - Follow Up or Referrals Follow up with: Ran Beltrán MD [Physician] - 2 Weeks (With EKG) Ayaan Silverio Wesley, MD, personally performed the services described in this documentation, ascribed by Malia Carvajal RN in my presence, and it is both accurate and complete .
--- NOTE | 2017-04-22 16:02 | Nephrology Progress Note ---
Nephrology - PN: Subj Interval history: She has a productive cough. No hemoptysis. No pleuritic chest pain. Breathing is about the same as yesterday. Exam (PN)-Nephrology - Vital Signs Vital signs: Period Temp Pulse Resp BP Sys/Meek Pulse Ox Last 24 Hr 98.2 F-99.7 F 68-83 16-24 145-193/70-82 89-99 Exam: ENT: Normal Cardiovascular: Regular rate and rhythm. No murmur rub or gallop Lungs: Mild expiratory wheezes on the right. Left lung clear Extremities: 1+ edema - Lab 04/22/17 06:31 04/22/17 06:31 Most recent lab results ABG pH 7.317 (7.35-7.45) L 04/16/17 03:10 ABG pCO2 37.4 MM HG (35-48) 04/16/17 03:10 ABG pO2 70.5 MM HG (80-95) L 04/16/17 03:10 ABG HCO3 19.0 MMOL/L (20-26) L 04/16/17 03:10 ABG O2 Saturation 92.5 % (95-100) L 04/16/17 03:10 Calcium 7.9 MG/DL (8.5-10.1) L 04/22/17 06:31 Phosphorus 6.8 MG/DL (2.5-4.9) H 04/19/17 04:28 Magnesium 1.7 MG/DL (1.8-2.4) L 04/22/17 06:31 Assessment and Plan (1) Renal failure (ARF), acute on chronic Status: Acute Assessment and plan: 67-year-old woman with: * CRF stage III. Baseline creatinine upper twos * Acute on chronic renal failure. Creatinine stable. She received IV Lasix yesterday. Fluid balance significantly negative * Neurogenic bladder. Agree with in and out catheterization * Pneumonia * Hypertension * Diabetes * Bipolar disorder * CAD * Anemia. Post transfusion Current Visit: Yes (2) Chronic kidney disease, stage III (moderate) Status: Chronic Current Visit: Yes (3) History of coronary artery bypass graft x 1 Status: Chronic Current Visit: Yes (4) Hypertension Status: Chronic Current Visit: Yes (5) Type 2 diabetes mellitus Status: Chronic Current Visit: Yes (6) Bilateral pneumonia Status: Acute Current Visit: No (7) Bipolar disorder Status: Acute Current Visit: No (8) Hypertension Status: Acute Current Visit: No Specialty Discharge - Follow Up or Referrals Follow up with: Ran Beltrán MD [Physician] - 2 Weeks (With EKG)
[2017-04-22] MEDS: MUPIROCIN 2% OINT 22 GM TUBE TOP SCH ×2 (16:06→20:38)
[2017-04-22] MEDS: MYLANTA/LIDO VISC 2:1 300 ML BOTTLE SWISH/SPIT PRN (16:09)
[2017-04-22] MEDS: PRAVASTATIN 20 MG TABLET PO SCH (20:38)
[2017-04-23] MEDS: ALBUTEROL/IPRATROPIUM 3 ML NEB RESP TX SCH ×6 (00:01→19:03)
[2017-04-23] MEDS: methylPREDNISolone SOD SUC 40 MG/1 ML VIAL IV SCH ×3 (01:32→17:28)
[2017-04-23] MEDS: CLINDAMYCIN INJ 300 MG in PREMIX 1 EACH IV SCH ×3 (01:33→16:32)
[2017-04-23 07:12] LABS: Hematocrit 29.4 VOL% (35.7-47.0); Hemoglobin 9.6 GM/DL (12.0-16.0); Immature Granulocytes % 1.6 %; Immature Granulocytes Absolute 0.17 #; Lymphocytes # 0.3 10*3/uL (1.4-4.0); Lymphocytes % 2.5 % (21.3-54.2); Mean Corpuscular HGB Conc 32.7 GM/DL (32-36); Mean Corpuscular Hemoglobin 30 PG (27-34); Mean Corpuscular Volume 90.5 FL (87-102); Mean Platelet Volume 10.9 FL (9.6-12.0); Monocytes # 0.2 10*3/uL (0.11-0.8); Monocytes % 2.1 % (1.7-12.7); Neutrophils % 93.8 % (38.7-73.9); Platelet Count 125 T/CUMM (130-400); Red Blood Count 3.25 MC/CUMM (3.8-5.5); Red Cell Distribution Width 17.1 % (9.3-17.3); White Blood Count 10.6 T/CUMM (4-12)
[2017-04-23 07:34] LABS: Hypochromasia 2+; Lymphocytes 2 % (20-55); Platelet Estimate Adequate; Polychromasia Slight; Segmented Neutrophils 96 % (50-85); Total Cells Counted 100
[2017-04-23] MEDS: LEVOTHYROXINE 125 MCG TABLET PO SCH (07:39)
[2017-04-23 07:40] LABS: Osmolality,Calculated 311.3 MOS/KG (273-304); Potassium 4.2 MMOL/L (3.5-5.1)
[2017-04-23] MEDS: LACTULOSE 20 GM/30 ML UDCUP PO PRN (07:40)
[2017-04-23] MEDS: ASPIRIN EC 325 MG TABLET PO SCH (08:31)
[2017-04-23] MEDS: valACYclovir 500 MG TABLET PO SCH ×2 (08:31→20:51)
[2017-04-23] MEDS: FLUoxetine 20 MG CAPSULE PO SCH (08:31)
[2017-04-23] MEDS: GABAPENTIN 300 MG CAPSULE PO SCH ×3 (08:31→20:51)
[2017-04-23] MEDS: FLUCONAZOLE 100 MG TABLET PO SCH (08:31)
[2017-04-23] MEDS: DOCUSATE SODIUM 100 MG CAPSULE PO SCH ×2 (08:31→20:51)
[2017-04-23] MEDS: LANSOPRAZOLE ODT 30 MG TABLET PO SCH (08:31)
[2017-04-23] MEDS: DESITIN 4OZ/NYSTATIN 15 GRAM MIXTURE PASTE TOP SCH ×2 (08:32→20:55)
[2017-04-23] MEDS: ENOXAPARIN 30 MG/0.3 ML SYRINGE SUBCUT SCH (08:32)
[2017-04-23] MEDS: INSULIN REGULAR 100 UNIT/ML SUBCUT SCH ×4 (08:32→20:40)
[2017-04-23] MEDS: NYSTATIN 500,000 UNIT/5 ML UDCUP SWISH/SWAL SCH ×4 (08:32→20:51)
[2017-04-23] MEDS: MUPIROCIN 2% OINT 22 GM TUBE TOP SCH ×3 (08:32→20:55)
[2017-04-23] MEDS: INSULIN NPH/REGULAR 70/30 100 UNIT/ML SUBCUT SCH ×2 (08:32→20:51)
[2017-04-23] MEDS: OXcarbazepine 300 MG TABLET PO SCH ×2 (08:33→20:51)
--- NOTE | 2017-04-23 09:04 | Internal Med Progress Note ---
Assessment and Plan (1) Shortness of breath Status: Acute Assessment and plan: 67-year-old female admitted to acute care * Pneumonia. She appears to have developed right middle lobe pneumonia. Continue antibiotics and respiratory treatment. May require bronchoscopy again * COPD. Continue respiratory treatment. Continue steroids * Coronary artery disease. Stable * Acute on chronic renal failure. Continue in and out catheterization * Hypothyroidism. Holding Synthroid. Will restart Synthroid * Bipolar disorder. Continue current medicines * Diabetic neuropathy. On Neurontin * Diabetes. Continue current treatment * Continue PT and OT Current Visit: Yes (2) Chest pain Status: Acute Current Visit: Yes (3) Chronic kidney disease, stage III (moderate) Status: Chronic Current Visit: Yes (4) Hypertension Status: Chronic Current Visit: Yes (5) Type 2 diabetes mellitus Status: Chronic Current Visit: Yes (6) Acute respiratory failure with hypoxemia Status: Acute Current Visit: No (7) Bilateral pneumonia Status: Acute Current Visit: No (8) Bipolar 1 disorder, depressed Status: Acute Current Visit: No (9) Bipolar 1 disorder, depressed Status: Acute Current Visit: No (10) Bipolar disorder Status: Acute Current Visit: No (11) Bronchospasm Status: Acute Current Visit: No (12) COPD (chronic obstructive pulmonary disease) Status: Chronic Current Visit: No (13) Chest pain Status: Acute Current Visit: No (14) Chronic back pain Status: Acute Current Visit: No (15) Chronic renal failure Status: Acute Current Visit: No (16) Chronically on opiate therapy Status: Acute Current Visit: No (17) Cognitive decline Status: Acute Current Visit: No (18) Congestive heart failure Status: Acute Current Visit: No (19) Constipation Status: Acute Current Visit: No (20) Coronary artery disease Status: Chronic Current Visit: No (21) Debility Status: Acute Current Visit: No (22) Depression Status: Acute Current Visit: No (23) Depression Status: Acute Current Visit: No (24) Diabetes mellitus Status: Acute Current Visit: No (25) Drug overdose Problem details: I agree with the current plan of care. I will stop giving her oral narcotics at home I agree with the psychiatric consult Status: Acute Current Visit: No (26) Headache Status: Acute Current Visit: No (27) Hyperlipidemia Status: Chronic Current Visit: Yes (28) Hyponatremia Status: Acute Current Visit: No (29) Hypothyroidism Status: Chronic Current Visit: No (30) Hypothyroidism Status: Acute Current Visit: No (31) Laceration of scalp Status: Acute Current Visit: No (32) Left upper lobe pneumonia Status: Acute Current Visit: No (33) Mood disorder Status: Acute Current Visit: No (34) Neurogenic bladder Status: Acute Current Visit: No (35) Neurogenic bladder Status: Acute Current Visit: No (36) Noncompliance with medications Status: Chronic Current Visit: No (37) Oral candidiasis Status: Acute Current Visit: Yes (38) Pneumonia Status: Acute Current Visit: Yes (39) Pneumonia involving left lung Status: Acute Current Visit: No (40) Renal insufficiency Status: Chronic Current Visit: Yes (41) Severe anemia Status: Acute Current Visit: Yes (42) Sinus bradycardia Status: Acute Current Visit: No (43) Symptomatic anemia Status: Acute Current Visit: No (44) Type 2 diabetes mellitus Status: Acute Current Visit: No (45) UTI (urinary tract infection) Status: Acute Current Visit: No (46) Urinary tract infection Status: Acute Current Visit: No (47) dangerousness Status: Acute Current Visit: No (48) poor coping skills Status: Acute Current Visit: No (49) Abnormal ECG Status: Chronic Current Visit: No (50) Coronary artery disease Status: Chronic Current Visit: Yes (51) Renal insufficiency Status: Chronic Current Visit: No (52) Edema Status: Resolved Current Visit: No Internal Medicine - PN: Subj Interval history: Patient is feeling better than past 2 days. Her breathing has improved. She is still coughing up greenish phlegm. Exam (Progress Note) - Constitutional Vitals: Period Temp Pulse Resp BP Sys/Meek Pulse Ox Last 24 Hr 97 F-99.7 F 58-83 16-24 136-187/58-79 92-99 Exam: Examination: GENERAL: No acute distress HEENT: Ulcers on her tongue and buccal cavity are healing NECK: Neck is supple. CVS: Regular rate and rhythm. S1 and S2 are normal. RESPIRATORY: Bilateral rales and rhonchi. Better air entry ABDOMEN: Soft and nontender. EXT: Trace edema. Peripheral pulses are present. ASSISTANT HALL DIRECTOR: Alert and oriented 3. Moving all extremities SKIN: Warm and dry. Results - Labs CBC & BMP: 04/23/17 06:57 04/23/17 06:57 Lab Results: I have reviewed the past 24 hour labs Specialty Discharge - Follow Up or Referrals Follow up with: Ran Beltrán MD [Physician] - 2 Weeks (With EKG)
--- NOTE | 2017-04-23 10:19 | Pulmonology Progress Note ---
Pulmonary - PN: Subj Interval history: Patient is a 67-year-old white lady that has known coronary artery disease along with diabetes, hypertension, hyperlipidemia, hypothyroidism. She is a smoker. She comes in with shortness of breath and bilateral infiltrates. She does look like she might have had heart failure and actually diuresed fairly well. She has been treated for pneumonia also. She is on the ventilator for quite a while but has done okay off the ventilator. The last few days she has had considerable coughing and congestion still. Her medicines had to be increased and she actually had a fairly good night. She says her cough and congestion are better and she is feeling better. She does look more comfortable today. Exam (Progress Note) - Constitutional Vitals: Period Temp Pulse Resp BP Sys/Meek Pulse Ox Last 24 Hr 97 F-99.7 F 58-83 16-24 136-187/58-79 92-99 Exam: General appearance: normal weight, patient is alert and sitting up and talking more. She looks like she feels better today. - Head Head exam: Present: normal inspection, normocephalic - Eye Eye exam: Present: EOMI. Absent: scleral icterus Pupils: Present: ROBERTO CARLOS - ENT ENT exam: Present: She does have dry mucous membranes with some mild sores - Neck Neck exam: Present: normal inspection. Absent: lymphadenopathy, thyromegaly - Respiratory Respiratory exam: Present: She has fair breath sounds bilaterally but she does have some rhonchi and coarse breath sounds. She is moving air better today and sounds a little better. - Cardiovascular Cardiovascular exam: Present: regular rate and rhythm. Her heart rate is under good control now. Absent: gallop, systolic murmur - GI/Abdominal GI/Abdominal exam: Present: normal bowel sounds, soft. Absent: distended, organomegaly, tenderness - Extremities Exam Extremities exam: Absent: calf tenderness, edema, she had no signs of phlebitis - Neurological Exam Neurological exam: Present: alert, oriented X3, CN II-XII intact, she has a resting tremor, she is alert and talking and looks comfortable. - Psychiatric Psychiatric exam: Present: She is alert and comfortable. - Skin Skin exam: Present: warm, dry Results - Labs CBC & BMP: 04/23/17 06:57 04/23/17 06:57 Assessment and Plan (1) Bilateral pneumonia Status: Acute Assessment and plan: Patient looks like she is breathing better today and having less cough and congestion. Will continue present therapy. Current Visit: No (2) Congestive heart failure Status: Acute Assessment and plan: She looks like she had some heart failure early on but is better now. She did diurese very well yesterday. Her weight is down a few kilograms. Current Visit: No (3) COPD (chronic obstructive pulmonary disease) Status: Chronic Assessment and plan: The patient is a smoker and has a component of COPD. She will continue with respiratory therapy. She looks like she is breathing a little better today. Current Visit: No (4) Acute respiratory failure with hypoxemia Status: Acute Assessment and plan: The patient has acute respiratory failure with hypoxemia and bilateral infiltrates. She did well on the ventilator for several days and was extubated. She was doing okay but the last couple days she had more chest congestion and shortness of breath. Today she looks much better and is feeling better. She is tolerating treatment and her lungs are improving. Current Visit: No (5) History of coronary artery bypass graft x 1 Status: Chronic Assessment and plan: The patient has known coronary artery disease. Current Visit: Yes (6) Hypertension Status: Chronic Assessment and plan: She has high blood pressure and will continue with medications. Her systolic blood pressure is better today. Current Visit: Yes (7) Renal insufficiency Status: Chronic Assessment and plan: Her creatinine peaked at around 5.0 and is now at 3.5. Current Visit: No (8) Severe anemia Status: Acute Assessment and plan: She is better after transfusions and her hematocrit is back to 29.4. Current Visit: Yes Specialty Discharge - Follow Up or Referrals Follow up with: Ran Beltrán MD [Physician] - 2 Weeks (With EKG)
--- NOTE | 2017-04-23 10:43 | Cardiology Progress Note ---
Alena Silverio April, RN, am scribing for, and in the presence of, Markel Kuo MD 10:43. Assessment and Plan (1) Hypertension Status: Chronic Assessment and plan: Her pressures have been stable. We will continue to monitor and adjust medications accordingly. Current Visit: Yes (2) Type 2 diabetes mellitus Status: Chronic Assessment and plan: Internal medicine is following this. Current Visit: Yes (3) Hyperlipidemia Status: Chronic Assessment and plan: She is on pravastatin 40 mg daily. Current Visit: Yes (4) Oral candidiasis Status: Acute Current Visit: Yes (5) Renal insufficiency Status: Chronic Assessment and plan: Her creatinine is slightly improved at 3.5 today, nephrology is following. Current Visit: Yes (6) Severe anemia Status: Acute Assessment and plan: Her cell counts have dropped a bit today and her platelet count is low. She denies any known active bleeding. We will continue to monitor. Current Visit: Yes (7) Coronary artery disease Status: Chronic Current Visit: Yes (8) Pneumonia Status: Acute Assessment and plan: She is on appropriate IV antibiotics, internal medicine and pulmonary medicine are following. 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 FLOYD SUMMARY: Ms. Cardenas is a 67 year old white female with risk factor significant for: Age, hypertension, hyperlipidemia, diabetes, previously known history of CAD, and tobacco use. She does not routinely follow with cardiology, and she has a history of noncompliance. Patient has had previous CABG 1 with BARRERA [place] LAD [place] [address] Lopez. Review of old records shows patient had last cardiac catheterization in [address] Beltrán which revealed stable coronary artery disease and a widely patent BARRERA graft. She had nuclear SPECT scan approximately 1 year ago on April 06, 2016, and showed no coronary artery ischemia and normal LV systolic function with EF 69%. She has been a heavy smoker all her life. Past medical history includes COPD, multiple CVA, hypothyroidism, chronic kidney disease with anemia, and bipolar disorder with previous suicide attempt by narcotic overdose. She has a known history of diastolic dysfunction due to mitral and tricuspid valve dysfunction. She has chronic pain and is followed routinely by Dr. Abbasi. Patient also has recurrent pneumonia and has required multiple hospital admissions. Patient was admitted April 08 after presenting to the emergency room complaining of shortness of breath for 2 days with cough, fever, chills. She also complained of some back pain and chest pain. Chest x-ray revealed by basilar pneumonia. The morning of April 09 around 0640, patient reported to the nursing staff that she was having chest pain described as a "heaviness" and her oxygen saturation levels were noted to be 78% on 2 L/NC. Nursing staff initiated heart alert, EKG was obtained with acute [place] ruled out, patient was placed on 100% NRB, received 40 mg IV Lasix and 2 mg IV morphine, and she was transferred to the ICU for close observation. Stat blood work drawn. Cardiac enzymes revealed troponin 0.049 with CPK 465. BNP 831. Cardiology was consulted for further evaluation of chest pain and volume overload. Echocardiogram showed ejection fraction of 65-70% with 2-3+ bilateral enlargement, concentric LVH, and 3-4+ tricuspid regurgitation. April 11 she developed atrial fibrillation with RVR, she was given diltiazem with his doctor blood pressure and was given metoprolol 5 mg IV 1 dose and digoxin 0.125 mg. Potassium was noted to be 6.4 and she was given calcium gluconate, Kayexalate and albuterol. She is now in sinus rhythm and I see no further documentation of atrial fibrillation in the chart. April 19, 2017: Ms. Cardenas is seen resting in bed in no acute distress. She denies any chest pain or palpitations. Oxygen is in use via nasal cannula and she reports her breathing is doing pretty good. athletic monitor currently shows sinus rhythm with heart rates in the 60s. Potassium this morning is 4.7. She is on IV antibiotics. White count today is 22.3, this is improved some from yesterday. H&H today is 7.9 and 24.6. It appears that she has 2 units of blood product ordered for today. April 20, 2017: Ms. Cardenas was given a one-time dose of IV Lasix yesterday. She diuresed well and reports her breathing has improved. Chest x-ray done yesterday is unchanged from previous x-ray. She denies any chest pain or palpitations. Her creatinine has improved, today it is 3.3. She was transfused 2 units of red blood cells yesterday, H&H is improved today at 9.2 and 28.2. This patient seems comfortable and I think overall is stable and compensated from heart failure standpoint. She is a difficult historian because of her psychiatric issues but she is not complaining of chest pain or problems with her breathing currently. April 21, 2017: Ms. Cardenas is seen today sitting up in chair. She reports she did have some chest discomfort this morning that was associated with when she was taken deep breath. She cannot give me any specifics or describe the chest pain for me. Oxygen is in use via nasal cannula she continues to be somewhat short of breath, but states it has improved Chest x-ray today was suspicious for interstitial pulmonary edema, interstitial pneumonia, or other interstitial lung disease. She is a little more dyspneic this morning. I am going to bump her with a little Lasix today. We may ask pulmonary to review. April 22, 2017: Ms. Cardenas is seen in bed today. Oxygen is in use via nasal cannula. She states her shortness of breath is worse today and she does appear more tachypneic. She denies any chest pain, just reports generalized body aches and not feeling well. athletic monitor currently shows sinus rhythm with heart rates in the 60s. White count today is 24.9, IV clindamycin has been added to her medication regimen. Her blood counts continue to improve, creatinine is unchanged. Magnesium is low today at 1.7. She diuresed nicely yesterday. She continues short of breath with a productive cough and antibiotics have been started. We will continue following. April 23, 2017: Ms. Cardenas reports feeling better today. She denies any chest pain and reports her breathing has improved. Oxygen is in use via nasal cannula. Her I's and O's continue to be negative. athletic monitor currently shows sinus rhythm with heart rates in the 70s. Her H&H is dropped down slightly to 9.6 and 29.4. Her platelet count has dropped to 125. Creatinine is slightly improved, today it is 3.5. Patient continues reasonably stable. Her biggest complaint relates to sore throat and sore mouth. She is getting nystatin swish and swallow which does not appear to be improving things. From a cardiac standpoint she is stable I have discussed in detail the particulars of this case and I have examined the patient and reviewed the patient's chart both current and old. I was directly involved in the patient's evaluation and management and I completely agree with Malia Carvajal RN regarding this patient's evaluation and treatment plan. Exam (Progress Note) - Constitutional Vitals: Period Temp Pulse Resp BP Sys/Meek Pulse Ox Last 24 Hr 97 F-99.7 F 58-83 16-24 136-187/58-79 92-99 Exam: General appearance: no acute distress, morbidly obese - Head Head exam: Absent: abrasion, hematoma - ENT ENT exam: Present: other (Ulcers noted in mouth) - Respiratory Respiratory exam: Present: Scattered rhonchi, wheezing, other (Oxygen in use via nasal cannula). Absent: accessory muscle use, chest wall tenderness - Cardiovascular Cardiovascular exam: Present: regular rate and rhythm - GI/Abdominal GI/Abdominal exam: Present: normal bowel sounds, soft. Absent: distended, tenderness - Extremities Exam Extremities exam: Present: edema (Trace to bilateral upper and lower extremities ), other (Peripheral pulses present) - Neurological Exam Neurological exam: Present: alert, oriented X3 - Psychiatric Psychiatric exam: Present: normal affect, normal mood - Skin Skin exam: Present: warm, dry Result/EKG - Labs CBC & BMP: 04/23/17 06:57 04/23/17 06:57 Lab Results: I have reviewed the past 24 hour labs Labs: Laboratory Results - last 24 hr 04/22/17 04/22/17 04/22/17 11:24 15:32 20:23 WBC RBC Hgb Hct MCV MCH MCHC RDW Plt Count MPV Neut % (Auto) Lymph % (Auto) [place] % (Auto) Eos % (Auto) Baso % (Auto) Neut # (Auto) Lymph # (Auto) [place] # (Auto) Eos # (Auto) Baso # (Auto) Total Counted Immature Gran % Nucleated RBC % Immature Gran # Segmented Neutrophils Lymphocytes Monocytes Nucleated RBCs # Platelet Estimate Immature Plt Fraction Polychromasia Hypochromasia Sodium Potassium Chloride Carbon Dioxide Anion Gap BUN Creatinine GFR Calculation BUN/Creatinine Ratio Glucose POC Glucose 91 106 118 H Calculated Osmolality Calcium 04/23/17 04/23/17 06:57 06:57 WBC 10.6 D RBC 3.25 L Hgb 9.6 L Hct 29.4 L MCV 90.5 MCH 30 MCHC 32.7 RDW 17.1 Plt Count 125 L D MPV 10.9 Neut % (Auto) 93.8 H Lymph % (Auto) 2.5 L [place] % (Auto) 2.1 Eos % (Auto) 0.0 Baso % (Auto) 0.0 Neut # (Auto) 10.0 H Lymph # (Auto) 0.3 L [place] # (Auto) 0.2 Eos # (Auto) 0.0 Baso # (Auto) 0.0 Total Counted 100 Immature Gran % 1.6 Nucleated RBC % 0.0 Immature Gran # 0.17 Segmented Neutrophils 96 H Lymphocytes 2 L Monocytes 2 Nucleated RBCs # 0.00 Platelet Estimate Adequate Immature Plt Fraction 0.0 Polychromasia Slight Hypochromasia 2+ Sodium 141 Potassium 4.2 Chloride 109 H Carbon Dioxide 19 L Anion Gap 17.2 H BUN 85 H Creatinine 3.50 H GFR Calculation 15 BUN/Creatinine Ratio 24.00 H Glucose 180 H POC Glucose Calculated Osmolality 311.3 H Calcium 8.0 L - EKG EKG results: interpreted by me EKG shows: sinus rhythm Specialty Discharge - Follow Up or Referrals Follow up with: Ran Beltrán MD [Physician] - 2 Weeks (With EKG) Ayaan Silverio Wesley, MD, personally performed the services described in this documentation, ascribed by Malia Carvajal RN in my presence, and it is both accurate and complete .
--- NOTE | 2017-04-23 11:06 | Case Mgmt Physician Query Form ---
LONG STAY PHYSICIAN RECERTIFICATION *This form is to be completed for all Medicare patients before they reach day 20 of their hospitalization. Please complete each section as appropriate.* I certify that hospitalization, and continued hospitalization, for this patient is medically necessary as follows: 1) Reasons of either continued hospitalization of the patient for medical treatment or medically required diagnostic study or special or unusual services for cost outlier cases are as follows: 2) Estimated time patient will need to remain in hospital: 3) Plan for Post Hospital Care: ( ) Home with Primary Care Follow up ( ) Home with Home Health Follow up (x ) LTACH/ Acute Care Rehab/ SNF/Alf ( ) Other: If you have any questions, please contact me. Thank you, Radha Lindsey RN Case Management W [phone] F [phone] C [phone] Asya [email or web address] If you have any questions, please contact me . Thank you, Bhumi FISHER Email: [email or web address]
--- NOTE | 2017-04-23 13:49 | Nephrology Progress Note ---
Nephrology - PN: Subj Interval history: She is up in the chair today. She denies orthopnea. Shortness of breath has improved. Exam (PN)-Nephrology - Vital Signs Vital signs: Period Temp Pulse Resp BP Sys/Meek Pulse Ox Last 24 Hr 97 F-98.5 F 58-83 16-24 136-148/58-70 92-99 Exam: ENT: Normal Cardiovascular: Regular rate and rhythm. No murmur rub or gallop Lungs: No rales or wheezes Extremities: No edema - Lab 04/23/17 06:57 04/23/17 06:57 Most recent lab results ABG pH 7.317 (7.35-7.45) L 04/16/17 03:10 ABG pCO2 37.4 MM HG (35-48) 04/16/17 03:10 ABG pO2 70.5 MM HG (80-95) L 04/16/17 03:10 ABG HCO3 19.0 MMOL/L (20-26) L 04/16/17 03:10 ABG O2 Saturation 92.5 % (95-100) L 04/16/17 03:10 Calcium 8.0 MG/DL (8.5-10.1) L 04/23/17 06:57 Phosphorus 6.8 MG/DL (2.5-4.9) H 04/19/17 04:28 Magnesium 1.7 MG/DL (1.8-2.4) L 04/22/17 06:31 Assessment and Plan (1) Renal failure (ARF), acute on chronic Status: Acute Assessment and plan: 67-year-old woman with: * CRF stage III. Baseline creatinine upper twos * Acute on chronic renal failure. Creatinine slightly improved today. * Neurogenic bladder. Agree with in and out catheterization * Pneumonia. Lungs sound better today. Continue current treatment * Hypertension * Diabetes * Bipolar disorder * CAD * Anemia. Post transfusion Current Visit: Yes (2) Chronic kidney disease, stage III (moderate) Status: Chronic Current Visit: Yes (3) History of coronary artery bypass graft x 1 Status: Chronic Current Visit: Yes (4) Hypertension Status: Chronic Current Visit: Yes (5) Type 2 diabetes mellitus Status: Chronic Current Visit: Yes (6) Bilateral pneumonia Status: Acute Current Visit: No (7) Bipolar disorder Status: Acute Current Visit: No (8) Hypertension Status: Acute Current Visit: No Specialty Discharge - Follow Up or Referrals Follow up with: Ran Beltrán MD [Physician] - 2 Weeks (With EKG)
[2017-04-23] MEDS: LEVOFLOXACIN 500 MG TABLET PO SCH (17:28)
[2017-04-23] MEDS: PRAVASTATIN 20 MG TABLET PO SCH (20:51)
[2017-04-24] MEDS: ALBUTEROL/IPRATROPIUM 3 ML NEB RESP TX SCH ×7 (00:02→23:55)
[2017-04-24] MEDS: methylPREDNISolone SOD SUC 40 MG/1 ML VIAL IV SCH ×3 (01:25→17:49)
[2017-04-24] MEDS: CLINDAMYCIN INJ 300 MG in PREMIX 1 EACH IV SCH ×3 (01:27→16:01)
[2017-04-24] MEDS: ACETAMINOPHEN 325 MG TABLET PO PRN ×3 (02:45→16:00)
[2017-04-24] MEDS: MYLANTA/LIDO VISC 2:1 300 ML BOTTLE SWISH/SPIT PRN ×2 (04:11→21:39)
[2017-04-24 05:51] LABS: Eosinophils % 0.1 % (0.00-10.9); Hematocrit 27.6 VOL% (35.7-47.0); Hemoglobin 9.1 GM/DL (12.0-16.0); Immature Granulocytes % 1.5 %; Immature Granulocytes Absolute 0.19 #; Lymphocytes # 0.2 10*3/uL (1.4-4.0); Lymphocytes % 1.5 % (21.3-54.2); Mean Corpuscular Hemoglobin 30 PG (27-34); Mean Corpuscular Volume 90.8 FL (87-102); Monocytes # 0.4 10*3/uL (0.11-0.8); Monocytes % 2.8 % (1.7-12.7); Neutrophils # 12.1 10*3/uL (1.4-7.4); Neutrophils % 94.1 % (38.7-73.9); Platelet Count 136 T/CUMM (130-400); Red Blood Count 3.04 MC/CUMM (3.8-5.5); Red Cell Distribution Width 17.2 % (9.3-17.3); White Blood Count 12.8 T/CUMM (4-12)
[2017-04-24] MEDS: LEVOTHYROXINE 125 MCG TABLET PO SCH (06:04)
[2017-04-24 06:21] LABS: Calcium 8.3 MG/DL (8.5-10.1); Magnesium 1.8 MG/DL (1.8-2.4); Osmolality,Calculated 299.5 MOS/KG (273-304)
[2017-04-24 06:26] LABS: Anisocytosis 1+; Lymphocytes 3 % (20-55); Myelocytes 1 %; Segmented Neutrophils 96 % (50-85); Total Cells Counted 100
[2017-04-24 06:27] LABS: Platelet Estimate Adequate
--- NOTE | 2017-04-24 08:32 | Cardiology Progress Note ---
Assessment and Plan (1) Hypertension Status: Chronic Assessment and plan: Her pressures have been stable. We will continue to monitor and adjust medications accordingly. Current Visit: Yes (2) Type 2 diabetes mellitus Status: Chronic Assessment and plan: Internal medicine is following this. Current Visit: Yes (3) Hyperlipidemia Status: Chronic Assessment and plan: She is on pravastatin 40 mg daily. Current Visit: Yes (4) Oral candidiasis Status: Acute Current Visit: Yes (5) Renal insufficiency Status: Chronic Assessment and plan: Her creatinine is slightly improved at 3.5 today, nephrology is following. Current Visit: Yes (6) Severe anemia Status: Acute Assessment and plan: Her cell counts have dropped a bit today and her platelet count is low. She denies any known active bleeding. We will continue to monitor. 04/24: Hematocrit is dropped to 27.6 from 29.4 so I will hold her Lovenox. Decrease aspirin 81 mg daily Current Visit: Yes (7) Coronary artery disease Status: Chronic Current Visit: Yes (8) Pneumonia Status: Acute Assessment and plan: She is on appropriate IV antibiotics, internal medicine and pulmonary medicine are following. Current Visit: Yes Cardiology - PN: Subj Interval history: Patient continues with a cough productive of infected sputum. She is having problems with maintaining her counts. Her blood counts are down to 27.6 from 29 yesterday and I am going to stop her Lovenox and decrease her aspirin dose to 81 mg daily. Her creatinine and electrolytes are stable. She is slowly better and our plan will be to continue as otherwise. Exam (Progress Note) - Constitutional Vitals: Period Temp Pulse Resp BP Sys/Meek Pulse Ox Last 24 Hr 97.7 F-98.5 F 69-85 17-22 136-164/65-80 94-99 Exam: General appearance: no acute distress, morbidly obese - Head Head exam: Absent: abrasion, hematoma - ENT ENT exam: Present: other (Ulcers noted in mouth) - Respiratory Respiratory exam: Present: Scattered rhonchi, wheezing, other (Oxygen in use via nasal cannula). Absent: accessory muscle use, chest wall tenderness - Cardiovascular Cardiovascular exam: Present: regular rate and rhythm - GI/Abdominal GI/Abdominal exam: Present: normal bowel sounds, soft. Absent: distended, tenderness - Extremities Exam Extremities exam: Present: edema (Trace to bilateral upper and lower extremities ), other (Peripheral pulses present) - Neurological Exam Neurological exam: Present: alert, oriented X3 - Psychiatric Psychiatric exam: Present: normal affect, normal mood - Skin Skin exam: Present: warm, dry Result/EKG - Labs CBC & BMP: 04/24/17 05:39 04/24/17 05:39 Labs: Laboratory Results - last 24 hr 04/23/17 04/23/17 04/23/17 07:03 11:21 15:48 WBC RBC Hgb Hct MCV MCH MCHC RDW Plt Count MPV Neut % (Auto) Lymph % (Auto) Yell % (Auto) Eos % (Auto) Baso % (Auto) Neut # (Auto) Lymph # (Auto) Yell # (Auto) Eos # (Auto) Baso # (Auto) Total Counted Immature Gran % Nucleated RBC % Immature Gran # Segmented Neutrophils Lymphocytes Myelocytes Nucleated RBCs # Platelet Estimate Immature Plt Fraction Anisocytosis Sodium Potassium Chloride Carbon Dioxide Anion Gap BUN Creatinine GFR Calculation BUN/Creatinine Ratio Glucose POC Glucose 173 H 249 H 251 H Calculated Osmolality Calcium Magnesium 04/23/17 04/24/17 04/24/17 20:11 05:39 05:39 WBC 12.8 H RBC 3.04 L Hgb 9.1 L Hct 27.6 L MCV 90.8 MCH 30 MCHC 33.0 RDW 17.2 Plt Count 136 MPV 11.0 Neut % (Auto) 94.1 H Lymph % (Auto) 1.5 L Yell % (Auto) 2.8 Eos % (Auto) 0.1 Baso % (Auto) 0.0 Neut # (Auto) 12.1 H Lymph # (Auto) 0.2 L Yell # (Auto) 0.4 Eos # (Auto) 0.0 Baso # (Auto) 0.0 Total Counted 100 Immature Gran % 1.5 Nucleated RBC % 0.0 Immature Gran # 0.19 Segmented Neutrophils 96 H Lymphocytes 3 L Myelocytes 1 Nucleated RBCs # 0.00 Platelet Estimate Adequate Immature Plt Fraction 0.0 Anisocytosis 1+ Sodium 139 Potassium 4.0 Chloride 108 H Carbon Dioxide 19 L Anion Gap 16.0 H BUN 78 H Creatinine 3.40 H GFR Calculation 16 BUN/Creatinine Ratio 22.00 H Glucose 98 POC Glucose 281 H Calculated Osmolality 299.5 Calcium 8.3 L Magnesium 1.8 Specialty Discharge - Follow Up or Referrals Follow up with: Ran Beltrán MD [Physician] - 2 Weeks (With EKG)
[2017-04-24] MEDS: FLUoxetine 20 MG CAPSULE PO SCH (08:38)
[2017-04-24] MEDS: FLUCONAZOLE 100 MG TABLET PO SCH (08:38)
[2017-04-24] MEDS: GABAPENTIN 300 MG CAPSULE PO SCH ×3 (08:39→21:18)
[2017-04-24] MEDS: OXcarbazepine 300 MG TABLET PO SCH ×2 (08:39→21:18)
[2017-04-24] MEDS: valACYclovir 500 MG TABLET PO SCH ×2 (08:39→21:18)
[2017-04-24] MEDS: DOCUSATE SODIUM 100 MG CAPSULE PO SCH ×2 (08:39→21:17)
[2017-04-24] MEDS: INSULIN REGULAR 100 UNIT/ML SUBCUT SCH ×4 (08:40→21:29)
[2017-04-24] MEDS: INSULIN NPH/REGULAR 70/30 100 UNIT/ML SUBCUT SCH ×2 (08:40→21:31)
[2017-04-24] MEDS: NYSTATIN 500,000 UNIT/5 ML UDCUP SWISH/SWAL SCH ×4 (08:40→21:47)
[2017-04-24] MEDS: DESITIN 4OZ/NYSTATIN 15 GRAM MIXTURE PASTE TOP SCH ×2 (08:40→21:19)
[2017-04-24] MEDS: LANSOPRAZOLE ODT 30 MG TABLET PO SCH (08:40)
[2017-04-24] MEDS: MUPIROCIN 2% OINT 22 GM TUBE TOP SCH ×3 (08:40→21:19)
[2017-04-24] MEDS: LACTULOSE 20 GM/30 ML UDCUP PO PRN (08:40)
[2017-04-24] MEDS: ASPIRIN EC 81 MG TABLET PO SCH (08:43)
--- NOTE | 2017-04-24 09:39 | Pulmonology Progress Note ---
Pulmonary - PN: Subj Interval history: Patient is a 67-year-old white lady that has known coronary artery disease along with diabetes, hypertension, hyperlipidemia, hypothyroidism. She is a smoker. She comes in with shortness of breath and bilateral infiltrates. She does look like she might have had heart failure and actually diuresed fairly well. She has been treated for pneumonia also. She is on the ventilator for quite a while but has done okay off the ventilator. The last few days she has had considerable coughing and congestion still. She is back on IV antibiotics and steroids. She apparently had a fairly good night and her breathing seems to be better. She still cannot clear secretions very well. Overall she is looking a little better however. Exam (Progress Note) - Constitutional Vitals: Period Temp Pulse Resp BP Sys/Meek Pulse Ox Last 24 Hr 97.7 F-98.5 F 69-85 17-22 136-164/65-80 94-99 Exam: General appearance: normal weight, patient is alert and sitting up and talking more. She looks more comfortable today. - Head Head exam: Present: normal inspection, normocephalic - Eye Eye exam: Present: EOMI. Absent: scleral icterus Pupils: Present: ROBERTO CARLOS - ENT ENT exam: Present: She does have dry mucous membranes with some mild sores - Neck Neck exam: Present: normal inspection. Absent: lymphadenopathy, thyromegaly - Respiratory Respiratory exam: Present: She has fair breath sounds bilaterally but she does have some rhonchi and coarse breath sounds. Her lungs do sound better today. - Cardiovascular Cardiovascular exam: Present: regular rate and rhythm. Her heart rate is under good control now. Absent: gallop, systolic murmur - GI/Abdominal GI/Abdominal exam: Present: normal bowel sounds, soft. Absent: distended, organomegaly, tenderness - Extremities Exam Extremities exam: Absent: calf tenderness, edema, she had no signs of phlebitis - Neurological Exam Neurological exam: Present: alert, oriented X3, CN II-XII intact, she has a resting tremor, she is alert and talking and looks comfortable. - Psychiatric Psychiatric exam: Present: She is alert and comfortable. - Skin Skin exam: Present: warm, dry Results - Labs CBC & BMP: 04/24/17 05:39 04/24/17 05:39 Assessment and Plan (1) Bilateral pneumonia Status: Acute Assessment and plan: Patient looks like she is breathing better today but still has trouble clearing secretions. She may need a bronchoscope next week. Will continue present therapy for now and check a chest x-ray tomorrow. Current Visit: No (2) Congestive heart failure Status: Acute Assessment and plan: She looks like she had some heart failure early on but is better now. She looks like she is fairly stable at present. Current Visit: No (3) COPD (chronic obstructive pulmonary disease) Status: Chronic Assessment and plan: The patient is a smoker and has a component of COPD. She will continue with respiratory therapy. She looks like she is breathing a little better today. Current Visit: No (4) Acute respiratory failure with hypoxemia Status: Acute Assessment and plan: The patient has acute respiratory failure with hypoxemia and bilateral infiltrates. She did well on the ventilator for several days and was extubated. She was doing okay but the last couple days she had more chest congestion and shortness of breath. She looks like she is a little more stable now on her breathing is better. Current Visit: No (5) History of coronary artery bypass graft x 1 Status: Chronic Assessment and plan: The patient has known coronary artery disease. Current Visit: Yes (6) Hypertension Status: Chronic Assessment and plan: She has high blood pressure and will continue with medications. Her systolic blood pressure is better today. Current Visit: Yes (7) Renal insufficiency Status: Chronic Assessment and plan: Her creatinine peaked at around 5.0 and is now at 3.4. Current Visit: No (8) Severe anemia Status: Acute Assessment and plan: She is better after transfusions and her hematocrit is gradually drifting down to 27.6 Current Visit: Yes Specialty Discharge - Follow Up or Referrals Follow up with: Ran Beltrán MD [Physician] - 2 Weeks (With EKG)
--- NOTE | 2017-04-24 10:55 | Nephrology Progress Note ---
Nephrology - PN: Subj Interval history: Pt states her breathing may be better. Sputum has turned darker per nursing staff. Exp wheezes on left > right. Exam (PN)-Nephrology - Vital Signs Vital signs: Period Temp Pulse Resp BP Sys/Meek Pulse Ox Last 24 Hr 97.7 F-98.6 F 69-87 17-22 133-164/56-80 94-99 - General Appearance General appearance: well-developed, obese EENT: ATNC, PERRL, mucous membranes dry, hearing intact, vision intact Neck: no JVD, no thyromegaly Respiratory: no kyphosis, wheezing Cardiology: no murmurs, no rub Gastrointestinal: normoactive bowel sounds, no tenderness Integumentary: no rash, warm and dry Neurologic: no focal deficit, no asterixis Musculoskeletal: no deformities, no erythema Psychiatric: mood/affect appropriate, cooperative - Lab 04/24/17 05:39 04/24/17 05:39 Most recent lab results ABG pH 7.317 (7.35-7.45) L 04/16/17 03:10 ABG pCO2 37.4 MM HG (35-48) 04/16/17 03:10 ABG pO2 70.5 MM HG (80-95) L 04/16/17 03:10 ABG HCO3 19.0 MMOL/L (20-26) L 04/16/17 03:10 ABG O2 Saturation 92.5 % (95-100) L 04/16/17 03:10 Calcium 8.3 MG/DL (8.5-10.1) L 04/24/17 05:39 Phosphorus 6.8 MG/DL (2.5-4.9) H 04/19/17 04:28 Magnesium 1.8 MG/DL (1.8-2.4) 04/24/17 05:39 Assessment and Plan (1) Renal failure (ARF), acute on chronic Problem details: Stable CKD. Status: Acute Assessment and plan: no new recs. Current Visit: Yes Specialty Discharge - Follow Up or Referrals Follow up with: Ran Beltrán MD [Physician] - 2 Weeks (With EKG)
--- NOTE | 2017-04-24 13:45 | Internal Med Progress Note ---
Assessment and Plan (1) Oral candidiasis Status: Acute Current Visit: Yes (2) Pneumonia Status: Acute Current Visit: Yes (3) Pulmonary hypertension Problem details: severe Status: Chronic Current Visit: Yes (4) Renal failure (ARF), acute on chronic Problem details: Stable CKD. Status: Acute Current Visit: Yes (5) Coronary artery disease Status: Chronic Current Visit: Yes (6) History of coronary artery bypass graft x 1 Status: Chronic Current Visit: Yes (7) Type 2 diabetes mellitus Status: Chronic Current Visit: Yes Internal Medicine - PN: Subj Interval history: This is a 67 year old female patient of Dr. Faust with complicated history and multiple chronic illnesses, to include chronic renal failure, CAD, CHF, DM, OA with chronic pain, opiate dependency, COPD, who came in with respiratory failure and opiate overdose. She was in ICU. She is now on Med Surg, but will need a bronchoscopy for mucus plugs, scheduled for Wednesday. She has neurogenic bladder and has in/out caths. Exam (Progress Note) - Constitutional Vitals: Period Temp Pulse Resp BP Sys/Meek Pulse Ox Last 24 Hr 97.7 F-98.6 F 69-87 18-21 133-164/56-80 94-99 General appearance: no acute distress - Head Head exam: Present: normocephalic - Eye Eye exam: Present: EOMI - Respiratory Respiratory exam: Present: prolonged expiratory phase, rhonchi - Cardiovascular Cardiovascular exam: Present: regular rate and rhythm - GI/Abdominal GI/Abdominal exam: Present: normal bowel sounds, soft. Absent: tenderness - Extremities Exam Extremities exam: Present: edema (mild nonpitting to both lower extremities) - Neurological Exam Neurological exam: Present: alert - Psychiatric Psychiatric exam: Present: normal affect - Skin Skin exam: Present: warm, dry Results - Labs CBC & BMP: 04/24/17 05:39 04/24/17 05:39 - EKG EKG shows: sinus rhythm - Diagnostic Findings Procedure: Chest x-ray: report reviewed by me, image reviewed by me ( intersitial lung disease/pulmonary edema/pna) Specialty Discharge - Follow Up or Referrals Follow up with: Ran Beltrán MD [Physician] - 2 Weeks (With EKG)
[2017-04-24] MEDS: PRAVASTATIN 20 MG TABLET PO SCH (21:18)
[2017-04-25] MEDS: CLINDAMYCIN INJ 300 MG in PREMIX 1 EACH IV SCH ×3 (00:40→17:22)
[2017-04-25] MEDS: methylPREDNISolone SOD SUC 40 MG/1 ML VIAL IV SCH ×3 (02:00→17:23)
[2017-04-25] MEDS: ACETAMINOPHEN 325 MG TABLET PO PRN (02:04)
[2017-04-25] MEDS: ALBUTEROL/IPRATROPIUM 3 ML NEB RESP TX SCH ×6 (03:02→23:56)
[2017-04-25] MEDS: LEVOTHYROXINE 125 MCG TABLET PO SCH (06:30)
[2017-04-25 07:39] LABS: Immature Granulocytes % 1.1 %; Immature Granulocytes Absolute 0.09 #; Lymphocytes # 0.2 10*3/uL (1.4-4.0); Lymphocytes % 2.9 % (21.3-54.2); Mean Corpuscular HGB Conc 32.1 GM/DL (32-36); Mean Corpuscular Hemoglobin 29 PG (27-34); Mean Corpuscular Volume 90.6 FL (87-102); Monocytes # 0.2 10*3/uL (0.11-0.8); Monocytes % 2.3 % (1.7-12.7); Neutrophils # 7.3 10*3/uL (1.4-7.4); Neutrophils % 93.7 % (38.7-73.9); Platelet Count 130 T/CUMM (130-400); Red Blood Count 3.09 MC/CUMM (3.8-5.5); Red Cell Distribution Width 16.8 % (9.3-17.3); White Blood Count 7.8 T/CUMM (4-12)
[2017-04-25 07:42] LABS: Calcium 8.2 MG/DL (8.5-10.1); Magnesium 1.7 MG/DL (1.8-2.4); Potassium 4.3 MMOL/L (3.5-5.1)
[2017-04-25 07:47] LABS: Albumin 2.5 G/DL (3.4-5.0); Bilirubin,Direct 0.2 MG/DL (0.0-0.20); Bilirubin,Indirect 0.5 MG/DL (0.0-1.0); Bilirubin,Total 0.7 MG/DL (0.2-1.0); Phosphorous 4.4 MG/DL (2.5-4.9)
[2017-04-25] MEDS: INSULIN REGULAR 100 UNIT/ML SUBCUT SCH ×4 (07:57→21:20)
[2017-04-25 07:59] LABS: Lymphocytes 2 % (20-55); Segmented Neutrophils 97 % (50-85); Total Cells Counted 100
[2017-04-25 08:00] LABS: Hypochromasia 1+; Microcytosis 1+; Platelet Estimate Adequate
--- NOTE | 2017-04-25 08:04 | Cardiology Progress Note ---
Assessment and Plan (1) Hypertension Status: Chronic Assessment and plan: Her pressures have been stable. We will continue to monitor and adjust medications accordingly. Current Visit: Yes (2) Type 2 diabetes mellitus Status: Chronic Assessment and plan: Internal medicine is following this. Current Visit: Yes (3) Hyperlipidemia Status: Chronic Assessment and plan: She is on pravastatin 40 mg daily. Current Visit: Yes (4) Oral candidiasis Status: Acute Current Visit: Yes (5) Renal insufficiency Status: Chronic Assessment and plan: Her creatinine is slightly improved at 3.5 today, nephrology is following. Current Visit: Yes (6) Severe anemia Status: Acute Assessment and plan: Her cell counts have dropped a bit today and her platelet count is low. She denies any known active bleeding. We will continue to monitor. 04/24: Hematocrit is dropped to 27.6 from 29.4 so I will hold her Lovenox. Decrease aspirin 81 mg daily Current Visit: Yes (7) Coronary artery disease Status: Chronic Current Visit: Yes (8) Pneumonia Status: Acute Assessment and plan: She is on appropriate IV antibiotics, internal medicine and pulmonary medicine are following. Current Visit: Yes Cardiology - PN: Subj Interval history: Patient had a nosebleed last night. She continues coughing up infected sputum but appears to be slowly improving. Her white blood cell count is stable and her counts are stable. She is being treated for bilateral pneumonia and congestive heart failure which I think is resolved currently. She is overall slowly improving. Her renal insufficiency is stable. Exam (Progress Note) - Constitutional Vitals: Period Temp Pulse Resp BP Sys/Meek Pulse Ox Last 24 Hr 97.2 F-98.6 F 69-87 17-20 133-158/56-87 90-98 Exam: General appearance: no acute distress, morbidly obese - Head Head exam: Absent: abrasion, hematoma - ENT ENT exam: Present: other (Ulcers noted in mouth) - Respiratory Respiratory exam: Present: Scattered rhonchi, wheezing, other (Oxygen in use via nasal cannula). Absent: accessory muscle use, chest wall tenderness - Cardiovascular Cardiovascular exam: Present: regular rate and rhythm - GI/Abdominal GI/Abdominal exam: Present: normal bowel sounds, soft. Absent: distended, tenderness - Extremities Exam Extremities exam: Present: edema (Trace to bilateral upper and lower extremities ), other (Peripheral pulses present) - Neurological Exam Neurological exam: Present: alert, oriented X3 - Psychiatric Psychiatric exam: Present: normal affect, normal mood - Skin Skin exam: Present: warm, dry Result/EKG - Labs CBC & BMP: 04/25/17 07:26 04/25/17 06:50 Labs: Laboratory Results - last 24 hr 04/24/17 04/24/17 04/24/17 08:04 11:39 15:27 WBC RBC Hgb Hct MCV MCH MCHC RDW Plt Count MPV Neut % (Auto) Lymph % (Auto) Esmeralda % (Auto) Eos % (Auto) Baso % (Auto) Neut # (Auto) Lymph # (Auto) Esmeralda # (Auto) Eos # (Auto) Baso # (Auto) Total Counted Immature Gran % Nucleated RBC % Immature Gran # Segmented Neutrophils Lymphocytes Monocytes Nucleated RBCs # Platelet Estimate Immature Plt Fraction Hypochromasia Microcytosis Sodium Potassium Chloride Carbon Dioxide Anion Gap BUN Creatinine GFR Calculation BUN/Creatinine Ratio Glucose POC Glucose 117 H 188 H 186 H Calculated Osmolality Calcium Phosphorus Magnesium Total Bilirubin Direct Bilirubin Indirect Bilirubin AST ALT Alkaline Phosphatase Total Protein Albumin 04/24/17 04/25/17 04/25/17 20:38 06:50 06:50 WBC RBC Hgb Hct MCV MCH MCHC RDW Plt Count MPV Neut % (Auto) Lymph % (Auto) Esmeralda % (Auto) Eos % (Auto) Baso % (Auto) Neut # (Auto) Lymph # (Auto) Esmeralda # (Auto) Eos # (Auto) Baso # (Auto) Total Counted Immature Gran % Nucleated RBC % Immature Gran # Segmented Neutrophils Lymphocytes Monocytes Nucleated RBCs # Platelet Estimate Immature Plt Fraction Hypochromasia Microcytosis Sodium 136 Potassium 4.3 Chloride 107 Carbon Dioxide 17 L Anion Gap 16.3 H BUN 73 H Creatinine 3.20 H GFR Calculation 17 BUN/Creatinine Ratio 22.00 H Glucose 143 H POC Glucose 161 H Calculated Osmolality 295.0 Calcium 8.2 L Phosphorus 4.4 Magnesium 1.7 L Total Bilirubin 0.70 Direct Bilirubin 0.20 Indirect Bilirubin 0.5 AST 39 H ALT 81 H Alkaline Phosphatase 167 H Total Protein 5.0 L Albumin 2.5 L 04/25/17 07:26 WBC 7.8 D RBC 3.09 L Hgb 9.0 L Hct 28.0 L MCV 90.6 MCH 29 MCHC 32.1 RDW 16.8 Plt Count 130 MPV 11.0 Neut % (Auto) 93.7 H Lymph % (Auto) 2.9 L Esmeralda % (Auto) 2.3 Eos % (Auto) 0.0 Baso % (Auto) 0.0 Neut # (Auto) 7.3 Lymph # (Auto) 0.2 L Esmeralda # (Auto) 0.2 Eos # (Auto) 0.0 Baso # (Auto) 0.0 Total Counted 100 Immature Gran % 1.1 Nucleated RBC % 0.0 Immature Gran # 0.09 Segmented Neutrophils 97 H Lymphocytes 2 L Monocytes 1 L Nucleated RBCs # 0.00 Platelet Estimate Adequate Immature Plt Fraction 0.0 Hypochromasia 1+ Microcytosis 1+ Sodium Potassium Chloride Carbon Dioxide Anion Gap BUN Creatinine GFR Calculation BUN/Creatinine Ratio Glucose POC Glucose Calculated Osmolality Calcium Phosphorus Magnesium Total Bilirubin Direct Bilirubin Indirect Bilirubin AST ALT Alkaline Phosphatase Total Protein Albumin Specialty Discharge - Follow Up or Referrals Follow up with: Ran Beltrán MD [Physician] - 2 Weeks (With EKG)
[2017-04-25] MEDS: LANSOPRAZOLE ODT 30 MG TABLET PO SCH (08:52)
[2017-04-25] MEDS: NYSTATIN 500,000 UNIT/5 ML UDCUP SWISH/SWAL SCH ×4 (08:52→21:19)
[2017-04-25] MEDS: FLUoxetine 20 MG CAPSULE PO SCH (08:52)
[2017-04-25] MEDS: INSULIN NPH/REGULAR 70/30 100 UNIT/ML SUBCUT SCH ×2 (08:53→21:18)
[2017-04-25] MEDS: MUPIROCIN 2% OINT 22 GM TUBE TOP SCH ×3 (08:53→22:48)
[2017-04-25] MEDS: GABAPENTIN 300 MG CAPSULE PO SCH ×3 (08:53→21:20)
[2017-04-25] MEDS: FLUCONAZOLE 100 MG TABLET PO SCH (08:53)
[2017-04-25] MEDS: ASPIRIN EC 81 MG TABLET PO SCH (08:53)
[2017-04-25] MEDS: valACYclovir 500 MG TABLET PO SCH ×2 (08:53→21:19)
[2017-04-25] MEDS: DESITIN 4OZ/NYSTATIN 15 GRAM MIXTURE PASTE TOP SCH ×2 (08:53→22:49)
[2017-04-25] MEDS: DOCUSATE SODIUM 100 MG CAPSULE PO SCH ×2 (08:53→21:19)
[2017-04-25] MEDS: OXcarbazepine 300 MG TABLET PO SCH ×2 (08:53→21:19)
--- NOTE | 2017-04-25 09:55 | Pulmonology Progress Note ---
Pulmonary - PN: Subj Interval history: Patient is a 67-year-old white lady that has known coronary artery disease along with diabetes, hypertension, hyperlipidemia, hypothyroidism. She is a smoker. She comes in with shortness of breath and bilateral infiltrates. She does look like she might have had heart failure and actually diuresed fairly well. She has been treated for pneumonia also. She is on the ventilator for quite a while but has done okay off the ventilator. The last few days she has had considerable coughing and congestion still. She is back on IV antibiotics and steroids. She says she had a better night and is feeling better today. She still has some cough but it is better. Her shortness of breath has improved. She still has a sore mouth. She is not having any fever now. She is eating a little better. Exam (Progress Note) - Constitutional Vitals: Period Temp Pulse Resp BP Sys/Meek Pulse Ox Last 24 Hr 97.2 F-98.6 F 69-82 17-20 150-158/73-87 90-98 Exam: General appearance: normal weight, patient is alert and sitting up and talking more. She looks more comfortable today. - Head Head exam: Present: normal inspection, normocephalic - Eye Eye exam: Present: EOMI. Absent: scleral icterus Pupils: Present: ROBERTO CARLOS - ENT ENT exam: Present: She does have dry mucous membranes with some mild sores. She has a little hoarse today. - Neck Neck exam: Present: normal inspection. Absent: lymphadenopathy, thyromegaly - Respiratory Respiratory exam: Present: She has fair breath sounds bilaterally she is moving air better with less rhonchi and decreased wheezing. She does not seem to be coughing as much either. - Cardiovascular Cardiovascular exam: Present: regular rate and rhythm. Her heart rate is under good control now. Absent: gallop, systolic murmur - GI/Abdominal GI/Abdominal exam: Present: normal bowel sounds, soft. Absent: distended, organomegaly, tenderness - Extremities Exam Extremities exam: Absent: calf tenderness, edema, she had no signs of phlebitis - Neurological Exam Neurological exam: Present: alert, oriented X3, CN II-XII intact, she has a resting tremor, she is alert and talking and looks comfortable. - Psychiatric Psychiatric exam: Present: She is alert and comfortable. - Skin Skin exam: Present: warm, dry Results - Labs CBC & BMP: 04/25/17 07:26 04/25/17 06:50 - Diagnostic Findings Procedure: Chest x-ray: image reviewed by me, report reviewed by me (Chest x- ray is better with minimal right upper lobe infiltrate.) Assessment and Plan (1) Bilateral pneumonia Status: Acute Assessment and plan: Patient looks like she feels better and her cough and congestion are improving. Her chest x-ray is better today. Current Visit: No (2) Congestive heart failure Status: Acute Assessment and plan: She looks like she had some heart failure early on but is better now. She looks like she is fairly stable at present. Current Visit: No (3) COPD (chronic obstructive pulmonary disease) Status: Chronic Assessment and plan: The patient is a smoker and has a component of COPD. She is getting vigorous respiratory therapy and seems to be better. Current Visit: No (4) Acute respiratory failure with hypoxemia Status: Acute Assessment and plan: The patient has acute respiratory failure with hypoxemia and bilateral infiltrates. She did well on the ventilator for several days and was extubated. She continues to improve now and her breathing is better. She can probably go to a swing bed soon. Current Visit: No (5) History of coronary artery bypass graft x 1 Status: Chronic Assessment and plan: The patient has known coronary artery disease. Current Visit: Yes (6) Hypertension Status: Chronic Assessment and plan: She has high blood pressure and will continue with medications. Her systolic blood pressure is better today. Current Visit: Yes (7) Renal insufficiency Status: Chronic Assessment and plan: Her creatinine peaked at around 5.0 and is now at 3.2. Current Visit: No (8) Severe anemia Status: Acute Assessment and plan: She is better after transfusions and her hematocrit is stable at 28. Current Visit: Yes Specialty Discharge - Follow Up or Referrals Follow up with: Ran Beltrán MD [Physician] - 2 Weeks (With EKG)
--- NOTE | 2017-04-25 10:41 | XRay Report ---
History: Pneumonia Date: 04/25/2017 Study: Chest x-ray AP portable Comparison exam: April 21, 2017 There is continued cardiomegaly. The mediastinal contours are unchanged in this patient status post prior median sternotomy. There is moderate aortic arch calcification. The pulmonary vasculature is upper normal. There is no gross pleural effusion. There is some continued patchy and hazy pneumonia in the right mid to upper lung, though there is improved aeration in the right lung base. Osseous structures are unchanged. Impression: Continued right lung pneumonia, though there has been some interval improvement PROCEDURE INTERPRETED AT [facility] DEPARTMENT OF RADIOLOGY Final Report Signed by: Dr. Waleska Amado
--- NOTE | 2017-04-25 13:29 | Internal Med Progress Note ---
Assessment and Plan (1) Oral candidiasis Status: Acute Current Visit: Yes (2) Pneumonia Status: Acute Current Visit: Yes (3) Pulmonary hypertension Problem details: severe Status: Chronic Current Visit: Yes (4) Renal failure (ARF), acute on chronic Problem details: Stable CKD. Status: Acute Current Visit: Yes (5) Coronary artery disease Status: Chronic Current Visit: Yes (6) History of coronary artery bypass graft x 1 Status: Chronic Current Visit: Yes (7) Type 2 diabetes mellitus Status: Chronic Current Visit: Yes Internal Medicine - PN: Subj Interval history: This is a 67 year old female patient of Dr. Faust with complicated history and multiple chronic illnesses, to include chronic renal failure, CAD, CHF, DM, OA with chronic pain, opiate dependency, COPD, who came in with respiratory failure and opiate overdose. She was in ICU. She is now on Med Surg, but will need a bronchoscopy for mucus plugs, scheduled for Wednesday. She has neurogenic bladder and has in/out caths. Doing better today, more alert. Renal function steadily improving. Exam (Progress Note) - Constitutional Vitals: Period Temp Pulse Resp BP Sys/Meek Pulse Ox Last 24 Hr 97.2 F-98.6 F 69-87 17-20 150-188/73-93 90-100 General appearance: no acute distress - Respiratory Respiratory exam: Present: clear to auscultation bilaterally (clear anteriorly) - Cardiovascular Cardiovascular exam: Present: regular rate and rhythm - GI/Abdominal GI/Abdominal exam: Present: soft. Absent: tenderness - Extremities Exam Extremities exam: Absent: edema - Neurological Exam Neurological exam: Present: alert - Psychiatric Psychiatric exam: Present: normal mood - Skin Skin exam: Present: warm, dry Results - Labs CBC & BMP: 04/25/17 07:26 04/25/17 06:50 Specialty Discharge - Follow Up or Referrals Follow up with: Ran Beltrán MD [Physician] - 2 Weeks (With EKG)
--- NOTE | 2017-04-25 13:43 | Nephrology Progress Note ---
Nephrology - PN: Subj Interval history: Pt states she feels about the same. Cough improved. Denies pain. Exam (PN)-Nephrology - Vital Signs Vital signs: Period Temp Pulse Resp BP Sys/Meek Pulse Ox Last 24 Hr 97.2 F-98.6 F 69-87 17-20 150-188/73-93 90-100 - General Appearance General appearance: well-developed, well-nourished, chronically ill EENT: ATNC, PERRL Neck: no JVD, no thyromegaly Respiratory: no kyphosis, rales Cardiology: no murmurs, no rub Gastrointestinal: normoactive bowel sounds, no tenderness Integumentary: no rash, warm and dry Neurologic: no focal deficit, no asterixis Musculoskeletal: no deformities, no erythema Psychiatric: mood/affect appropriate, cooperative - Lab 04/25/17 07:26 04/25/17 06:50 Most recent lab results ABG pH 7.317 (7.35-7.45) L 04/16/17 03:10 ABG pCO2 37.4 MM HG (35-48) 04/16/17 03:10 ABG pO2 70.5 MM HG (80-95) L 04/16/17 03:10 ABG HCO3 19.0 MMOL/L (20-26) L 04/16/17 03:10 ABG O2 Saturation 92.5 % (95-100) L 04/16/17 03:10 Calcium 8.2 MG/DL (8.5-10.1) L 04/25/17 06:50 Phosphorus 4.4 MG/DL (2.5-4.9) 04/25/17 06:50 Magnesium 1.7 MG/DL (1.8-2.4) L 04/25/17 06:50 Assessment and Plan (1) Renal failure (ARF), acute on chronic Problem details: Stable CKD. Status: Acute Assessment and plan: no new recs. Current Visit: Yes Specialty Discharge - Follow Up or Referrals Follow up with: Ran Beltrán MD [Physician] - 2 Weeks (With EKG)
[2017-04-25] MEDS: LEVOFLOXACIN 500 MG TABLET PO SCH (17:23)
[2017-04-25] MEDS: PRAVASTATIN 20 MG TABLET PO SCH (21:19)
[2017-04-26] MEDS: methylPREDNISolone SOD SUC 40 MG/1 ML VIAL IV SCH (01:16)
[2017-04-26] MEDS: CLINDAMYCIN INJ 300 MG in PREMIX 1 EACH IV SCH ×2 (01:16→09:17)
[2017-04-26] MEDS: ALBUTEROL/IPRATROPIUM 3 ML NEB RESP TX SCH ×5 (04:19→19:59)
[2017-04-26 05:35] LABS: Basophils % 0.1 % (0.0-0.8); Eosinophils % 0.2 % (0.00-10.9); Hematocrit 27.8 VOL% (35.7-47.0); Hemoglobin 9.1 GM/DL (12.0-16.0); Immature Granulocytes % 1.4 %; Immature Granulocytes Absolute 0.14 #; Lymphocytes # 0.4 10*3/uL (1.4-4.0); Lymphocytes % 3.6 % (21.3-54.2); Mean Corpuscular HGB Conc 32.7 GM/DL (32-36); Mean Corpuscular Hemoglobin 30 PG (27-34); Mean Corpuscular Volume 90.8 FL (87-102); Mean Platelet Volume 11.5 FL (9.6-12.0); Monocytes # 0.3 10*3/uL (0.11-0.8); Monocytes % 3.4 % (1.7-12.7); Neutrophils # 9.2 10*3/uL (1.4-7.4); Neutrophils % 91.3 % (38.7-73.9); Platelet Count 130 T/CUMM (130-400); Red Blood Count 3.06 MC/CUMM (3.8-5.5); Red Cell Distribution Width 16.8 % (9.3-17.3)
[2017-04-26 06:02] LABS: Calcium 8.1 MG/DL (8.5-10.1); Magnesium 1.9 MG/DL (1.8-2.4); Osmolality,Calculated 296.8 MOS/KG (273-304); Potassium 4.2 MMOL/L (3.5-5.1)
[2017-04-26 06:12] LABS: Band Neutrophils 1 % (0-10); Lymphocytes 3 % (20-55); Platelet Estimate Normal; Segmented Neutrophils 95 % (50-85); Total Cells Counted 100
[2017-04-26 06:13] LABS: Burr Cells Slight; Hypochromasia 1+; Microcytosis 1+; Ovalocytes Slight
[2017-04-26] MEDS: LEVOTHYROXINE 125 MCG TABLET PO SCH (06:16)
--- NOTE | 2017-04-26 08:37 | Pulmonology Progress Note ---
Pulmonary - PN: Subj Interval history: Patient is a 67-year-old white lady that has known coronary artery disease along with diabetes, hypertension, hyperlipidemia, hypothyroidism. She is a smoker. She comes in with shortness of breath and bilateral infiltrates. She does look like she might have had heart failure and actually diuresed fairly well. She has been treated for pneumonia also. She is on the ventilator for quite a while but has done okay off the ventilator. Over the past few days she is feeling much better. Her mouth soreness has improved and she is eating a little more. She says she sat up okay. Her cough and congestion have improved. She says her shortness of breath is much better. Overall she is doing fairly well now. Exam (Progress Note) - Constitutional Vitals: Period Temp Pulse Resp BP Sys/Meek Pulse Ox Last 24 Hr 97.4 F-98.5 F 22-86 18-24 147-188/80-93 94-100 Exam: General appearance: normal weight, patient is alert and sitting up and talking more. She looks more comfortable today. Her sore mouth is better. - Head Head exam: Present: normal inspection, normocephalic - Eye Eye exam: Present: EOMI. Absent: scleral icterus Pupils: Present: ROBERTO CARLOS - ENT ENT exam: Present: She does have dry mucous membranes with some mild sores. She has a little hoarse today. - Neck Neck exam: Present: normal inspection. Absent: lymphadenopathy, thyromegaly - Respiratory Respiratory exam: Present: She has good breath sounds bilaterally and her wheezing and rhonchi are much improved. - Cardiovascular Cardiovascular exam: Present: regular rate and rhythm. Her heart rate is under good control now. Absent: gallop, systolic murmur - GI/Abdominal GI/Abdominal exam: Present: normal bowel sounds, soft. Absent: distended, organomegaly, tenderness - Extremities Exam Extremities exam: Absent: calf tenderness, edema, she had no signs of phlebitis - Neurological Exam Neurological exam: Present: alert, oriented X3, CN II-XII intact, she has a resting tremor, she is alert and talking and looks comfortable. - Psychiatric Psychiatric exam: Present: She is alert and comfortable. - Skin Skin exam: Present: warm, dry Results - Labs CBC & BMP: 04/26/17 04:39 04/26/17 04:39 Assessment and Plan (1) Bilateral pneumonia Status: Acute Assessment and plan: Patient looks like she feels better and her cough and congestion are improving. Her chest x-ray is better. She has gram-negative rods on her sputum culture. She can probably go to oral medicines and go to a swing bed soon. Current Visit: No (2) Congestive heart failure Status: Acute Assessment and plan: She looks like she had some heart failure early on but is better now. She looks like she is fairly stable at present. Current Visit: No (3) COPD (chronic obstructive pulmonary disease) Status: Chronic Assessment and plan: The patient is a smoker and has a component of COPD. She is getting vigorous respiratory therapy and seems to be better. Her cough and congestion have improved nicely now. Current Visit: No (4) Acute respiratory failure with hypoxemia Status: Acute Assessment and plan: The patient has acute respiratory failure with hypoxemia and bilateral infiltrates. She has improved nicely and her breathing is much better. She is very weak and probably still needs a swing bed. Current Visit: No (5) History of coronary artery bypass graft x 1 Status: Chronic Assessment and plan: The patient has known coronary artery disease. Current Visit: Yes (6) Hypertension Status: Chronic Assessment and plan: She has high blood pressure and will continue with medications. Her systolic blood pressure is better today. Current Visit: Yes (7) Renal insufficiency Status: Chronic Assessment and plan: Her creatinine peaked at around 5.0 and is now at 3.4. Current Visit: No (8) Severe anemia Status: Acute Assessment and plan: She is better after transfusions and her hematocrit is stable at 28. Current Visit: Yes Specialty Discharge - Follow Up or Referrals Follow up with: Ran Beltrán MD [Physician] - 2 Weeks (With EKG)
--- NOTE | 2017-04-26 08:54 | Internal Med Progress Note ---
Assessment and Plan (1) Shortness of breath Status: Acute Assessment and plan: 67-year-old female admitted to acute care * Pneumonia. Clinically better. Gram-negative rods on sputum. Await sensitivities * COPD. Better * Coronary artery disease. Stable * Acute on chronic renal failure. Creatinine is about the same * Hypothyroidism. On Synthroid * Neurogenic bladder. Continue in and out cath * Bipolar disorder. Continue current medicines * Diabetic neuropathy. On Neurontin * Diabetes. Continue current treatment * Continue PT and OT * Hopefully to swing bed soon Current Visit: Yes (2) Chest pain Status: Acute Current Visit: Yes (3) Chronic kidney disease, stage III (moderate) Status: Chronic Current Visit: Yes (4) Hypertension Status: Chronic Current Visit: Yes (5) Type 2 diabetes mellitus Status: Chronic Current Visit: Yes (6) Acute respiratory failure with hypoxemia Status: Acute Current Visit: No (7) Bilateral pneumonia Status: Acute Current Visit: No (8) Bipolar 1 disorder, depressed Status: Acute Current Visit: No (9) Bipolar 1 disorder, depressed Status: Acute Current Visit: No (10) Bipolar disorder Status: Acute Current Visit: No (11) Bronchospasm Status: Acute Current Visit: No (12) COPD (chronic obstructive pulmonary disease) Status: Chronic Current Visit: No (13) Chest pain Status: Acute Current Visit: No (14) Chronic back pain Status: Acute Current Visit: No (15) Chronic renal failure Status: Acute Current Visit: No (16) Chronically on opiate therapy Status: Acute Current Visit: No (17) Cognitive decline Status: Acute Current Visit: No (18) Congestive heart failure Status: Acute Current Visit: No (19) Constipation Status: Acute Current Visit: No (20) Coronary artery disease Status: Chronic Current Visit: No (21) Debility Status: Acute Current Visit: No (22) Depression Status: Acute Current Visit: No (23) Depression Status: Acute Current Visit: No (24) Diabetes mellitus Status: Acute Current Visit: No (25) Drug overdose Problem details: I agree with the current plan of care. I will stop giving her oral narcotics at home I agree with the psychiatric consult Status: Acute Current Visit: No (26) Headache Status: Acute Current Visit: No (27) Hyperlipidemia Status: Chronic Current Visit: Yes (28) Hyponatremia Status: Acute Current Visit: No (29) Hypothyroidism Status: Chronic Current Visit: No (30) Hypothyroidism Status: Acute Current Visit: No (31) Laceration of scalp Status: Acute Current Visit: No (32) Left upper lobe pneumonia Status: Acute Current Visit: No (33) Mood disorder Status: Acute Current Visit: No (34) Neurogenic bladder Status: Acute Current Visit: No (35) Neurogenic bladder Status: Acute Current Visit: No (36) Noncompliance with medications Status: Chronic Current Visit: No (37) Oral candidiasis Status: Acute Current Visit: Yes (38) Pneumonia Status: Acute Current Visit: Yes (39) Pneumonia involving left lung Status: Acute Current Visit: No (40) Renal insufficiency Status: Chronic Current Visit: Yes (41) Severe anemia Status: Acute Current Visit: Yes (42) Sinus bradycardia Status: Acute Current Visit: No (43) Symptomatic anemia Status: Acute Current Visit: No (44) Type 2 diabetes mellitus Status: Acute Current Visit: No (45) UTI (urinary tract infection) Status: Acute Current Visit: No (46) Urinary tract infection Status: Acute Current Visit: No (47) dangerousness Status: Acute Current Visit: No (48) poor coping skills Status: Acute Current Visit: No (49) Abnormal ECG Status: Chronic Current Visit: No (50) Coronary artery disease Status: Chronic Current Visit: Yes (51) Renal insufficiency Status: Chronic Current Visit: No (52) Edema Status: Resolved Current Visit: No Internal Medicine - PN: Subj Interval history: Patient is feeling better today. Her cough has improved. She is still coughing of phlegm. Her shortness of breath is better. She denies any chest pain. She denies any nausea or vomiting Exam (Progress Note) - Constitutional Vitals: Period Temp Pulse Resp BP Sys/Meek Pulse Ox Last 24 Hr 97.4 F-98.5 F 22-86 18-24 147-188/80-93 94-100 Exam: Examination: GENERAL: No acute distress HEENT: Ulcers have resolved NECK: Neck is supple. CVS: Regular rate and rhythm. S1 and S2 are normal. RESPIRATORY: Air entry is much better with few rhonchi ABDOMEN: Soft and nontender. EXT: Trace edema. Peripheral pulses are present. CERTIFIED ALCOHOL COUNSELOR: Alert and oriented 3. Moving all extremities SKIN: Warm and dry. Results - Labs CBC & BMP: 04/26/17 04:39 04/26/17 04:39 Lab Results: I have reviewed the past 24 hour labs Specialty Discharge - Follow Up or Referrals Follow up with: Ran Beltrán MD [Physician] - 2 Weeks (With EKG)
[2017-04-26] MEDS: LACTULOSE 20 GM/30 ML UDCUP PO PRN (09:18)
[2017-04-26] MEDS: INSULIN REGULAR 100 UNIT/ML SUBCUT SCH ×4 (09:20→20:34)
[2017-04-26] MEDS: DOCUSATE SODIUM 100 MG CAPSULE PO SCH ×3 (09:20→20:34)
[2017-04-26] MEDS: FLUCONAZOLE 100 MG TABLET PO SCH ×2 (09:20→09:34)
[2017-04-26] MEDS: MUPIROCIN 2% OINT 22 GM TUBE TOP SCH ×3 (09:20→20:34)
[2017-04-26] MEDS: ASPIRIN EC 81 MG TABLET PO SCH ×2 (09:20→09:34)
[2017-04-26] MEDS: NYSTATIN 500,000 UNIT/5 ML UDCUP SWISH/SWAL SCH ×5 (09:20→20:34)
[2017-04-26] MEDS: FLUoxetine 20 MG CAPSULE PO SCH ×2 (09:20→09:33)
[2017-04-26] MEDS: predniSONE 20 MG TABLET PO SCH ×2 (09:20→09:33)
[2017-04-26] MEDS: GABAPENTIN 300 MG CAPSULE PO SCH ×4 (09:20→20:33)
[2017-04-26] MEDS: LANSOPRAZOLE ODT 30 MG TABLET PO SCH ×2 (09:20→09:34)
[2017-04-26] MEDS: INSULIN NPH/REGULAR 70/30 100 UNIT/ML SUBCUT SCH ×2 (09:20→20:34)
[2017-04-26] MEDS: valACYclovir 500 MG TABLET PO SCH ×3 (09:21→20:33)
[2017-04-26] MEDS: DESITIN 4OZ/NYSTATIN 15 GRAM MIXTURE PASTE TOP SCH ×2 (09:21→20:34)
[2017-04-26] MEDS: OXcarbazepine 300 MG TABLET PO SCH ×3 (09:21→20:33)
[2017-04-26] MEDS ORDERED: BISACODYL 10 MG SUPP RECTAL ONE (10:55)
--- NOTE | 2017-04-26 12:14 | Nephrology Progress Note ---
Nephrology - PN: Subj Interval history: Shortness of breath and cough have improved. No dysuria Exam (PN)-Nephrology - Vital Signs Vital signs: Period Temp Pulse Resp BP Sys/Meek Pulse Ox Last 24 Hr 96.4 F-98.5 F 22-86 18-24 143-173/67-83 94-99 Exam: ENT: Normal Cardiovascular: Regular rate and rhythm. No murmur rub or gallop Lungs: Clear Extremities: No edema - Lab 04/26/17 04:39 04/26/17 04:39 Most recent lab results ABG pH 7.317 (7.35-7.45) L 04/16/17 03:10 ABG pCO2 37.4 MM HG (35-48) 04/16/17 03:10 ABG pO2 70.5 MM HG (80-95) L 04/16/17 03:10 ABG HCO3 19.0 MMOL/L (20-26) L 04/16/17 03:10 ABG O2 Saturation 92.5 % (95-100) L 04/16/17 03:10 Calcium 8.1 MG/DL (8.5-10.1) L 04/26/17 04:39 Phosphorus 4.4 MG/DL (2.5-4.9) 04/25/17 06:50 Magnesium 1.9 MG/DL (1.8-2.4) 04/26/17 04:39 Assessment and Plan (1) Renal failure (ARF), acute on chronic Status: Acute Assessment and plan: 67-year-old woman with: * CRF stage III. Baseline creatinine upper twos * Acute on chronic renal failure. Renal function stable * Neurogenic bladder. Agree with in and out catheterization * Pneumonia. Lungs sound better today. Continue current treatment * Hypertension * Diabetes * Bipolar disorder * CAD * Anemia. Post transfusion Current Visit: Yes (2) Chronic kidney disease, stage III (moderate) Status: Chronic Current Visit: Yes (3) History of coronary artery bypass graft x 1 Status: Chronic Current Visit: Yes (4) Hypertension Status: Chronic Current Visit: Yes (5) Type 2 diabetes mellitus Status: Chronic Current Visit: Yes (6) Bilateral pneumonia Status: Acute Current Visit: No (7) Bipolar disorder Status: Acute Current Visit: No (8) Hypertension Status: Acute Current Visit: No Specialty Discharge - Follow Up or Referrals Follow up with: Ran Beltrán MD [Physician] - 2 Weeks (With EKG)
--- NOTE | 2017-04-26 14:12 | Cardiology Progress Note ---
Alena Silverio April, RN, am scribing for, and in the presence of, Ulices Lindsey MD 14:08. Assessment and Plan (1) Hypertension Status: Chronic Assessment and plan: Her pressures have been fairly stable. Systolics are up some today. We will need to monitor this. Medication adjustment as needed. This can be done as an outpatient. Current Visit: Yes (2) Type 2 diabetes mellitus Status: Chronic Assessment and plan: Internal medicine is following this. Current Visit: Yes (3) Hyperlipidemia Status: Chronic Assessment and plan: She is on pravastatin 40 mg daily. Current Visit: Yes (4) Oral candidiasis Status: Acute Assessment and plan: This is being treated with nystatin swish and swallow. Current Visit: Yes (5) Renal insufficiency Status: Chronic Assessment and plan: Her creatinine is slightly improved at 3.4 today, nephrology is following. Current Visit: Yes (6) Severe anemia Status: Acute Assessment and plan: Her cell counts are relatively unchanged today. She denies any known active bleeding. Lovenox has been discontinued and aspirin has been decreased to 81 mg daily. We will continue to monitor. Current Visit: Yes (7) Coronary artery disease Status: Chronic Assessment and plan: This remained stable. Is asymptomatic. Current Visit: Yes (8) Pneumonia Status: Acute Assessment and plan: She is on appropriate IV antibiotics, internal medicine and pulmonary medicine are following. She clinically is improved. Current Visit: Yes Cardiology - PN: Subj Interval history: PRIMARY ASH KIER BOILER: GÓMEZ (DOES NOT FOLLOW ROUTINELY) PCP: DR. FLOYD SUMMARY: Ms. Cardenas is a 67 year old white female with risk factor significant for: Age, hypertension, hyperlipidemia, diabetes, previously known history of CAD, and tobacco use. She does not routinely follow with cardiology, and she has a history of noncompliance. Patient has had previous CABG 1 with BARRERA [place] LAD [address] Lopez. Review of old records shows patient had last cardiac catheterization in [address] Beltrán which revealed stable coronary artery disease and a widely patent BARRERA graft. She had nuclear SPECT scan approximately 1 year ago on April 06, 2016, and showed no coronary artery ischemia and normal LV systolic function with EF 69%. She has been a heavy smoker all her life. Past medical history includes COPD, multiple CVA, hypothyroidism, chronic kidney disease with anemia, and bipolar disorder with previous suicide attempt by narcotic overdose. She has a known history of diastolic dysfunction due to mitral and tricuspid valve dysfunction. She has chronic pain and is followed routinely by Dr. Abbasi. Patient also has recurrent pneumonia and has required multiple hospital admissions. Patient was admitted April 08 after presenting to the emergency room complaining of shortness of breath for 2 days with cough, fever, chills. She also complained of some back pain and chest pain. Chest x-ray revealed by basilar pneumonia. The morning of April 09 around 0640, patient reported to the nursing staff that she was having chest pain described as a "heaviness" and her oxygen saturation levels were noted to be 78% on 2 L/NC. Nursing staff initiated heart alert, EKG was obtained with acute LA ruled out, patient was placed on 100% NRB, received 40 mg IV Lasix and 2 mg IV morphine, and she was transferred to the ICU for close observation. Stat blood work drawn. Cardiac enzymes revealed troponin 0.049 with CPK 465. BNP 831. Cardiology was consulted for further evaluation of chest pain and volume overload. Echocardiogram showed ejection fraction of 65-70% with 2-3+ bilateral enlargement, concentric LVH, and 3-4+ tricuspid regurgitation. April 11 she developed atrial fibrillation with RVR, she was given diltiazem with his doctor blood pressure and was given metoprolol 5 mg IV 1 dose and digoxin 0.125 mg. Potassium was noted to be 6.4 and she was given calcium gluconate, Kayexalate and albuterol. She is now in sinus rhythm and I see no further documentation of atrial fibrillation in the chart. She was given 2 units of blood product , and has been given IV Lasix periodically throughout her stay. Chest x-ray done April 21 was suspicious for interstitial pulmonary edema, interstitial pneumonia, or other interstitial lung disease. She is on IV clindamycin and p.o. Levaquin as well as DuoNeb's. She has oral candidiasis, this is being treated. April 26, 2017: Ms. Cardenas is seen resting in bed with oxygen use via nasal cannula. She denies any chest pain and reports her breathing has improved. She says she feels much better and is ready to go home. Plans at discharge are for her to go to swing bed at [facility]. Vital signs have been stable. residential monitor currently shows sinus rhythm with heart rates in the 80s. Because of low blood counts her Lovenox was discontinued and aspirin was decreased to 81 mg daily. H&H today is relatively unchanged at 9.1 and 27.8. Patient personally interviewed and examined and discussed case with Malia Carvajal RN. This patient stable from a cardiac standpoint. Most of her issues are noncardiac. Her chest fracture stable but she has severe pulmonary hypertension. She was admitted with a pneumonia that appears to be improving especially clinically. Certainly she may have a component or have had a component of heart failure even with her normal ejection fraction. This is clinically has resolved. Think any further cardiac evaluation is needed at this time. Hopefully she will be going to swing bed soon. Exam (Progress Note) - Constitutional Vitals: Period Temp Pulse Resp BP Sys/Meek Pulse Ox Last 24 Hr 97.4 F-98.5 F 22-86 18-24 147-188/80-93 94-100 Exam: General appearance: no acute distress, morbidly obese - Head Head exam: Absent: abrasion, hematoma - ENT ENT exam: Present: other (Ulcers noted in mouth) - Respiratory Respiratory exam: Present: Scattered rhonchi, wheezing, other (Oxygen in use via nasal cannula). Absent: accessory muscle use, chest wall tenderness - Cardiovascular Cardiovascular exam: Present: regular rate and rhythm, heart sounds are distant without gross murmur - GI/Abdominal GI/Abdominal exam: Present: normal bowel sounds, soft. Absent: distended, tenderness - Extremities Exam Extremities exam: Present: edema (Trace to bilateral upper and lower extremities ), other (Peripheral pulses present) - Neurological Exam Neurological exam: Present: alert, oriented X3 - Psychiatric Psychiatric exam: Present: normal affect, normal mood - Skin Skin exam: Present: warm, dry Result/EKG - Labs CBC & BMP: 04/26/17 04:39 04/26/17 04:39 Lab Results: I have reviewed the past 24 hour labs Labs: Laboratory Results - last 24 hr 04/25/17 04/25/17 04/25/17 12:09 16:00 20:29 WBC RBC Hgb Hct MCV MCH MCHC RDW Plt Count MPV Neut % (Auto) Lymph % (Auto) [place] % (Auto) Eos % (Auto) Baso % (Auto) Neut # (Auto) Lymph # (Auto) [place] # (Auto) Eos # (Auto) Baso # (Auto) Total Counted Immature Gran % Nucleated RBC % Immature Gran # Segmented Neutrophils Band Neutrophils Lymphocytes Monocytes Nucleated RBCs # Platelet Estimate Immature Plt Fraction Hypochromasia Microcytosis Ovalocytes [place] Cells Sodium Potassium Chloride Carbon Dioxide Anion Gap BUN Creatinine GFR Calculation BUN/Creatinine Ratio Glucose POC Glucose 201 H 144 H 123 H Calculated Osmolality Calcium Magnesium 04/26/17 04/26/17 04/26/17 04:39 04:39 07:25 WBC 10.0 RBC 3.06 L Hgb 9.1 L Hct 27.8 L MCV 90.8 MCH 30 MCHC 32.7 RDW 16.8 Plt Count 130 MPV 11.5 Neut % (Auto) 91.3 H Lymph % (Auto) 3.6 L [place] % (Auto) 3.4 Eos % (Auto) 0.2 Baso % (Auto) 0.1 Neut # (Auto) 9.2 H Lymph # (Auto) 0.4 L [place] # (Auto) 0.3 Eos # (Auto) 0.0 Baso # (Auto) 0.0 Total Counted 100 Immature Gran % 1.4 Nucleated RBC % 0.0 Immature Gran # 0.14 Segmented Neutrophils 95 H Band Neutrophils 1 Lymphocytes 3 L Monocytes 1 L Nucleated RBCs # 0.00 Platelet Estimate Normal Immature Plt Fraction 0.0 Hypochromasia 1+ Microcytosis 1+ Ovalocytes Slight [place] Cells Slight Sodium 137 Potassium 4.2 Chloride 106 Carbon Dioxide 18 L Anion Gap 17.2 H BUN 76 H Creatinine 3.40 H GFR Calculation 16 BUN/Creatinine Ratio 22.00 H Glucose 114 H POC Glucose 139 H Calculated Osmolality 296.8 Calcium 8.1 L Magnesium 1.9 - Impressions Impressions: She remains in sinus rhythm with normal rates on telemetry. - Diagnostic Findings Procedure: Chest x-ray: report reviewed by me - EKG EKG results: interpreted by me EKG shows: sinus rhythm Specialty Discharge - Follow Up or Referrals Follow up with: Ran Beltrán MD [Physician] - 2 Weeks (With EKG) César Silverio John Timothy, MD, personally performed the services described in this documentation, ascribed by Malia Carvajal RN in my presence, and it is both accurate and complete 411 .
[2017-04-26] MEDS ORDERED: DORIPENEM IV SCH (15:00)
[2017-04-26] MEDS ORDERED: SODIUM CHLORIDE 0.9% IV SCH (15:00)
[2017-04-26] MEDS ORDERED: ERTAPENEM 500 MG in SODIUM CHLORIDE 0.9% 100 ML IV SCH (15:30)
--- NOTE | 2017-04-26 15:35 | Infectious Disease Consult ---
Assessment and Plan (1) Pneumonia Status: Acute Assessment and plan: Pneumonia due to ESBL Klebsiella. Patient has history of penicillin allergy but I suspect that this is a mild allergy as she has tolerated second- generation cephalosporins in the past. Recommendations: 1. Discontinue levofloxacin 2. Start ertapenem, renally dosed at 500 mg daily. Will observe patient on this drug and wants she tolerates it she can complete a 7 days course of treatment. Thank you very much for the consult. Will follow. Discussed with patient's daughter at bedside. Current Visit: Yes (2) Chronic kidney disease, stage III (moderate) Status: Chronic Current Visit: Yes (3) Type 2 diabetes mellitus Status: Chronic Current Visit: Yes History of Present Illness Chief complaint: ESBL Klebsiella pneumonia History of present illness: Ms. Cardenas is a 67 year old female admitted to hospital almost 3 weeks ago with pneumonia which resulted in respiratory failure. She was on the vent for some time but was successfully extubated just a week ago. She had a sputum culture positive for ESBL Klebsiella and I am asked to assist with management in light of the fact that she has a history of penicillin allergy which apparently caused anaphylaxis. When patient was questioned about this she said it was as a teenager she got penicillin after tooth extraction on it caused swelling of her throat. She admits that she has taken oral antibiotics over the years including Keflex without any difficulties. Overall she is feeling relatively well today with less breathing difficulties, no fever, good appetite. Plan was for her to go to swing bed soon. Home Medications Medication Instructions Recorded Confirmed Type Pantoprazole Tab [Protonix Tab] 40 mg PO DAILY tablet 03/02/16 04/08/17 Rx Potassium Chloride Cap/Tab [K Dur] 20 meq PO DAILY tablet 03/02/16 04/08/17 Rx Pravastatin [Pravachol] 40 mg PO BEDTIME tablet 03/02/16 04/08/17 Rx cloNIDine TAB [Catapres Tab] 0.1 mg PO BID tablet 03/02/16 04/08/17 Rx OXcarbazepine [Trileptal] 300 mg PO BID #60 tablet 03/25/16 04/08/17 Rx Aspirin [Ecotrin] 325 mg PO DAILY 05/13/16 04/08/17 History Gabapentin 300 mg PO BID 05/13/16 04/08/17 History Colchicine [Colcrys] 0.6 mg PO BID #60 tablet 06/02/16 04/08/17 Rx Fluoxetine HCl [Prozac] 80 mg PO DAILY 12/07/16 04/08/17 History Furosemide Tab [Lasix Tab] 40 mg PO DAILY 12/07/16 04/08/17 History Levothyroxine Tab [Synthroid Tab] 125 mcg PO DAILY 12/07/16 04/08/17 History Promethazine HCl 25 mg PO DAILY PRN 12/07/16 04/08/17 History amLODIPine [Norvasc] 2.5 mg PO DAILY 12/07/16 04/08/17 History Insulin NPH/Regular 70/30 [HumuLIN 12 unit SUBCUT BID 04/08/17 04/08/17 History 70/30] hydrALAZINE TAB [Apresoline Tab] 50 mg PO TID 04/08/17 04/08/17 History Allergies Allergy/AdvReac Type Severity Reaction Status Date / Time clarithromycin [From Biaxin] Allergy Severe THROAT Verified 12/08/16 06:28 SWELLING/DIFFICULTY BREATHING Penicillins Allergy Severe THROAT Verified 12/08/16 06:28 SWELLING/DIFFICULTY BREATHING pentazocine [From Talwin] Allergy Severe THROAT Verified 12/08/16 06:28 SWELLING/DIFFICULTY BREATHING 12 point system: reviewed and no additional remarkable complaints except as stated (Per HPI) Medical,Surgical,& Family Hx - Medical History Cardio: History of: Cerebrovascular Disease, CAD, Hypertension, [place], Cardiovascular Problems (cabg; 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) No history of: Pacemaker, PVD Psychological: History of: Anxiety Disorders, Bipolar Disorder, Depression, Psychiatric Problems No history of: Behavior Problems, Violent Behavior Neurology: History of: Cerebrovascular Accident (SEVERAL STROKES), Dementia, Migraine Endocrine: History of: Diabetes Mellitus (IDDM), Dyslipidemia, Thyroid Disorder Rheumatology: History of;: Gout, Rheumatoid Arthritis Respiratory: History of: Asthma, Bronchitis, COPD, Intubation, Pneumonia (2015 most recent.; Hx Pneum Vac) Renal: History of: Renal Failure (NO DIALYSIS), Renal Problems (CKD) Genitourinary: History of: Bladder Problem Gastrointestinal: History of: GERD Musculoskeletal: History of: Degenerative Disk Disease, Herniated Disk, Musculoskeletal Problems Hematology: History of: Anemia No history of: Blood Transfusion Reaction, Blood Disorders - Surgical History Cardiac Surgeries: Sugical HX of: Cardiac Catheterization (CABGx1-years ago), Cardiac Surgery (mitral valve replacement) Thoracic Surgeries: Patient denies;: Organ Transplant Reproductive Surgeries: Surgical HX of;: Gynecologic Surgery, Hysterectomy ( complete) Orthopedic Surgeries: Surgical HX of;: Orthopedic Surgery (RKS) Patient denies;: Spinal Surgery - Family History Family History: Reports;: Family Diabetes, Family Heart Disease (Father- [place], mother- [place]), Family Hypertension (FATHER), Family Psychiatric Problems ( BROTHERS X2 NERVOUS BREAKDOWN) Denies;: Family Anesthesia Reaction, Family Stroke - Social History Smoking Status: Current every day smoker Frequency of Alcohol Use: None Type of Drug Use: None Infectious Disease Exam H&P - Constitutional Vitals: Vital Signs Temp Pulse Resp BP Pulse Ox 97.2 F L 79 20 162/88 94 L 04/26/17 11:57 04/26/17 11:57 04/26/17 11:57 04/26/17 11:57 04/26/17 11:57 Intake and Output 04/25/17 04/26/17 04/26/17 23:59 07:59 15:59 Intake Total 470 / 470 50 / 50 900 / 900 Output Total 1000 / 1000 Balance 470 / 470 50 / 50 -100 / -100 Intake: IV 50 / 50 50 / 50 50 / 50 Cleocin Inj 300 mg In 50 / 50 50 / 50 50 / 50 Premix 1 Each @ 100 mls/ hr IV Q8H AMANDA Rx#: [id number] Oral 420 / 420 850 / 850 Output: Urine 1000 / 1000 Other: Voiding Method Brief Brief In and Out Catheter # Voids 3 2 2 # Bowel Movements 1 Weight 102.2 kg Patient Weight 04/26/17 23:59 Weight 102.2 kg Exam: General: Patient comfortable, sitting in chair, interactive HEENT: Mucous membranes pink and moist, anicteric acyanotic, ROBERTO CARLOS, healing ulcerations over tongue and palate Neck: Supple, no thyroid gland enlargement Respiratory system: Breath sounds vesicular, no crepitations but she has inspiratory wheezes throughout right lung Cardiovascular: Normal S1 and S2, no murmurs appreciated Abdomen: Normal bowel sounds, soft nontender throughout, no organomegaly or mass Genitourinary: No suprapubic pain or bladder distention Extremities: Dependent edema present to lower extremities, also some edema of forearms bilaterally Skin: No rash but scattered bruising over forearms Reports - Labs CBC & BMP: 04/26/17 04:39 04/26/17 04:39 Labs: Laboratory Results - last 24 hr 04/25/17 04/25/17 04/26/17 16:00 20:29 04:39 WBC 10.0 RBC 3.06 L Hgb 9.1 L Hct 27.8 L MCV 90.8 MCH 30 MCHC 32.7 RDW 16.8 Plt Count 130 MPV 11.5 Neut % (Auto) 91.3 H Lymph % (Auto) 3.6 L [place] % (Auto) 3.4 Eos % (Auto) 0.2 Baso % (Auto) 0.1 Neut # (Auto) 9.2 H Lymph # (Auto) 0.4 L [place] # (Auto) 0.3 Eos # (Auto) 0.0 Baso # (Auto) 0.0 Total Counted 100 Immature Gran % 1.4 Nucleated RBC % 0.0 Immature Gran # 0.14 Segmented Neutrophils 95 H Band Neutrophils 1 Lymphocytes 3 L Monocytes 1 L Nucleated RBCs # 0.00 Platelet Estimate Normal Immature Plt Fraction 0.0 Hypochromasia 1+ Microcytosis 1+ Ovalocytes Slight Ralph Cells Slight Sodium Potassium Chloride Carbon Dioxide Anion Gap BUN Creatinine GFR Calculation BUN/Creatinine Ratio Glucose POC Glucose 144 H 123 H Calculated Osmolality Calcium Magnesium 04/26/17 04/26/17 04:39 07:25 WBC RBC Hgb Hct MCV MCH MCHC RDW Plt Count MPV Neut % (Auto) Lymph % (Auto) [place] % (Auto) Eos % (Auto) Baso % (Auto) Neut # (Auto) Lymph # (Auto) [place] # (Auto) Eos # (Auto) Baso # (Auto) Total Counted Immature Gran % Nucleated RBC % Immature Gran # Segmented Neutrophils Band Neutrophils Lymphocytes Monocytes Nucleated RBCs # Platelet Estimate Immature Plt Fraction Hypochromasia Microcytosis Ovalocytes June Cells Sodium 137 Potassium 4.2 Chloride 106 Carbon Dioxide 18 L Anion Gap 17.2 H BUN 76 H Creatinine 3.40 H GFR Calculation 16 BUN/Creatinine Ratio 22.00 H Glucose 114 H POC Glucose 139 H Calculated Osmolality 296.8 Calcium 8.1 L Magnesium 1.9 - Reports Microbiology: Microbiology 04/13/17 08:30 Direct Acid Fast Bacilli Smear - Final Bronchial Washings No acid fast bacilli seen AFB Smear Concentration - Final No acid fast bacilli seen Mycobacterial Culture - Preliminary No AFB isolated at 2 weeks 04/24/17 16:07 Sputum Culture - Final Sputum Klebsiella pneumoniae ESBL Gram Stain - Final 04/13/17 08:30 Fungal Culture - Preliminary Bronchial Washings Zohra albicans Fungal Smear - Final Few fungal elements seen - Diagnostic Findings Procedure: Chest x-ray: image reviewed by me, report reviewed by me (Scattered opacities in right lung) Specialty Discharge - Follow Up or Referrals Follow up with: Ran Beltrán MD [Physician] - 2 Weeks (With EKG)
--- NOTE | 2017-04-26 15:44 | Physician Query Form ---
CLICK EDIT DOCUMENT TO SELECT QUERY ANSWER --> OK --> SIGN Ebonie Whiting RN Clinical Supervisor Print Line W) [phone] (f) [phone] [email or web address] PROVIDERS: Make your selection(s) from the choices in EACH section by typing an "x" and enter comments in the comment section. Please use your independent medical judgment in providing your response. This request does not imply that any particular answer is desired or expected. CLINICAL INDICATORS: (Providers should not edit this section) Based on documentation of "Acute CHF" Echo shows EF of 60% BNP of 831. Treated with IV Lasix. Please provide further specificity regarding CHF. ACUITY: ( ) Acute ( ) Chronic (x ) Acute on Chronic ( ) Clinically unable to determine TYPE: ( ) Systolic (HFrEF - heart failure with reduced systolic function/EF) ( x) Diastolic (HFpEF - heart failure with preserved systolic function/EF) ( ) Combined Systolic/Diastolic ( ) Other, please specify: ( ) Clinically unable to determine ( ) Past Medical History of Systolic CHF ( ) Past Medical History of Diastolic CHF ( ) Clinically unable to determine COMMENTS: PLEASE ALSO DOCUMENT RESPONSE IN PROGRESS NOTES AND/OR DISCHARGE SUMMARY Use of terms such as suspected, likely, or probable (associated with a specific diagnosis that is being evaluated, monitored, or treated as if it exists) are acceptable and can be restated in the discharge summary if not ruled out. MTDD
[2017-04-26] MEDS: PRAVASTATIN 20 MG TABLET PO SCH (20:33)
[2017-04-27] MEDS: ALBUTEROL/IPRATROPIUM 3 ML NEB RESP TX SCH ×4 (00:36→10:59)
[2017-04-27] MEDS: ACETAMINOPHEN 325 MG TABLET PO PRN (03:21)
[2017-04-27] MEDS: LEVOTHYROXINE 125 MCG TABLET PO SCH (06:43)
[2017-04-27] MEDS: valACYclovir 500 MG TABLET PO SCH (09:10)
[2017-04-27] MEDS: GABAPENTIN 300 MG CAPSULE PO SCH (09:11)
[2017-04-27] MEDS: FLUoxetine 20 MG CAPSULE PO SCH (09:11)
[2017-04-27] MEDS: FLUCONAZOLE 100 MG TABLET PO SCH (09:12)
[2017-04-27] MEDS: DOCUSATE SODIUM 100 MG CAPSULE PO SCH (09:12)
[2017-04-27] MEDS: NYSTATIN 500,000 UNIT/5 ML UDCUP SWISH/SWAL SCH ×2 (09:12→13:01)
[2017-04-27] MEDS: OXcarbazepine 300 MG TABLET PO SCH (09:12)
[2017-04-27] MEDS: LANSOPRAZOLE ODT 30 MG TABLET PO SCH (09:12)
[2017-04-27] MEDS: predniSONE 20 MG TABLET PO SCH (09:12)
[2017-04-27] MEDS: ASPIRIN EC 81 MG TABLET PO SCH (09:14)
[2017-04-27] MEDS: INSULIN REGULAR 100 UNIT/ML SUBCUT SCH ×2 (09:14→13:00)
[2017-04-27] MEDS: MUPIROCIN 2% OINT 22 GM TUBE TOP SCH (09:15)
[2017-04-27] MEDS: DESITIN 4OZ/NYSTATIN 15 GRAM MIXTURE PASTE TOP SCH (09:15)
[2017-04-27] MEDS: INSULIN NPH/REGULAR 70/30 100 UNIT/ML SUBCUT SCH (09:15)
[2017-04-27] MEDS ORDERED: MEROPENEM 500 MG in SODIUM CHLORIDE 0.9% 100 ML IV SCH (09:30)
--- NOTE | 2017-04-27 09:41 | Discharge Summary ---
Hospital Course - Hospital Course Hospital Course: Patient is 67-year-old female with history of COPD, congestive heart failure, coronary artery disease, diabetes, chronic renal failure, hypothyroidism, bipolar disorder, neurogenic bladder, diabetic neuropathy who was admitted with acute shortness of breath and pneumonia. Patient was admitted to floor but had to be moved to intensive care unit because of oxygen desaturation. Patient was intubated because of respiratory failure. She was gradually weaned off ventilator. She needed a bronchoscopy to clear out her secretions. Patient developed acute renal failure on chronic renal failure. She was seen in consultation by nephrology, cardiology, pulmonary medicine and infectious diseases during her hospital stay. Patient was gradually improving on the floor when her condition deteriorated. She was found to have right middle lobe pneumonia. Patient's antibiotics were changed. She was changed to IV steroids. She has gradually improved. Her sputum culture was positive for Klebsiella pneumonia ESBL. She has been started on Merrem per infectious diseases. She also developed ulcers in her mouth and was treated with nystatin and Valtrex. These have improved. She is being moved to swing bed unit in [facility] for further therapy. She would require at least 6 days of IV antibiotics. I will see her in office a week after discharge from swing bed. Diagnosis - Discharge Diagnosis (1) Shortness of breath Status: Acute (2) Chest pain Status: Acute (3) Chronic kidney disease, stage III (moderate) Status: Chronic (4) Hypertension Status: Chronic (5) Type 2 diabetes mellitus Status: Chronic (6) Acute respiratory failure with hypoxemia Status: Acute (7) Bilateral pneumonia Status: Acute (8) Bipolar 1 disorder, depressed Status: Acute (9) Bipolar 1 disorder, depressed Status: Acute (10) Bipolar disorder Status: Acute (11) Bronchospasm Status: Acute (12) COPD (chronic obstructive pulmonary disease) Status: Chronic (13) Chest pain Status: Acute (14) Chronic back pain Status: Acute (15) Chronic renal failure Status: Acute (16) Chronically on opiate therapy Status: Acute (17) Cognitive decline Status: Acute (18) Congestive heart failure Status: Acute (19) Constipation Status: Acute (20) Coronary artery disease Status: Chronic (21) Debility Status: Acute (22) Depression Status: Acute (23) Depression Status: Acute (24) Diabetes mellitus Status: Acute (25) Drug overdose Status: Acute (26) Headache Status: Acute (27) Hyperlipidemia Status: Chronic (28) Hyponatremia Status: Acute (29) Hypothyroidism Status: Chronic (30) Hypothyroidism Status: Acute (31) Laceration of scalp Status: Acute (32) Left upper lobe pneumonia Status: Acute (33) Mood disorder Status: Acute (34) Neurogenic bladder Status: Acute (35) Neurogenic bladder Status: Acute (36) Noncompliance with medications Status: Chronic (37) Oral candidiasis Status: Acute (38) Pneumonia Status: Acute (39) Pneumonia involving left lung Status: Acute (40) Renal insufficiency Status: Chronic (41) Severe anemia Status: Acute (42) Sinus bradycardia Status: Acute (43) Symptomatic anemia Status: Acute (44) Type 2 diabetes mellitus Status: Acute (45) UTI (urinary tract infection) Status: Acute (46) Urinary tract infection Status: Acute (47) dangerousness Status: Acute (48) poor coping skills Status: Acute (49) Abnormal ECG Status: Chronic (50) Coronary artery disease Status: Chronic (51) Renal insufficiency Status: Chronic (52) Edema Status: Resolved Specialty Discharge - Follow Up or Referrals Follow up with: Ran Beltrán MD [Physician] - 05/12/17 1:00 pm (With EKG) Discharge Plan - Discharge Data Disposition: Disch/Xfer to [facility] Condition at Discharge: Stable Discharge Diet: diabetic diet Activity: as per physical therapy Hygiene: other (Patient will need in and out catheterization every 4 hours) - Discharge Medications New Albuterol/Ipratropium Neb [Duoneb] 3 ml RESP TX RT Q4H Fluconazole Tab [Diflucan Tab] 100 mg PO DAILY tablet predniSONE TAB [PredniSONE] 20 mg PO DAILY tablet valACYclovir [Valtrex] 500 mg PO BID tablet Acetaminophen Tab [Tylenol Tab] 650 mg PO Q6H PRN tablet PRN Reason: Fever > 100.4 Or Headache Meropenem [Merrem] 500 mg IV Q12H #1 vial Continue Aspirin [Ecotrin] 325 mg PO DAILY Gabapentin 300 mg PO BID Insulin NPH/Regular 70/30 [HumuLIN 70/30] 12 unit SUBCUT BID hydrALAZINE TAB [Apresoline Tab] 50 mg PO TID Fluoxetine HCl [Prozac] 80 mg PO DAILY Levothyroxine Tab [Synthroid Tab] 125 mcg PO DAILY Pantoprazole Tab [Protonix Tab] 40 mg PO DAILY tablet Potassium Chloride Cap/Tab [K Dur] 20 meq PO DAILY tablet Pravastatin [Pravachol] 40 mg PO BEDTIME tablet OXcarbazepine [Trileptal] 300 mg PO BID #60 tablet Discontinued Promethazine HCl 25 mg PO DAILY PRN PRN Reason: Nausea/Vomiting amLODIPine [Norvasc] 2.5 mg PO DAILY Furosemide Tab [Lasix Tab] 40 mg PO DAILY cloNIDine TAB [Catapres Tab] 0.1 mg PO BID tablet Colchicine [Colcrys] 0.6 mg PO BID #60 tablet - Follow Up or Referral Follow Up: Ran Beltrán MD [Physician] - 05/12/17 1:00 pm (With EKG) - Forms/Instructions Additional Discharge Instructions: Appointment in office 1 week after discharge from swing bed. Patient to continue prednisone 20 daily for 3 days and then 10 mg daily for 5 days and then 10 mg every other day for 5 days. Merrem 500 mg IV piggyback twice a day will be continued for a total of 6 more days. Diflucan 100 mg daily for 5 days. Valtrex 500 mg twice daily for 7 more days Exam - Constitutional Vitals: Period Temp Pulse Resp BP Sys/Meek Pulse Ox Last 24 Hr 97.0 F-98.4 F 64-86 14-22 139-162/66-100 90-99 Exam: Examination: GENERAL: No acute distress HEENT: Ulcers have resolved NECK: Neck is supple. CVS: Regular rate and rhythm. S1 and S2 are normal. RESPIRATORY: Air entry is much better with few rhonchi ABDOMEN: Soft and nontender. EXT: Trace edema. Peripheral pulses are present. HOSPITAL ADMITTING CLERK: Alert and oriented 3. Moving all extremities SKIN: Warm and dry. Discharge Results Procedures and tests throughout hospitalization: Pending Orders 04/13/17 08:30 AFB Culture/Smears Routine Fungal Culture w/ Prep Routine Labs on day of discharge: Labs from last 24 hours 04/26/17 04/26/17 04/26/17 19:11 15:16 11:45 POC Glucose 196 H 173 H 183 H Preliminary micro results at discharge 04/13/17 08:30 Mycobacterial Culture - Preliminary Bronchial Washings No AFB isolated at 2 weeks 04/13/17 08:30 Fungal Culture - Preliminary Bronchial Washings Zohra albicans DS: Provider Date of admission: 04/08/17 20:19 Primary care physician: Diogo Faust MD Attending physician on admission: Diogo Faust MD Consults: 04/08/17 20:19 Consult to Case Mgmt/Social Srvs [CONS] Routine Reason for Case Mgmt/Social Srvs: Discharge Planning 04/09/17 07:25 Consult to Physician [CONS] Routine Comment: Consulting Provider: Cardiology - [facility] Consulting Provider Notified: Yes Consult to Specialist Group: Cardiology Person Notified: Elsy Cespedes Date Notified: 04/09/17 Time Notified: 08:30 Consult Notification Comment: Notified on rounds 04/09/17 07:29 Consult to Physician [CONS] Routine Comment: Consulting Provider: Jez Ruvalcaba Consulting Provider Notified: Yes Consult to Specialist Group: Pulmonology Person Notified: Dr Ruvalcaba Date Notified: 04/09/17 Time Notified: 08:30 Consult Notification Comment: Notified on rounds 04/11/17 10:57 Consult to Physician [CONS] Routine Comment: consult Wednesday04/12/17 Consulting Provider: Dylan Aggarwal Consulting Provider Notified: Yes When should Consulting Provider be notified: In am Consult to Specialist Group: Nephrology Person Notified: BRIGIDO Date Notified: 04/12/17 Time Notified: 09:40 Consult Notification Comment: DR. PATRICIO IS OUT OF THE OFFICE TODAY. DR. AGGARWAL WILL SEE PT 04/14/17 07:38 Consult to Dietitian [CONS] Routine Reason for Dietitian: TF-Initiate/Manage 04/15/17 08:30 Consult to Physician [CONS] Routine Comment: recovering arf Consulting Provider: Ernesto Patricio Consulting Provider Notified: Yes Consult to Specialist Group: Nephrology Person Notified: YORDY Date Notified: 04/15/17 Time Notified: 08:45 04/15/17 23:09 Consult to Physical Therapy [CONS] Routine Reason for Physical Therapy: Evaluate and Treat 04/19/17 08:52 Consult to Case Mgmt/Social Srvs [CONS] Routine Reason for Case Mgmt/Social Srvs: Swingbed/SNF/Care Home Consult Comment: Klaus 04/26/17 14:37 Consult to Physician [CONS] Routine Comment: ESBL of sputum Consulting Provider: Kathy Meyer Person Notified: Elena Date Notified: 04/26/17 Time Notified: 14:43 Discharging clinician: Diogo Faust MD
[2017-04-27 10:15] VITALS: BP 150/78
--- NOTE | 2017-04-27 11:12 | Pulmonology Progress Note ---
Pulmonary - PN: Subj Interval history: Patient is a 67-year-old white lady that has known coronary artery disease along with diabetes, hypertension, hyperlipidemia, hypothyroidism. She is a smoker. She comes in with shortness of breath and bilateral infiltrates. She does look like she might have had heart failure and actually diuresed fairly well. She has been treated for pneumonia also. She is on the ventilator for quite a while but has done okay off the ventilator. Over the past few days she is feeling much better. She says she had a good night and is eating a little better. Her sore throat is better. Her cough and congestion have improved. She will probably go to a swing bed today. Exam (Progress Note) - Constitutional Vitals: Period Temp Pulse Resp BP Sys/Meek Pulse Ox Last 24 Hr 97.0 F-98.4 F 60-86 14-22 139-162/66-100 90-99 Exam: General appearance: normal weight, patient is alert and sitting up and talking more. She looks more comfortable today. Her sore mouth is better. - Head Head exam: Present: normal inspection, normocephalic - Eye Eye exam: Present: EOMI. Absent: scleral icterus Pupils: Present: ROBERTO CARLOS - ENT ENT exam: Present: She does have dry mucous membranes with some mild sores. She has a little hoarse today. - Neck Neck exam: Present: normal inspection. Absent: lymphadenopathy, thyromegaly - Respiratory Respiratory exam: Present: She has good breath sounds bilaterally and her wheezing and rhonchi are much improved. Her lungs still sound reasonably clear. She does has minimal rhonchi. - Cardiovascular Cardiovascular exam: Present: regular rate and rhythm. Her heart rate is under good control now. Absent: gallop, systolic murmur - GI/Abdominal GI/Abdominal exam: Present: normal bowel sounds, soft. Absent: distended, organomegaly, tenderness - Extremities Exam Extremities exam: Absent: calf tenderness, edema, she had no signs of phlebitis - Neurological Exam Neurological exam: Present: alert, oriented X3, CN II-XII intact, she has a resting tremor, she is alert and talking and looks comfortable. - Psychiatric Psychiatric exam: Present: She is alert and comfortable. - Skin Skin exam: Present: warm, dry Results - Labs CBC & BMP: 04/26/17 04:39 04/26/17 04:39 Assessment and Plan (1) Bilateral pneumonia Status: Acute Assessment and plan: Patient looks like she feels better and her cough and congestion are improving. Her chest x-ray is better. Her breathing overall is better and she can probably go to a swing bed. Current Visit: No (2) Congestive heart failure Status: Acute Assessment and plan: She looks like she had some heart failure early on but is better now. She looks like she is fairly stable at present. Current Visit: No (3) COPD (chronic obstructive pulmonary disease) Status: Chronic Assessment and plan: The patient is a smoker and has a component of COPD. She is getting vigorous respiratory therapy and seems to be better. Overall she thinks her breathing is doing fairly well. Current Visit: No (4) Acute respiratory failure with hypoxemia Status: Acute Assessment and plan: The patient has acute respiratory failure with hypoxemia and bilateral infiltrates. She has improved nicely and her breathing is much better. She is very weak and probably still needs a swing bed. Current Visit: No (5) History of coronary artery bypass graft x 1 Status: Chronic Assessment and plan: The patient has known coronary artery disease. She is not having any angina. Current Visit: Yes (6) Hypertension Status: Chronic Assessment and plan: She has high blood pressure and will continue with medications. Her systolic blood pressure is better today. Current Visit: Yes (7) Renal insufficiency Status: Chronic Assessment and plan: Her creatinine peaked at around 5.0 and is now at 3.4. Current Visit: No (8) Severe anemia Status: Acute Assessment and plan: She is better after transfusions and her hematocrit is stable at 28. Current Visit: Yes Specialty Discharge - Follow Up or Referrals Follow up with: Ran Beltrán MD [Physician] - 05/12/17 1:00 pm (With EKG)
--- NOTE | 2017-04-27 19:11 | Nephrology Progress Note ---
Nephrology - PN: Subj Interval history: She feels much better overall. No shortness of breath Exam (PN)-Nephrology - Vital Signs Vital signs: Period Temp Pulse Resp BP Sys/Meek Pulse Ox Last 24 Hr 97.0 F-98.4 F 60-86 14-22 139-158/66-100 90-99 Exam: ENT: Normal Cardiovascular: Regular rate and rhythm. No murmur rub or gallop Lungs: Clear Extremities: No edema - Lab 04/26/17 04:39 04/26/17 04:39 Most recent lab results ABG pH 7.317 (7.35-7.45) L 04/16/17 03:10 ABG pCO2 37.4 MM HG (35-48) 04/16/17 03:10 ABG pO2 70.5 MM HG (80-95) L 04/16/17 03:10 ABG HCO3 19.0 MMOL/L (20-26) L 04/16/17 03:10 ABG O2 Saturation 92.5 % (95-100) L 04/16/17 03:10 Calcium 8.1 MG/DL (8.5-10.1) L 04/26/17 04:39 Phosphorus 4.4 MG/DL (2.5-4.9) 04/25/17 06:50 Magnesium 1.9 MG/DL (1.8-2.4) 04/26/17 04:39 Assessment and Plan (1) Renal failure (ARF), acute on chronic Status: Acute Assessment and plan: 67-year-old woman with: * CRF stage III. Baseline creatinine upper twos * Acute on chronic renal failure. Renal function stable * Neurogenic bladder. Agree with in and out catheterization * Pneumonia. Much improved * Hypertension * Diabetes * Bipolar disorder * CAD * Anemia. Post transfusion Plans for discharge to swing bed noted (2) Chronic kidney disease, stage III (moderate) Status: Chronic (3) History of coronary artery bypass graft x 1 Status: Chronic (4) Hypertension Status: Chronic (5) Type 2 diabetes mellitus Status: Chronic (6) Bilateral pneumonia Status: Acute (7) Bipolar disorder Status: Acute (8) Hypertension Status: Acute Specialty Discharge - Follow Up or Referrals Follow up with: Ran Beltrán MD [Physician] - 05/12/17 1:00 pm (With EKG)
== END 2017-04-27 13:00 | disposition swing bed (61) | DRG 208 ==
LOC: N.ED 17:16 → N.EDINP 20:19 → N.5E 21:57 → N.ICU 04-09 08:09 → N.5E 04-17 17:25
PROVIDERS: ADMIT Internal Medicine; ATTEND Internal Medicine

== ENCOUNTER 2017-06-15 17:34 | Inpatient (IN) ==
--- NOTE | 2017-06-15 18:45 | CT Report ---
Exam: CT head without intravenous contrast Clinical History: 67 years Female head trauma, loss of consciousness Technique: Axial computed tomography images of the head/brain without intravenous contrast Comparison: No relevant comparisons Findings: Brain: Senescent microangiopathic small vessel ischemic changes. Mckinney-white matter distinction maintained. No mass effect. No intra or extra-axial hemorrhage. Ventricles: Unremarkable. No ventriculomegaly. Bones/joints: Calvarium is intact Soft tissues: Unremarkable Sinuses: No active paranasal sinus process Mastoid air cells: Unremarkable visualized. Impression: 1. No acute intracranial abnormality PROCEDURE INTERPRETED AT [facility] DEPARTMENT OF RADIOLOGY Final Report Signed by: Patrick Mckinney MD
[2017-06-15] MEDS ORDERED: SODIUM CHLORIDE 0.9% 1,000 ML IV STA (22:29)
[2017-06-15 23:24] LABS: Basophils # 0.1 10*3/uL (0.0-0.2); Basophils % 0.5 % (0.0-0.8); Hematocrit 33.6 VOL% (35.7-47.0); Hemoglobin 11.3 GM/DL (12.0-16.0); Immature Granulocytes % 2.1 %; Lymphocytes # 0.9 10*3/uL (1.4-4.0); Mean Corpuscular HGB Conc 33.6 GM/DL (32-36); Mean Corpuscular Hemoglobin 31 PG (27-34); Mean Corpuscular Volume 90.8 FL (87-102); Mean Platelet Volume 10.7 FL (9.6-12.0); Monocytes # 0.8 10*3/uL (0.11-0.8); Monocytes % 5.9 % (1.7-12.7); Neutrophils # 12.2 10*3/uL (1.4-7.4); Neutrophils % 85.5 % (38.7-73.9); Platelet Count 239 T/CUMM (130-400); Red Cell Distribution Width 15.8 % (9.3-17.3); White Blood Count 14.3 T/CUMM (4-12)
[2017-06-15 23:39] LABS: Apearance,Urine CLOUDY (Clear); Bacteria,Urine Many /HPF (Few); Bilirubin,Urine Negative (Negative); Blood, Urine Small mg/dL (Negative); Glucose,Urine (UA) Negative (Negative); Ketones,Urine Negative (Negative); Nitrite,Urine Negative (Negative); Protein,Urine >=500 MG/DL; RBC,Urine 9 /HPF (0-4); Squamous Epithelial Cell,Urine Occasional /HPF (0-10); Urine Color Yellow (Yellow); Urine Specific Gravity 1.007 (1.001-1.035); Urine Urobilinogen < 2.0 EU/DL (0.2-1.0); WBC,Urine 199 /HPF (0-6)
--- NOTE | 2017-06-15 23:45 | Emergency Department Note ---
Arrival - Arrival Chief Complaint: Fall Stated Complaint: FALL,WEAKNESS, NUMB LEFT SIDE ED Nursing Triage Note: c/o fall this am. pt has been falling alot. c/o headache , lower back pain Mode of Arrival: Ambulatory Limitations: No Limitations Source: Patient, Family Time Seen by Provider: 06/15/17 21:16 - History of Present Illness HPI Narrative: The family complains of a fall this morning. They state the patient has been increasingly weak over the past 2 weeks. The patient does not know why she fell , but she is fallen 4 times in the last week and a half. Patient states she did lose consciousness and she was down from approximately 6 this morning to 330 this afternoon. She complains of headache. She also complains of lower back pain which is chronic and unchanged from previous. The patient denies any shortness of breath but seems to be breathing heavily in triage. She does have a history of COPD and the family states they think she has been having some shortness of breath. They deny any fever but say that she has had some chills. Allergies/Adverse Reactions: Allergies Allergy/AdvReac Type Severity Reaction Status Date / Time clarithromycin [From Biaxin] Allergy Severe THROAT Verified 12/08/16 06:28 SWELLING/DIFFICULTY BREATHING Penicillins Allergy Severe THROAT Verified 12/08/16 06:28 SWELLING/DIFFICULTY BREATHING pentazocine [From Talwin] Allergy Severe THROAT Verified 12/08/16 06:28 SWELLING/DIFFICULTY BREATHING Home Medications: Home Medications Medication Instructions Recorded Confirmed Type Pantoprazole Tab [Protonix Tab] 40 mg PO DAILY tablet 03/02/16 04/08/17 Rx Potassium Chloride Cap/Tab [K Dur] 20 meq PO DAILY tablet 03/02/16 04/08/17 Rx Pravastatin [Pravachol] 40 mg PO BEDTIME tablet 03/02/16 04/08/17 Rx OXcarbazepine [Trileptal] 300 mg PO BID #60 tablet 03/25/16 04/08/17 Rx Aspirin [Ecotrin] 325 mg PO DAILY 05/13/16 04/08/17 History Gabapentin 300 mg PO BID 05/13/16 04/08/17 History Fluoxetine HCl [Prozac] 80 mg PO DAILY 12/07/16 04/08/17 History Levothyroxine Tab [Synthroid Tab] 125 mcg PO DAILY 12/07/16 04/08/17 History Insulin NPH/Regular 70/30 [HumuLIN 12 unit SUBCUT BID 04/08/17 04/08/17 History 70/30] hydrALAZINE TAB [Apresoline Tab] 50 mg PO TID 04/08/17 04/08/17 History Acetaminophen Tab [Tylenol Tab] 650 mg PO Q6H PRN tablet 04/27/17 Rx Albuterol/Ipratropium Neb [Duoneb] 3 ml RESP TX RT Q4H 04/27/17 Rx Fluconazole Tab [Diflucan Tab] 100 mg PO DAILY tablet 04/27/17 Rx Meropenem [Merrem] 500 mg IV Q12H #1 vial 04/27/17 Rx predniSONE TAB [PredniSONE] 20 mg PO DAILY tablet 04/27/17 Rx valACYclovir [Valtrex] 500 mg PO BID tablet 04/27/17 Rx Review of System - Review of System 12 point system: reviewed and no additional remarkable complaints except as stated - Review of System Constitutional: Present: chills, weakness. Absent: fever Head/Ears/Nose/Throat: Absent: nasal drainage, sore throat Respiratory: Present: respiratory distress (Questionable). Absent: cough, wheezing Cardiovascular: Absent: chest pain Gastrointestinal: Absent: abdominal pain, nausea, vomiting Musculoskeletal: Present: back pain (Chronic) Neurological: Present: headache, weakness (Generalized). 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) No history of: Pacemaker, PVD Psychological: History of: Anxiety Disorders, Bipolar Disorder, Depression, Psychiatric Problems No history of: Behavior Problems, Violent Behavior Neurology: History of: Cerebrovascular Accident (SEVERAL STROKES), Dementia, Migraine Endocrine: History of: Diabetes Mellitus (IDDM), Dyslipidemia, Thyroid Disorder Rheumatology: History of;: Gout, Rheumatoid Arthritis Respiratory: History of: Asthma, Bronchitis, COPD, Intubation, Pneumonia (2015 most recent.; Hx Pneum Vac) Renal: History of: Renal Failure (NO DIALYSIS), Renal Problems (CKD) Genitourinary: History of: Bladder Problem Gastrointestinal: History of: GERD Musculoskeletal: History of: Degenerative Disk Disease, Herniated Disk, Musculoskeletal Problems Hematology: History of: Anemia - Surgical History Cardiac Surgeries: Sugical HX of: Cardiac Catheterization (CABGx1-years ago), Cardiac Surgery (mitral valve replacement) Reproductive Surgeries: Surgical HX of;: Gynecologic Surgery, Hysterectomy ( complete) Orthopedic Surgeries: Surgical HX of;: Orthopedic Surgery (RKS) - Family History Family History: Reports;: Family Diabetes, Family Heart Disease (Father- [place], mother- [place]), Family Hypertension (FATHER), Family Psychiatric Problems ( BROTHERS X2 NERVOUS BREAKDOWN) Denies;: Family Anesthesia Reaction, Family Stroke - Social History Smoking Status: Current every day smoker Frequency of Alcohol Use: None Type of Drug Use: None Exam Physical Examination: GENERAL: Alert. No acute distress. The patient feels warm. HEENT: Normocephalic and atraumatic. There is no nasal drainage. No pharyngeal erythema or exudate. NECK: Normal inspection. Full range of motion without evidence of pain. LUNGS: Slightly tachypneic at 20.. Few rales bilaterally. HEART: Regular rate and rhythm. ABDOMEN: Soft, nontender and nondistended with normoactive bowel sounds. BACK: Normal inspection. SKIN: Color normal. Warm and dry. EXTREMITIES: Nontender. Normal range of motion. No pedal edema. NEUROLOGICAL/PSYCHIATRIC: Alert and oriented -2 with normal mood and affect. Cranial nerves normal. No motor or sensory deficit. Vital Signs: Vital Signs Temperature 99.8 F H 06/15/17 21:14 Pulse Rate 100 H 06/15/17 21:14 Respiratory Rate 18 06/15/17 21:14 Blood Pressure 178/98 06/15/17 21:14 O2 Sat by Pulse Oximetry 94 L 06/15/17 17:49 Course - Reevaluation(s) Reevaluation #1: I have discussed the patient with Dr. Ruvalcaba and will admit to Dr. Juaquin blair. Time: 01:03 Results - Labs CBC & BMP: 06/15/17 23:04 06/15/17 23:04 Lab Results: I have reviewed the patients labs Labs: Laboratory Tests 06/15/17 06/15/17 06/15/17 23:04 23:04 23:04 Alkaline Phosphatase 149 H B-Natriuretic Peptide 332 H Ur Specific Bradford 1.007 Urine Leukocytes Large H Urine RBC 9 Urine WBC 199 Urine WBC Clumps Many Urine Bacteria Many Ur Culture Indicated? Results to follow - Impressions Chest x-ray shows mild CHF. CT of the head shows no acute intracranial abnormality. Disposition Clinical Impression: UTI (urinary tract infection), Weakness, Headache, Chronic back pain, Fall Case discussed with: patient, patient's family Disposition: Disch To Home/Self Care Time of Disposition: 01:03
[2017-06-15 23:56] LABS: Albumin 3.1 G/DL (3.4-5.0); Bilirubin,Total 0.4 MG/DL (0.2-1.0); Calcium 8.5 MG/DL (8.5-10.1); Osmolality,Calculated 287.8 MOS/KG (273-304); Potassium 3.5 MMOL/L (3.5-5.1); Total Protein 6.1 G/DL (6.4-8.3)
[2017-06-16] MEDS ORDERED: MORPHINE 2 MG/1 ML SYRINGE IV PRN (02:48)
[2017-06-16] MEDS ORDERED: DEXTROSE 50% 25 GM/50 ML SYRINGE IV PRN ×2 (02:48→09:55)
[2017-06-16] MEDS ORDERED: LEVOFLOXACIN INJ 500 MG in PREMIX 1 EACH IV STA (02:48)
[2017-06-16] MEDS ORDERED: GLUCAGON 1 MG VIAL IM PRN (02:48)
[2017-06-16] MEDS ORDERED: ONDANSETRON 4 MG/2 ML VIAL IV PRN (02:48)
[2017-06-16] MEDS: ACETAMINOPHEN 325 MG TABLET PO PRN ×3 (03:06→17:11)
--- NOTE | 2017-06-16 07:37 | XRay Report ---
Exam: XR chest 1V portable Date: 06/15/2017 10:27 PM Indication: Fever dyspnea weakness Comparison: 04/25/2017 Technical: AP Findings: Cardiomegaly is present with previous sternotomy with ASVD. Patchy interstitial densities are present in the perihilar regions no obvious effusions or consolidations otherwise noted. Mediastinum is otherwise intact. Impression: 1. Cardiomegaly and previous sternotomy 2. Patchy interstitial densities however the appear improved when compared to the previous study of 04/25/2017 with only a small amount of residual interstitial thickening in the right midlung zone and perihilar regions bilaterally PROCEDURE INTERPRETED AT [facility] DEPARTMENT OF RADIOLOGY Final Report Signed by: Dr. Carl Rodas
[2017-06-16] MEDS: DOCUSATE SODIUM 100 MG CAPSULE PO SCH ×2 (08:21→21:05)
[2017-06-16] MEDS: ALBUTEROL/IPRATROPIUM 3 ML NEB RESP TX SCH ×5 (08:30→23:46)
[2017-06-16] MEDS ORDERED: PANTOPRAZOLE 40 MG TABLET PO SCH (09:00)
[2017-06-16] MEDS ORDERED: LEVOFLOXACIN INJ 250 MG in PREMIX 1 EACH IV SCH (09:30)
--- NOTE | 2017-06-16 09:46 | Internal Med History&Physical ---
Assessment and Plan (1) Fall Status: Acute Assessment and plan: 67-year-old female admitted to acute care * Status post fall. Patient is having falls at home. She was evaluated in the emergency room. CT brain did not show any acute changes. Her falls are multifactorial and related to poor conditioning, chronic back pain and possible polypharmacy. * Urinary tract infection. Patient has a neurogenic bladder and has not been doing in and out catheterization as recommended. She may do it once or twice a day. Cultures are pending. She is started on antibiotic * Hypertension. Blood pressure is stable * Hypothyroidism. Will check TSH on the patient * Bipolar disorder. Continue current treat * Diabetes. Continue her insulin and keep her on a sliding scale * COPD. Patient has been a chronic smoker. We will start her on respiratory treatments * CHF. Patient has history of CHF with preserved LV function. She will be continued on Lasix * Long discussion with patient and her daughter. Will consult PT and OT. * Patient has been a DNR. She does not want any resuscitation or aggressive measures in event of cardiopulmonary arrest Current Visit: Yes (2) Chronic back pain Status: Acute Current Visit: Yes (3) UTI (urinary tract infection) Status: Acute Current Visit: Yes (4) Bipolar depression Status: Acute Current Visit: No (5) Chronic renal failure Status: Acute Current Visit: No (6) Congestive heart failure Status: Acute Current Visit: No (7) Hypothyroidism Status: Acute Current Visit: No (8) Neurogenic bladder Status: Acute Current Visit: No (9) Type 2 diabetes mellitus Status: Acute Current Visit: No (10) Hypertension Status: Chronic Current Visit: No History of Present Illness Chief complaint: Fall History of present illness: Ms. Cardenas is a 67 year old female with history of multiple medical problems including coronary artery disease, diabetes, hypertension, chronic pain syndrome , bipolar disorder, neurogenic bladder, hyperlipidemia, hypothyroidism who was admitted through the emergency room after a fall at home. She was unable to get up from the floor and remained on it for about 8 hours. Patient usually has a sitter during the daytime at home. Her sister did not come yesterday. She has been falling a lot recently. Patient was in the hospital last month and was transferred to swing bed unit from where she was discharged after less than 2 weeks secondary to her insistence. She has fallen several times since then. She denies any chest pain. She has shortness of breath. She also has chronic back pain. She denies any nausea or vomiting. She has been smoking off and on. Her daughter stays with her during the night and sitter is with her during the daytime. She is supposed to do in and out catheterization at least 4 times a day but is only doing it twice a day. Home Medications Medication Instructions Recorded Confirmed Type Pantoprazole Tab [Protonix Tab] 40 mg PO DAILY tablet 03/02/16 06/16/17 Rx OXcarbazepine [Trileptal] 300 mg PO BID #60 tablet 03/25/16 06/16/17 Rx Aspirin [Ecotrin] 325 mg PO DAILY 05/13/16 06/16/17 History Gabapentin 300 mg PO BID 05/13/16 06/16/17 History Fluoxetine HCl [Prozac] 80 mg PO DAILY 12/07/16 06/16/17 History Levothyroxine Tab [Synthroid Tab] 125 mcg PO DAILY 12/07/16 06/16/17 History Insulin NPH/Regular 70/30 [HumuLIN 12 unit SUBCUT BID 04/08/17 06/16/17 History 70/30] hydrALAZINE TAB [Apresoline Tab] 50 mg PO TID 04/08/17 06/16/17 History Albuterol/Ipratropium Neb [Duoneb] 3 ml RESP TX RT Q4H 04/27/17 06/16/17 Rx Atorvastatin [Lipitor] 10 mg PO BEDTIME 06/16/17 06/16/17 History Bisacodyl Tab [Dulcolax Tab] 10 mg PO DAILY PRN 06/16/17 06/16/17 History Docusate Sodium [Colace] 100 mg PO BID 06/16/17 06/16/17 History Furosemide 40 mg PO DAILY 06/16/17 06/16/17 History LORazepam [Lorazepam] 0.5 mg PO Q6HR PRN 06/16/17 06/16/17 History Polyethylene Glycol Powder 17 gm PO BID 06/16/17 06/16/17 History [Miralax] Allergies Allergy/AdvReac Type Severity Reaction Status Date / Time clarithromycin [From Biaxin] Allergy Severe THROAT Verified 12/08/16 06:28 SWELLING/DIFFICULTY BREATHING Penicillins Allergy Severe THROAT Verified 12/08/16 06:28 SWELLING/DIFFICULTY BREATHING pentazocine [From Talwin] Allergy Severe THROAT Verified 12/08/16 06:28 SWELLING/DIFFICULTY BREATHING Medical,Surgical,& Family Hx - Medical History Cardio: History of: Cerebrovascular Disease, CAD, Hypertension, [place], Cardiovascular Problems (cabg; 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) No history of: Pacemaker, PVD Psychological: History of: Anxiety Disorders, Bipolar Disorder, Depression, Psychiatric Problems No history of: Behavior Problems, Violent Behavior Neurology: History of: Cerebrovascular Accident (SEVERAL STROKES), Dementia, Migraine Endocrine: History of: Diabetes Mellitus (IDDM), Dyslipidemia, Thyroid Disorder Rheumatology: History of;: Gout, Rheumatoid Arthritis Respiratory: History of: Asthma, Bronchitis, COPD, Intubation, Pneumonia (2015 most recent.; Hx Pneum Vac) Renal: History of: Renal Failure (NO DIALYSIS), Renal Problems (CKD) Genitourinary: History of: Bladder Problem Gastrointestinal: History of: GERD Musculoskeletal: History of: Degenerative Disk Disease, Herniated Disk, Musculoskeletal Problems Hematology: History of: Anemia No history of: Blood Transfusion Reaction, Blood Disorders - Surgical History Cardiac Surgeries: Sugical HX of: Cardiac Catheterization (CABGx1-years ago), Cardiac Surgery (mitral valve replacement) Thoracic Surgeries: Patient denies;: Organ Transplant Reproductive Surgeries: Surgical HX of;: Gynecologic Surgery, Hysterectomy ( complete) Orthopedic Surgeries: Surgical HX of;: Orthopedic Surgery (RKS) Patient denies;: Spinal Surgery - Family History Family History: Reports;: Family Diabetes, Family Heart Disease (Father- [place], mother- [place]), Family Hypertension (FATHER), Family Psychiatric Problems ( BROTHERS X2 NERVOUS BREAKDOWN) Denies;: Family Anesthesia Reaction, Family Stroke - Social History Smoking Status: Current every day smoker Frequency of Alcohol Use: None Type of Drug Use: None Marital Status: Lives With:: Alone Functional capacity: uses cane/walker 12 point system: reviewed and no additional remarkable complaints except as stated (As mentioned in HPI) Exam - Constitutional Vitals: Period Temp Pulse Resp BP Sys/Meek Pulse Ox Last 24 Hr 98.1 F-102.9 F 78-100 18-20 134-186/56-98 93-97 Exam: Examination: GENERAL: NAD. HEENT: PERRLA. EOMI. Mucous membranes are moist. NECK: Neck is supple. No JVD. No carotid bruit. No thyromegaly. CVS: Regular rate and rhythm. S1 and S2 are normal. RESPIRATORY: Decreased air entry. Few rales at bases ABDOMEN: Soft and nontender. Bowel sounds are present. No hepatosplenomegaly. EXT: 1+ edema. Peripheral pulses are present. TSO: Patient is awake, alert and oriented to time place and person. Cranial nerves II through XII are grossly intact. Motor strength is 3/5 SKIN: Warm and dry. MSK: No obvious deformity. Results - Labs CBC & BMP: 06/15/17 23:04 06/15/17 23:04 Lab Results: I have reviewed the past 24 hour labs
[2017-06-16 11:34] LABS: Free T4 (Free Thyroxine) 0.56 NG/DL (0.76-1.46); Thyroid Stimulating Hormone 6.77 uIU/ml (0.358-3.74)
[2017-06-16] MEDS: INSULIN LISPRO 100 UNIT/ML SUBCUT SCH ×3 (13:25→21:05)
[2017-06-16] MEDS ORDERED: VANCOMYCIN INJ 1,250 MG in SODIUM CHLORIDE 0.9% 250 ML IV SCH (17:00)
[2017-06-16] MEDS: OXcarbazepine 300 MG TABLET PO SCH (21:05)
[2017-06-16] MEDS: GABAPENTIN 300 MG CAPSULE PO SCH (21:05)
[2017-06-16] MEDS: INSULIN NPH/REGULAR 70/30 100 UNIT/ML SUBCUT SCH (21:06)
[2017-06-16] MEDS: ATORVASTATIN 10 MG TABLET PO SCH (21:06)
[2017-06-17] MEDS: ALBUTEROL/IPRATROPIUM 3 ML NEB RESP TX SCH ×4 (03:12→18:51)
[2017-06-17] MEDS: ACETAMINOPHEN 325 MG TABLET PO PRN (06:46)
[2017-06-17 07:02] LABS: Basophils % 0.4 % (0.0-0.8); Hematocrit 30.9 VOL% (35.7-47.0); Hemoglobin 10.3 GM/DL (12.0-16.0); Immature Granulocytes % 1.1 %; Immature Granulocytes Absolute 0.12 #; Lymphocytes # 0.6 10*3/uL (1.4-4.0); Lymphocytes % 5.4 % (21.3-54.2); Mean Corpuscular HGB Conc 33.3 GM/DL (32-36); Mean Corpuscular Hemoglobin 30 PG (27-34); Mean Corpuscular Volume 90.9 FL (87-102); Mean Platelet Volume 11.2 FL (9.6-12.0); Monocytes # 0.6 10*3/uL (0.11-0.8); Monocytes % 5.2 % (1.7-12.7); Neutrophils % 87.9 % (38.7-73.9); White Blood Count 11.4 T/CUMM (4-12)
[2017-06-17 07:06] LABS: Platelet Count 177 T/CUMM (130-400)
[2017-06-17 07:18] LABS: Calcium 8.2 MG/DL (8.5-10.1); Osmolality,Calculated 295.4 MOS/KG (273-304); Potassium 3.2 MMOL/L (3.5-5.1)
[2017-06-17] MEDS ORDERED: POTASSIUM CHLORIDE 20 MEQ TABLET PO ONE (07:43)
--- NOTE | 2017-06-17 07:43 | Internal Med Progress Note ---
Assessment and Plan (1) Fall Status: Acute Assessment and plan: 67-year-old female admitted to acute care * Status post fall. Patient is having falls at home. She was evaluated in the emergency room. CT brain did not show any acute changes. Her falls are multifactorial and related to poor conditioning, chronic back pain and possible polypharmacy. * Urinary tract infection. Urine cultures is pending. She is on Levaquin every other day. She is running high grade fever. Will consult ID to help with the antibiotic choice especially in view of severe penicillin allergy * Chronic renal failure. We will start her back on IV fluids. She is slightly dry. Consult Dr. Ernesto Uriostegui * Hypertension. Blood pressure is stable * Hypothyroidism. Will check TSH on the patient * Bipolar disorder. Continue current treatment * Diabetes. Continue her insulin and keep her on a sliding scale * COPD. Patient has been a chronic smoker. Continue nebulizers * Replace potassium * CHF. Patient has history of CHF with preserved LV function. She will be continued on Lasix * Long discussion with patient and her daughter. Will consult PT and OT. * Patient has been a DNR. Current Visit: Yes (2) Chronic back pain Status: Acute Current Visit: Yes (3) UTI (urinary tract infection) Status: Acute Current Visit: Yes (4) Bipolar depression Status: Acute Current Visit: No (5) Chronic renal failure Status: Acute Current Visit: No (6) Congestive heart failure Status: Acute Current Visit: No (7) Hypothyroidism Status: Acute Current Visit: No (8) Neurogenic bladder Status: Acute Current Visit: No (9) Type 2 diabetes mellitus Status: Acute Current Visit: No (10) Hypertension Status: Chronic Current Visit: No Internal Medicine - PN: Subj Interval history: Patient denies any complaints. She has been running fever. She denies any chest pain or shortness of breath Exam (Progress Note) - Constitutional Vitals: Period Temp Pulse Resp BP Sys/Meek Pulse Ox Last 24 Hr 97.6 F-103.0 F 67-97 18-21 114-146/54-84 92-99 Exam: Examination: GENERAL: NAD. HEENT: PERRLA. EOMI. Mucous membranes are moist. NECK: Neck is supple. No JVD. No carotid bruit. No thyromegaly. CVS: Regular rate and rhythm. S1 and S2 are normal. RESPIRATORY: Decreased air entry. Few rales at bases ABDOMEN: Soft and nontender. EXT: 1+ edema. Peripheral pulses are present. LENGTH CONTROL TESTER: Confused at baseline. Motor strength 3-4/5 SKIN: Warm and dry. MSK: No obvious deformity. Results - Labs CBC & BMP: 06/17/17 06:23 06/17/17 06:23 Lab Results: I have reviewed the past 24 hour labs
[2017-06-17] MEDS: FLUoxetine 20 MG CAPSULE PO SCH (08:15)
[2017-06-17] MEDS: DOCUSATE SODIUM 100 MG CAPSULE PO SCH ×2 (08:16→20:04)
[2017-06-17] MEDS: LEVOTHYROXINE 125 MCG TABLET PO SCH (08:16)
[2017-06-17] MEDS: FUROSEMIDE 40 MG TABLET PO SCH (08:16)
[2017-06-17] MEDS: GABAPENTIN 300 MG CAPSULE PO SCH ×2 (08:16→20:41)
[2017-06-17] MEDS: PANTOPRAZOLE 40 MG TABLET PO SCH (08:16)
[2017-06-17] MEDS: INSULIN NPH/REGULAR 70/30 100 UNIT/ML SUBCUT SCH ×2 (08:17→20:39)
[2017-06-17] MEDS: OXcarbazepine 300 MG TABLET PO SCH ×2 (08:17→20:04)
[2017-06-17] MEDS: ASPIRIN EC 325 MG TABLET PO SCH (08:17)
[2017-06-17] MEDS: SODIUM CHLORIDE 0.9% 1,000 ML IV SCH ×2 (08:17→21:01)
[2017-06-17] MEDS: INSULIN LISPRO 100 UNIT/ML SUBCUT SCH ×4 (08:18→20:40)
--- NOTE | 2017-06-17 09:15 | XRay Report ---
Portable chest Date: 06/17/2017 Clinical history: Shortness of breath Comparison: 06/15/2017 Technique: Portable AP sitting chest Findings: The heart is minimally enlarged with prior median sternotomy. Chronic scarring in the lungs with minimally progressive parenchymal findings the right mid-lower lung zone and at the left lung base. Stable mediastinum and osseous structures. Impression: Chronic scarring in patient with prior median sternotomy. Minimally progressive atelectasis/infiltration in the right mid to lower lung zone and at the left lung base. PROCEDURE INTERPRETED AT [facility] [place] DEPARTMENT OF RADIOLOGY Final Report Signed by: Dr. Trina Murillo
--- NOTE | 2017-06-17 11:18 | Nephrology Consult Note ---
History of Present Illness Chief complaint: ARF on CRF History of present illness: Ms. Cardenas is a 67 year old female admitted after having a fall at home. She was unable to get up for 8-10 hours. She has reportedly had multiple falls at home recently. CT scan showed no CVA or head injury. She has multiple chronic medical problems including chronic renal failure. Baseline creatinine is in the upper twos. He was noted to be higher on this admission. She denies any symptoms of volume overload. She denies dysuria but has pyuria. She has had low-grade fever. Home Medications Medication Instructions Recorded Confirmed Type Pantoprazole Tab [Protonix Tab] 40 mg PO DAILY tablet 03/02/16 06/16/17 Rx OXcarbazepine [Trileptal] 300 mg PO BID #60 tablet 03/25/16 06/16/17 Rx Aspirin [Ecotrin] 325 mg PO DAILY 05/13/16 06/16/17 History Gabapentin 300 mg PO BID 05/13/16 06/16/17 History Fluoxetine HCl [Prozac] 80 mg PO DAILY 12/07/16 06/16/17 History Levothyroxine Tab [Synthroid Tab] 125 mcg PO DAILY 12/07/16 06/16/17 History Insulin NPH/Regular 70/30 [HumuLIN 12 unit SUBCUT BID 04/08/17 06/16/17 History 70/30] hydrALAZINE TAB [Apresoline Tab] 50 mg PO TID 04/08/17 06/16/17 History Albuterol/Ipratropium Neb [Duoneb] 3 ml RESP TX RT Q4H 04/27/17 06/16/17 Rx Atorvastatin [Lipitor] 10 mg PO BEDTIME 06/16/17 06/16/17 History Bisacodyl Tab [Dulcolax Tab] 10 mg PO DAILY PRN 06/16/17 06/16/17 History Docusate Sodium [Colace] 100 mg PO BID 06/16/17 06/16/17 History Furosemide 40 mg PO DAILY 06/16/17 06/16/17 History LORazepam [Lorazepam] 0.5 mg PO Q6HR PRN 06/16/17 06/16/17 History Polyethylene Glycol Powder 17 gm PO BID 06/16/17 06/16/17 History [Miralax] Allergies Allergy/AdvReac Type Severity Reaction Status Date / Time clarithromycin [From Biaxin] Allergy Severe THROAT Verified 12/08/16 06:28 SWELLING/DIFFICULTY BREATHING Penicillins Allergy Severe THROAT Verified 12/08/16 06:28 SWELLING/DIFFICULTY BREATHING pentazocine [From Talwin] Allergy Severe THROAT Verified 12/08/16 06:28 SWELLING/DIFFICULTY BREATHING Medical,Surgical,& Family Hx - Medical History Cardio: History of: Cerebrovascular Disease, CAD, Hypertension, [place], Cardiovascular Problems (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; 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) No history of: Pacemaker, PVD Psychological: History of: Anxiety Disorders, Bipolar Disorder, Depression, Psychiatric Problems No history of: Behavior Problems, Violent Behavior Neurology: History of: Cerebrovascular Accident (SEVERAL STROKES), Dementia, Migraine Endocrine: History of: Diabetes Mellitus (IDDM), Dyslipidemia, Thyroid Disorder Rheumatology: History of;: Gout, Rheumatoid Arthritis Respiratory: History of: Asthma, Bronchitis, COPD, Intubation, Pneumonia (2015 most recent.; Hx Pneum Vac) Renal: History of: Renal Failure (NO DIALYSIS), Renal Problems (CKD) Genitourinary: History of: Bladder Problem Gastrointestinal: History of: GERD Musculoskeletal: History of: Degenerative Disk Disease, Herniated Disk, Musculoskeletal Problems Hematology: History of: Anemia No history of: Blood Transfusion Reaction, Blood Disorders - Surgical History Cardiac Surgeries: Sugical HX of: Cardiac Catheterization (CABGx1-years ago), Cardiac Surgery (mitral valve replacement) Thoracic Surgeries: Patient denies;: Organ Transplant Reproductive Surgeries: Surgical HX of;: Gynecologic Surgery, Hysterectomy ( complete) Orthopedic Surgeries: Surgical HX of;: Orthopedic Surgery (RKS) Patient denies;: Spinal Surgery - Family History Family History: Reports;: Family Diabetes, Family Heart Disease (Father- [place], mother- [place]), Family Hypertension (FATHER), Family Psychiatric Problems ( BROTHERS X2 NERVOUS BREAKDOWN) Denies;: Family Anesthesia Reaction, Family Stroke - Social History Smoking Status: Current every day smoker Frequency of Alcohol Use: None Type of Drug Use: None Review of Systems 12 point system: reviewed and no additional remarkable complaints except as stated Exam - Vital Signs Vital signs: Period Temp Pulse Resp BP Sys/Meek Pulse Ox Last 24 Hr 97.6 F-103.0 F 67-97 18-21 114-146/54-84 92-99 Exam: Gen.: Alert but mildly confused ENT: Pupils equal round reactive to light. EOMs intact. Neck: Supple. No JVD or bruit. Cardiovascular: Regular rate and rhythm. No murmur rub or gallop Lungs: Clear Abdomen: Soft. Nontender. Positive bowel sounds. No organomegaly Extremities: No edema Results - Labs CBC & BMP: 06/17/17 06:23 06/17/17 06:23 Assessment and Plan (1) Renal failure (ARF), acute on chronic Status: Acute Assessment and plan: 67-year-old woman with: * Chronic renal failure late stage III * Acute on chronic renal failure. This is secondary to volume depletion and UTI. Both are being treated appropriately * Neurogenic bladder. She has not been doing in and out catheterizations as often as directed * UTI * Diabetes mellitus * Hypertension * COPD * Hypothyroidism * Hypertension Current Visit: No (2) Chronic renal failure Status: Acute Current Visit: No (3) Chronic back pain Status: Acute Current Visit: Yes (4) Fall Status: Acute Current Visit: Yes (5) UTI (urinary tract infection) Status: Acute Current Visit: Yes (6) Bipolar disorder Status: Acute Current Visit: No (7) Diabetes mellitus Status: Acute Current Visit: No (8) Hypertension Status: Acute Current Visit: No (9) Neurogenic bladder Status: Acute Current Visit: No (10) UTI (urinary tract infection) Status: Acute Current Visit: No
[2017-06-17] MEDS: MEROPENEM 500 MG in SODIUM CHLORIDE 0.9% 50 ML IV SCH (16:18)
--- NOTE | 2017-06-17 16:35 | Infectious Disease Consult ---
Assessment and Plan (1) Fever Status: Acute Assessment and plan: Patient has quite a high fever almost continuous since admission. She has evidence of urinary tract infection and it is possible given her lethargic she is, that she may be bacteremic as well. Patient appears very ill, septic. Recommendations: 1. Discontinue levofloxacin 2. Start meropenem, renally dosed at 1 g IV every 12 hours. Patient has history of penicillin allergy but because she tells me she has tolerated Keflex in the past, I do not expect that have a problem with meropenem. Will monitor closely. 3. Can continue vancomycin 4. Follow-up cultures and adjust antibiotics accordingly Thank you very much for the consult. Will follow. Current Visit: Yes (2) UTI (urinary tract infection) Status: Acute Assessment and plan: Evidence of ESBL Klebsiella UTI. The organism is resistant to levofloxacin. Patient being switched from levofloxacin to meropenem. Current Visit: Yes (3) Chronic renal failure Status: Acute Current Visit: No (4) Diabetes mellitus Status: Acute Current Visit: No (5) Hypertension Status: Acute Current Visit: No History of Present Illness Chief complaint: Fever History of present illness: History obtained mainly from review of the records as the patient was quite lethargic and unable to provide many details. Ms. Cardenas is a 67 year old female with multiple comorbid who came into the hospital because of a fall. Since coming and she has been having repeated high fevers to more than 103. She had evidence of urinary tract infection and was started on levofloxacin. Vancomycin empirically is also being given. She was continued to be quite high more than 103 this morning. I am asked to assist with management. a flow patient has had documentation of penicillin allergy which she said it caused swelling of her throat however she tells me that she has taken Keflex in the past without any difficulties. Home Medications Medication Instructions Recorded Confirmed Type Pantoprazole Tab [Protonix Tab] 40 mg PO DAILY tablet 03/02/16 06/16/17 Rx OXcarbazepine [Trileptal] 300 mg PO BID #60 tablet 03/25/16 06/16/17 Rx Aspirin [Ecotrin] 325 mg PO DAILY 05/13/16 06/16/17 History Gabapentin 300 mg PO BID 05/13/16 06/16/17 History Fluoxetine HCl [Prozac] 80 mg PO DAILY 12/07/16 06/16/17 History Levothyroxine Tab [Synthroid Tab] 125 mcg PO DAILY 12/07/16 06/16/17 History Insulin NPH/Regular 70/30 [HumuLIN 12 unit SUBCUT BID 04/08/17 06/16/17 History 70/30] hydrALAZINE TAB [Apresoline Tab] 50 mg PO TID 04/08/17 06/16/17 History Albuterol/Ipratropium Neb [Duoneb] 3 ml RESP TX RT Q4H 04/27/17 06/16/17 Rx Atorvastatin [Lipitor] 10 mg PO BEDTIME 06/16/17 06/16/17 History Bisacodyl Tab [Dulcolax Tab] 10 mg PO DAILY PRN 06/16/17 06/16/17 History Docusate Sodium [Colace] 100 mg PO BID 06/16/17 06/16/17 History Furosemide 40 mg PO DAILY 06/16/17 06/16/17 History LORazepam [Lorazepam] 0.5 mg PO Q6HR PRN 06/16/17 06/16/17 History Polyethylene Glycol Powder 17 gm PO BID 06/16/17 06/16/17 History [Miralax] Allergies Allergy/AdvReac Type Severity Reaction Status Date / Time clarithromycin [From Biaxin] Allergy Severe THROAT Verified 12/08/16 06:28 SWELLING/DIFFICULTY BREATHING Penicillins Allergy Severe THROAT Verified 12/08/16 06:28 SWELLING/DIFFICULTY BREATHING pentazocine [From Talwin] Allergy Severe THROAT Verified 12/08/16 06:28 SWELLING/DIFFICULTY BREATHING ROS unobtainable: due to mental status Medical,Surgical,& Family Hx - Medical History Cardio: History of: Cerebrovascular Disease, CAD, Hypertension, [place], Cardiovascular Problems (cabg; 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) No history of: Pacemaker, PVD Psychological: History of: Anxiety Disorders, Bipolar Disorder, Depression, Psychiatric Problems No history of: Behavior Problems, Violent Behavior Neurology: History of: Cerebrovascular Accident (SEVERAL STROKES), Dementia, Migraine Endocrine: History of: Diabetes Mellitus (IDDM), Dyslipidemia, Thyroid Disorder Rheumatology: History of;: Gout, Rheumatoid Arthritis Respiratory: History of: Asthma, Bronchitis, COPD, Intubation, Pneumonia (2015 most recent.; Hx Pneum Vac) Renal: History of: Renal Failure (NO DIALYSIS), Renal Problems (CKD) Genitourinary: History of: Bladder Problem Gastrointestinal: History of: GERD Musculoskeletal: History of: Degenerative Disk Disease, Herniated Disk, Musculoskeletal Problems Hematology: History of: Anemia No history of: Blood Transfusion Reaction, Blood Disorders - Surgical History Cardiac Surgeries: Sugical HX of: Cardiac Catheterization (CABGx1-years ago), Cardiac Surgery (mitral valve replacement) Thoracic Surgeries: Patient denies;: Organ Transplant Reproductive Surgeries: Surgical HX of;: Gynecologic Surgery, Hysterectomy ( complete) Orthopedic Surgeries: Surgical HX of;: Orthopedic Surgery (RKS) Patient denies;: Spinal Surgery - Family History Family History: Reports;: Family Diabetes, Family Heart Disease (Father- [place], mother- [place]), Family Hypertension (FATHER), Family Psychiatric Problems ( BROTHERS X2 NERVOUS BREAKDOWN) Denies;: Family Anesthesia Reaction, Family Stroke - Social History Smoking Status: Current every day smoker Frequency of Alcohol Use: None Type of Drug Use: None Infectious Disease Exam H&P - Constitutional Vitals: Vital Signs Temp Pulse Resp BP Pulse Ox 98.0 F 89 20 120/68 99 06/17/17 11:32 06/17/17 13:05 06/17/17 13:05 06/17/17 11:32 06/17/17 13:05 Intake and Output 06/17/17 06/17/17 06/17/17 07:59 15:59 23:59 Intake Total 400 / 400 Output Total 500 / 500 Balance -100 / -100 Intake: Oral 400 / 400 Output: Urine 250 / 250 Post Void Residual Amount 250 / 250 Straight 250 / 250 Other: Voiding Method In and Out Catheter # Bowel Movements 0 Weight 81.675 kg Patient Weight 06/17/17 23:59 Weight 81.675 kg Exam: General: Patient quite ill looking, lethargic HEENT: Mucous membranes pink and moist, anicteric acyanotic, ROBERTO CARLOS, no oropharyngeal exudates but mouth is very dry Neck: Supple, no thyroid gland enlargement Respiratory system: Breath sounds vesicular, no crepitations or wheezes Cardiovascular: Normal S1 and S2, no murmurs appreciated Abdomen: Normal bowel sounds, soft nontender throughout, no organomegaly or mass Genitourinary: No suprapubic pain or bladder distention, no CVA tenderness Extremities: no edema Skin: No rash Reports - Labs CBC & BMP: 06/17/17 06:23 06/17/17 06:23 Labs: Laboratory Results - last 24 hr 06/16/17 06/16/17 06/17/17 16:20 19:54 06:23 WBC 11.4 RBC 3.40 L Hgb 10.3 L Hct 30.9 L MCV 90.9 MCH 30 MCHC 33.3 RDW 16.0 Plt Count 177 D MPV 11.2 Neut % (Auto) 87.9 H Lymph % (Auto) 5.4 L [place] % (Auto) 5.2 Eos % (Auto) 0.0 Baso % (Auto) 0.4 Neut # (Auto) 10.0 H Lymph # (Auto) 0.6 L [place] # (Auto) 0.6 Eos # (Auto) 0.0 Baso # (Auto) 0.0 Immature Gran % 1.1 Nucleated RBC % 0.0 Immature Gran # 0.12 Nucleated RBCs # 0.00 Immature Plt Fraction 0.0 Sodium Potassium Chloride Carbon Dioxide Anion Gap BUN Creatinine GFR Calculation BUN/Creatinine Ratio Glucose POC Glucose 176 H 204 H Calculated Osmolality Calcium 06/17/17 06/17/17 06/17/17 06:23 07:09 11:06 WBC RBC Hgb Hct MCV MCH MCHC RDW Plt Count MPV Neut % (Auto) Lymph % (Auto) [place] % (Auto) Eos % (Auto) Baso % (Auto) Neut # (Auto) Lymph # (Auto) [place] # (Auto) Eos # (Auto) Baso # (Auto) Immature Gran % Nucleated RBC % Immature Gran # Nucleated RBCs # Immature Plt Fraction Sodium 140 Potassium 3.2 L Chloride 111 H Carbon Dioxide 16 L Anion Gap 16.2 H BUN 56 H Creatinine 3.60 H GFR Calculation 13 BUN/Creatinine Ratio 15.00 Glucose 125 H POC Glucose 145 H 100 Calculated Osmolality 295.4 Calcium 8.2 L 06/17/17 16:05 WBC RBC Hgb Hct MCV MCH MCHC RDW Plt Count MPV Neut % (Auto) Lymph % (Auto) [place] % (Auto) Eos % (Auto) Baso % (Auto) Neut # (Auto) Lymph # (Auto) [place] # (Auto) Eos # (Auto) Baso # (Auto) Immature Gran % Nucleated RBC % Immature Gran # Nucleated RBCs # Immature Plt Fraction Sodium Potassium Chloride Carbon Dioxide Anion Gap BUN Creatinine GFR Calculation BUN/Creatinine Ratio Glucose POC Glucose 128 H Calculated Osmolality Calcium - Reports Microbiology: Microbiology 06/15/17 Unknown Urine Culture - Final Urine,Voided Klebsiella pneumoniae ESBL 06/15/17 23:04 Blood Culture - Preliminary Blood No growth at 1 day - Diagnostic Findings Procedure: Chest x-ray: image reviewed by me, report reviewed by me (No definite consolidation but increased interstitial markings)
[2017-06-17] MEDS: ATORVASTATIN 10 MG TABLET PO SCH (20:04)
[2017-06-18] MEDS: ALBUTEROL/IPRATROPIUM 3 ML NEB RESP TX SCH ×4 (00:14→19:41)
[2017-06-18] MEDS: MEROPENEM 500 MG in SODIUM CHLORIDE 0.9% 50 ML IV SCH ×2 (03:22→15:16)
[2017-06-18 06:44] LABS: Basophils # 0.1 10*3/uL (0.0-0.2); Basophils % 0.7 % (0.0-0.8); Eosinophils % 0.3 % (0.00-10.9); Hematocrit 27.8 VOL% (35.7-47.0); Hemoglobin 9.1 GM/DL (12.0-16.0); Immature Granulocytes % 1.1 %; Immature Granulocytes Absolute 0.08 #; Lymphocytes # 0.5 10*3/uL (1.4-4.0); Lymphocytes % 7.2 % (21.3-54.2); Mean Corpuscular HGB Conc 32.7 GM/DL (32-36); Mean Corpuscular Hemoglobin 30 PG (27-34); Mean Corpuscular Volume 92.1 FL (87-102); Mean Platelet Volume 11.8 FL (9.6-12.0); Monocytes # 0.7 10*3/uL (0.11-0.8); Monocytes % 8.8 % (1.7-12.7); Neutrophils % 81.9 % (38.7-73.9); Platelet Count 166 T/CUMM (130-400); Red Blood Count 3.02 MC/CUMM (3.8-5.5); White Blood Count 7.4 T/CUMM (4-12)
[2017-06-18 07:08] LABS: Osmolality,Calculated 287.7 MOS/KG (273-304); Potassium 3.4 MMOL/L (3.5-5.1)
[2017-06-18] MEDS: FUROSEMIDE 40 MG TABLET PO SCH (08:48)
[2017-06-18] MEDS: ASPIRIN EC 325 MG TABLET PO SCH (08:48)
[2017-06-18] MEDS: GABAPENTIN 300 MG CAPSULE PO SCH ×2 (08:48→20:25)
[2017-06-18] MEDS: PANTOPRAZOLE 40 MG TABLET PO SCH (08:48)
[2017-06-18] MEDS: OXcarbazepine 300 MG TABLET PO SCH ×2 (08:48→20:25)
[2017-06-18] MEDS: INSULIN LISPRO 100 UNIT/ML SUBCUT SCH ×4 (08:48→20:25)
[2017-06-18] MEDS: FLUoxetine 20 MG CAPSULE PO SCH (08:48)
[2017-06-18] MEDS: DOCUSATE SODIUM 100 MG CAPSULE PO SCH ×2 (08:48→20:25)
[2017-06-18] MEDS: INSULIN NPH/REGULAR 70/30 100 UNIT/ML SUBCUT SCH ×2 (08:49→20:26)
[2017-06-18] MEDS: LEVOTHYROXINE 125 MCG TABLET PO SCH (08:49)
--- NOTE | 2017-06-18 08:55 | Internal Med Progress Note ---
Assessment and Plan (1) Fall Status: Acute Assessment and plan: 67-year-old female admitted to acute care * Urinary tract infection. Patient had Klebsiella pneumonia ESBL. Her antibiotics were changed by Dr. Corey. Her blood cultures are negative so far. Her temperature curve is coming down * Chronic renal failure. About her baseline * Hypertension. Blood pressure is stable * Hypothyroidism. Will adjust her medication * Bipolar disorder. Continue current treatment * Diabetes. Continue her insulin and keep her on a sliding scale * COPD. Continue nebulizer * Replace potassium * CHF. Appears to be compensated * Will consult social worker school for possible swing bed when she is better. * Patient has been a DNR. Current Visit: Yes (2) Chronic back pain Status: Acute Current Visit: Yes (3) UTI (urinary tract infection) Status: Acute Current Visit: Yes (4) Bipolar depression Status: Acute Current Visit: No (5) Chronic renal failure Status: Acute Current Visit: No (6) Congestive heart failure Status: Acute Current Visit: No (7) Hypothyroidism Status: Acute Current Visit: No (8) Neurogenic bladder Status: Acute Current Visit: No (9) Type 2 diabetes mellitus Status: Acute Current Visit: No (10) Hypertension Status: Chronic Current Visit: No Internal Medicine - PN: Subj Interval history: Patient is feeling better today. She has some hoarseness. He denies any chest pain. She denies any nausea or vomiting. Exam (Progress Note) - Constitutional Vitals: Period Temp Pulse Resp BP Sys/Meek Pulse Ox Last 24 Hr 96.1 F-100.3 F 81-94 20-20 112-128/51-70 94-99 Exam: Examination: GENERAL: NAD. HEENT: Oral candidiasis NECK: Neck is supple. CVS: Regular rate and rhythm. S1 and S2 are normal. RESPIRATORY: Decreased air entry. Few rales at bases ABDOMEN: Soft and nontender. EXT: 1+ edema. 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 Motor strength 3-4/5 SKIN: Warm and dry. MSK: No obvious deformity. Results - Labs CBC & BMP: 06/18/17 05:40 06/18/17 05:40 Lab Results: I have reviewed the past 24 hour labs
[2017-06-18] MEDS: SODIUM CHLORIDE 0.9% 1,000 ML IV SCH (10:21)
--- NOTE | 2017-06-18 10:49 | Nephrology Progress Note ---
Nephrology - PN: Subj Interval history: She denies shortness of breath. No GI symptoms Exam (PN)-Nephrology - Vital Signs Vital signs: Period Temp Pulse Resp BP Sys/Meek Pulse Ox Last 24 Hr 96.1 F-100.3 F 81-94 15-20 112-128/51-70 94-99 Exam: ENT: Normal Cardiovascular: Regular rate and rhythm. No murmur rub or gallop Lungs: Clear Extremities: No edema - Lab 06/18/17 05:40 06/18/17 05:40 Most recent lab results Calcium 8.0 MG/DL (8.5-10.1) L 06/18/17 05:40 Assessment and Plan (1) Renal failure (ARF), acute on chronic Status: Acute Assessment and plan: 67-year-old woman with: * Chronic renal failure late stage III * Acute on chronic renal failure. This is secondary to volume depletion and UTI. Both are being treated appropriately. Renal function is improving * Neurogenic bladder. Continue in and out cath * UTI * Diabetes mellitus * Hypertension * COPD * Hypothyroidism * Hypertension Current Visit: No (2) Chronic renal failure Status: Acute Current Visit: No (3) Chronic back pain Status: Acute Current Visit: Yes (4) Fall Status: Acute Current Visit: Yes (5) UTI (urinary tract infection) Status: Acute Current Visit: Yes (6) Bipolar disorder Status: Acute Current Visit: No (7) Diabetes mellitus Status: Acute Current Visit: No (8) Hypertension Status: Acute Current Visit: No (9) Neurogenic bladder Status: Acute Current Visit: No (10) UTI (urinary tract infection) Status: Acute Current Visit: No
--- NOTE | 2017-06-18 12:30 | Infectious Disease Progress ---
Assessment and Plan (1) Fever Status: Acute Assessment and plan: Patient had quite a high fever but seems better today. She has evidence of urinary tract infection due to ESBL Klebsiella. No evidence of associated septicemia. Recommendations: 1. Continue meropenem 2. If blood cultures remain negative tomorrow, discontinue vancomycin Current Visit: Yes (2) UTI (urinary tract infection) Status: Acute Assessment and plan: Evidence of ESBL Klebsiella UTI. Continue meropenem. Current Visit: Yes (3) Chronic renal failure Status: Acute Current Visit: No (4) Diabetes mellitus Status: Acute Current Visit: No (5) Hypertension Status: Acute Current Visit: No Infectious Disease - PN: Subj Interval history: Fever. T-max 100.3. Patient reports she is feeling better today. Tolerated meropenem without allergic reaction. Infectious Disease Exam (PN) - Constitutional Vitals: Temp Pulse Resp BP Pulse Ox 97.8 F 92 H 20 120/64 96 06/18/17 11:42 06/18/17 11:42 06/18/17 11:42 06/18/17 11:42 06/18/17 11:42 Exam: General appearance: Less ill looking than yesterday, more alert and interactive - Eye Eye exam: Present: EOMI. no icterus Pupils: Present: ROBERTO CARLOS - ENT ENT exam: no oropharyhgeal exudates - Respiratory Respiratory exam: vesicular BS, no crepitations or wheezes - Cardiovascular Cardiovascular exam: regular rate and rhythm, no murmurs - GI/Abdominal GI/Abdominal exam: normal bowel sounds, soft, non-tender, no organomegaly or mass - Extremities Exam Extremities exam: no edema - Skin Skin exam: no rash Results - Labs CBC & BMP: 06/18/17 05:40 06/18/17 05:40 Lab Results: I have reviewed the past 24 hour labs
[2017-06-18] MEDS ORDERED: VANCOMYCIN INJ 1,250 MG in SODIUM CHLORIDE 0.9% 250 ML IV ONE (15:30)
[2017-06-18] MEDS ORDERED: VANCOMYCIN INJ 1,250 MG in SODIUM CHLORIDE 0.9% 250 ML IV PRN (17:00)
[2017-06-18] MEDS: ATORVASTATIN 10 MG TABLET PO SCH (20:25)
[2017-06-18] MEDS: NYSTATIN 500,000 UNIT/5 ML UDCUP SWISH/SWAL SCH (20:25)
[2017-06-19] MEDS: ALBUTEROL/IPRATROPIUM 3 ML NEB RESP TX SCH ×4 (01:56→19:14)
[2017-06-19] MEDS: SODIUM CHLORIDE 0.9% 1,000 ML IV SCH ×2 (03:11→16:04)
[2017-06-19] MEDS: MEROPENEM 500 MG in SODIUM CHLORIDE 0.9% 50 ML IV SCH ×2 (03:11→14:33)
--- NOTE | 2017-06-19 07:06 | Family Practice Progress Note ---
Family Practice - PN: Subj Interval history: Patient states she is feeling some better this morning I note that her temperature is down. She is on meropenem now for her Klebsiella pneumoniae UTI. Patient states she does not have any trouble with the antibiotic. Exam (Progress Note) - Constitutional Vitals: Period Temp Pulse Resp BP Sys/Meek Pulse Ox Last 24 Hr 96.1 F-99.3 F 82-96 15-20 119-163/56-82 95-100 Exam: Objective well-developed white female no acute distress. She is able to give good history. Cardiovascular: Heart rate is regular without murmurs or gallops. Respiratory: Lungs clear to auscultation bilaterally. Abdomen: Bowel sounds are present in the abdomen soft and nontender. Results - Labs CBC & BMP: 06/18/17 05:40 06/18/17 05:40 Lab Results: I have reviewed the past 24 hour labs Assessment and Plan (1) Urinary tract infection Status: Acute Assessment and plan: 06/19/2017: Patient is on appropriate antibiotics for her Klebsiella pneumonia UTI. I do note she had one positive blood culture. Current Visit: No
[2017-06-19] MEDS: INSULIN LISPRO 100 UNIT/ML SUBCUT SCH ×4 (07:38→20:26)
[2017-06-19] MEDS: OXcarbazepine 300 MG TABLET PO SCH ×2 (08:44→20:27)
[2017-06-19] MEDS: FUROSEMIDE 40 MG TABLET PO SCH (08:44)
[2017-06-19] MEDS: LEVOTHYROXINE 125 MCG TABLET PO SCH (08:44)
[2017-06-19] MEDS: FLUoxetine 20 MG CAPSULE PO SCH (08:44)
[2017-06-19] MEDS: PANTOPRAZOLE 40 MG TABLET PO SCH (08:44)
[2017-06-19] MEDS: DOCUSATE SODIUM 100 MG CAPSULE PO SCH ×2 (08:44→20:27)
[2017-06-19] MEDS: ASPIRIN EC 325 MG TABLET PO SCH (08:45)
[2017-06-19] MEDS: NYSTATIN 500,000 UNIT/5 ML UDCUP SWISH/SWAL SCH ×4 (08:45→20:27)
[2017-06-19] MEDS: GABAPENTIN 300 MG CAPSULE PO SCH ×2 (08:45→20:27)
[2017-06-19] MEDS: INSULIN NPH/REGULAR 70/30 100 UNIT/ML SUBCUT SCH ×2 (08:45→20:26)
--- NOTE | 2017-06-19 14:25 | Nephrology Progress Note ---
Nephrology - PN: Subj Interval history: Patient is resting comfortably no acute changes. No shortness of breath or chest pain. Last serum creatinine was noted be 3.5. Plan for BMP in the morning. Exam (PN)-Nephrology - Vital Signs Vital signs: Period Temp Pulse Resp BP Sys/Meek Pulse Ox Last 24 Hr 97.5 F-99.3 F 75-96 16-20 135-163/54-82 94-100 - General Appearance General appearance: well-developed, well-nourished EENT: ATNC Neck: supple Respiratory: clear Cardiology: regular rate, regular rhythm Gastrointestinal: normoactive bowel sounds, no tenderness Neurologic: alert and oriented x3 Musculoskeletal: no clubbing Psychiatric: mood/affect appropriate - Lab 06/18/17 05:40 06/18/17 05:40 Most recent lab results Calcium 8.0 MG/DL (8.5-10.1) L 06/18/17 05:40 Assessment and Plan (1) Coronary artery disease Status: Chronic Current Visit: No (2) Type 2 diabetes mellitus Status: Chronic Current Visit: No (3) Chronic kidney disease, stage III (moderate) Status: Chronic Assessment and plan: BMP in a.m. Avoid nephrotoxic agents. No NSAIDs. Current Visit: No
[2017-06-19] MEDS: ATORVASTATIN 10 MG TABLET PO SCH (20:27)
[2017-06-20] MEDS: ALBUTEROL/IPRATROPIUM 3 ML NEB RESP TX SCH ×4 (00:28→19:03)
[2017-06-20] MEDS: MEROPENEM 500 MG in SODIUM CHLORIDE 0.9% 50 ML IV SCH ×2 (03:09→16:30)
[2017-06-20] MEDS: INSULIN LISPRO 100 UNIT/ML SUBCUT SCH ×4 (07:11→21:56)
[2017-06-20 07:19] LABS: Osmolality,Calculated 296.8 MOS/KG (273-304); Potassium 3.2 MMOL/L (3.5-5.1)
[2017-06-20] MEDS ORDERED: MAGNESIUM HYDROXIDE SUSP 30 ML UDCUP PO PRN (07:21)
--- NOTE | 2017-06-20 07:54 | Family Practice Progress Note ---
Family Practice - PN: Subj Interval history: Patient states she is feeling fairly well this morning and seems to be voiding fairly frequently. She denies any dysuria this morning. Her creatinine was down a little bit from yesterday. She denies any abdominal pain, nausea or vomiting. Exam (Progress Note) - Constitutional Vitals: Period Temp Pulse Resp BP Sys/Meek Pulse Ox Last 24 Hr 97.5 F-98.6 F 75-91 16-20 135-159/52-98 94-99 Exam: Objective well-developed white female no acute distress. She is able to give good history. Cardiovascular: Heart rate is regular without murmurs or gallops. Respiratory: Lungs clear to auscultation bilaterally. Abdomen: Bowel sounds are present in the abdomen soft and nontender. Results - Labs CBC & BMP: 06/18/17 05:40 06/20/17 04:43 Lab Results: I have reviewed the past 24 hour labs Assessment and Plan (1) Urinary tract infection Status: Acute Assessment and plan: 06/19/2017: Patient is on appropriate antibiotics for her Klebsiella pneumonia UTI. I do note she had one positive blood culture. 06/20/2017: Patient's condition certainly seems to have stabilized with alteration of her antibiotic regimen. Current Visit: No
[2017-06-20] MEDS: INSULIN NPH/REGULAR 70/30 100 UNIT/ML SUBCUT SCH ×2 (08:48→20:22)
[2017-06-20] MEDS: FUROSEMIDE 40 MG TABLET PO SCH (09:26)
[2017-06-20] MEDS: FLUoxetine 20 MG CAPSULE PO SCH (09:26)
[2017-06-20] MEDS: SODIUM CHLORIDE 0.9% 1,000 ML IV SCH ×2 (09:27→22:59)
[2017-06-20] MEDS: GABAPENTIN 300 MG CAPSULE PO SCH ×2 (09:27→20:22)
[2017-06-20] MEDS: PANTOPRAZOLE 40 MG TABLET PO SCH (09:27)
[2017-06-20] MEDS: DOCUSATE SODIUM 100 MG CAPSULE PO SCH ×2 (09:27→20:22)
[2017-06-20] MEDS: ASPIRIN EC 325 MG TABLET PO SCH (09:27)
[2017-06-20] MEDS: OXcarbazepine 300 MG TABLET PO SCH ×2 (09:27→20:22)
[2017-06-20] MEDS: LEVOTHYROXINE 125 MCG TABLET PO SCH (09:27)
[2017-06-20] MEDS: NYSTATIN 500,000 UNIT/5 ML UDCUP SWISH/SWAL SCH ×4 (09:27→20:23)
--- NOTE | 2017-06-20 11:41 | Nephrology Progress Note ---
Nephrology - PN: Subj Interval history: Patient is resting comfortably no acute changes. No shortness of breath or chest pain. Last serum creatinine was noted be 3.5. Plan for BMP in the morning. 06/20/2017. Patient is resting comfortably no acute changes. Serum creatinine is 3.2 which is slightly better. She voices no complaints will continue current management. Exam (PN)-Nephrology - Vital Signs Vital signs: Period Temp Pulse Resp BP Sys/Meek Pulse Ox Last 24 Hr 97.5 F-98.6 F 75-91 16-20 142-159/52-98 95-99 - General Appearance General appearance: well-developed, well-nourished EENT: ATNC Neck: supple Respiratory: clear Cardiology: no edema, regular rate, regular rhythm Gastrointestinal: normoactive bowel sounds, no tenderness Neurologic: no focal deficit, alert and oriented x3 Musculoskeletal: no clubbing Psychiatric: mood/affect appropriate, cooperative - Lab 06/18/17 05:40 06/20/17 04:43 Most recent lab results Calcium 8.0 MG/DL (8.5-10.1) L 06/20/17 04:43 Assessment and Plan (1) Coronary artery disease Status: Chronic Current Visit: No (2) Type 2 diabetes mellitus Status: Chronic Current Visit: No (3) Chronic kidney disease, stage III (moderate) Status: Chronic Assessment and plan: Avoid nephrotoxic agents. No NSAIDs. Current Visit: No
[2017-06-20] MEDS ORDERED: VANCOMYCIN INJ 1,250 MG in SODIUM CHLORIDE 0.9% 250 ML IV ONE (14:00)
[2017-06-20] MEDS: ATORVASTATIN 10 MG TABLET PO SCH (20:22)
[2017-06-21] MEDS: ALBUTEROL/IPRATROPIUM 3 ML NEB RESP TX SCH ×4 (00:20→19:33)
[2017-06-21] MEDS: MEROPENEM 500 MG in SODIUM CHLORIDE 0.9% 50 ML IV SCH (03:21)
[2017-06-21] MEDS: INSULIN LISPRO 100 UNIT/ML SUBCUT SCH ×4 (08:19→21:35)
[2017-06-21] MEDS: NYSTATIN 500,000 UNIT/5 ML UDCUP SWISH/SWAL SCH ×4 (08:59→20:57)
[2017-06-21] MEDS: GABAPENTIN 300 MG CAPSULE PO SCH ×2 (08:59→20:57)
[2017-06-21] MEDS: FUROSEMIDE 40 MG TABLET PO SCH (08:59)
[2017-06-21] MEDS: ASPIRIN EC 325 MG TABLET PO SCH (09:00)
[2017-06-21] MEDS: INSULIN NPH/REGULAR 70/30 100 UNIT/ML SUBCUT SCH ×2 (09:00→21:33)
[2017-06-21] MEDS: PANTOPRAZOLE 40 MG TABLET PO SCH (09:00)
[2017-06-21] MEDS: OXcarbazepine 300 MG TABLET PO SCH ×2 (09:00→20:57)
[2017-06-21] MEDS: LEVOTHYROXINE 125 MCG TABLET PO SCH (09:00)
[2017-06-21] MEDS: DOCUSATE SODIUM 100 MG CAPSULE PO SCH ×2 (09:00→20:57)
[2017-06-21] MEDS: FLUoxetine 20 MG CAPSULE PO SCH (09:00)
[2017-06-21] MEDS ORDERED: LACTULOSE 20 GM/30 ML UDCUP PO PRN (09:01)
--- NOTE | 2017-06-21 09:11 | Internal Med Progress Note ---
Assessment and Plan (1) Fall Status: Acute Assessment and plan: 67-year-old female admitted to acute care * Urinary tract infection. She has responded to IV antibiotics. 1 out of 2 blood cultures were positive. She is on IV antibiotics. She will go to swing bed once we change it to p.o. * Chronic renal failure. About her baseline * Hypertension. Blood pressure is stable * Hypothyroidism. Will adjust her medication * Bipolar disorder. Continue current treatment * Diabetes. Continue current treatment * COPD. Continue nebulizer * Replace potassium * CHF. Appears to be compensated * Patient has been a DNR. Current Visit: Yes (2) Chronic back pain Status: Acute Current Visit: Yes (3) UTI (urinary tract infection) Status: Acute Current Visit: Yes (4) Bipolar depression Status: Acute Current Visit: No (5) Chronic renal failure Status: Acute Current Visit: No (6) Congestive heart failure Status: Acute Current Visit: No (7) Hypothyroidism Status: Acute Current Visit: No (8) Neurogenic bladder Status: Acute Current Visit: No (9) Type 2 diabetes mellitus Status: Chronic Current Visit: No (10) Hypertension Status: Chronic Current Visit: No Internal Medicine - PN: Subj Interval history: Patient is feeling better today. She is not having fever. 1 of her blood cultures came back positive for Klebsiella. Exam (Progress Note) - Constitutional Vitals: Period Temp Pulse Resp BP Sys/Meek Pulse Ox Last 24 Hr 97 F-98.9 F 73-96 16-20 127-154/52-73 91-99 Exam: Examination: GENERAL: NAD. HEENT: Oral candidiasis NECK: Neck is supple. CVS: Regular rate and rhythm. S1 and S2 are normal. RESPIRATORY: Mostly clear to auscultation except bases ABDOMEN: Soft and nontender. EXT: 1+ edema. 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 Motor strength 3-4/5 SKIN: Warm and dry. MSK: No obvious deformity. Results - Labs CBC & BMP: 06/18/17 05:40 06/20/17 04:43 Lab Results: I have reviewed the past 24 hour labs
[2017-06-21] MEDS ORDERED: LEVOTHYROXINE 137 MCG TABLET PO SCH (09:14)
[2017-06-21] MEDS: SODIUM CHLORIDE 0.9% 1,000 ML IV SCH ×2 (09:31→13:36)
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
[2017-06-21] MEDS ORDERED: ERTAPENEM 500 MG in SODIUM CHLORIDE 0.9% 100 ML IV SCH (13:00)
--- NOTE | 2017-06-21 13:29 | Nephrology Progress Note ---
Nephrology - PN: Subj Interval history: No shortness of breath or chest pain. She is up in the chair today Exam (PN)-Nephrology - Vital Signs Vital signs: Period Temp Pulse Resp BP Sys/Meek Pulse Ox Last 24 Hr 97 F-98.9 F 73-94 16-20 127-156/52-73 91-99 Exam: ENT: Normal Cardiovascular: Regular rate and rhythm. No murmur rub or gallop Lungs: Clear Extremities: No edema - Lab 06/18/17 05:40 06/20/17 04:43 Most recent lab results Calcium 8.0 MG/DL (8.5-10.1) L 06/20/17 04:43 Assessment and Plan (1) Renal failure (ARF), acute on chronic Status: Acute Assessment and plan: 67-year-old woman with: * Chronic renal failure late stage III * Acute on chronic renal failure. Renal function back to baseline * Neurogenic bladder. Continue in and out cath * UTI * Diabetes mellitus * Hypertension * COPD * Hypothyroidism * Hypertension Current Visit: No (2) Chronic renal failure Status: Acute Current Visit: No (3) Chronic back pain Status: Acute Current Visit: Yes (4) Fall Status: Acute Current Visit: Yes (5) UTI (urinary tract infection) Status: Acute Current Visit: Yes (6) Bipolar disorder Status: Acute Current Visit: No (7) Diabetes mellitus Status: Acute Current Visit: No (8) Hypertension Status: Acute Current Visit: No (9) Neurogenic bladder Status: Acute Current Visit: No (10) UTI (urinary tract infection) Status: Acute Current Visit: No
[2017-06-21] MEDS: SODIUM CHLORIDE 0.9% IV SCH (14:02)
[2017-06-21] MEDS: ERTAPENEM IV SCH (14:02)
[2017-06-21] MEDS: ATORVASTATIN 10 MG TABLET PO SCH (20:57)
[2017-06-22] MEDS: ALBUTEROL/IPRATROPIUM 3 ML NEB RESP TX SCH ×3 (00:15→12:51)
[2017-06-22] MEDS: SODIUM CHLORIDE 0.9% 1,000 ML IV SCH (04:06)
[2017-06-22 07:44] LABS: Basophils % 0.7 % (0.0-0.8); Eosinophils # 0.1 10*3/uL (0.0-0.87); Hematocrit 27.4 VOL% (35.7-47.0); Hemoglobin 8.7 GM/DL (12.0-16.0); Immature Granulocytes % 6.3 %; Immature Granulocytes Absolute 0.36 #; Lymphocytes % 16.7 % (21.3-54.2); Mean Corpuscular HGB Conc 31.8 GM/DL (32-36); Mean Corpuscular Hemoglobin 29 PG (27-34); Mean Corpuscular Volume 92.3 FL (87-102); Mean Platelet Volume 11.3 FL (9.6-12.0); Monocytes # 0.7 10*3/uL (0.11-0.8); Monocytes % 11.3 % (1.7-12.7); Neutrophils # 3.7 10*3/uL (1.4-7.4); Platelet Count 202 T/CUMM (130-400); Red Blood Count 2.97 MC/CUMM (3.8-5.5); Red Cell Distribution Width 16.5 % (9.3-17.3); White Blood Count 5.8 T/CUMM (4-12)
[2017-06-22 08:08] LABS: Calcium 7.8 MG/DL (8.5-10.1); Osmolality,Calculated 292.1 MOS/KG (273-304); Potassium 3.4 MMOL/L (3.5-5.1)
[2017-06-22 08:23] LABS: Band Neutrophils 2 % (0-10); Eosinophils 2 % (0-10); Hypochromasia 1+; Lymphocytes 14 % (20-55); Microcytosis Slight; Ovalocytes Slight; Platelet Estimate Adequate; Segmented Neutrophils 76 % (50-85); Total Cells Counted 100
[2017-06-22 08:24] LABS: Giant Platelets Few
[2017-06-22] MEDS: INSULIN LISPRO 100 UNIT/ML SUBCUT SCH ×2 (08:39→12:30)
--- NOTE | 2017-06-22 08:39 | Internal Med Progress Note ---
Assessment and Plan (1) Fall Status: Acute Assessment and plan: 67-year-old female admitted to acute care * Urinary tract infection. She needs a total of 2 weeks of IV antibiotics. [facility] Otherwise will have to set her up for home IV antibiotics or antibiotics as outpatient. social services manager are working * Chronic renal failure. Renal function has improved * Hypertension. Blood pressure is stable * Hypothyroidism. Continue current medication * Bipolar disorder. Continue current treatment * Diabetes. Continue current treatment * COPD. Continue nebulizer * Replace potassium * CHF. Appears to be compensated * Patient has been a DNR. Current Visit: Yes (2) Chronic back pain Status: Acute Current Visit: Yes (3) UTI (urinary tract infection) Status: Acute Current Visit: Yes (4) Bipolar depression Status: Acute Current Visit: No (5) Chronic renal failure Status: Acute Current Visit: No (6) Congestive heart failure Status: Acute Current Visit: No (7) Hypothyroidism Status: Acute Current Visit: No (8) Neurogenic bladder Status: Acute Current Visit: No (9) Type 2 diabetes mellitus Status: Chronic Current Visit: No (10) Hypertension Status: Chronic Current Visit: No Internal Medicine - PN: Subj Interval history: Patient is feeling better today. She wants to go home. She is not interested in going to the swing bed unit. She denies any chest pain or shortness of breath Exam (Progress Note) - Constitutional Vitals: Period Temp Pulse Resp BP Sys/Meek Pulse Ox Last 24 Hr 98.0 F-98.9 F 68-85 16-20 138-156/55-67 94-99 Exam: Examination: GENERAL: NAD. HEENT: Oral candidiasis NECK: Neck is supple. CVS: Regular rate and rhythm. S1 and S2 are normal. RESPIRATORY: Mostly clear to auscultation except bases ABDOMEN: Soft and nontender. EXT: 1+ edema. 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 Motor strength 3-4/5 SKIN: Warm and dry. MSK: No obvious deformity. Results - Labs CBC & BMP: 06/22/17 07:02 06/22/17 07:02 Lab Results: I have reviewed the past 24 hour labs
[2017-06-22] MEDS ORDERED: POTASSIUM CHLORIDE 8 MEQ CAPSULE PO SCH (09:00)
[2017-06-22] MEDS: OXcarbazepine 300 MG TABLET PO SCH (09:56)
[2017-06-22] MEDS: FLUoxetine 20 MG CAPSULE PO SCH (09:56)
[2017-06-22] MEDS: ASPIRIN EC 325 MG TABLET PO SCH (09:56)
[2017-06-22] MEDS: GABAPENTIN 300 MG CAPSULE PO SCH (09:56)
[2017-06-22] MEDS: NYSTATIN 500,000 UNIT/5 ML UDCUP SWISH/SWAL SCH ×2 (09:56→13:50)
[2017-06-22] MEDS: PANTOPRAZOLE 40 MG TABLET PO SCH (09:57)
[2017-06-22] MEDS: INSULIN NPH/REGULAR 70/30 100 UNIT/ML SUBCUT SCH (09:57)
[2017-06-22] MEDS: FUROSEMIDE 40 MG TABLET PO SCH (09:57)
[2017-06-22] MEDS: DOCUSATE SODIUM 100 MG CAPSULE PO SCH (09:57)
[2017-06-22 11:46] VITALS: BP 152/63
--- NOTE | 2017-06-22 12:22 | Discharge Summary ---
Hospital Course - Hospital Course Hospital Course: Patient is 67-year-old female who was admitted to acute care with high-grade fever and a fall at home. Patient has history of coronary artery disease, status post CABG, diabetes, chronic renal failure, neurogenic bladder, chronic UTIs. She also has history of hypothyroidism and bipolar disorder. She was felt to be septic. She was started on IV antibiotics and cultures were done. She grew Klebsiella ESBL in her urine and 1 of her cultures was positive. She was continued on Merrem initially. She was seen in consultation by infectious diseases and nephrology. Patient was continued on her home medications. She was started on PT and OT. She has gradually improved over last few days but will require another 10-14 days of IV antibiotics. She will be transferred to [facility] rehab. I will follow her there. Patient has been a DNR. Diagnosis - Discharge Diagnosis (1) Fall Status: Acute (2) Chronic back pain Status: Acute (3) UTI (urinary tract infection) Status: Acute (4) Bipolar depression Status: Acute (5) Chronic renal failure Status: Acute (6) Congestive heart failure Status: Acute (7) Hypothyroidism Status: Acute (8) Neurogenic bladder Status: Acute (9) Type 2 diabetes mellitus Status: Chronic (10) Hypertension Status: Chronic Discharge Plan - Discharge Data Disposition: Disch/[facility] Condition at Discharge: Stable Discharge Diet: advance to your usual diet, diabetic diet Activity: as per physical therapy - Discharge Medications New Meropenem [Merrem] 500 mg IV Q12H vial Potassium Chloride Cap/Tab [Micro K] 8 meq PO BID capsule Continue Aspirin [Ecotrin] 325 mg PO DAILY Gabapentin 300 mg PO BID Insulin NPH/Regular 70/30 [HumuLIN 70/30] 12 unit SUBCUT BID hydrALAZINE TAB [Apresoline Tab] 50 mg PO TID Albuterol/Ipratropium Neb [Duoneb] 3 ml RESP TX RT Q4H Polyethylene Glycol Powder [Miralax] 17 gm PO BID Furosemide 40 mg PO DAILY Docusate Sodium [Colace] 100 mg PO BID Bisacodyl Tab [Dulcolax Tab] 10 mg PO DAILY PRN PRN Reason: Constipation Atorvastatin [Lipitor] 10 mg PO BEDTIME Fluoxetine HCl [Prozac] 80 mg PO DAILY Levothyroxine Tab [Synthroid Tab] 125 mcg PO DAILY LORazepam [Lorazepam] 0.5 mg PO Q6HR PRN PRN Reason: anxiety Pantoprazole Tab [Protonix Tab] 40 mg PO DAILY tablet OXcarbazepine [Trileptal] 300 mg PO BID #60 tablet - Follow Up or Referral - Forms/Instructions Additional Discharge Instructions: Appointment at office 1 week after discharge from rehab with TCM Exam - Constitutional Vitals: Period Temp Pulse Resp BP Sys/Meek Pulse Ox Last 24 Hr 97.6 F-98.9 F 68-85 16-20 138-156/55-67 94-99 Exam: Examination: GENERAL: NAD. HEENT: Oral candidiasis NECK: Neck is supple. CVS: Regular rate and rhythm. S1 and S2 are normal. RESPIRATORY: Mostly clear to auscultation except bases ABDOMEN: Soft and nontender. EXT: 1+ edema. 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 Motor strength 3-4/5 SKIN: Warm and dry. MSK: No obvious deformity. Discharge Results Procedures and tests throughout hospitalization: Pending Orders 06/21/17 13:13 Blood Culture Stat Labs on day of discharge: Labs from last 24 hours 06/22/17 06/22/17 06/22/17 10:55 07:03 07:02 WBC RBC Hgb Hct MCV MCH MCHC RDW Plt Count MPV Neut % (Auto) Lymph % (Auto) [place] % (Auto) Eos % (Auto) Baso % (Auto) Neut # (Auto) Lymph # (Auto) [place] # (Auto) Eos # (Auto) Baso # (Auto) Total Counted Immature Gran % Nucleated RBC % Immature Gran # Segmented Neutrophils Band Neutrophils Lymphocytes Monocytes Eosinophils Nucleated RBCs # Platelet Estimate Giant Platelets Immature Plt Fraction Hypochromasia Microcytosis Ovalocytes Sodium 142 Potassium 3.4 L Chloride 113 H Carbon Dioxide 18 L Anion Gap 14.4 BUN 42 H Creatinine 2.60 H GFR Calculation 20 BUN/Creatinine Ratio 16.00 Glucose 88 POC Glucose 157 H 95 Calculated Osmolality 292.1 Calcium 7.8 L 06/22/17 06/21/17 06/21/17 07:02 20:57 15:55 WBC 5.8 RBC 2.97 L Hgb 8.7 L Hct 27.4 L MCV 92.3 MCH 29 MCHC 31.8 L RDW 16.5 Plt Count 202 MPV 11.3 Neut % (Auto) 64.0 Lymph % (Auto) 16.7 L [place] % (Auto) 11.3 Eos % (Auto) 1.0 Baso % (Auto) 0.7 Neut # (Auto) 3.7 Lymph # (Auto) 1.0 L [place] # (Auto) 0.7 Eos # (Auto) 0.1 Baso # (Auto) 0.0 Total Counted 100 Immature Gran % 6.3 Nucleated RBC % 0.0 Immature Gran # 0.36 Segmented Neutrophils 76 Band Neutrophils 2 Lymphocytes 14 L Monocytes 6 Eosinophils 2 Nucleated RBCs # 0.00 Platelet Estimate Adequate Giant Platelets Few Immature Plt Fraction 0.0 Hypochromasia 1+ Microcytosis Slight Ovalocytes Slight Sodium Potassium Chloride Carbon Dioxide Anion Gap BUN Creatinine GFR Calculation BUN/Creatinine Ratio Glucose POC Glucose 117 H 108 H Calculated Osmolality Calcium DS: Provider Date of admission: 06/16/17 01:04 Primary care physician: Diogo Faust MD Attending physician on admission: Diogo Faust MD Consults: 06/16/17 02:48 Consult to Case Mgmt/Social Srvs [CONS] Routine Reason for Case Mgmt/Social Srvs: Discharge Planning 06/16/17 03:14 Consult to Dietitian [CONS] Routine Reason for Dietitian: Dietary Consult 06/16/17 09:22 Consult to Occupational Therapy [CONS] Routine Reason for Occupational Therapy: Evaluate and Treat Consult to Physical Therapy [CONS] Routine Reason for Physical Therapy: Evaluate and Treat 06/16/17 15:02 Consult to Pharmacy [CONS] Routine Reason for Pharmacy Consult: Dose/Manage Vancomycin Comment: dose next vancomycin 06/17/17 07:39 Consult to Physician [CONS] Routine Comment: Chronic renal failure Consulting Provider: Ernesto Uriostegui Person Notified: [email or web address] Date Notified: 06/17/17 Time Notified: 09:18 Consult to Physician [CONS] Routine Comment: High-grade fever Consulting Provider: Kathy Meyer Person Notified: JANETT Date Notified: 06/17/17 Time Notified: 09:16 06/21/17 12:50 Consult to Case Mgmt/Social Srvs [CONS] Routine Reason for Case Mgmt/Social Srvs: Infusion Center Consult Comment: Ertapenem 500 mg daily until July 05 Discharging clinician: Diogo Faust MD
--- NOTE | 2017-06-22 12:31 | Event Note ---
Patient approved for swing bed but now they will take her on meropenem and not ertapenem. Her dose for her renal function is 1g meropenem IV q12h until 07/05.
[2017-06-22] MEDS: ERTAPENEM IV SCH (13:52)
[2017-06-22] MEDS: SODIUM CHLORIDE 0.9% IV SCH (13:52)
--- NOTE | 2017-06-22 22:56 | Nephrology Progress Note ---
Nephrology - PN: Subj Interval history: Up in chair. NoSOB Exam (PN)-Nephrology - Vital Signs Vital signs: Period Temp Pulse Resp BP Sys/Meek Pulse Ox Last 24 Hr 97.6 F-98.9 F 69-83 16-20 138-156/57-65 94-99 Exam: ENT: Normal Cardiovascular: Regular rate and rhythm. No murmur rub or gallop Lungs: Clear Extremities: 1+ edema - Lab 06/22/17 07:02 06/22/17 07:02 Most recent lab results Calcium 7.8 MG/DL (8.5-10.1) L 06/22/17 07:02 Assessment and Plan (1) Renal failure (ARF), acute on chronic Status: Acute Assessment and plan: 67-year-old woman with: * Chronic renal failure late stage III * Acute on chronic renal failure. Renal function back to baseline * Neurogenic bladder. Continue in and out cath * UTI * Diabetes mellitus * Hypertension * COPD * Hypothyroidism * Hypertension (2) Chronic renal failure Status: Acute (3) Chronic back pain Status: Acute (4) Fall Status: Acute (5) UTI (urinary tract infection) Status: Acute (6) Bipolar disorder Status: Acute (7) Diabetes mellitus Status: Acute (8) Hypertension Status: Acute (9) Neurogenic bladder Status: Acute (10) UTI (urinary tract infection) Status: Acute Specialty Discharge - Follow Up or Referrals
--- NOTE | 2017-06-25 09:01 | Physician Query Form ---
CLICK EDIT DOCUMENT TO SELECT QUERY ANSWER --> OK --> SIGN Ebonie Whiting RN Clinical Windows V[employer] Administrator W) [phone] (f) [phone] [email or web address] PROVIDERS: Make your selection(s) from the choices in EACH section by typing an "x" and enter comments in the comment section. Please use your independent medical judgment in providing your response. This request does not imply that any particular answer is desired or expected. CLINICAL INDICATORS: (Providers should not edit this section) Based on documentation of "CHF. Patient has history of CHF with preserved LV function. She will be continued on Lasix" "Acute CHF" BNP of 332. Please provide further specificity regarding CHF. ACUITY: ( ) Acute ( ) Chronic ( x) Acute on Chronic ( ) Clinically unable to determine TYPE: ( x) Systolic (HFrEF - heart failure with reduced systolic function/EF) ( ) Diastolic (HFpEF - heart failure with preserved systolic function/EF) ( ) Combined Systolic/Diastolic ( ) Other, please specify: ( ) Clinically unable to determine ( ) Past Medical History of Systolic CHF ( ) Past Medical History of Diastolic CHF ( ) Clinically unable to determine COMMENTS: PLEASE ALSO DOCUMENT RESPONSE IN PROGRESS NOTES AND/OR DISCHARGE SUMMARY Use of terms such as suspected, likely, or probable (associated with a specific diagnosis that is being evaluated, monitored, or treated as if it exists) are acceptable and can be restated in the discharge summary if not ruled out. MTDD
== END 2017-06-22 14:45 | DRG 871 ==
LOC: N.ED 17:34 → N.EDINP 06-16 01:04 → N.5E 06-16 01:30
PROVIDERS: ADMIT Internal Medicine; ATTEND Internal Medicine

== ENCOUNTER 2017-07-22 11:52 | Inpatient (IN) ==
[2017-07-22] MEDS ORDERED: DEXTROSE 50% 25 GM/50 ML VIAL IV PRN (11:55)
[2017-07-22] MEDS ORDERED: GLUCAGON 1 MG VIAL IM PRN (11:55)
[2017-07-22] MEDS ORDERED: ACETAMINOPHEN 325 MG TABLET PO PRN (11:55)
[2017-07-22] MEDS ORDERED: ONDANSETRON 4 MG/2 ML VIAL IV PRN (11:55)
[2017-07-22 13:59] LABS: Basophils # 0.1 10*3/uL (0.0-0.2); Basophils % 0.4 % (0.0-0.8); Eosinophils # 0.2 10*3/uL (0.0-0.87); Eosinophils % 0.5 % (0.00-10.9); Hematocrit 32.8 VOL% (35.7-47.0); Hemoglobin 10.4 GM/DL (12.0-16.0); Immature Granulocytes % 5.8 %; Immature Granulocytes Absolute 1.72 #; Lymphocytes # 1.7 10*3/uL (1.4-4.0); Lymphocytes % 5.8 % (21.3-54.2); Mean Corpuscular HGB Conc 31.7 GM/DL (32-36); Mean Corpuscular Hemoglobin 29 PG (27-34); Mean Corpuscular Volume 92.7 FL (87-102); Mean Platelet Volume 10.3 FL (9.6-12.0); Monocytes # 1.2 10*3/uL (0.11-0.8); Monocytes % 4.1 % (1.7-12.7); Neutrophils # 24.5 10*3/uL (1.4-7.4); Neutrophils % 83.4 % (38.7-73.9); Platelet Count 335 T/CUMM (130-400); Red Blood Count 3.54 MC/CUMM (3.8-5.5); Red Cell Distribution Width 15.6 % (9.3-17.3); White Blood Count 29.5 T/CUMM (4-12)
[2017-07-22] MEDS ORDERED: LEVOFLOXACIN INJ 750 MG in PREMIX 1 EACH IV ONE (14:00)
[2017-07-22 14:06] LABS: Calcium 8.5 MG/DL (8.5-10.1); Osmolality,Calculated 282.2 MOS/KG (273-304); Potassium 4.5 MMOL/L (3.5-5.1)
[2017-07-22] MEDS: FLUCONAZOLE 100 MG TABLET PO SCH (14:15)
[2017-07-22] MEDS: SODIUM CHLORIDE 0.9% 1,000 ML IV SCH ×2 (14:17→14:19)
[2017-07-22 15:48] LABS: Lymphocytes 8 % (20-55); Segmented Neutrophils 88 % (50-85); Total Cells Counted 100
[2017-07-22 15:50] LABS: Platelet Estimate Normal; Polychromasia Few
[2017-07-22] MEDS: INSULIN LISPRO 100 UNIT/ML SUBCUT SCH ×2 (16:39→22:22)
[2017-07-22 18:14] LABS: Apearance,Urine Slightly Hazy (Clear); Bacteria,Urine Occasional /HPF (Few); Bilirubin,Urine Negative (Negative); Blood, Urine Negative (Negative); Glucose,Urine (UA) Negative (Negative); Ketones,Urine Negative (Negative); Nitrite,Urine Positive (Negative); Protein,Urine 30 MG/DL; Urine Color Yellow (Yellow); Urine Specific Gravity 1.004 (1.001-1.035); Urine Urobilinogen < 2.0 EU/DL (0.2-1.0); WBC,Urine 10 /HPF (0-6)
[2017-07-22] MEDS: OXcarbazepine 300 MG TABLET PO SCH (22:23)
[2017-07-22] MEDS: cloNIDine 0.1 MG TABLET PO SCH (22:23)
[2017-07-22] MEDS: ENOXAPARIN 30 MG/0.3 ML SYRINGE SUBCUT SCH (22:23)
[2017-07-22] MEDS: ATORVASTATIN 10 MG TABLET PO SCH (22:24)
[2017-07-22] MEDS: GABAPENTIN 300 MG CAPSULE PO SCH (22:24)
[2017-07-22] MEDS: DOCUSATE SODIUM 100 MG CAPSULE PO SCH (22:25)
[2017-07-23] MEDS: ALBUTEROL/IPRATROPIUM 3 ML NEB RESP TX SCH ×3 (00:40→15:09)
[2017-07-23] MEDS: SODIUM CHLORIDE 0.9% 1,000 ML IV SCH (02:09)
[2017-07-23 07:27] LABS: Basophils # 0.1 10*3/uL (0.0-0.2); Basophils % 0.4 % (0.0-0.8); Eosinophils # 0.2 10*3/uL (0.0-0.87); Eosinophils % 0.8 % (0.00-10.9); Hematocrit 30.2 VOL% (35.7-47.0); Hemoglobin 9.6 GM/DL (12.0-16.0); Immature Granulocytes Absolute 1.24 #; Lymphocytes # 1.3 10*3/uL (1.4-4.0); Lymphocytes % 6.4 % (21.3-54.2); Mean Corpuscular HGB Conc 31.8 GM/DL (32-36); Mean Corpuscular Hemoglobin 29 PG (27-34); Monocytes % 4.6 % (1.7-12.7); Neutrophils # 16.9 10*3/uL (1.4-7.4); Neutrophils % 81.8 % (38.7-73.9); Platelet Count 289 T/CUMM (130-400); Red Blood Count 3.32 MC/CUMM (3.8-5.5); Red Cell Distribution Width 15.7 % (9.3-17.3); White Blood Count 20.6 T/CUMM (4-12)
[2017-07-23 07:51] LABS: Band Neutrophils 1 % (0-10); Burr Cells 1+; Eosinophils 1 % (0-10); Hypochromasia 2+; Lymphocytes 5 % (20-55); Microcytosis 2+; Myelocytes 2 %; Platelet Estimate Adequate; Segmented Neutrophils 87 % (50-85); Total Cells Counted 100
[2017-07-23 08:06] LABS: Osmolality,Calculated 286.4 MOS/KG (273-304); Potassium 4.4 MMOL/L (3.5-5.1)
[2017-07-23] MEDS ORDERED: ALBUTEROL/IPRATROPIUM 3 ML NEB RESP TX PRN (08:44)
[2017-07-23] MEDS: LEVOTHYROXINE 125 MCG TABLET PO SCH (08:56)
[2017-07-23] MEDS: INSULIN LISPRO 100 UNIT/ML SUBCUT SCH ×3 (08:57→21:00)
[2017-07-23] MEDS: cloNIDine 0.1 MG TABLET PO SCH ×2 (08:58→20:31)
[2017-07-23] MEDS: FLUCONAZOLE 100 MG TABLET PO SCH (08:58)
[2017-07-23] MEDS: DOCUSATE SODIUM 100 MG CAPSULE PO SCH ×2 (08:58→20:31)
[2017-07-23] MEDS: POTASSIUM CHLORIDE 20 MEQ TABLET PO SCH (08:59)
[2017-07-23] MEDS: FUROSEMIDE 40 MG TABLET PO SCH (08:59)
[2017-07-23] MEDS: OXcarbazepine 300 MG TABLET PO SCH ×2 (08:59→20:31)
[2017-07-23] MEDS: PANTOPRAZOLE 40 MG TABLET PO SCH (09:00)
[2017-07-23] MEDS: amLODIPine 5 MG TABLET PO SCH (09:00)
[2017-07-23] MEDS: GABAPENTIN 300 MG CAPSULE PO SCH ×2 (09:00→20:31)
[2017-07-23] MEDS: FLUoxetine 20 MG CAPSULE PO SCH (09:00)
[2017-07-23] MEDS: DORNASE ALFA 2.5 MG/2.5 ML VIAL RESP TX SCH (10:17)
[2017-07-23] MEDS: traMADol 50 MG TABLET PO PRN (14:17)
[2017-07-23] MEDS: ATORVASTATIN 10 MG TABLET PO SCH (20:31)
[2017-07-23] MEDS: ENOXAPARIN 30 MG/0.3 ML SYRINGE SUBCUT SCH (20:32)
[2017-07-24] MEDS: DORNASE ALFA 2.5 MG/2.5 ML VIAL RESP TX SCH ×3 (00:17→23:06)
[2017-07-24] MEDS: ALBUTEROL/IPRATROPIUM 3 ML NEB RESP TX SCH ×4 (00:17→23:11)
[2017-07-24 05:01] LABS: Basophils # 0.1 10*3/uL (0.0-0.2); Basophils % 0.5 % (0.0-0.8); Eosinophils # 0.3 10*3/uL (0.0-0.87); Eosinophils % 1.5 % (0.00-10.9); Hematocrit 27.7 VOL% (35.7-47.0); Hemoglobin 8.9 GM/DL (12.0-16.0); Immature Granulocytes % 9.6 %; Immature Granulocytes Absolute 1.74 #; Lymphocytes # 1.5 10*3/uL (1.4-4.0); Lymphocytes % 8.2 % (21.3-54.2); Mean Corpuscular HGB Conc 32.1 GM/DL (32-36); Mean Corpuscular Hemoglobin 30 PG (27-34); Mean Corpuscular Volume 92.3 FL (87-102); Mean Platelet Volume 10.1 FL (9.6-12.0); Monocytes # 0.9 10*3/uL (0.11-0.8); Monocytes % 4.9 % (1.7-12.7); Neutrophils # 13.7 10*3/uL (1.4-7.4); Neutrophils % 75.3 % (38.7-73.9); Platelet Count 281 T/CUMM (130-400); Red Cell Distribution Width 15.8 % (9.3-17.3); White Blood Count 18.2 T/CUMM (4-12)
[2017-07-24 05:32] LABS: Calcium 8.2 MG/DL (8.5-10.1)
[2017-07-24 05:33] LABS: Osmolality,Calculated 291.1 MOS/KG (273-304); Potassium 4.5 MMOL/L (3.5-5.1)
[2017-07-24 06:01] LABS: Band Neutrophils 2 % (0-10); Eosinophils 1 % (0-10); Lymphocytes 11 % (20-55); Metamyelocytes 9 %; Platelet Estimate Normal; Segmented Neutrophils 72 % (50-85); Total Cells Counted 100
[2017-07-24 06:02] LABS: Hypochromasia 2+
[2017-07-24 06:03] LABS: Anisocytosis 2+; Macrocytosis 1+; Microcytosis 1+
[2017-07-24] MEDS ORDERED: LEVOFLOXACIN INJ 500 MG in PREMIX 1 EACH IV SCH (09:00)
[2017-07-24] MEDS: INSULIN LISPRO 100 UNIT/ML SUBCUT SCH ×5 (09:43→20:44)
[2017-07-24] MEDS: LEVOTHYROXINE 125 MCG TABLET PO SCH (09:46)
[2017-07-24] MEDS: DOCUSATE SODIUM 100 MG CAPSULE PO SCH ×2 (09:46→20:45)
[2017-07-24] MEDS: cloNIDine 0.1 MG TABLET PO SCH ×2 (09:46→20:45)
[2017-07-24] MEDS: FLUCONAZOLE 100 MG TABLET PO SCH (09:47)
[2017-07-24] MEDS: POTASSIUM CHLORIDE 20 MEQ TABLET PO SCH (09:47)
[2017-07-24] MEDS: amLODIPine 5 MG TABLET PO SCH (09:48)
[2017-07-24] MEDS: GABAPENTIN 300 MG CAPSULE PO SCH ×2 (09:48→20:45)
[2017-07-24] MEDS: OXcarbazepine 300 MG TABLET PO SCH ×2 (09:49→20:45)
[2017-07-24] MEDS: FLUoxetine 20 MG CAPSULE PO SCH (09:49)
[2017-07-24] MEDS: PANTOPRAZOLE 40 MG TABLET PO SCH (09:49)
[2017-07-24] MEDS: FUROSEMIDE 20 MG TABLET PO SCH (09:52)
[2017-07-24] MEDS: traMADol 50 MG TABLET PO PRN (10:37)
[2017-07-24] MEDS: FUROSEMIDE 40 MG TABLET PO SCH (16:34)
[2017-07-24] MEDS: SODIUM CHLORIDE 0.9% 1,000 ML IV SCH (16:35)
[2017-07-24] MEDS: ATORVASTATIN 10 MG TABLET PO SCH (20:45)
[2017-07-24] MEDS: ENOXAPARIN 30 MG/0.3 ML SYRINGE SUBCUT SCH (20:45)
[2017-07-25 05:44] LABS: Basophils # 0.1 10*3/uL (0.0-0.2); Basophils % 0.7 % (0.0-0.8); Eosinophils # 0.3 10*3/uL (0.0-0.87); Eosinophils % 1.9 % (0.00-10.9); Hematocrit 27.7 VOL% (35.7-47.0); Hemoglobin 8.8 GM/DL (12.0-16.0); Immature Granulocytes % 11.6 %; Immature Granulocytes Absolute 1.72 #; Lymphocytes # 1.3 10*3/uL (1.4-4.0); Mean Corpuscular HGB Conc 31.8 GM/DL (32-36); Mean Corpuscular Hemoglobin 29 PG (27-34); Mean Platelet Volume 9.8 FL (9.6-12.0); Monocytes # 0.8 10*3/uL (0.11-0.8); Monocytes % 5.4 % (1.7-12.7); Neutrophils # 10.6 10*3/uL (1.4-7.4); Neutrophils % 71.4 % (38.7-73.9); Platelet Count 284 T/CUMM (130-400); Red Blood Count 3.01 MC/CUMM (3.8-5.5); Red Cell Distribution Width 15.8 % (9.3-17.3); White Blood Count 14.8 T/CUMM (4-12)
[2017-07-25 06:12] LABS: Band Neutrophils 2 % (0-10); Lymphocytes 8 % (20-55); Segmented Neutrophils 81 % (50-85); Total Cells Counted 100
[2017-07-25 06:13] LABS: Hypochromasia 1+; Microcytosis 1+; Ovalocytes Slight
[2017-07-25 06:14] LABS: Platelet Estimate Normal
[2017-07-25 06:19] LABS: Albumin 2.1 G/DL (3.4-5.0); Bilirubin,Total 0.7 MG/DL (0.2-1.0); Calcium 8.6 MG/DL (8.5-10.1); Osmolality,Calculated 289.1 MOS/KG (273-304); Potassium 4.7 MMOL/L (3.5-5.1); Total Protein 5.1 G/DL (6.4-8.3)
[2017-07-25 06:25] LABS: Free T4 (Free Thyroxine) 0.73 NG/DL (0.76-1.46); Thyroid Stimulating Hormone 2.59 uIU/ml (0.358-3.74)
[2017-07-25] MEDS: SODIUM CHLORIDE 0.9% 1,000 ML IV SCH ×2 (08:20→15:40)
[2017-07-25] MEDS: LEVOTHYROXINE 125 MCG TABLET PO SCH (08:21)
[2017-07-25] MEDS: INSULIN LISPRO 100 UNIT/ML SUBCUT SCH ×3 (08:23→16:56)
[2017-07-25] MEDS: cloNIDine 0.1 MG TABLET PO SCH (08:23)
[2017-07-25] MEDS: DOCUSATE SODIUM 100 MG CAPSULE PO SCH (08:24)
[2017-07-25] MEDS: FLUCONAZOLE 100 MG TABLET PO SCH (08:24)
[2017-07-25] MEDS: POTASSIUM CHLORIDE 20 MEQ TABLET PO SCH (08:24)
[2017-07-25] MEDS: GABAPENTIN 300 MG CAPSULE PO SCH (08:27)
[2017-07-25] MEDS: amLODIPine 5 MG TABLET PO SCH (08:27)
[2017-07-25] MEDS: FUROSEMIDE 20 MG TABLET PO SCH (08:27)
[2017-07-25] MEDS: FLUoxetine 20 MG CAPSULE PO SCH (08:28)
[2017-07-25] MEDS: PANTOPRAZOLE 40 MG TABLET PO SCH (08:28)
[2017-07-25] MEDS: OXcarbazepine 300 MG TABLET PO SCH (08:29)
[2017-07-25] MEDS: ALBUTEROL/IPRATROPIUM 3 ML NEB RESP TX SCH ×2 (09:10→14:21)
[2017-07-25] MEDS: DORNASE ALFA 2.5 MG/2.5 ML VIAL RESP TX SCH (09:10)
[2017-07-25] MEDS ORDERED: MAGNESIUM SULF RIDER 4 GM in PREMIX 1 EACH IV PRN (10:29)
[2017-07-25] MEDS: MAGNESIUM SULF RIDER 2 GM in PREMIX 1 EACH IV PRN ×2 (10:52→13:33)
[2017-07-25] MEDS: traMADol 50 MG TABLET PO PRN (10:56)
[2017-07-25 12:21] VITALS: BP 127/66
[2017-07-25] MEDS ORDERED: SODIUM BICARBONATE 650 MG TABLET PO SCH (15:00)
== END 2017-07-25 17:00 | disposition home or self-care (01) | DRG 194 ==
LOC: N.2E 12:30
PROVIDERS: ADMIT Internal Medicine; ATTEND Internal Medicine

== ENCOUNTER 2017-08-25 11:43 | Inpatient (IN) ==
[2017-08-25] MEDS ORDERED: ONDANSETRON 4 MG/2 ML VIAL IV PRN (11:58)
[2017-08-25] MEDS ORDERED: ACETAMINOPHEN 325 MG TABLET PO PRN (11:58)
[2017-08-25] MEDS ORDERED: ALBUTEROL/IPRATROPIUM 3 ML NEB RESP TX SCH (13:00)
[2017-08-25] MEDS ORDERED: LEVOFLOXACIN INJ 500 MG in PREMIX 1 EACH IV SCH (14:00)
[2017-08-25 14:27] LABS: Basophils # 0.1 10*3/uL (0.0-0.2); Basophils % 0.4 % (0.0-0.8); Eosinophils # 0.1 10*3/uL (0.0-0.87); Eosinophils % 0.3 % (0.00-10.9); Hematocrit 32.6 VOL% (35.7-47.0); Hemoglobin 10.6 GM/DL (12.0-16.0); Immature Granulocytes % 2.7 %; Immature Granulocytes Absolute 0.59 #; Lymphocytes # 1.1 10*3/uL (1.4-4.0); Lymphocytes % 5.1 % (21.3-54.2); Mean Corpuscular HGB Conc 32.5 GM/DL (32-36); Mean Corpuscular Hemoglobin 30 PG (27-34); Mean Corpuscular Volume 91.3 FL (87-102); Mean Platelet Volume 10.3 FL (9.6-12.0); Monocytes # 1.3 10*3/uL (0.11-0.8); Monocytes % 5.9 % (1.7-12.7); Neutrophils # 18.7 10*3/uL (1.4-7.4); Neutrophils % 85.6 % (38.7-73.9); Platelet Count 262 T/CUMM (130-400); Red Blood Count 3.57 MC/CUMM (3.8-5.5); Red Cell Distribution Width 17.2 % (9.3-17.3); White Blood Count 21.9 T/CUMM (4-12)
[2017-08-25 14:56] LABS: Calcium 8.9 MG/DL (8.5-10.1); Osmolality,Calculated 287.5 MOS/KG (273-304); Potassium 4.1 MMOL/L (3.5-5.1)
[2017-08-25 15:19] LABS: Band Neutrophils 4 % (0-10); Eosinophils 1 % (0-10); Lymphocytes 4 % (20-55); Myelocytes 1 %; Segmented Neutrophils 87 % (50-85); Total Cells Counted 100
[2017-08-25 15:20] LABS: Burr Cells Few; Platelet Estimate Adequate
[2017-08-25] MEDS: ENOXAPARIN 30 MG/0.3 ML SYRINGE SUBCUT SCH (16:00)
[2017-08-25] MEDS ORDERED: hydrOXYzine HCL 25 MG TABLET PO PRN (16:34)
[2017-08-25] MEDS ORDERED: GLUCAGON 1 MG VIAL IM PRN (16:35)
[2017-08-25] MEDS ORDERED: DEXTROSE 50% 25 GM/50 ML VIAL IV PRN (16:35)
[2017-08-25] MEDS: ALBUTEROL/IPRATROPIUM 3 ML NEB RESP TX SCH ×2 (19:18→23:42)
[2017-08-25] MEDS: ATORVASTATIN 10 MG TABLET PO SCH (22:40)
[2017-08-25] MEDS: OXcarbazepine 300 MG TABLET PO SCH (22:40)
[2017-08-25] MEDS: cloNIDine 0.1 MG TABLET PO SCH (22:40)
[2017-08-25] MEDS: GABAPENTIN 300 MG CAPSULE PO SCH (22:40)
[2017-08-25] MEDS: INSULIN NPH/REGULAR 70/30 100 UNIT/ML SUBCUT SCH (22:41)
[2017-08-25] MEDS: DOCUSATE SODIUM 100 MG CAPSULE PO SCH (22:41)
[2017-08-25] MEDS: INSULIN LISPRO 100 UNIT/ML SUBCUT SCH (22:41)
[2017-08-26 02:31] LABS: Apearance,Urine CLOUDY (Clear); Bilirubin,Urine Negative (Negative); Blood, Urine Small mg/dL (Negative); Glucose,Urine (UA) Negative (Negative); Ketones,Urine Negative (Negative); Nitrite,Urine Negative (Negative); Protein,Urine 100 MG/DL; RBC,Urine 85 /HPF (0-4); Squamous Epithelial Cell,Urine Many /HPF (0-10); Urine Color Yellow (Yellow); Urine Specific Gravity 1.009 (1.001-1.035); Urine Urobilinogen < 2.0 EU/DL (0.2-1.0); WBC,Urine 511 /HPF (0-6)
[2017-08-26] MEDS: ALBUTEROL/IPRATROPIUM 3 ML NEB RESP TX SCH ×5 (02:53→20:05)
[2017-08-26 07:03] LABS: Basophils # 0.1 10*3/uL (0.0-0.2); Basophils % 0.4 % (0.0-0.8); Eosinophils % 0.2 % (0.00-10.9); Hematocrit 30.4 VOL% (35.7-47.0); Hemoglobin 10.1 GM/DL (12.0-16.0); Immature Granulocytes % 3.6 %; Immature Granulocytes Absolute 0.92 #; Lymphocytes % 3.9 % (21.3-54.2); Mean Corpuscular HGB Conc 33.2 GM/DL (32-36); Mean Corpuscular Hemoglobin 30 PG (27-34); Mean Corpuscular Volume 89.7 FL (87-102); Mean Platelet Volume 10.2 FL (9.6-12.0); Monocytes # 1.2 10*3/uL (0.11-0.8); Monocytes % 4.8 % (1.7-12.7); Neutrophils # 22.3 10*3/uL (1.4-7.4); Neutrophils % 87.1 % (38.7-73.9); Platelet Count 266 T/CUMM (130-400); Red Blood Count 3.39 MC/CUMM (3.8-5.5); Red Cell Distribution Width 17.2 % (9.3-17.3); White Blood Count 25.6 T/CUMM (4-12)
[2017-08-26 07:30] LABS: Band Neutrophils 5 % (0-10); Burr Cells Slight; Giant Platelets Few; Hypochromasia 1+; Lymphocytes 2 % (20-55); Ovalocytes Slight; Platelet Estimate Adequate; Segmented Neutrophils 89 % (50-85); Total Cells Counted 100
[2017-08-26 07:31] LABS: Microcytosis Slight
[2017-08-26 07:32] LABS: Alanine Aminotransferase < 9 U/L (13-56); Albumin 2.4 G/DL (3.4-5.0); Alkaline Phosphatase 151 U/L (45-117); Aspartate Amino Transferase 8 U/L (0-37); Blood Urea Nitrogen 41 MG/DL (7-18); Calcium 8.6 MG/DL (8.5-10.1); Glucose 91 MG/DL (74-106); Osmolality,Calculated 286.5 MOS/KG (273-304); Sodium 139 MMOL/L (136-145); Total Protein 5.4 G/DL (6.4-8.3)
[2017-08-26] MEDS ORDERED: DEXTROSE 50% 25 GM/50 ML VIAL IV PRN (08:10)
[2017-08-26] MEDS ORDERED: GLUCAGON 1 MG VIAL IM PRN (08:10)
[2017-08-26] MEDS: MEROPENEM 500 MG in SYRINGE 1 EACH IV SCH ×2 (08:42→22:45)
[2017-08-26] MEDS: INSULIN NPH/REGULAR 70/30 100 UNIT/ML SUBCUT SCH ×2 (08:43→22:54)
[2017-08-26] MEDS: LEVOTHYROXINE 125 MCG TABLET PO SCH (08:43)
[2017-08-26] MEDS: POTASSIUM CHLORIDE 20 MEQ TABLET PO SCH (08:43)
[2017-08-26] MEDS: OXcarbazepine 300 MG TABLET PO SCH ×2 (08:43→22:43)
[2017-08-26] MEDS: FLUoxetine 20 MG CAPSULE PO SCH (08:43)
[2017-08-26] MEDS: DOCUSATE SODIUM 100 MG CAPSULE PO SCH ×2 (08:44→22:43)
[2017-08-26] MEDS: amLODIPine 5 MG TABLET PO SCH (08:44)
[2017-08-26] MEDS: PANTOPRAZOLE 40 MG TABLET PO SCH ×2 (08:44→08:45)
[2017-08-26] MEDS: FUROSEMIDE 20 MG TABLET PO SCH (08:44)
[2017-08-26] MEDS: cloNIDine 0.1 MG TABLET PO SCH ×2 (08:44→22:44)
[2017-08-26] MEDS: ASPIRIN EC 325 MG TABLET PO SCH (08:44)
[2017-08-26] MEDS: GABAPENTIN 300 MG CAPSULE PO SCH ×2 (08:44→22:44)
[2017-08-26] MEDS: INSULIN LISPRO 100 UNIT/ML SUBCUT SCH ×4 (08:45→22:59)
[2017-08-26] MEDS ORDERED: TUBERCULIN SKIN TEST 0.1 ML SYRINGE INTRADERM ONE (13:00)
[2017-08-26] MEDS: BACITRACIN OINT 0.9 GM PACK TOP SCH (17:01)
[2017-08-26] MEDS: traMADol 50 MG TABLET PO PRN (17:38)
[2017-08-26] MEDS: ENOXAPARIN 30 MG/0.3 ML SYRINGE SUBCUT SCH (22:44)
[2017-08-26] MEDS: ATORVASTATIN 10 MG TABLET PO SCH (22:44)
[2017-08-27] MEDS: ALBUTEROL/IPRATROPIUM 3 ML NEB RESP TX SCH ×7 (01:11→22:27)
[2017-08-27] MEDS: LEVOTHYROXINE 125 MCG TABLET PO SCH (06:35)
[2017-08-27 07:53] LABS: Basophils # 0.1 10*3/uL (0.0-0.2); Basophils % 0.4 % (0.0-0.8); Eosinophils # 0.2 10*3/uL (0.0-0.87); Eosinophils % 0.8 % (0.00-10.9); Hematocrit 28.5 VOL% (35.7-47.0); Hemoglobin 9.2 GM/DL (12.0-16.0); Immature Granulocytes % 5.9 %; Lymphocytes # 1.2 10*3/uL (1.4-4.0); Lymphocytes % 4.7 % (21.3-54.2); Mean Corpuscular HGB Conc 32.3 GM/DL (32-36); Mean Corpuscular Hemoglobin 29 PG (27-34); Mean Corpuscular Volume 89.6 FL (87-102); Mean Platelet Volume 9.8 FL (9.6-12.0); Monocytes # 1.4 10*3/uL (0.11-0.8); Monocytes % 5.3 % (1.7-12.7); Neutrophils % 82.9 % (38.7-73.9); Platelet Count 264 T/CUMM (130-400); Red Blood Count 3.18 MC/CUMM (3.8-5.5); Red Cell Distribution Width 17.2 % (9.3-17.3); White Blood Count 25.3 T/CUMM (4-12)
[2017-08-27 08:15] LABS: Eosinophils 1 % (0-10); Lymphocytes 6 % (20-55); Segmented Neutrophils 88 % (50-85); Total Cells Counted 100
[2017-08-27 08:16] LABS: Hypochromasia 1+; Microcytosis 1+; Platelet Estimate Normal
[2017-08-27 08:36] LABS: Calcium 8.4 MG/DL (8.5-10.1); Osmolality,Calculated 286.7 MOS/KG (273-304); Potassium 3.7 MMOL/L (3.5-5.1)
[2017-08-27] MEDS: INSULIN LISPRO 100 UNIT/ML SUBCUT SCH ×4 (08:53→21:17)
[2017-08-27] MEDS: ASPIRIN EC 325 MG TABLET PO SCH (10:01)
[2017-08-27] MEDS: PANTOPRAZOLE 40 MG TABLET PO SCH ×2 (10:01→10:12)
[2017-08-27] MEDS: FLUoxetine 20 MG CAPSULE PO SCH (10:01)
[2017-08-27] MEDS: GABAPENTIN 300 MG CAPSULE PO SCH ×2 (10:02→21:17)
[2017-08-27] MEDS: FUROSEMIDE 20 MG TABLET PO SCH (10:02)
[2017-08-27] MEDS: amLODIPine 5 MG TABLET PO SCH (10:02)
[2017-08-27] MEDS: OXcarbazepine 300 MG TABLET PO SCH ×2 (10:03→21:17)
[2017-08-27] MEDS: POTASSIUM CHLORIDE 20 MEQ TABLET PO SCH (10:03)
[2017-08-27] MEDS: INSULIN NPH/REGULAR 70/30 100 UNIT/ML SUBCUT SCH ×2 (10:04→21:16)
[2017-08-27] MEDS: MEROPENEM 500 MG in SYRINGE 1 EACH IV SCH ×2 (10:05→21:15)
[2017-08-27] MEDS: LEVOFLOXACIN INJ 250 MG in PREMIX 1 EACH IV SCH (10:07)
[2017-08-27] MEDS: DOCUSATE SODIUM 100 MG CAPSULE PO SCH ×2 (10:10→21:17)
[2017-08-27] MEDS: BACITRACIN OINT 0.9 GM PACK TOP SCH (10:10)
[2017-08-27] MEDS: cloNIDine 0.1 MG TABLET PO SCH ×2 (10:10→21:17)
[2017-08-27] MEDS: NYSTATIN 500,000 UNIT/5 ML UDCUP SWISH/SWAL SCH ×3 (13:54→21:16)
[2017-08-27] MEDS: ENOXAPARIN 30 MG/0.3 ML SYRINGE SUBCUT SCH (21:16)
[2017-08-27] MEDS: ATORVASTATIN 10 MG TABLET PO SCH (21:17)
[2017-08-28] MEDS: ALBUTEROL/IPRATROPIUM 3 ML NEB RESP TX SCH ×5 (02:57→20:37)
[2017-08-28] MEDS: LEVOTHYROXINE 125 MCG TABLET PO SCH (06:28)
[2017-08-28] MEDS: INSULIN LISPRO 100 UNIT/ML SUBCUT SCH ×4 (08:58→21:46)
[2017-08-28] MEDS: FLUoxetine 20 MG CAPSULE PO SCH (11:01)
[2017-08-28] MEDS: NYSTATIN 500,000 UNIT/5 ML UDCUP SWISH/SWAL SCH ×4 (11:01→21:44)
[2017-08-28] MEDS: POTASSIUM CHLORIDE 20 MEQ TABLET PO SCH (11:02)
[2017-08-28] MEDS: FUROSEMIDE 20 MG TABLET PO SCH (11:02)
[2017-08-28] MEDS: ASPIRIN EC 325 MG TABLET PO SCH (11:02)
[2017-08-28] MEDS: DOCUSATE SODIUM 100 MG CAPSULE PO SCH ×2 (11:02→21:44)
[2017-08-28] MEDS: GABAPENTIN 300 MG CAPSULE PO SCH ×2 (11:02→21:44)
[2017-08-28] MEDS: PANTOPRAZOLE 40 MG TABLET PO SCH ×2 (11:02→11:08)
[2017-08-28] MEDS: OXcarbazepine 300 MG TABLET PO SCH ×2 (11:03→21:46)
[2017-08-28] MEDS: INSULIN NPH/REGULAR 70/30 100 UNIT/ML SUBCUT SCH ×2 (11:03→21:45)
[2017-08-28] MEDS: BACITRACIN OINT 0.9 GM PACK TOP SCH (11:03)
[2017-08-28] MEDS: MEROPENEM 500 MG in SYRINGE 1 EACH IV SCH (11:03)
[2017-08-28] MEDS: cloNIDine 0.1 MG TABLET PO SCH ×2 (11:03→21:46)
[2017-08-28] MEDS: amLODIPine 5 MG TABLET PO SCH (11:03)
[2017-08-28] MEDS: CLINDAMYCIN INJ 600 MG in PREMIX 1 EACH IV SCH ×2 (12:18→17:38)
[2017-08-28] MEDS: SODIUM BICARBONATE 650 MG TABLET PO SCH (21:44)
[2017-08-28] MEDS: ENOXAPARIN 30 MG/0.3 ML SYRINGE SUBCUT SCH (21:45)
[2017-08-28] MEDS: ATORVASTATIN 10 MG TABLET PO SCH (21:46)
[2017-08-29] MEDS: CLINDAMYCIN INJ 600 MG in PREMIX 1 EACH IV SCH ×3 (00:08→11:43)
[2017-08-29] MEDS: ALBUTEROL/IPRATROPIUM 3 ML NEB RESP TX SCH ×7 (00:13→23:03)
[2017-08-29 05:32] LABS: Calcium 8.3 MG/DL (8.5-10.1); Osmolality,Calculated 284.7 MOS/KG (273-304); Thyroid Stimulating Hormone 14.9 uIU/ml (0.358-3.74)
[2017-08-29 06:13] LABS: Basophils # 0.1 10*3/uL (0.0-0.2); Basophils % 0.3 % (0.0-0.8); Eosinophils # 0.8 10*3/uL (0.0-0.87); Eosinophils % 4.6 % (0.00-10.9); Hematocrit 31.4 VOL% (35.7-47.0); Hemoglobin 10.1 GM/DL (12.0-16.0); Immature Granulocytes % 14.7 %; Immature Granulocytes Absolute 2.41 #; Lymphocytes # 1.2 10*3/uL (1.4-4.0); Mean Corpuscular HGB Conc 32.2 GM/DL (32-36); Mean Corpuscular Hemoglobin 29 PG (27-34); Mean Corpuscular Volume 90.2 FL (87-102); Mean Platelet Volume 10.1 FL (9.6-12.0); Monocytes % 5.8 % (1.7-12.7); Neutrophils # 11.1 10*3/uL (1.4-7.4); Neutrophils % 67.6 % (38.7-73.9); Platelet Count 323 T/CUMM (130-400); Red Blood Count 3.48 MC/CUMM (3.8-5.5); Red Cell Distribution Width 17.5 % (9.3-17.3); White Blood Count 16.4 T/CUMM (4-12)
[2017-08-29] MEDS: LEVOTHYROXINE 125 MCG TABLET PO SCH (06:26)
[2017-08-29 08:09] LABS: Band Neutrophils 2 % (0-10); Eosinophils 2 % (0-10); Hypochromasia 2+; Lymphocytes 9 % (20-55); Microcytosis 1+; Myelocytes 1 %; Platelet Estimate Adequate; Segmented Neutrophils 79 % (50-85); Total Cells Counted 100
[2017-08-29] MEDS: INSULIN NPH/REGULAR 70/30 100 UNIT/ML SUBCUT SCH ×2 (09:59→21:46)
[2017-08-29] MEDS: POTASSIUM CHLORIDE 20 MEQ TABLET PO SCH (10:00)
[2017-08-29] MEDS: NYSTATIN 500,000 UNIT/5 ML UDCUP SWISH/SWAL SCH ×4 (10:00→21:47)
[2017-08-29] MEDS: cloNIDine 0.1 MG TABLET PO SCH ×3 (10:00→21:47)
[2017-08-29] MEDS: SODIUM BICARBONATE 650 MG TABLET PO SCH ×2 (10:00→21:47)
[2017-08-29] MEDS: ASPIRIN EC 325 MG TABLET PO SCH (10:00)
[2017-08-29] MEDS: DOCUSATE SODIUM 100 MG CAPSULE PO SCH ×2 (10:00→21:48)
[2017-08-29] MEDS: amLODIPine 5 MG TABLET PO SCH ×2 (10:00→10:06)
[2017-08-29] MEDS: FLUoxetine 20 MG CAPSULE PO SCH (10:01)
[2017-08-29] MEDS: OXcarbazepine 300 MG TABLET PO SCH ×2 (10:01→21:48)
[2017-08-29] MEDS: FUROSEMIDE 20 MG TABLET PO SCH (10:01)
[2017-08-29] MEDS: GABAPENTIN 300 MG CAPSULE PO SCH ×2 (10:01→21:47)
[2017-08-29] MEDS: PANTOPRAZOLE 40 MG TABLET PO SCH ×2 (10:01→10:03)
[2017-08-29] MEDS: LEVOFLOXACIN INJ 250 MG in PREMIX 1 EACH IV SCH (10:02)
[2017-08-29] MEDS: INSULIN LISPRO 100 UNIT/ML SUBCUT SCH ×4 (10:02→21:48)
[2017-08-29] MEDS: DOXYCYCLINE HYCLATE INJ 100 MG in SODIUM CHLORIDE 0.9% 100 ML IV SCH ×2 (14:08→23:56)
[2017-08-29] MEDS: BACITRACIN OINT 0.9 GM PACK TOP SCH (17:33)
[2017-08-29] MEDS: ENOXAPARIN 30 MG/0.3 ML SYRINGE SUBCUT SCH (21:45)
[2017-08-29] MEDS: ATORVASTATIN 10 MG TABLET PO SCH (21:48)
[2017-08-30] MEDS: ALBUTEROL/IPRATROPIUM 3 ML NEB RESP TX SCH ×4 (03:20→20:11)
[2017-08-30] MEDS: LEVOTHYROXINE 125 MCG TABLET PO SCH (06:35)
[2017-08-30 07:00] LABS: Basophils # 0.1 10*3/uL (0.0-0.2); Basophils % 0.4 % (0.0-0.8); Eosinophils # 0.8 10*3/uL (0.0-0.87); Eosinophils % 5.7 % (0.00-10.9); Hematocrit 29.1 VOL% (35.7-47.0); Hemoglobin 9.5 GM/DL (12.0-16.0); Immature Granulocytes % 16.7 %; Immature Granulocytes Absolute 2.22 #; Lymphocytes # 1.2 10*3/uL (1.4-4.0); Lymphocytes % 9.4 % (21.3-54.2); Mean Corpuscular HGB Conc 32.6 GM/DL (32-36); Mean Corpuscular Hemoglobin 29 PG (27-34); Mean Corpuscular Volume 89.3 FL (87-102); Mean Platelet Volume 10.1 FL (9.6-12.0); Monocytes # 0.8 10*3/uL (0.11-0.8); Monocytes % 6.3 % (1.7-12.7); Neutrophils # 8.2 10*3/uL (1.4-7.4); Neutrophils % 61.5 % (38.7-73.9); Platelet Count 312 T/CUMM (130-400); Red Blood Count 3.26 MC/CUMM (3.8-5.5); Red Cell Distribution Width 17.3 % (9.3-17.3); White Blood Count 13.3 T/CUMM (4-12)
[2017-08-30 07:30] LABS: Band Neutrophils 7 % (0-10); Eosinophils 5 % (0-10); Giant Platelets Few; Hypochromasia 1+; Lymphocytes 9 % (20-55); Myelocytes 2 %; Ovalocytes Slight; Platelet Estimate Adequate; Segmented Neutrophils 69 % (50-85); Total Cells Counted 100
[2017-08-30 07:31] LABS: Microcytosis Slight
[2017-08-30 07:33] LABS: Calcium 8.1 MG/DL (8.5-10.1); Osmolality,Calculated 282.8 MOS/KG (273-304)
[2017-08-30] MEDS: INSULIN LISPRO 100 UNIT/ML SUBCUT SCH ×4 (10:02→23:48)
[2017-08-30] MEDS: BACITRACIN OINT 0.9 GM PACK TOP SCH (10:04)
[2017-08-30] MEDS: ASPIRIN EC 325 MG TABLET PO SCH (10:04)
[2017-08-30] MEDS: cloNIDine 0.1 MG TABLET PO SCH ×2 (10:04→23:47)
[2017-08-30] MEDS: DOCUSATE SODIUM 100 MG CAPSULE PO SCH ×2 (10:05→23:45)
[2017-08-30] MEDS: INSULIN NPH/REGULAR 70/30 100 UNIT/ML SUBCUT SCH ×2 (10:05→23:56)
[2017-08-30] MEDS: POTASSIUM CHLORIDE 20 MEQ TABLET PO SCH (10:05)
[2017-08-30] MEDS: FUROSEMIDE 20 MG TABLET PO SCH (10:06)
[2017-08-30] MEDS: NYSTATIN 500,000 UNIT/5 ML UDCUP SWISH/SWAL SCH ×5 (10:06→23:59)
[2017-08-30] MEDS: GABAPENTIN 300 MG CAPSULE PO SCH ×2 (10:07→23:43)
[2017-08-30] MEDS: FLUoxetine 20 MG CAPSULE PO SCH (10:08)
[2017-08-30] MEDS: amLODIPine 5 MG TABLET PO SCH (10:08)
[2017-08-30] MEDS: PANTOPRAZOLE 40 MG TABLET PO SCH (10:08)
[2017-08-30] MEDS: SODIUM BICARBONATE 650 MG TABLET PO SCH ×2 (10:09→23:45)
[2017-08-30] MEDS: OXcarbazepine 300 MG TABLET PO SCH ×2 (10:09→23:46)
[2017-08-30] MEDS: DOXYCYCLINE HYCLATE INJ 100 MG in SODIUM CHLORIDE 0.9% 100 ML IV SCH ×2 (10:10→23:44)
[2017-08-30] MEDS: FLUCONAZOLE 100 MG TABLET PO SCH (10:17)
[2017-08-30] MEDS: traMADol 50 MG TABLET PO PRN (18:05)
[2017-08-30] MEDS: ATORVASTATIN 10 MG TABLET PO SCH (23:47)
[2017-08-30] MEDS: ENOXAPARIN 30 MG/0.3 ML SYRINGE SUBCUT SCH (23:49)
[2017-08-30] MEDS: LORazepam 0.5 MG TABLET PO PRN (23:55)
[2017-08-31] MEDS: ALBUTEROL/IPRATROPIUM 3 ML NEB RESP TX SCH ×7 (00:02→23:40)
[2017-08-31 08:58] LABS: Basophils # 0.2 10*3/uL (0.0-0.2); Eosinophils # 0.8 10*3/uL (0.0-0.87); Eosinophils % 5.1 % (0.00-10.9); Hematocrit 30.4 VOL% (35.7-47.0); Hemoglobin 10.1 GM/DL (12.0-16.0); Immature Granulocytes % 13.3 %; Lymphocytes # 1.2 10*3/uL (1.4-4.0); Lymphocytes % 7.5 % (21.3-54.2); Mean Corpuscular HGB Conc 33.2 GM/DL (32-36); Mean Corpuscular Hemoglobin 29 PG (27-34); Mean Corpuscular Volume 88.1 FL (87-102); Mean Platelet Volume 10.1 FL (9.6-12.0); Monocytes % 6.1 % (1.7-12.7); Neutrophils # 10.6 10*3/uL (1.4-7.4); Platelet Count 356 T/CUMM (130-400); Red Blood Count 3.45 MC/CUMM (3.8-5.5); White Blood Count 15.8 T/CUMM (4-12)
[2017-08-31] MEDS: LEVOTHYROXINE 125 MCG TABLET PO SCH (09:04)
[2017-08-31] MEDS: INSULIN LISPRO 100 UNIT/ML SUBCUT SCH ×4 (09:04→22:17)
[2017-08-31] MEDS: cloNIDine 0.1 MG TABLET PO SCH ×2 (09:05→22:09)
[2017-08-31] MEDS: ASPIRIN EC 325 MG TABLET PO SCH (09:05)
[2017-08-31] MEDS: DOCUSATE SODIUM 100 MG CAPSULE PO SCH ×2 (09:05→22:09)
[2017-08-31] MEDS: BACITRACIN OINT 0.9 GM PACK TOP SCH (09:05)
[2017-08-31] MEDS: POTASSIUM CHLORIDE 20 MEQ TABLET PO SCH (09:06)
[2017-08-31] MEDS: FLUCONAZOLE 100 MG TABLET PO SCH (09:06)
[2017-08-31] MEDS: INSULIN NPH/REGULAR 70/30 100 UNIT/ML SUBCUT SCH ×2 (09:06→22:17)
[2017-08-31] MEDS: FUROSEMIDE 20 MG TABLET PO SCH (09:07)
[2017-08-31] MEDS: NYSTATIN 500,000 UNIT/5 ML UDCUP SWISH/SWAL SCH ×4 (09:07→22:11)
[2017-08-31] MEDS: amLODIPine 5 MG TABLET PO SCH (09:08)
[2017-08-31] MEDS: PANTOPRAZOLE 40 MG TABLET PO SCH (09:08)
[2017-08-31] MEDS: GABAPENTIN 300 MG CAPSULE PO SCH ×2 (09:08→22:09)
[2017-08-31] MEDS: FLUoxetine 20 MG CAPSULE PO SCH (09:09)
[2017-08-31] MEDS: SODIUM BICARBONATE 650 MG TABLET PO SCH ×2 (09:09→22:07)
[2017-08-31] MEDS: OXcarbazepine 300 MG TABLET PO SCH ×2 (09:10→22:08)
[2017-08-31] MEDS: DOXYCYCLINE HYCLATE INJ 100 MG in SODIUM CHLORIDE 0.9% 100 ML IV SCH ×2 (09:10→22:19)
[2017-08-31 09:23] LABS: Band Neutrophils 4 % (0-10); Eosinophils 10 % (0-10); Hypochromasia 1+; Lymphocytes 7 % (20-55); Metamyelocytes 3 %; Microcytosis 1+; Segmented Neutrophils 69 % (50-85); Total Cells Counted 100
[2017-08-31 09:32] LABS: Calcium 7.8 MG/DL (8.5-10.1); Osmolality,Calculated 288.7 MOS/KG (273-304); Potassium 4.3 MMOL/L (3.5-5.1)
[2017-08-31] MEDS ORDERED: hydrALAZINE 25 MG TABLET ONE (21:19)
[2017-08-31] MEDS: ENOXAPARIN 30 MG/0.3 ML SYRINGE SUBCUT SCH (22:11)
[2017-08-31] MEDS: ATORVASTATIN 10 MG TABLET PO SCH (22:14)
[2017-09-01] MEDS: LORazepam 0.5 MG TABLET PO PRN (00:40)
[2017-09-01] MEDS: ALBUTEROL/IPRATROPIUM 3 ML NEB RESP TX SCH ×4 (04:20→16:18)
[2017-09-01] MEDS: DOXYCYCLINE HYCLATE INJ 100 MG in SODIUM CHLORIDE 0.9% 100 ML IV SCH (10:45)
[2017-09-01] MEDS: INSULIN NPH/REGULAR 70/30 100 UNIT/ML SUBCUT SCH (10:48)
[2017-09-01] MEDS: FUROSEMIDE 20 MG TABLET PO SCH (10:50)
[2017-09-01] MEDS: NYSTATIN 500,000 UNIT/5 ML UDCUP SWISH/SWAL SCH ×2 (10:50→15:08)
[2017-09-01] MEDS: OXcarbazepine 300 MG TABLET PO SCH (10:50)
[2017-09-01] MEDS: PANTOPRAZOLE 40 MG TABLET PO SCH (10:51)
[2017-09-01] MEDS: POTASSIUM CHLORIDE 20 MEQ TABLET PO SCH (10:51)
[2017-09-01] MEDS: FLUoxetine 20 MG CAPSULE PO SCH (10:51)
[2017-09-01] MEDS: amLODIPine 5 MG TABLET PO SCH (10:51)
[2017-09-01] MEDS: GABAPENTIN 300 MG CAPSULE PO SCH (10:52)
[2017-09-01] MEDS: ASPIRIN EC 325 MG TABLET PO SCH (10:52)
[2017-09-01] MEDS: cloNIDine 0.1 MG TABLET PO SCH (10:52)
[2017-09-01] MEDS: LEVOTHYROXINE 125 MCG TABLET PO SCH (10:52)
[2017-09-01] MEDS: FLUCONAZOLE 100 MG TABLET PO SCH (10:53)
[2017-09-01] MEDS: DOCUSATE SODIUM 100 MG CAPSULE PO SCH (10:53)
[2017-09-01] MEDS: INSULIN LISPRO 100 UNIT/ML SUBCUT SCH ×2 (10:53→15:08)
[2017-09-01] MEDS: BACITRACIN OINT 0.9 GM PACK TOP SCH (10:53)
[2017-09-01] MEDS: SODIUM BICARBONATE 650 MG TABLET PO SCH (10:54)
[2017-09-01 17:02] VITALS: BP 120/83
== END 2017-09-01 17:30 | disposition home health service (06) | DRG 178 ==
LOC: N.2E 12:29
PROVIDERS: ADMIT Internal Medicine; ATTEND Internal Medicine